=== PATIENT | female | born 1950 | race Caucasian/White ===

== ENCOUNTER → 2017-09-29 08:31 | Outpatient (CLI) | payer MEDICARE, SELFPAY ==
[2017-09-29 10:46] LABS: Anion Gap 6 (5-15); BUN 9 mg/dL (7-18); BUN/Creat Ratio 11.7 RATIO (10-20); Calcium,Total 8.8 mg/dL (8.5-10.1); Chloride 104 mmol/L (98-107); Creatinine, Serum 0.77 mg/dL (0.55-1.02); EST Glomerular Filtration Rate 80 mL/min (>60); Est Glom Filt Rate - Afr Amer 97 mL/min (>60); Glucose 123 mg/dL (74-106); Potassium 3.8 mmol/L (3.5-5.1); Sodium Level 136 mmol/L (136-145); Thyroid Stim Hormone (TSH) 0.87 uIU/mL (0.358-3.74)
== END ==
PROVIDERS: Family Provider Family Medicine; PCP Family Medicine; Visit Provider Family Medicine
DX: I10 Essential (primary) hypertension (principal); E03.9 Hypothyroidism, unspecified
CPT/HCPCS: 36415; 80048; 84443

== ENCOUNTER 2017-11-04 09:30 | Outpatient (RCR) | payer MEDICARE, SELFPAY ==
--- NOTE | 2017-10-26 11:05 | HP.PTEVAL_ITS ---
Patient's Visit Information RIOS GROVER is a 67 year old F referred to Physical Therapy by Ashley Samayoa MD with a diagnosis of LOW BACK PAIN. Date of Evaluation: 10/26/17 Physical Therapist: Luciana Goss - Visit Plan Frequency: 2-3x /Week Duration: 4-6 Weeks Plan: POSTURE CORRECTION/STRENGTHENING, INSTRUCTION IN APPROPRIATE BODY MECHANICS AND ACTIVITY MODIFICATIONS. DLS STARTING WITH A NEUTRAL SPINE PROGRESSING ROM TOLERATED. ALENA LE ROM, STRETCHING AND STRENGTHENING. HEP INSTRUCTION. - Subjective Subjective: Work/Leisure: RETIRED. Disability: NO. Present symptoms: LEFT LOW BACK, LEFT THIGH, LEFT LEG AND LEFT FOOT. LEFT TOES ARE NUMB. Present since: LAST TUESDAY. Pain Scale: WORST 8/10, LEAST 7/10. Currently: /10. Commenced as a result of: NO APPARENT REASON BUT ABOUT Oct SHE STARTED TO TRY TO INCREASE HER ACTIVITY BECAUSE TOLD HE IS BORDERLINE DIABETIC. SHE WAS JUST BASICALLY TRYING TO MOVE MORE. SHE ISN'T SURE IF SHE TRIED TO DO TOO MUCH TOO QUICK OR NOT. PATIENT ALSO REPORTS SHE WAS GOING UP THE STEPS TUESDAY AND HER 70 LB DOG JERKED HER TO THE RIGHT ON TUESDAY BUT SHE DIDN'T FALL. Symptoms at onset: MILD LOW BACK ACHE. Worse: SITTING, RISING FROM SITTING, WALKING, STANDING, AND TRYING TO SLEEP IS THE WORST. Better: NOTHING. Disturbed sleep : YES. Previous history: CHRONIC EPISODIC LBP SINCE THE DUE TO AN ACCIDENT INVOLVING 900 LBS OF BOXES HITTING HER BACK AT WORK. NO BACK SURGERY. WORK CONDITIONING AFTER THE ACCIDENT. CHIROPRACTOR A LONG TIME AGO. NO RECENT PT. RECEIVED A STEROID SHOT IN DR. SAMAYOA'S OFFICE LAST TUESDAY BUT PATIENT REPORTS IT DID NOT HELP. Coughing/sneezing/straining: POSITIVE. Difficulty initiating urinatin: NO. Accidents: NO OTHERS. Unexplained weight loss: NO. Imaging: NO RECENT IMAGING. PMH: THYROID DZ. SMOKER. Recent major surgery: REMOTE FEMALE SURGERIES. OTHER: DR. SAMAYOA PRESCRIBED 3 IBUPROFEN 3 TIMES A DAY. NO OTHER MEDS ORDERED. - Objective Sitting/Standing Posture: POOR. Lordosis: REDUCED. Lateral shift: YES - RIGHT. Relevant shift: YES. Active Correction of posture: BETTER. Other Observations: BARELY ABLE TO TRANSFER SIT TO STAND WITHOUT UE ASSIST. INDEP VERY ANTALGIC SLOW GAIT INTO PT WITH DECREASED ALENA STRIDE LENGTH, NO AD AND LIMPING ON THE LLE WITH A RIGHT SHIFT. Motor deficit: RIGHT LE: HIP 4-/5, KNEE EXT 5/5, KNEE FLEX 5/5, ANKLE 5/5, EHL 5/5. LLE: HIP 3/5, KNEE EXT 4/5, KNEE FLEX 4/5, ANKLE 4/5 EHL 4/5. Sensory deficit: DECREASED LIGHT TOUCH SENSATION OF LEFT LATERAL THIGH, LEG AND THE TOES ON LEFT COMPARED TO RIGHT. ROM deficit: ALENA L. Reflexes: ALENA LE'S 2/3. Dural Signs: POSITIVE LLE. Lumbar mvmt loss: flex - MOD. ext - FLORY. R SG - MOD. L SG - FLORY. Core strength: POOR. Palpation: TENDERNESS WITH LIGHT PALPATION OF THE ENTIRE LUMBAR SPINE, SACRAL AREA AND TO TAILBONE. OTHER: MUCH IMPROVED GAIT UPON DEPARTURE AFTER THER. ACTIVITIES. - Goals Goal 1:: DECREASE C/O LOW BACK AND LLE SX'S Goal Time Frame: 4-6 Weeks Goal 2:: IMPROVE SITTING, STANDING, WALKING, RISING FROM SITTING, PERSONAL CARE , SLEEP, SOCIAL LIFE, TRAVEL AND HOMEMAKING FUNCTION Goal Time Frame: 4-6 Weeks Goal 3:: INSTRUCT IN PROPHYLAXIS Goal Time Frame: 4-6 Weeks - Rehabilitation Potential Rehabilitation Potential: Fair - Anticipated Interventions Patient/Client Instruction: Educate patient on: Condition, Plan of Care, Risk Factors, Benefits of Fitness Program For the Purpose of:: To improve self management Therapeutic Exercise to Include: Strength training, Body mechanics, Postural training, Flexibilty training, Gait and locomotor training, Active ROM, Dynamic Lumbar Stabilization For the Purpose of:: To decrease pain, To improve muscle performance and motor function, To increase tolerance to activity/condition/position, To improve ability of physical actions for home/community/work/leisure, To improve gait and locomotor functions Thank you for the opportunity to evaluate your patient. For Medicare and Medicare HMO plans, please review the plan of care and approve it. It will need to be FAXED BACK to us at [phone] for Medicare purposes. Please let me know if there are questions or concerns regarding this plan of care. Physician Signature: Date:
--- NOTE | 2017-12-01 13:10 | HP.PTDCNRP_ITS ---
HP - Discharge Summary (1) - Patient Information RIOS GROVER was seen in my office for initial evaluation on 10/26/17. The following Plan of Care was established for this patient: Initial Frequency: 2-3x /Week Initial Duration: 4-6 Weeks - Anticipated Interventions Patient/Client Instruction: Educate patient on: Condition, Plan of Care, Risk Factors, Benefits of Fitness Program For the Purpose of:: To improve self management Therapeutic Exercise to Include: Strength training, Body mechanics, Postural training, Flexibilty training, Gait and locomotor training, Active ROM, Dynamic Lumbar Stabilization For the Purpose of:: To decrease pain, To improve muscle performance and motor function, To increase tolerance to activity/condition/position, To improve mariah lity of physical actions for home/community/work/leisure, To improve gait and locomotor functions This patient was last seen in our office 11/04/17. Pertinent comments regarding their Physical therapy will appear below: This patient has not returned to Physical Therapy and is appropriate to return to MD for further follow-up as needed. At this point I will be discontinuing this patient from physical therapy. I would be happy to see this patient again in the future if found appropriate by the physician. Thank you! Luciana Goss
== END 2017-11-04 19:00 | disposition home or self-care (01) ==
LOC: PT 09:30
PROVIDERS: Family Provider Family Medicine; PCP Family Medicine; Visit Provider Family Medicine
DX: M54.5 Low back pain (principal)
CPT/HCPCS: 97035; 97140; 97162; 97530

== ENCOUNTER → 2018-02-03 08:36 | Outpatient (CLI) | payer MEDICARE, SELFPAY ==
[2018-02-03 10:25] LABS: Glucose 99 mg/dL (74-106); Hemoglobin A1c 5.7 % (4.2-6.3)
--- OUTSIDE RECORDS SUMMARY | 2018-03-31 03:19 | XMS RPT_ITS ---
:1950 Author Organization [facility] Care Team Providers Name Role Phone Rob Rivas Attending Unavailable Rob Rivas Primary Care Unavailable Ashley Samayoa Attending Unavailable Ashley Samayoa Referring Unavailable Rob Rivas Primary Care Unavailable Rob Rivas Attending Unavailable Rob Rivas Primary Care Unavailable PROBLEMS PROBLEMS DATE TYPE CONDITION / CODE ATTENDING STATUS SOURCE 12/01/2017 Unknown M54.5 - Low back Ashley Samayoa Active [place] pain / M54.5(ICD-10) [facility] Repository 09/29/2017 Unknown I10 - Essential Rob Rivas Active [place] (primary) [facility] hypertension / Hospital I10(ICD-10) Repository 09/29/2017 Unknown 401.1 - Benign Rob Rivas Active [place] essential [facility] hypertension / Hospital 401.1(ICD-9) Repository 09/29/2017 Unknown E03.9 - RivasRob Active [place] Hypothyroidism, [facility] unspecified / Hospital E03.9(ICD-10) Repository 09/29/2017 Unknown 244.9 - Unspecified RivasRob Active [place] acquired [facility] hypothyroidism / Hospital 244.9(ICD-9) Repository PROCEDURES PROCEDURES No Procedure Records FoundRESULTS RESULTS GLUCOSE Collected: 02/03/2018 Status: F Source: [place] 8:39 AM PENDING SALE TO [facility] REPOSITORY Order Comment: Order Date: 10/10/17 Order Info: 2345-7 - GLU TYPE CODE TESTS RESULT OUT OF RANGE REFERENCE UNITS LAB L501.0100 74-106 mg/dL Normal GLU 99 Result Comment: Please note revised GLUCOSE reference range effective 2017. Performed By: #### L501.0100, L501.9985 #### [facility] [address] [place], [address] HEMOGLOBIN A1C Collected: 02/03/2018 Status: F Source: [place] 8:39 AM [facility] REPOSITORY Order Comment: Order Date: 10/10/17 Order Info: [id number] - A1C TYPE CODE TESTS RESULT OUT OF RANGE REFERENCE UNITS LAB L501.9985 4.2-6.3 % Normal HGB A1C 5.7 Performed By: #### L501.0100, L501.9985 #### [facility] [address] [place], [address] INITAL EVALUATION (1) Observed: 10/26/2017 Status: F Source: [place] - PT 2:15 PM [facility] REPOSITORY [facility] [address] [place] [address]. [address] [place], [place] [address] Fax REHABILITATION SERVICES INITIAL EVALUATION MR#: [id number] Acct: [id number] Name: RIOS GROVER Rep #: [id number] : 1950 67 From: Luciana Goss PT, Cert. MDT Referring Dr.: Ashley Samayoa MD Status: [facility] Insurance: [employer]ARE SELF PAY INSURANCE Patient's Visit Information RIOS GROVER is a 67 year old F referred to Physical Therapy by Ashley Samayoa MD with a diagnosis of LOW BACK PAIN. Date of Evaluation: 10/26/17 Physical Therapist: Luciana Goss - Visit Plan Frequency: 2-3x /Week Duration: 4-6 Weeks Plan: POSTURE CORRECTION/STRENGTHENING, INSTRUCTION IN APPROPRIATE BODY MECHANICS AND ACTIVITY MODIFICATIONS. DLS STARTING WITH A NEUTRAL SPINE PROGRESSING ROM TOLERATED. ALENA LE ROM, STRETCHING AND STRENGTHENING. HEP INSTRUCTION. - Subjective Subjective: Work/Leisure: RETIRED. Disability: NO. Present symptoms: LEFT LOW BACK, LEFT THIGH, LEFT LEG AND LEFT FOOT. LEFT TOES ARE NUMB. Present since: LAST TUESDAY. Pain Scale: WORST 8/10, LEAST 7/10. Currently: 8/10. Commenced as a result of: NO APPARENT REASON BUT ABOUT Oct SHE STARTED TO TRY TO INCREASE HER ACTIVITY BECAUSE TOLD HE IS BORDERLINE DIABETIC. SHE WAS JUST BASICALLY TRYING TO MOVE MORE. SHE ISN'T SURE IF SHE TRIED TO DO TOO MUCH TOO QUICK OR NOT. PATIENT ALSO REPORTS SHE WAS GOING UP THE STEPS TUESDAY AND HER 70 LB DOG JERKED HER TO THE RIGHT ON TUESDAY BUT SHE DIDN'T FALL. Symptoms at onset: MILD LOW BACK ACHE. Worse: SITTING, RISING FROM SITTING, WALKING, STANDING, AND TRYING TO SLEEP IS THE WORST. Better: NOTHING. Disturbed sleep: YES. Previous history: CHRONIC EPISODIC LBP SINCE THE DUE TO AN ACCIDENT INVOLVING 900 LBS OF BOXES HITTING HER BACK AT WORK. NO BACK SURGERY. WORK CONDITIONING AFTER THE ACCIDENT. CHIROPRACTOR A LONG TIME AGO. NO RECENT PT. RECEIVED A STEROID SHOT IN DR. SAMAYOA'S OFFICE LAST TUESDAY BUT PATIENT REPORTS IT DID NOT HELP. Coughing/sneezing/straining: POSITIVE. Difficulty initiating urinatin: NO. Accidents: NO OTHERS. Unexplained weight loss: NO. Imaging: NO RECENT IMAGING. PMH: THYROID DZ. SMOKER. Recent major surgery: REMOTE FEMALE SURGERIES. OTHER: DR. SAMAYOA PRESCRIBED 3 IBUPROFEN 3 TIMES A DAY. NO OTHER MEDS ORDERED. - Objective Sitting/Standing Posture: POOR. Lordosis: REDUCED. Lateral shift: YES - RIGHT. Relevant shift: YES. Active Correction of posture: BETTER. Other Observations: BARELY ABLE TO TRANSFER SIT TO STAND WITHOUT UE ASSIST. INDEP VERY ANTALGIC SLOW GAIT INTO PT WITH DECREASED ALENA STRIDE LENGTH, NO AD AND LIMPING ON THE LLE WITH A RIGHT SHIFT. Motor deficit: RIGHT LE: HIP 4-/5, KNEE EXT 5/5, KNEE FLEX 5/5, ANKLE 5/5, EHL 5/5. LLE: HIP 3/5, KNEE EXT 4/5, KNEE FLEX 4/5, ANKLE 4/5 EHL 4/5. Sensory deficit: DECREASED LIGHT TOUCH SENSATION OF LEFT LATERAL THIGH, LEG AND THE TOES ON LEFT COMPARED TO RIGHT. ROM deficit: ALENA L. Reflexes: ALENA LE'S 2/3. Dural Signs: POSITIVE LLE. Lumbar mvmt loss: flex - MOD. ext - FLORY. R SG - MOD. L SG - FLORY. Core strength: POOR. Palpation: TENDERNESS WITH LIGHT PALPATION OF THE ENTIRE LUMBAR SPINE, SACRAL AREA AND TO TAILBONE. OTHER: MUCH IMPROVED GAIT UPON DEPARTURE AFTER THER. ACTIVITIES. - Goals Goal 1:: DECREASE C/O LOW BACK AND LLE SX'S Goal Time Frame: 4-6 Weeks Goal 2:: IMPROVE SITTING, STANDING, WALKING, RISING FROM SITTING, PERSONAL CARE, SLEEP, SOCIAL LIFE, TRAVEL AND HOMEMAKING FUNCTION Goal Time Frame: 4-6 Weeks Goal 3:: INSTRUCT IN PROPHYLAXIS Goal Time Frame: 4-6 Weeks - Rehabilitation Potential Rehabilitation Potential: Fair - Anticipated Interventions Patient/Client Instruction: Educate patient on: Condition, Plan of Care, Risk Factors, Benefits of Fitness Program For the Purpose of:: To improve self management Therapeutic Exercise to Include: Strength training, Body mechanics, Postural training, Flexibilty training, Gait and locomotor training, Active ROM, Dynamic Lumbar Stabilization For the Purpose of:: To decrease pain, To improve muscle performance and motor function, To increase tolerance to activity/condition/position, To improve ability of physical actions for home/community/work/leisure, To improve gait and locomotor functions Thank you for the opportunity to evaluate your patient. For Medicare and Medicare HMO plans, please review the plan of care and approve it. It will need to be FAXED BACK to us at [phone] for Medicare purposes. Please let me know if there are questions or concerns regarding this plan of care. Physician Signature: Date: <Electronically signed by Luciana Goss PT, Cert. MDT> 10/26/17 1415 CC: Ashley Samayoa MD; Rob Rivas MD HOME Signed For Medicare only, by signing this I certify the plan of care. Physicians Signature Date BASIC METABOLIC Collected: 09/29/2017 Status: F Source: [place] PROFILE (BMP) 8:33 AM [facility] REPOSITORY Order Comment: Order Date: 04/12/17 Order Info: [id number] - BMP Order Info: 3016-3 - TSH TYPE CODE TESTS RESULT OUT OF RANGE REFERENCE UNITS LAB L501.0100 74-106 mg/dL High GLU 123 Result Comment: Fasting Glucose result from 100 to 125 mg/dL suggests IMPAIRED HOMEOSTASIS per A.D.A. criteria. Please note revised GLUCOSE reference range effective 2017. LAB L501.1000 7-18 mg/dL Normal BUN 9 LAB L501.1100 0.55-1.02 mg/dL Normal CREAT,SERUM 0.77 Result Comment: The validity of the calculated GFR AND GFRAA in patients over 70 years has not been determined. Clinical correlation is essential. LAB L501.1110 >60 mL/min Normal EST GFR 80 Result Comment: Non- GFR Calc LAB L501.1115 >60 mL/min Normal EST GFR - AA 97 Result Comment: GFR Calc LAB L501.1300 10-20 RATIO Normal BUN/CRE 11.7 LAB L501.2200 8.5-10.1 mg/dL CA Normal 8.8 LAB L501.5300 136-145 mmol/L NA Normal 136 LAB L501.5600 3.5-5.1 mmol/L K Normal 3.8 LAB L501.5900 98-107 mmol/L CL Normal 104 LAB L501.6100 21.0-32.0 mmol/L Normal CO2 26.0 LAB L501.6200 5-15 Normal GAP 6 Performed By: #### L500.2500, L501.9520 #### [facility] [address] [facility] [address]. [place], [place], [address] THYROID STIM HORMONE Collected: 09/29/2017 Status: F Source: [place] (TSH) 8:33 AM [facility] REPOSITORY Order Comment: Order Date: 04/12/17 Order Info: [id number] - BMP Order Info: 3016-3 - TSH TYPE CODE TESTS RESULT OUT OF RANGE REFERENCE UNITS LAB L501.9520 0.358-3.74 uIU/mL Normal TSH 0.87 Performed By: #### L500.2500, L501.9520 #### [facility] [address] [facility] [place], [address] ALLERGIES ALLERGIES No Allergies Records FoundENCOUNTERS ENCOUNTERS ADMIT/DISCHARGE ACCOUNT ADMITTING ENCOUNTER LOCATION SOURCE NUMBER CLASS 02/03/2018 [id number] Ambulatory [place] 0 [facility] ing:MFPLAB Repository 11/04/2017/ [id number] Ambulatory [place] 8 0 [facility] ing:PT Repository 09/29/2017 [id number] Ambulatory [place] 4 [facility] ing:MFPLAB Repository PAYERS PAYERS ENCOUNTER GUARANTOR PAYER SUBSCRIBER SOURCE 02/03/2018 RIOS David Primary RIOS Taylor [id number] [facility] [place] MEDICAREPolicy [id number] Number: Repository [address]Gyf: 330 [id number] [phone] (HP) Date:[id number] [place] [address] 730[address]EV: 02/03/2018 Secondary NOT GIVENUNK [place] Insurance:SELF PAY [facility] Number: Effective Repository Date:2018-02-03 11/04/2017 RIOS David Primary RIOS Taylor [id number] Insurance:[facility] FRANKAZOB: Community [place] MEDICAREPolicy [id number] Number: Repository [id number]: 330 [id number] [phone] (HP) Date:[id number] [address] [place] [address] 19591JN: 11/04/2017 Secondary NOT GIVENUNK [place] Insurance:SELF PAY [facility] Number: Effective Repository Date:2017-10-25 09/29/2017 RIOS David Primary RIOS Taylor [id number] Insurance[facility] CARE FRANK[place]OB: Community [place] MEDICAREPolicy [id number] Number: Repository [id number]: 330 [id number] [phone] (HP) Date:[id number] [place] [address] [id number]: 09/29/2017 Secondary NOT GIVENUNK [place] Insurance:SELF PAY [facility] Effective Repository Date:2017-09-29
== END ==
PROVIDERS: Family Provider Family Medicine; PCP Family Medicine; Visit Provider Family Medicine
DX: R73.03 Prediabetes (principal)
CPT/HCPCS: 36415; 82947; 83036

== ENCOUNTER → 2018-05-18 08:16 | Outpatient (CLI) | payer MEDICARE, SELFPAY ==
--- NOTE | 2018-05-18 08:19 | BI_ITS ---
MAMMOGRAPHY - BILATERAL SCREENING REASON FOR EXAM: Female, 68 years old. Routine annual screening examination. PERTINENT HISTORY: Aunts with breast cancer. TECHNIQUE: Digital bilateral breast pop (3D mammographic acquisition) in the CC and MLO projections. 2-D mediolateral oblique (MLO) and craniocaudad (CC) views of both breasts were obtained. CAD: Full Field Digital Mammography with Computer Added Detection was performed. COMPARISON: Comparison is made with prior study dated October 10, 2014 and December 29, 2011. FINDINGS: Breast Composition: There are scattered areas of fibroglandular density. There are no dominant masses or suspicious calcifications. No other significant abnormalities are identified. There has been no significant change since the prior study. BI/SCREENING MAMM (CAD), BILAT IMPRESSION: Stable bilateral screening mammogram. Yearly follow-up mammogram recommended. (A) ASSESSMENT CATEGORY: BIRADS Category 1: Negative. A letter regarding these results will be sent to the patient by the facility within 30 days. Approximately 10% of breast cancers are not detected by mammography. A normal mammogram should not delay biopsy of a clinically suspicious abnormality. [id number] Electronically Signed: Juan C Dubon, at 10:20 EDT , Service support ,
== END ==
PROVIDERS: Family Provider Family Medicine; PCP Family Medicine; Referring Provider Family Medicine; Visit Provider Family Medicine
DX: Z12.31 Encounter for screening mammogram for malignant neoplasm of breast (principal)
CPT/HCPCS: 77063; 77067

== ENCOUNTER → 2018-08-03 | Outpatient (CLI) | payer MEDICARE, SELFPAY ==
[2018-08-03 11:01] LABS: BUN 10 mg/dL (7-18); Creatinine, Serum 0.72 mg/dL (0.55-1.02); Glucose 104 mg/dL (74-106)
[2018-08-03 11:02] LABS: Anion Gap 7 (5-15); BUN/Creat Ratio 13.8 RATIO (10-20); Calcium,Total 8.9 mg/dL (8.5-10.1); Chloride 106 mmol/L (98-107); Cholesterol 179 mg/dL (200); EST Glomerular Filtration Rate 86 mL/min (>60); Est Glom Filt Rate - Afr Amer 104 mL/min (>60); High Density Lipoprotein 32 mg/dL; Potassium 4.3 mmol/L (3.5-5.1); Sodium Level 137 mmol/L (136-145); Thyroid Stim Hormone (TSH) 0.13 uIU/mL (0.358-3.74); Triglycerides 138 mg/dL; Very Low Density Lipoprotein 28 mg/dL (5-40)
[2018-08-03 12:03] LABS: Hemoglobin A1c 5.8 % (4.2-6.3)
== END | disposition home or self-care (01) ==
LOC: MFPLAB 08:42
PROVIDERS: Family Provider Family Medicine; PCP Family Medicine; Referring Provider Family Medicine; Visit Provider Family Medicine
DX: I10 Essential (primary) hypertension (principal); E03.9 Hypothyroidism, unspecified; R73.03 Prediabetes; E78.00 Pure hypercholesterolemia, unspecified
CPT/HCPCS: 36415; 80048; 80061; 83036; 84443

== ENCOUNTER → 2018-11-08 | Outpatient (CLI) | payer MEDICARE, SELFPAY ==
[2018-11-08 10:49] LABS: T4 Total, Thyroxin 13.7 ug/dL (4.8-13.9); Thyroid Stim Hormone (TSH) 0.06 uIU/mL (0.358-3.74)
== END | disposition home or self-care (01) ==
LOC: MFPLAB 09:08
PROVIDERS: Family Provider Family Medicine; PCP Family Medicine; Referring Provider Family Medicine; Visit Provider Family Medicine
DX: E03.9 Hypothyroidism, unspecified (principal)
CPT/HCPCS: 36415; 84436; 84443

== ENCOUNTER → 2018-11-21 | Outpatient (CLI) | payer MEDICARE, SELFPAY | END | disposition home or self-care (01) | LOC: LABSPEC 15:45 | PROVIDERS: Family Provider Family Medicine; PCP Family Medicine; Referring Provider Family Medicine; Visit Provider Family Medicine | DX: L02.411 Cutaneous abscess of right axilla (principal) | CPT/HCPCS: 87070; 87205 ==

== ENCOUNTER → 2018-12-13 | Outpatient (CLI) | payer MEDICARE, SELFPAY ==
[2018-12-13 08:23] LABS: Bacteria 0 SEEN /hpf (None Seen); White Blood Cells 0 SEEN /hpf (0-5)
[2018-12-13 10:12] LABS: Color, Urine Yellow (Yellow); Glucose, Dipstick Normal (Normal); Ketone-Dipstick Negative (Negative); Leukocyte Esterase-Dipstick Negative /ul (Negative); Nitrite-Dipstick Negative (Negative); Occult Blood-Urine 50 /ul (Negative); Protein-Dipstick Negative (Negative); Specific Gravity, Urine 1.025 (1.002-1.030); Urine Bilirubin Dipstick Negative (Negative); Urine Clarity Clear (Clear); Urine Urobilinogen Normal (Normal)
[2018-12-13 10:14] LABS: Absolute Neutrophil Count 5.1 X10^3/uL (2.0-7.7); Basophil# 0.07 X10^3/uL; Basophil% 0.9 % (0-1); Eosinophil# 0.19 X10^3/uL; Eosinophils% 2.4 % (0-5); Hematocrit 45.9 % (37-47); Hemoglobin 15.2 g/dL (12.0-15.0); Lymphocyte % 26.1 % (19-41); Mean Corp Hgb Conc 33.1 g/dL (32-36); Mean Corpuscular Hgb 30.2 pg (27.0-32.0); Mean Corpuscular Volume 91.1 fL (81-99); Mean Platelet Vol. 9.3 fl (6.2-12.0); Monocyte# 0.62 X10^3/uL; Monocyte% 7.7 % (0-10); NRBC Flagged by Analyzer 0 % (0-5); Neutrophil # 5.05 X10^3/uL (2.7-7.7); Neutrophil % 62.5 % (47-70); Platelet Count 306 K/mm3 (150-450); RBC Distribution Width CV 11.9 % (11.6-14.6); RBC Distribution Width SD 39.5 fl (35.1-43.9); Red Blood Count 5.04 M/mm3 (4.2-5.4); White Blood Count 8.1 K/mm3 (4.4-11.0)
[2018-12-13 10:25] LABS: Mucous, Urine 1+ /hpf (<or=2+); Red Blood Cells-Urine 0-5 SEEN /hpf (0-5); Squamous Epithelial Cells - UA 0-5 SEEN /hpf (5-10)
[2018-12-13 10:39] LABS: Hemoglobin A1c 5.4 % (4.2-6.3)
[2018-12-13 10:45] LABS: ALB/GLOB Ratio 0.7 RATIO (0.9-2.4); AST(SGOT) 32 U/L (15-37); Alanine Aminotransfer ALT/SGPT 37 U/L (13-56); Albumin, Serum 3.5 g/dL (3.2-5.0); Alkaline Phosphatase 95 U/L (45-117); Anion Gap 4 (5-15); BUN 9 mg/dL (7-18); BUN/Creat Ratio 10.6 RATIO (10-20); Calcium,Total 8.8 mg/dL (8.5-10.1); Chloride 106 mmol/L (98-107); Cholesterol 174 mg/dL (200); Creatinine, Serum 0.85 mg/dL (0.55-1.02); EST Glomerular Filtration Rate 71 mL/min (>60); Est Glom Filt Rate - Afr Amer 86 mL/min (>60); Globulin 5.3 g/dL (2.2-4.2); Glucose 109 mg/dL (74-106); High Density Lipoprotein 35 mg/dL; Protein, Total 8.8 g/dL (6.4-8.2); Sodium Level 137 mmol/L (136-145); Triglycerides 87 mg/dL; Very Low Density Lipoprotein 17 mg/dL (5-40)
== END | disposition home or self-care (01) ==
LOC: MFPLAB 08:20
PROVIDERS: Family Provider Family Medicine; PCP Family Medicine; Referring Provider Family Medicine; Visit Provider Family Medicine
DX: R73.02 Impaired glucose tolerance (oral) (principal); F17.200 Nicotine dependence, unspecified, uncomplicated; I65.29 Occlusion and stenosis of unspecified carotid artery
CPT/HCPCS: 36415; 80053; 80061; 81001; 83036; 85025

== ENCOUNTER → 2018-12-26 | Outpatient (CLI) | payer MEDICARE, SELFPAY ==
--- NOTE | 2018-12-26 12:08 | US_ITS ---
STUDY: THYROID ULTRASOUND REASON FOR EXAM: Female, 68 years old. Goiter. Right thyroidectomy. TECHNIQUE: Ultrasound evaluation of the thyroid was performed with real-time and static rendon-scale imaging. COMPARISON: Prior ultrasound of 06/24/2006 was not submitted for comparison. FINDINGS: RIGHT LOBE: Postsurgical absence. LEFT LOBE: The left lobe of the thyroid gland measures 9.9 x 4.5 x 5 cm. There is a heterogeneous echotexture. There are no demonstrated solid, cystic or complex lesions. ISTHMUS: The isthmus measures 8 mm. US/Thyroid IMPRESSION: 1. Postsurgical absence of the right thyroid lobe. 2. Prominent left thyroid lobe with mild heterogeneous echotexture but no suspicious solid or cystic nodules or mass. Electronically Signed: Patrick Negron MD at 11:47 EDT , Service support ,
--- NOTE | 2018-12-26 12:49 | CDU_ITS ---
Reason For Study: Carotid artery stenosis Rt. Velocities/BP Lt. Velocities/BP Prox CCA 76.1/10.2 cm/sec. Prox CCA 104.7/26.1 cm/sec. Mid CCA 80.2/13.9 cm/sec. Mid CCA 106.5/27.9 cm/sec. Dist CCA 71.6/15.1 cm/sec. Dist CCA 90/27.9 cm/sec. Prox ICA 106.5/18.8 cm/sec. Prox ICA 446/53.6 cm/sec. Mid ICA 97.4/20.6 cm/sec. Mid ICA 112.6/18.2 cm/sec. Dist ICA 102.8/20.6 cm/sec. Dist ICA 76.5/16.3 cm/sec. Rt. ICA/CCA = 1.4. Lt. ICA/CCA = 4.3. Prox ECA 176.9/11.1 cm/sec. Prox ECA 389.2/63 cm/sec. Rt. Vert. 86.4/17 cm/sec. Lt. Vert. 31.1/11.2 cm/sec. Right Extracranial There is homogeneous, smooth atherosclerotic plaque noted in the right common carotid artery. There is heterogeneous, irregular atherosclerotic plaque noted in the right internal carotid artery. There is intimal thickening but no significant atherosclerotic plaque noted in the right external carotid artery. Antegrade flow is noted in the right vertebral artery. Left Extracranial There is homogeneous, smooth atherosclerotic plaque noted in the left common carotid artery. There is heterogeneous, irregular atherosclerotic plaque noted in the left internal carotid artery. There is heterogeneous, irregular atherosclerotic plaque noted in the left external carotid artery. Abnormal waveform noted in the left vertebral artery. Procedure Carotid Duplex [id number]. Prelim to Izabela. Exam performed in department. 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 High speed jet noted. >50% stenosis left external carotid Patent, antegrade, <50% stenosis bilateral vertebrals Notable change on the left since 02/18/05 Ordering Physician: Rob Gurrola Referring Physician: Rob Gurrola Performed By: Suzette Perez RVT
--- NOTE | 2018-12-26 13:19 | ECHOCS_ITS ---
Reason For Study: Murmur Procedure This was a 2D Doppler, Color Flow transthoracic echocardiogram. The study was technically difficult. Contrast injection was performed. Exam performed in department. Left Ventricle Normal LV size. Left ventricular systolic function is normal. The estimated ejection fraction is 65 %. There is evidence of diastolic dysfunction. No regional wall motion abnormalities noted. Right Ventricle Normal RV size. Normal systolic function. Atria The left atrium is moderately enlarged. Normal right atrium. No doppler evidence for ASD. Mitral Valve There is mild mitral annular calcification. Normal mitral valve. Mild (1+) mitral valve insufficiency. Tricuspid Valve Normal tricuspid valve. Trivial tricuspid valve insufficiency. Right ventricular systolic pressure estimated to be 25 mmHg. Aortic Valve Trisinus/trileaflet aortic valve. Mild focal aortic valve calcification. Pulmonic Valve The pulmonic valve is not well visualized. Great Vessels The aortic root is not well visualized. Pericardium/Pleural No pericardial effusion. Medication 22 gauge I.V. with prn adaptor inserted into left arm. Diluted definity 3ml given slow IV push to enhance endocardial definition. MMode/2D Measurements & Calculations LVIDd: 5.0 cm IVSd: 1.0 cm LA dimension: 3.8 cm LVIDs: 2.7 cm LVPWd: 1.1 cm FS: 45.8 % LAV(MOD-bp): 79.8 ml LA A4 area: 23.8 cm2 RA A4 area: 14.1 cm2 LAV(MOD-bp) Indexed: 46.8 ml/m2 LAV(MOD-sp2): 77.2 ml LAV(MOD-sp4): 80.9 ml Time Measurements MV dec time: 0.23 sec Doppler Measurements & Calculations MV E max jairo: 90.1 cm/sec Lat Peak E' Jairo: 5.2 cm/sec Med Peak E' Jairo: 6.7 cm/sec MV A max jairo: 77.6 cm/sec E/E' lat: 17.2 E/E' med: 13.4 MV E/A: 1.2 MV V2 max: 105.9 cm/sec MV P1/2t max jairo: 106.9 cm/sec Ao V2 max: 157.3 cm/sec MV max P.5 mmHg MV P1/2t: 133.6 msec Ao max P.9 mmHg MV V2 mean: 52.8 cm/sec MV dec slope: 234.4 cm/sec2 MV mean P.4 mmHg MV V2 VTI: 43.1 cm MVA(P1/2t): 1.6 cm2 LV V1 max: 140.6 cm/sec PA V2 max: 95.3 cm/sec TR max jairo: 235.5 cm/sec LV V1 max P.9 mmHg TR max P.2 mmHg Interpretation Summary Left ventricular systolic function is normal. The estimated ejection fraction is 65 %. The left atrium is moderately enlarged. There is mild mitral annular calcification. Mild (1+) mitral valve insufficiency. Trivial tricuspid valve insufficiency. Mild focal aortic valve calcification. Right ventricular systolic pressure estimated to be 25 mmHg. There is evidence of diastolic dysfunction. Ordering Physician: Rob Gurrola Referring Physician: Rob Gurrola Performed By: Alex Escobar RCS
== END | disposition home or self-care (01) ==
LOC: US 12:06
PROVIDERS: Family Provider Family Medicine; PCP Family Medicine; Referring Provider Family Medicine; Visit Provider Family Medicine
DX: I65.23 Occlusion and stenosis of bilateral carotid arteries (principal); E04.9 Nontoxic goiter, unspecified; R01.1 Cardiac murmur, unspecified
CPT/HCPCS: 76536; 93306; 93880; Q9957; A4216; C8929

== ENCOUNTER → 2019-01-18 | Outpatient (CLI) | payer MEDICARE, SELFPAY ==
[2019-01-11 08:20] VITALS: BMI 28.3
--- NOTE | 2019-01-18 14:50 | CT_ITS ---
STUDY: CTA NECK WITH CONTRAST REASON FOR EXAM: Female, 68 years old. Carotid stenosis RADIATION DOSAGE (If Supplied By Facility): CTDIvol = ( 16.94 ) mGy, DLP = ( 573.76 ) mGycm TECHNIQUE: CT angiography with multi-detector data acquisition was performed from the aortic arch to the skull base following intravenous administration of IV Isovue 370 100. MIP images were reconstructed from the axial data set. Post-processing of the angiographic images was performed, with multiplanar reformation and 3D reconstruction. Individualized dose optimization techniques were used for this CT. COMPARISON: None. FINDINGS: AORTIC ARCH: Normal visualized aortic arch. Normal origins of the brachiocephalic, left common carotid, and left subclavian arteries. Aberrant retroesophageal right subclavian artery RIGHT CAROTID ARTERIES: Mild diffuse soft plaquing of the right common carotid artery (CCA). Mild soft and calcific plaquing of the right common carotid bulb. Mild soft and calcific plaquing of the origin of the right internal carotid (ICA) artery without a hemodynamically significant stenosis. Normal visualized cervical portion of the right internal carotid artery. Normal origin of the right external carotid artery (ECA). LEFT CAROTID ARTERIES: Mild diffuse soft plaquing of the left common carotid artery (CCA). Moderate soft and calcific plaquing of the left common carotid bulb. Moderate calcific plaquing of the origin of the left internal carotid (ICA) artery with greater than 70% stenosis.. There appears to be ulcerative plaque in the more distal left internal carotid as well as moderate calcific plaquing Normal origin of the left external carotid artery (ECA). VERTEBRAL ARTERIES: Normal bilateral vertebral arteries. Status post right thyroidectomy. Markedly enlarged retrosternal left thyroid goiter CT/CTA Neck W/WO Contrast IMPRESSION: Moderate to severe atherosclerotic disease more severe on the left with greater than 70% stenosis of the origin of the left internal carotid and possible ulcerative plaquing more distally. Catheter angiography would be helpful for further assessment and possible therapeutic purposes if indicated Electronically Signed: Gabriel Nuñez MD at 16:14 EST , Service support ,
== END | disposition home or self-care (01) ==
LOC: CT 14:46
PROVIDERS: Family Provider Family Medicine; PCP Family Medicine; Referring Provider Surgery; Visit Provider Surgery
DX: I65.23 Occlusion and stenosis of bilateral carotid arteries (principal)
CPT/HCPCS: 70498; Q9967

== ENCOUNTER 2019-01-31 05:23 | Inpatient (IN) | payer MEDICARE, SELFPAY ==
[2019-01-11 08:20] VITALS: BMI 28.3
--- NOTE | 2019-01-24 04:37 | HP_ITS ---
Intake Vital Signs 01/24/19 Body Mass Index (BMI) 28.3 Intake Visit Reasons: discuss CTA/ surgery Mechanical Car Checker Required: No Is patient in pain?: No Allergies fluoxetine [From Prozac] Allergy (Intermediate, Verified 01/24/19 15:55) Worsening depression sulfamethoxazole [From Septra] Allergy (Intermediate, Verified 01/24/19 15:55) Rash trimethoprim [From Septra] Allergy (Intermediate, Verified 01/24/19 15:55) Rash Medications aspirin 81 mg tablet,delayed release 81 mg PO DAILY 01/11/19 [History Confirmed 01/24/19] cinnamon bark-chromium picolinate 500 mg-100 mcg capsule 1 cap PO DAILY cap 01/11/19 [History Confirmed 01/24/19] levothyroxine 88 mcg capsule 88 mcg PO DAILY 01/11/19 [History Confirmed 01/24/19] rosuvastatin 10 mg tablet 10 mg PO DAILY 01/11/19 [History Confirmed 01/24/19] [facility] Medical History Carotid stenosis, left (Acute) Acid reflux (Acute) Anxiety (Acute) Carotid stenosis (Acute) Solis's disease (Acute) Surgical History History of appendectomy (Acute) History of section (Acute) History of hysterectomy (Acute) History of tonsillectomy (Acute) history right thyroid lobectomy (Acute) Family History Mother Hypertension Cancer brain tumor Father Cancer Brain tumor Social History (Updated 01/24/19 @ 16:37 by Dejuan Ritter MD) Smoking Status: Former smoker Tobacco: How many years used: 49 alcohol intake: never substance use type: does not use HPI HPI HPI: RIOS GROVER, is a 68 F who presents to the office today for HPI HPI Surgical H&P: Yes HPI: RIOS GROVER, is a 68 F who presents to the office today for surgical follow-up regarding her severe stenosis of her left extra cranial internal carotid. My previous notes are as follows with the addition of the CTA of the carotids: [facility] Imaging Services [address] [place] [address] CTA Neck W/WO Contrast MR#: [id number] Name: RIOS GROVER #:[id number] : 1950F 68 From: Gabriel Nuñez MD PCP:Rob Gurrola MD Status:REG CLI Study:CTA Neck W/WO Contrast Date of Exam:01/18/19 Exam#[id number] Ordering Dr: Dejuan Ritter MD STUDY: CTA NECK WITH CONTRAST REASON FOR EXAM: Female, 68 years old. Carotid stenosis RADIATION DOSAGE (If Supplied By Facility): CTDIvol = ( 16.94 ) mGy, DLP = ( 573.76 ) mGycm TECHNIQUE: CT angiography with multi-detector data acquisition was performed from the aortic arch to the skull base following intravenous administration of IV Isovue 370 100. MIP images were reconstructed from the axial data set. Post-processing of the angiographic images was performed, with multiplanar reformation and 3D reconstruction. Individualized dose optimization techniques were used for this CT. COMPARISON: None. FINDINGS: AORTIC ARCH: Normal visualized aortic arch. Normal origins of the brachiocephalic, left common carotid, and left subclavian arteries. Aberrant retroesophageal right subclavian artery RIGHT CAROTID ARTERIES: Mild diffuse soft plaquing of the right common carotid artery (CCA). Mild soft and calcific plaquing of the right common carotid bulb. Mild soft and calcific plaquing of the origin of the right internal carotid (ICA) artery without a hemodynamically significant stenosis. Normal visualized cervical portion of the right internal carotid artery. Normal origin of the right external carotid artery (ECA). LEFT CAROTID ARTERIES: Mild diffuse soft plaquing of the left common carotid artery (CCA). Moderate soft and calcific plaquing of the left common carotid bulb. Moderate calcific plaquing of the origin of the left internal carotid (ICA) artery with greater than 70% stenosis.. There appears to be ulcerative plaque in the more distal left internal carotid as well as moderate calcific plaquing Normal origin of the left external carotid artery (ECA). VERTEBRAL ARTERIES: Normal bilateral vertebral arteries. Status post right thyroidectomy. Markedly enlarged retrosternal left thyroid goiter CT/CTA Neck W/WO Contrast IMPRESSION: Moderate to severe atherosclerotic disease more severe on the left with greater than 70% stenosis of the origin of the left internal carotid and possible ulcerative plaquing more distally. Catheter angiography would be helpful for further assessment and possible therapeutic purposes if indicated Electronically Signed: Gabriel Nuñez MD at 16:14 EST , Service support , Intake Visit Reasons: Carotid Stenosis Carotid US 12/26 [facility] Mechanical Car Checker Required: No Is patient in pain?: No Allergies fluoxetine [From Prozac] Allergy (Intermediate, Verified 01/11/19 08:22) Worsening depression sulfamethoxazole [From Septra] Allergy (Intermediate, Verified 01/11/19 08:23) Rash trimethoprim [From Septra] Allergy (Intermediate, Verified 01/11/19 08:23) Rash Medications aspirin 81 mg tablet,delayed release 81 mg PO DAILY 01/11/19 [History Confirmed 01/11/19] cinnamon bark-chromium picolinate 500 mg-100 mcg capsule cap PO DAILY cap 01/11/19 [History] levothyroxine 88 mcg capsule 88 mcg PO DAILY 01/11/19 [History] rosuvastatin 10 mg tablet 10 mg PO DAILY 01/11/19 [History Confirmed 01/11/19] [facility] Medical History (Updated 01/11/19 @ 10:06 by Dejuan Ritter MD) Carotid stenosis, left (Acute) Acid reflux (Acute) Anxiety (Acute) Carotid stenosis (Acute) Solis's disease (Acute) Surgical History (Updated 01/11/19 @ 08:18 by Leticia Pedraza) History of appendectomy (Acute) History of section (Acute) History of hysterectomy (Acute) History of tonsillectomy (Acute) history right thyroid lobectomy (Acute) Family History (Updated 01/11/19 @ 08:18 by Leticia Pedraza) Mother Hypertension Cancer brain tumor Father Cancer Brain tumor Social History (Updated 01/11/19 @ 10:08 by Dejuan Ritter MD) Smoking Status: Current some day smoker Tobacco: How many years used: 49 alcohol intake: never substance use type: does not use HPI HPI HPI: RIOS GROVER, is a 68 F who presents to the office today for surgical consultation regarding asymptomatic severe extracranial left carotid occlusive disease. The patient was referred by her primary care vision Dr Rob Gurrola and a written copy of my surgical consult recommendations will be returned to him. The patient states that she is new to Dr. Rob Banks and upon evaluating her there was reference dating back to known carotid stenosis with according to the patient a previous carotid duplex exam in 2004. She denies CVA or myocardial infarction. However she has been a lifelong cigarette smoker. She continues to smoke cigarettes. She occasionally has some orthostatic dizziness. She denies TIA or stroke. On December 26, 2018 she had carotid duplex imaging obtained which did not demonstrate significant disease on the right but in the proximal left internal carotid she had a peak systolic velocity of 446 cm/s with an end-diastolic velocity of 53. There is also severe disease of the left proximal external carotid. She was felt to have greater than 70% stenosis of the left internal carotid and upon my review it is likely greater than 80% stenosis. She states that she was initiated on a statin medication as well as low-dose aspirin. She does recognize that it was strongly encouraged her of her to cease her tobacco use. She does not get routine exercise. She does not complain of calf cramping with walking but her walking is limited. She does get dyspneic on exertion. In addition to the carotid duplex she had an echocardiogram with an ejection fraction of 65%. 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 [facility] Cardiovascular Services [address] [place] [address] Carotid Duplex Ultrasound 12/26/18 1400 MR#: [id number] Name:RIOS GROVER #:[id number] : 1950 68From:Dejuan Ritter MD Attending Dr: Rob Gurrola, MDStatus: REG CLI Ordering Dr: Rob Gurrola MDDate: 12/26/18 Location:[facility]ex: Admitted: Reason For Study: Carotid artery stenosis Rt. Velocities/BP Lt. Velocities/BP Prox CCA 76.1/10.2 cm/sec. Prox CCA 104.7/26.1 cm/sec. Mid CCA 80.2/13.9 cm/sec. Mid CCA 106.5/27.9 cm/sec. Dist CCA 71.6/15.1 cm/sec. Dist CCA 90/27.9 cm/sec. Prox ICA 106.5/18.8 cm/sec. Prox ICA 446/53.6 cm/sec. Mid ICA 97.4/20.6 cm/sec. Mid ICA 112.6/18.2 cm/sec. Dist ICA 102.8/20.6 cm/sec. Dist ICA 76.5/16.3 cm/sec. Rt. ICA/CCA = 1.4. Lt. ICA/CCA = 4.3. Prox ECA 176.9/11.1 cm/sec. Prox ECA 389.2/63 cm/sec. Rt. Vert. 86.4/17 cm/sec. Lt. Vert. 31.1/11.2 cm/sec. Right Extracranial There is homogeneous, smooth atherosclerotic plaque noted in the right common carotid artery. There is heterogeneous, irregular atherosclerotic plaque noted in the right internal carotid artery. There is intimal thickening but no significant atherosclerotic plaque noted in the right external carotid artery. Antegrade flow is noted in the right vertebral artery. Left Extracranial There is homogeneous, smooth atherosclerotic plaque noted in the left common carotid artery. There is heterogeneous, irregular atherosclerotic plaque noted in the left internal carotid artery. There is heterogeneous, irregular atherosclerotic plaque noted in the left external carotid artery. Abnormal waveform noted in the left vertebral artery. Procedure Carotid Duplex 40620. Prelim to Izabela. Exam performed in department. 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 High speed jet noted. >50% stenosis left external carotid Patent, antegrade, <50% stenosis bilateral vertebrals Notable change on the left since 02/18/05 Ordering Physician: Rob Gurrola Referring Physician: Rob Gurrola Performed By: Suzette Perez RVT 12/26/181653 Date Dejuan Ritter MD CC: Rob Gurrola MD ~ Date Dictated:12/26/18 1400 Date Transcribed: 12/26/181653 Professor Of Sport Management: Signed [facility] Imaging Services [address] [place] [address] Thyroid MR#: [id number] Name: RIOS GROVER #:[id number] : 1950F 68 From: Patrick Negron MD PCP:Rob Gurrola MD Status:REG CLI Study:Thyroid Date of Exam:12/26/18 Exam#[id number] Ordering Dr: Rob Gurrola MD STUDY: THYROID ULTRASOUND REASON FOR EXAM: Female, 68 years old. Goiter. Right thyroidectomy. TECHNIQUE: Ultrasound evaluation of the thyroid was performed with real-time and static rendon-scale imaging. COMPARISON: Prior ultrasound of 06/24/2006 was not submitted for comparison. FINDINGS: RIGHT LOBE: Postsurgical absence. LEFT LOBE: The left lobe of the thyroid gland measures 9.9 x 4.5 x 5 cm. There is a heterogeneous echotexture. There are no demonstrated solid, cystic or complex lesions. ISTHMUS: The isthmus measures 8 mm. US/Thyroid IMPRESSION: 1. Postsurgical absence of the right thyroid lobe. 2. Prominent left thyroid lobe with mild heterogeneous echotexture but no suspicious solid or cystic nodules or mass. Electronically Signed: Patrick Negron MD at 11:47 EDT , Service support , CC: Rob Gurrola MD ~ Professor Of Sport Management: Signed [facility] Cardiovascular Services [address] [place] [address] Echo Complete W/ Contrast 12/26/18 1337 MR#: [id number] Name:RIOS GROVER #:[id number] : 1950 68From:Ryder Aguilera MD Attending Dr: TRAVIS Harpertatus: REG CLI Ordering Dr: Rob Gurrola MDDate: 12/26/18 Location:USSex: Admitted: Reason For Study: Murmur Procedure This was a 2D Doppler, Color Flow transthoracic echocardiogram. The study was technically difficult. Contrast injection was performed. Exam performed in department. Left Ventricle Normal LV size. Left ventricular systolic function is normal. The estimated ejection fraction is 65 %. There is evidence of diastolic dysfunction. No regional wall motion abnormalities noted. Right Ventricle Normal RV size. Normal systolic function. Atria The left atrium is moderately enlarged. Normal right atrium. No doppler evidence for ASD. Mitral Valve There is mild mitral annular calcification. Normal mitral valve. Mild (1+) mitral valve insufficiency. Tricuspid Valve Normal tricuspid valve. Trivial tricuspid valve insufficiency. Right ventricular systolic pressure estimated to be 25 mmHg. Aortic Valve Trisinus/trileaflet aortic valve. Mild focal aortic valve calcification. Pulmonic Valve The pulmonic valve is not well visualized. Great Vessels The aortic root is not well visualized. Pericardium/Pleural No pericardial effusion. Medication 22 gauge I.V. with prn adaptor inserted into left arm. Diluted definity 3ml given slow IV push to enhance endocardial definition. MMode/2D Measurements & Calculations LVIDd: 5.0 cm IVSd: 1.0 cm LA dimension: 3.8 cm LVIDs: 2.7 cm LVPWd: 1.1 cm FS: 45.8 % _ LAV(MOD-bp): 79.8 ml LA A4 area: 23.8 cm2 RA A4 area: 14.1 cm2 LAV(MOD-bp) Indexed: 46.8 ml/m2 LAV(MOD-sp2): 77.2 ml LAV(MOD-sp4): 80.9 ml Time Measurements MV dec time: 0.23 sec Doppler Measurements & Calculations MV E max jairo: 90.1 cm/sec Lat Peak E' Jairo: 5.2 cm/sec Med Peak E' Jairo: 6.7 cm/sec MV A max jairo: 77.6 cm/sec E/E' lat: 17.2 E/E' med: 13.4 MV E/A: 1.2 _ MV V2 max: 105.9 cm/sec MV P1/2t max jairo: 106.9 cm/sec Ao V2 max: 157.3 cm/sec MV max P.5 mmHg MV P1/2t: 133.6 msec Ao max P.9 mmHg MV V2 mean: 52.8 cm/sec MV dec slope: 234.4 cm/sec2 MV mean P.4 mmHg MV V2 VTI: 43.1 cm MVA(P1/2t): 1.6 cm2 _ LV V1 max: 140.6 cm/sec PA V2 max: 95.3 cm/sec TR max jairo: 235.5 cm/sec LV V1 max P.9 mmHg TR max P.2 mmHg Interpretation Summary Left ventricular systolic function is normal. The estimated ejection fraction is 65 %. The left atrium is moderately enlarged. There is mild mitral annular calcification. Mild (1+) mitral valve insufficiency. Trivial tricuspid valve insufficiency. Mild focal aortic valve calcification. Right ventricular systolic pressure estimated to be 25 mmHg. There is evidence of diastolic dysfunction. Ordering Physician: Rob Gurrola Referring Physician: Rob Gurrola Performed By: Alex Escobar RCS 12/26/181935 Date Ryder Aguilera MD CC: Rob Gurrola MD ~ Date Dictated:12/26/18 1337 Date Transcribed: 12/26/181935 Professor Of Sport Management: Signed HPI HPI HPI: RIOS GROVER, is a 68 F who presents to the office today for ROS General General: No weight change, appetite, fatigue, colon cancer, breast cancer or weakness HEENT HEENT: No difficulty swallowing, eye injury, eye surgery, swollen glands or hoarseness Endo Endocrine: Yes thyroid disease; no diabetes mellitus, thyroid cancer, Hair loss, heat intolerance or cold intolerance Skin Skin: No rash or changing moles Breast Breast: No left breast lump, right breast lump, nipple discharge, breast pain, abnormal mammogram, abnormal US or breast enlargement Musc Musculoskeletal: No back problems, arthritis, rheumatoid arthritis, gout or joint pain Cardio Cardiovascular: Yes murmur; no pacemaker, heart disease, atrial fibrillation, high blood pressure, heart attack, heart stent, palpitations, shortness of breat with exertion or chest pain Psych Psychiatric: Yes anxiety; no depression or hearing voices Resp Respiratory: Yes shortness of breath, No sleep apnea, No cough, No COPD, No asthma, No emphysema, No wheezing Gastro Gastrointestinal: No abdominal pain, No nausea or vomiting, No diarrhea, Yes constipation, No blood in stool, Yes acid reflux, No hemorrhoids, No ulcers, No gallbladder problem, No black,tarry stools Lester Hematologic: Yes blood thinners, No blood disorders, No bleeding, No anemia, No blood clots Neuro Neurologic: No system reviewed and no additional complaints, except as docu, No as per HPI, No abnormal walking, No abnormal hearing, No abnormal movements, No abnormal speech, No behavioral changes, No burning sensations, No confusion, No seizure-like activity, No unsteadiness, No dizziness, No localized weakness, No frequent falls, No headache(s), No lack of coordination, No loss of vision, No memory loss, No numbness, No other visual disturbances, No radiating pain, No restless legs, No sensory deficit, No fainting, No tingling, No tremor(s), No weakness, No other Exam Const General: cooperative, comfortable, no acute distress Nutritional Appearance: overweight Orientation: alert, awake, oriented x3 HENMT Head: normal to inspection Chest Breast Palpation: No nipple discharge Other: Increased anterior posterior diameter Resp Other: Slight scattered bibasilar rales Cardio Rate: regular rate Rhythm: regular rhythm Heart Sounds: murmur GI Palpation: soft, no hepatosplenomegaly Auscultation: normal bowel sounds Other: Not expansile or pulsatile, Skin General: no rashes or lesions noted Neuro Cognition: normal cognition Extrem General: no calf tenderness bilaterally Psych Affect: normal affect Assessment & Plan Problems 1. Carotid stenosis, left I65.22 Plan I have discussed with the patient recommendations for intervention regarding the left internal carotid and I have compared and contrasted surgical intervention in the form of left carotid endarterectomy with bovine patch angioplasty versus carotid artery stenting. Patient is very much aware that I do not perform stenting. She has had an opportunity to ask and have questions answered. I have vigorously encouraged the patient to cease her tobacco use immediately. I have encouraged the patient to take her statin medication and aspirin as has been prescribed. I would like to obtain a CTA of her carotids and have her return to the office. After discussion regarding treatment options I believe that the patient is at increased risk of stroke from nonoperative to operative management. She would like to proceed as noted. She is aware there is no guarantees of success and that there is no 0 risk pathway. I also discussed with her anticipated placement of an arterial line to help monitor her throughout her procedure. We will tentatively look for an operative date. She will return to my office for further discussions subsequent to the CTA. I very much appreciate the kind opportunity of assisting with her surgical care CC: Dr Rob Ritter M.D., F.A.C.S. Orders Orders: CTA Neck W/WO Contrast Today I65.23 Coding Level of Care Code 52687 Diagnoses Carotid stenosis, left I65.22 Assessment & Plan Problems 1. Carotid stenosis, left I65.22 Plan With family members present I again recommended the patient a left carotid endarterectomy with patch angioplasty and arterial line monitoring. In detail I have discussed technique, benefits, risks, alternatives. She has had an opportunity to ask and have questions answered. We will schedule and proceed at her discretion. She will continue to maximize her medical care to the greatest degree possible. My understanding is that she is making a concerted effort at stopping her cigarette smoking. I appreciate the opportunity of assisting with her surgical care Primary CARE: Dr Rob Ritter M.D., F.A.C.S. Coding Level of Care Code Off vis,est,level 3 Diagnoses Carotid stenosis, left I65.22 Time Spent (min) 30 01/24/19 0077 <Electronically signed by Dejuan tong MD> Date _ Dejuan Ritter MD I have re-examined the patient. There are no clinical changes since date of exam.
--- NOTE | 2019-01-24 04:37 | HP_ITS ---
Intake Vital Signs 01/24/19 Body Mass Index (BMI) 28.3 Intake Visit Reasons: discuss CTA/ surgery Sales Performance Analyst Required: No Is patient in pain?: No Allergies fluoxetine [From Prozac] Allergy (Intermediate, Verified 01/24/19 15:55) Worsening depression sulfamethoxazole [From Septra] Allergy (Intermediate, Verified 01/24/19 15:55) Rash trimethoprim [From Septra] Allergy (Intermediate, Verified 01/24/19 15:55) Rash Medications aspirin 81 mg tablet,delayed release 81 mg PO DAILY 01/11/19 [History Confirmed 01/24/19] cinnamon bark-chromium picolinate 500 mg-100 mcg capsule 1 cap PO DAILY cap 01/11/19 [History Confirmed 01/24/19] levothyroxine 88 mcg capsule 88 mcg PO DAILY 01/11/19 [History Confirmed 01/24/19] rosuvastatin 10 mg tablet 10 mg PO DAILY 01/11/19 [History Confirmed 01/24/19] [facility] Medical History Carotid stenosis, left (Acute) Acid reflux (Acute) Anxiety (Acute) Carotid stenosis (Acute) Soils's disease (Acute) Surgical History History of appendectomy (Acute) History of section (Acute) History of hysterectomy (Acute) History of tonsillectomy (Acute) history right thyroid lobectomy (Acute) Family History Mother Hypertension Cancer brain tumor Father Cancer Brain tumor Social History (Updated 01/24/19 @ 16:37 by Dejuan Ritter MD) Smoking Status: Former smoker Tobacco: How many years used: 49 alcohol intake: never substance use type: does not use HPI HPI HPI: RIOS GROVER, is a 68 F who presents to the office today for HPI HPI Surgical H&P: Yes HPI: RIOS GROVER, is a 68 F who presents to the office today for surgical follow-up regarding her severe stenosis of her left extra cranial internal carotid. My previous notes are as follows with the addition of the CTA of the carotids: [facility] Imaging Services [address] [place] [address] CTA Neck W/WO Contrast MR#: [id number] Name: RIOS GROVER #:[id number] : 1950F 68 From: Gabriel Nuñez MD PCP:Rob Gurrola MD Status:REG CLI Study:CTA Neck W/WO Contrast Date of Exam:01/18/19 Exam#[id number] Ordering Dr: Dejuan Ritter MD STUDY: CTA NECK WITH CONTRAST REASON FOR EXAM: Female, 68 years old. Carotid stenosis RADIATION DOSAGE (If Supplied By Facility): CTDIvol = ( 16.94 ) mGy, DLP = ( 573.76 ) mGycm TECHNIQUE: CT angiography with multi-detector data acquisition was performed from the aortic arch to the skull base following intravenous administration of IV Isovue 370 100. MIP images were reconstructed from the axial data set. Post-processing of the angiographic images was performed, with multiplanar reformation and 3D reconstruction. Individualized dose optimization techniques were used for this CT. COMPARISON: None. FINDINGS: AORTIC ARCH: Normal visualized aortic arch. Normal origins of the brachiocephalic, left common carotid, and left subclavian arteries. Aberrant retroesophageal right subclavian artery RIGHT CAROTID ARTERIES: Mild diffuse soft plaquing of the right common carotid artery (CCA). Mild soft and calcific plaquing of the right common carotid bulb. Mild soft and calcific plaquing of the origin of the right internal carotid (ICA) artery without a hemodynamically significant stenosis. Normal visualized cervical portion of the right internal carotid artery. Normal origin of the right external carotid artery (ECA). LEFT CAROTID ARTERIES: Mild diffuse soft plaquing of the left common carotid artery (CCA). Moderate soft and calcific plaquing of the left common carotid bulb. Moderate calcific plaquing of the origin of the left internal carotid (ICA) artery with greater than 70% stenosis.. There appears to be ulcerative plaque in the more distal left internal carotid as well as moderate calcific plaquing Normal origin of the left external carotid artery (ECA). VERTEBRAL ARTERIES: Normal bilateral vertebral arteries. Status post right thyroidectomy. Markedly enlarged retrosternal left thyroid goiter CT/CTA Neck W/WO Contrast IMPRESSION: Moderate to severe atherosclerotic disease more severe on the left with greater than 70% stenosis of the origin of the left internal carotid and possible ulcerative plaquing more distally. Catheter angiography would be helpful for further assessment and possible therapeutic purposes if indicated Electronically Signed: Gabriel Nuñez MD at 16:14 EST , Service support , Intake Visit Reasons: Carotid Stenosis Carotid US 12/26 [facility] Sales Performance Analyst Required: No Is patient in pain?: No Allergies fluoxetine [From Prozac] Allergy (Intermediate, Verified 01/11/19 08:22) Worsening depression sulfamethoxazole [From Septra] Allergy (Intermediate, Verified 01/11/19 08:23) Rash trimethoprim [From Septra] Allergy (Intermediate, Verified 01/11/19 08:23) Rash Medications aspirin 81 mg tablet,delayed release 81 mg PO DAILY 01/11/19 [History Confirmed 01/11/19] cinnamon bark-chromium picolinate 500 mg-100 mcg capsule cap PO DAILY cap 01/11/19 [History] levothyroxine 88 mcg capsule 88 mcg PO DAILY 01/11/19 [History] rosuvastatin 10 mg tablet 10 mg PO DAILY 01/11/19 [History Confirmed 01/11/19] [facility] Medical History (Updated 01/11/19 @ 10:06 by Dejuan Ritter MD) Carotid stenosis, left (Acute) Acid reflux (Acute) Anxiety (Acute) Carotid stenosis (Acute) Solis's disease (Acute) Surgical History (Updated 01/11/19 @ 08:18 by Leticia Pedraza) History of appendectomy (Acute) History of section (Acute) History of hysterectomy (Acute) History of tonsillectomy (Acute) history right thyroid lobectomy (Acute) Family History (Updated 01/11/19 @ 08:18 by Leticia Pedraza) Mother Hypertension Cancer brain tumor Father Cancer Brain tumor Social History (Updated 01/11/19 @ 10:08 by Dejuan Ritter MD) Smoking Status: Current some day smoker Tobacco: How many years used: 49 alcohol intake: never substance use type: does not use HPI HPI HPI: RIOS GROVER, is a 68 F who presents to the office today for surgical consultation regarding asymptomatic severe extracranial left carotid occlusive disease. The patient was referred by her primary care vision Dr Rob Gurrola and a written copy of my surgical consult recommendations will be returned to him. The patient states that she is new to Dr. Rob Banks and upon evaluating her there was reference dating back to known carotid stenosis with according to the patient a previous carotid duplex exam in 2004. She denies CVA or myocardial infarction. However she has been a lifelong cigarette smoker. She continues to smoke cigarettes. She occasionally has some orthostatic dizziness. She denies TIA or stroke. On December 26, 2018 she had carotid duplex imaging obtained which did not demonstrate significant disease on the right but in the proximal left internal carotid she had a peak systolic velocity of 446 cm/s with an end-diastolic velocity of 53. There is also severe disease of the left proximal external carotid. She was felt to have greater than 70% stenosis of the left internal carotid and upon my review it is likely greater than 80% stenosis. She states that she was initiated on a statin medication as well as low-dose aspirin. She does recognize that it was strongly encouraged her of her to cease her tobacco use. She does not get routine exercise. She does not complain of calf cramping with walking but her walking is limited. She does get dyspneic on exertion. In addition to the carotid duplex she had an echocardiogram with an ejection fraction of 65%. 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 [facility] Cardiovascular Services [address] [place] [address] Carotid Duplex Ultrasound 12/26/18 1400 MR#: [id number] Name:RIOS GROVER #:[id number] : 1950 68From:Dejuan Ritter MD Attending Dr: Rob Gurrola, MDStatus: REG CLI Ordering Dr: Rob Gurrola MDDate: 12/26/18 Location:[facility]: Admitted: Reason For Study: Carotid artery stenosis Rt. Velocities/BP Lt. Velocities/BP Prox CCA 76.1/10.2 cm/sec. Prox CCA 104.7/26.1 cm/sec. Mid CCA 80.2/13.9 cm/sec. Mid CCA 106.5/27.9 cm/sec. Dist CCA 71.6/15.1 cm/sec. Dist CCA 90/27.9 cm/sec. Prox ICA 106.5/18.8 cm/sec. Prox ICA 446/53.6 cm/sec. Mid ICA 97.4/20.6 cm/sec. Mid ICA 112.6/18.2 cm/sec. Dist ICA 102.8/20.6 cm/sec. Dist ICA 76.5/16.3 cm/sec. Rt. ICA/CCA = 1.4. Lt. ICA/CCA = 4.3. Prox ECA 176.9/11.1 cm/sec. Prox ECA 389.2/63 cm/sec. Rt. Vert. 86.4/17 cm/sec. Lt. Vert. 31.1/11.2 cm/sec. Right Extracranial There is homogeneous, smooth atherosclerotic plaque noted in the right common carotid artery. There is heterogeneous, irregular atherosclerotic plaque noted in the right internal carotid artery. There is intimal thickening but no significant atherosclerotic plaque noted in the right external carotid artery. Antegrade flow is noted in the right vertebral artery. Left Extracranial There is homogeneous, smooth atherosclerotic plaque noted in the left common carotid artery. There is heterogeneous, irregular atherosclerotic plaque noted in the left internal carotid artery. There is heterogeneous, irregular atherosclerotic plaque noted in the left external carotid artery. Abnormal waveform noted in the left vertebral artery. Procedure Carotid Duplex 20592. Prelim to Izabela. Exam performed in department. 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 High speed jet noted. >50% stenosis left external carotid Patent, antegrade, <50% stenosis bilateral vertebrals Notable change on the left since 02/18/05 Ordering Physician: Rob Gurrola Referring Physician: Rob Gurrola Performed By: Suzette Perez RVT 12/26/181653 Date Dejuan Ritter MD CC: Rob Gurrola MD ~ Date Dictated:12/26/18 1400 Date Transcribed: 12/26/181653 Profile Shaper Operator: Signed [facility] Imaging Services [address] [place] [address] Thyroid MR#: [id number] Name: RIOS GROVER #:[id number] : 1950F 68 From: Patrick Negron MD PCP:Rob Gurrola MD Status:REG CLI Study:Thyroid Date of Exam:12/26/18 Exam#[id number] Ordering Dr: Rob Gurrola MD STUDY: THYROID ULTRASOUND REASON FOR EXAM: Female, 68 years old. Goiter. Right thyroidectomy. TECHNIQUE: Ultrasound evaluation of the thyroid was performed with real-time and static rendon-scale imaging. COMPARISON: Prior ultrasound of 06/24/2006 was not submitted for comparison. FINDINGS: RIGHT LOBE: Postsurgical absence. LEFT LOBE: The left lobe of the thyroid gland measures 9.9 x 4.5 x 5 cm. There is a heterogeneous echotexture. There are no demonstrated solid, cystic or complex lesions. ISTHMUS: The isthmus measures 8 mm. US/Thyroid IMPRESSION: 1. Postsurgical absence of the right thyroid lobe. 2. Prominent left thyroid lobe with mild heterogeneous echotexture but no suspicious solid or cystic nodules or mass. Electronically Signed: Patrick Negron MD at 11:47 EDT , Service support , CC: Rob Gurrola MD ~ Profile Shaper Operator: Signed [facility] Cardiovascular Services [address] [place] [address] Echo Complete W/ Contrast 12/26/18 1337 MR#: [id number] Name:RIOS GROVER #:[id number] : 1950 68From:Ryder Aguilera MD Attending Dr: TRAVIS Harpertatus: REG CLI Ordering Dr: Rob Gurrola MDDate: 12/26/18 Location:[facility]: Admitted: Reason For Study: Murmur Procedure This was a 2D Doppler, Color Flow transthoracic echocardiogram. The study was technically difficult. Contrast injection was performed. Exam performed in department. Left Ventricle Normal LV size. Left ventricular systolic function is normal. The estimated ejection fraction is 65 %. There is evidence of diastolic dysfunction. No regional wall motion abnormalities noted. Right Ventricle Normal RV size. Normal systolic function. Atria The left atrium is moderately enlarged. Normal right atrium. No doppler evidence for ASD. Mitral Valve There is mild mitral annular calcification. Normal mitral valve. Mild (1+) mitral valve insufficiency. Tricuspid Valve Normal tricuspid valve. Trivial tricuspid valve insufficiency. Right ventricular systolic pressure estimated to be 25 mmHg. Aortic Valve Trisinus/trileaflet aortic valve. Mild focal aortic valve calcification. Pulmonic Valve The pulmonic valve is not well visualized. Great Vessels The aortic root is not well visualized. Pericardium/Pleural No pericardial effusion. Medication 22 gauge I.V. with prn adaptor inserted into left arm. Diluted definity 3ml given slow IV push to enhance endocardial definition. MMode/2D Measurements & Calculations LVIDd: 5.0 cm IVSd: 1.0 cm LA dimension: 3.8 cm LVIDs: 2.7 cm LVPWd: 1.1 cm FS: 45.8 % _ LAV(MOD-bp): 79.8 ml LA A4 area: 23.8 cm2 RA A4 area: 14.1 cm2 LAV(MOD-bp) Indexed: 46.8 ml/m2 LAV(MOD-sp2): 77.2 ml LAV(MOD-sp4): 80.9 ml Time Measurements MV dec time: 0.23 sec Doppler Measurements & Calculations MV E max jairo: 90.1 cm/sec Lat Peak E' Jairo: 5.2 cm/sec Med Peak E' Jairo: 6.7 cm/sec MV A max jairo: 77.6 cm/sec E/E' lat: 17.2 E/E' med: 13.4 MV E/A: 1.2 _ MV V2 max: 105.9 cm/sec MV P1/2t max jairo: 106.9 cm/sec Ao V2 max: 157.3 cm/sec MV max P.5 mmHg MV P1/2t: 133.6 msec Ao max P.9 mmHg MV V2 mean: 52.8 cm/sec MV dec slope: 234.4 cm/sec2 MV mean P.4 mmHg MV V2 VTI: 43.1 cm MVA(P1/2t): 1.6 cm2 _ LV V1 max: 140.6 cm/sec PA V2 max: 95.3 cm/sec TR max jairo: 235.5 cm/sec LV V1 max P.9 mmHg TR max P.2 mmHg Interpretation Summary Left ventricular systolic function is normal. The estimated ejection fraction is 65 %. The left atrium is moderately enlarged. There is mild mitral annular calcification. Mild (1+) mitral valve insufficiency. Trivial tricuspid valve insufficiency. Mild focal aortic valve calcification. Right ventricular systolic pressure estimated to be 25 mmHg. There is evidence of diastolic dysfunction. Ordering Physician: Rob Gurrola Referring Physician: Rob Gurrola Performed By: Alex Escobar RCS 12/26/181935 Date Ryder Aguilera MD CC: Rob Gurrola MD ~ Date Dictated:12/26/18 1337 Date Transcribed: 12/26/181935 Profile Shaper Operator: Signed HPI HPI HPI: RIOS GROVER, is a 68 F who presents to the office today for ROS General General: No weight change, appetite, fatigue, colon cancer, breast cancer or weakness HEENT HEENT: No difficulty swallowing, eye injury, eye surgery, swollen glands or hoarseness Endo Endocrine: Yes thyroid disease; no diabetes mellitus, thyroid cancer, Hair loss, heat intolerance or cold intolerance Skin Skin: No rash or changing moles Breast Breast: No left breast lump, right breast lump, nipple discharge, breast pain, abnormal mammogram, abnormal US or breast enlargement Musc Musculoskeletal: No back problems, arthritis, rheumatoid arthritis, gout or joint pain Cardio Cardiovascular: Yes murmur; no pacemaker, heart disease, atrial fibrillation, high blood pressure, heart attack, heart stent, palpitations, shortness of breat with exertion or chest pain Psych Psychiatric: Yes anxiety; no depression or hearing voices Resp Respiratory: Yes shortness of breath, No sleep apnea, No cough, No COPD, No asthma, No emphysema, No wheezing Gastro Gastrointestinal: No abdominal pain, No nausea or vomiting, No diarrhea, Yes constipation, No blood in stool, Yes acid reflux, No hemorrhoids, No ulcers, No gallbladder problem, No black,tarry stools Lester Hematologic: Yes blood thinners, No blood disorders, No bleeding, No anemia, No blood clots Neuro Neurologic: No system reviewed and no additional complaints, except as docu, No as per HPI, No abnormal walking, No abnormal hearing, No abnormal movements, No abnormal speech, No behavioral changes, No burning sensations, No confusion, No seizure-like activity, No unsteadiness, No dizziness, No localized weakness, No frequent falls, No headache(s), No lack of coordination, No loss of vision, No memory loss, No numbness, No other visual disturbances, No radiating pain, No restless legs, No sensory deficit, No fainting, No tingling, No tremor(s), No weakness, No other Exam Const General: cooperative, comfortable, no acute distress Nutritional Appearance: overweight Orientation: alert, awake, oriented x3 HENMT Head: normal to inspection Chest Breast Palpation: No nipple discharge Other: Increased anterior posterior diameter Resp Other: Slight scattered bibasilar rales Cardio Rate: regular rate Rhythm: regular rhythm Heart Sounds: murmur GI Palpation: soft, no hepatosplenomegaly Auscultation: normal bowel sounds Other: Not expansile or pulsatile, Skin General: no rashes or lesions noted Neuro Cognition: normal cognition Extrem General: no calf tenderness bilaterally Psych Affect: normal affect Assessment & Plan Problems 1. Carotid stenosis, left I65.22 Plan I have discussed with the patient recommendations for intervention regarding the left internal carotid and I have compared and contrasted surgical intervention in the form of left carotid endarterectomy with bovine patch angioplasty versus carotid artery stenting. Patient is very much aware that I do not perform stenting. She has had an opportunity to ask and have questions answered. I have vigorously encouraged the patient to cease her tobacco use immediately. I have encouraged the patient to take her statin medication and aspirin as has been prescribed. I would like to obtain a CTA of her carotids and have her return to the office. After discussion regarding treatment options I believe that the patient is at increased risk of stroke from nonoperative to operative management. She would like to proceed as noted. She is aware there is no guarantees of success and that there is no 0 risk pathway. I also discussed with her anticipated placement of an arterial line to help monitor her throughout her procedure. We will tentatively look for an operative date. She will return to my office for further discussions subsequent to the CTA. I very much appreciate the kind opportunity of assisting with her surgical care CC: Dr Rob Ritter M.D., F.A.C.S. Orders Orders: CTA Neck W/WO Contrast Today I65.23 Coding Level of Care Code 50445 Diagnoses Carotid stenosis, left I65.22 Assessment & Plan Problems 1. Carotid stenosis, left I65.22 Plan With family members present I again recommended the patient a left carotid endarterectomy with patch angioplasty and arterial line monitoring. In detail I have discussed technique, benefits, risks, alternatives. She has had an opportunity to ask and have questions answered. We will schedule and proceed at her discretion. She will continue to maximize her medical care to the greatest degree possible. My understanding is that she is making a concerted effort at stopping her cigarette smoking. I appreciate the opportunity of assisting with her surgical care Primary CARE: Dr Rob Ritter M.D., F.A.C.S. Coding Level of Care Code Off vis,est,level 3 Diagnoses Carotid stenosis, left I65.22 Time Spent (min) 30 01/24/19 9044 <Electronically signed by Djeuan tong MD> Date _ Dejuan Ritter MD
[2019-01-24 15:56] VITALS: BMI 28.3
--- NOTE | 2019-01-24 16:31 | EKG12_ITS ---
Test Reason : PREOP Blood Pressure : / mmHG Vent. Rate : 050 BPM Atrial Rate : 050 BPM P-R Int : 124 ms QRS Dur : 084 ms QT Int : 462 ms P-R-T Axes : 000 052 038 degrees QTc Int : 421 ms Sinus bradycardia Otherwise normal ECG Confirmed by CHARLIE ANGELA, BRADLY ([id number]), publication editor STEPAN GUDINO ([id number]) on 01/26/2019 12:34:14 PM Referred By: Dejuan Ritter Confirmed By:DEMOND GUERRA MD
[2019-01-24 16:57] LABS: Hematocrit 42.9 % (37-47); Hemoglobin 14.4 g/dL (12.0-15.0); Mean Corp Hgb Conc 33.6 g/dL (32-36); Mean Corpuscular Hgb 30.2 pg (27.0-32.0); Mean Corpuscular Volume 89.9 fL (81-99); Mean Platelet Vol. 9.3 fl (6.2-12.0); Platelet Count 277 K/mm3 (150-450); RBC Distribution Width SD 39.7 fl (35.1-43.9); Red Blood Count 4.77 M/mm3 (4.2-5.4); White Blood Count 9.4 K/mm3 (4.4-11.0)
[2019-01-24 17:32] LABS: Anion Gap 8 (5-15); BUN 12 mg/dL (7-18); BUN/Creat Ratio 15.9 RATIO (10-20); Calcium,Total 8.8 mg/dL (8.5-10.1); Chloride 105 mmol/L (98-107); Creatinine, Serum 0.75 mg/dL (0.55-1.02); EST Glomerular Filtration Rate 82 mL/min (>60); Est Glom Filt Rate - Afr Amer 99 mL/min (>60); Glucose 89 mg/dL (74-106); Potassium 3.9 mmol/L (3.5-5.1); Sodium Level 138 mmol/L (136-145); Thyroid Stim Hormone (TSH) 0.35 uIU/mL (0.358-3.74)
[2019-01-29 05:55] VITALS: BP 150/62; PULSE 64; RESP 16; TEMP 37; O2SAT 97; BMI 28.4
--- NOTE | 2019-01-29 06:28 | OP.PCM_ITS ---
Problem List (1) Carotid stenosis, left Status: Acute Report of Operation Date of Procedure: 01/29/19 Pre-Operative Diagnosis: Severe stenosis left extracranial internal carotid Post-Operative Diagnosis: Same Surgery/Procedure Performed:: Left radial arterial line placement Description of Surgical Findings:: At the bedside timeout informed consent was obtained. Marco test performed demo nstrating adequate ulnar flow on the left. The left wrist was gently extended prepped with Betadine. Under ultrasound guidance 1% lidocaine was instilled as a local anesthetic. 1 cc was used. A 20-gauge Arrow Angiocath was advanced under ultrasound guidance and advanced with Seldinger wire technique it was secured to skin with 3-0 silk OpSite dressing and Saroj wrap. She tolerated the procedure well without apparent complication. Waveform was good. She was subsequently taken to the operative room for definitive left carotid surgery. The patient was taken to the operating room. It was then recognized that the cerebral oximeter was not functioning correctly. This was the only unit currently available. After discussion with anesthesia it felt appropriate to cancel the procedure until functioning unit was available. Dejuan Ritter M.D., F.A.C.S. Type of Anesthesia:: Local Anesthesiologist: Kait Waters - Complications Procedure had to be canceled because of malfunctioning cerebral oximeter unit
--- NOTE | 2019-01-29 06:30 | PCM.DC.GS ---
Discharge Diet: Light diet - advance as tolerated - if you have questions about your diet instructions, please talk to you doctor. Discharge Activity: May Not Drive - for 1 week or while taking narcotic pain medicine. May shower in (days): 3 - You may shower on Tuesday Lifting Restrictions: 10 pounds Call your doctor if your incision/area has: Continuous Slow Oozing, Sudden Increased Bleeding, Increased Pain/ Swelling, Increased Redness, Foul Smelling Discharge Call your doctor if you observe: Fever of 101 or Higher Suture Line Care: Avoid Pulling/Pushing, Avoid Pinching/Bending Additional Dressing/Incision Instructions:: You may apply dry gauze dressing to the incision as needed to protect from clothing. You may remove the Steri-Strips after 1 week. Additional Instructions: Today's procedure was canceled because of lack of functioning cerebral oximeter unit. The patient will resume her preop instructions and we will attempt to reschedule her left carotid enterectomy when functioning equipment becomes available Dejuan Ritter M.D., F.A.C.S. Allergies/Adverse Reactions: Allergies fluoxetine [From Prozac] Allergy (Intermediate, Verified 01/29/19 05:47) Worsening depression Worsening depression sulfamethoxazole [From Septra] Allergy (Intermediate, Verified 01/29/19 05:47) Rash trimethoprim [From Septra] Allergy (Intermediate, Verified 01/29/19 05:47) Rash Medications to take at Discharge aspirin 81 mg tablet,delayed release 81 mg PO DAILY 01/11/19 cinnamon bark-chromium picolinate 500 mg-100 mcg capsule 1 cap PO DAILY cap 01/11/19 levothyroxine 88 mcg capsule 88 mcg PO DAILY 01/11/19 rosuvastatin 10 mg tablet 10 mg PO DAILY 01/11/19 Orders to be completed after discharge: 12 Lead EKG [[facility]S] Time Frame: 01/23/19, Facility: [facility], Location: Cardiovascular Services Basic Metabolic Profile (BMP) Time Frame: 01/23/19, Facility: [facility], Location: Laboratory CBC-Complete Blood Cnt No Diff Time Frame: 01/23/19, Facility: [facility], Location: Laboratory Thyroid Stim Hormone (TSH) Time Frame: 01/23/19, Facility: [facility], Location: Laboratory Primary Care Physician: Rob Gurrola MD [Primary Care Provider] - Test Results: Test results from this visit will be discussed in further detail at your follow-up appointment, if applicable. Please Follow Up With: Dejuan Ritter MD - [phone] When: Call to make an appointment to be seen in about 10 days.
[2019-01-29] MEDS: Lactated Ringers 1,000 ML 100 ML IV (06:41)
[2019-01-29] MEDS: Cefazolin 2 GM in 0.9% Normal Saline 100 ML IV (07:03)
[2019-01-31] VITALS (35 sets, daily range): BP systolic 101–215; BP diastolic 51–93; PULSE 55–87; RESP 16–18; TEMP 36.4–36.9; O2SAT 92–98; BMI 28.4; BMI 28.5
--- NOTE | 2019-01-31 | PLAQ_PTH ---
PATIENT: RIOS GROVER LOC: PCU U#:[id number] AGE/SX: 68/F ROOM: LHI943 RE01/31/[address]: Dr. Dejuan Ritter MD : 1950 BED: 1 DIS: 02/01/2019 SPEC #: [id number] RECD: 01/31/19 10:53 STATUS: CIELO REAngie #: [id number] OPAL: 01/31/19 00:[address]: Dejuan Ritter DEPT: SURGICAL PATHOLOGY RECD BY: Clau Hubbard ENTERED: 01/31/19 11:15 SP TYPE: PLAQUE OTHR DR: Dr. Rob Gurrola MD Tissues: PLAQUE Procedures: Decalcification bone/plaque Surgery Specimen Level III HEADER OPERATION: Left carotid endarterectomy with patch angioplasty PRE-OP DIAGNOSIS: Carotid stenosis left I65.22 TISSUE SUBMITTED: Left carotid artery plaque MICROSCOPIC DIAGNOSIS Left carotid artery plaque endarterectomy: Atherosclerotic tissue with focal calcifications (plaque). MARIYA:volodymyr 02/05/19 GROSS DESCRIPTION Received in fixative is one container labeled with the patient's name and designated left carotid artery plaque. The specimen consists of a previously opened Y-shaped piece of tubular tissue measuring 2.5 cm in length and 1 cm in diameter. The specimen focally cuts with gritty sensation. The entire specimen is submitted in one cassette after decalcification. / MARIYA:volodymyr 01/31/19 TC:5 CPT: 77260, 00226
--- NOTE | 2019-01-31 05:49 | HP.PCM_ITS ---
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 Is patient in pain?: No Allergies fluoxetine [From Prozac] Allergy (Intermediate, Verified 01/24/19 15:55) Worsening depression sulfamethoxazole [From Septra] Allergy (Intermediate, Verified 01/24/19 15:55) Rash trimethoprim [From Septra] Allergy (Intermediate, Verified 01/24/19 15:55) Rash Medications aspirin 81 mg tablet,delayed release 81 mg PO DAILY 01/11/19 [History Confirmed 01/24/19] cinnamon bark-chromium picolinate 500 mg-100 mcg capsule 1 cap PO DAILY cap 01/11/19 [History Confirmed 01/24/19] levothyroxine 88 mcg capsule 88 mcg PO DAILY 01/11/19 [History Confirmed 01/24/19] rosuvastatin 10 mg tablet 10 mg PO DAILY 01/11/19 [History Confirmed 01/24/19] [facility] Medical History Carotid stenosis, left (Acute) Acid reflux (Acute) Anxiety (Acute) Carotid stenosis (Acute) Solis's disease (Acute) Surgical History History of appendectomy (Acute) History of section (Acute) History of hysterectomy (Acute) History of tonsillectomy (Acute) history right thyroid lobectomy (Acute) Family History Mother Hypertension Cancer brain tumor Father Cancer Brain tumor Social History (Updated 01/24/19 @ 16:37 by Dejuan Ritter MD) Smoking Status: Former smoker Tobacco: How many years used: 49 alcohol intake: never substance use type: does not use HPI HPI HPI: RIOS GROVER, is a 68 F who presents to the office today for HPI HPI Surgical H&P: Yes HPI: RIOS GROVER, is a 68 F who presents to the office today for surgical follow-up regarding her severe stenosis of her left extra cranial internal carotid. My previous notes are as follows with the addition of the CTA of the carotids: [facility] Imaging Services [address] [place] [address] CTA Neck W/WO Contrast MR#: [id number] Name: RIOS GROVER #:[id number] : 1950F 68 From: Gabriel Nuñez MD PCP:Rob Gurrola MD Status:REG CLI Study:CTA Neck W/WO Contrast Date of Exam:01/18/19 Exam#[id number] Ordering Dr: Dejuan Ritter MD STUDY: CTA NECK WITH CONTRAST REASON FOR EXAM: Female, 68 years old. Carotid stenosis RADIATION DOSAGE (If Supplied By Facility): CTDIvol = ( 16.94 ) mGy, DLP = ( 573.76 ) mGycm TECHNIQUE: CT angiography with multi-detector data acquisition was performed from the aortic arch to the skull base following intravenous administration of IV Isovue 370 100. MIP images were reconstructed from the axial data set. Post-processing of the angiographic images was performed, with multiplanar reformation and 3D reconstruction. Individualized dose optimization techniques were used for this CT. COMPARISON: None. FINDINGS: AORTIC ARCH: Normal visualized aortic arch. Normal origins of the brachiocephalic, left common carotid, and left subclavian arteries. Aberrant retroesophageal right subclavian artery RIGHT CAROTID ARTERIES: Mild diffuse soft plaquing of the right common carotid artery (CCA). Mild soft and calcific plaquing of the right common carotid bulb. Mild soft and calcific plaquing of the origin of the right internal carotid (ICA) artery without a hemodynamically significant stenosis. Normal visualized cervical portion of the right internal carotid artery. Normal origin of the right external carotid artery (ECA). LEFT CAROTID ARTERIES: Mild diffuse soft plaquing of the left common carotid artery (CCA). Moderate soft and calcific plaquing of the left common carotid bulb. Moderate calcific plaquing of the origin of the left internal carotid (ICA) artery with greater than 70% stenosis.. There appears to be ulcerative plaque in the more distal left internal carotid as well as moderate calcific plaquing Normal origin of the left external carotid artery (ECA). VERTEBRAL ARTERIES: Normal bilateral vertebral arteries. Status post right thyroidectomy. Markedly enlarged retrosternal left thyroid goiter CT/CTA Neck W/WO Contrast IMPRESSION: Moderate to severe atherosclerotic disease more severe on the left with greater than 70% stenosis of the origin of the left internal carotid and possible ulcerative plaquing more distally. 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 Is patient in pain?: No Allergies fluoxetine [From Prozac] Allergy (Intermediate, Verified 01/11/19 08:22) Worsening depression sulfamethoxazole [From Septra] Allergy (Intermediate, Verified 01/11/19 08:23) Rash trimethoprim [From Septra] Allergy (Intermediate, Verified 01/11/19 08:23) Rash Medications aspirin 81 mg tablet,delayed release 81 mg PO DAILY 01/11/19 [History Confirmed 01/11/19] cinnamon bark-chromium picolinate 500 mg-100 mcg capsule cap PO DAILY cap 01/11/19 [History] levothyroxine 88 mcg capsule 88 mcg PO DAILY 01/11/19 [History] rosuvastatin 10 mg tablet 10 mg PO DAILY 01/11/19 [History Confirmed 01/11/19] [facility] Medical History (Updated 01/11/19 @ 10:06 by Dejuan Ritter MD) Carotid stenosis, left (Acute) Acid reflux (Acute) Anxiety (Acute) Carotid stenosis (Acute) Solis's disease (Acute) Surgical History (Updated 01/11/19 @ 08:18 by Leticia Pedraza) History of appendectomy (Acute) History of section (Acute) History of hysterectomy (Acute) History of tonsillectomy (Acute) history right thyroid lobectomy (Acute) Family History (Updated 01/11/19 @ 08:18 by Leticia Pedraza) Mother Hypertension Cancer brain tumor Father Cancer Brain tumor Social History (Updated 01/11/19 @ 10:08 by Dejuan Ritter MD) Smoking Status: Current some day smoker Tobacco: How many years used: 49 alcohol intake: never substance use type: does not use HPI HPI HPI: RIOS GROVER, is a 68 F who presents to the office today for surgical consultation regarding asymptomatic severe extracranial left carotid occlusive disease. The patient was referred by her primary care vision Dr Rob Gurrola and a written copy of my surgical consult recommendations will be returned to him. The patient states that she is new to Dr. Rob Banks and upon evaluating her there was reference dating back to known carotid stenosis with according to the patient a previous carotid duplex exam in 2004. She denies CVA or myocardial infarction. However she has been a lifelong cigarette smoker. She continues to smoke cigarettes. She occasionally has some orthostatic dizziness. She denies TIA or stroke. On December 26, 2018 she had carotid duplex imaging obtained which did not demonstrate significant disease on the right but in the proximal left internal carotid she had a peak systolic velocity of 446 cm/s with an end-diastolic velocity of 53. There is also severe disease of the left proximal external carotid. She was felt to have greater than 70% stenosis of the left internal carotid and upon my review it is likely greater than 80% stenosis. She states that she was initiated on a statin medication as well as low-dose aspirin. She does recognize that it was strongly encouraged her of her to cease her tobacco use. She does not get routine exercise. She does not complain of calf cramping with walking but her walking is limited. She does get dyspneic on exertion. In addition to the carotid duplex she had an echocardiogram with an ejection fraction of 65%. 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 [facility] [address] [place] [address] Carotid Duplex Ultrasound 12/26/18 1400 MR#: [id number] Name:RIOS GROVER #:[id number] : 1950 68From:Dejuan Ritter MD Attending Dr: Rob Gurrola, MDStatus: REG CLI Ordering Dr: Rob Gurrola MDDate: 12/26/18 Location:[facility]ex: Admitted: Reason For Study: Carotid artery stenosis Rt. Velocities/BP Lt. Velocities/BP Prox CCA 76.1/10.2 cm/sec. Prox CCA 104.7/26.1 cm/sec. Mid CCA 80.2/13.9 cm/sec. Mid CCA 106.5/27.9 cm/sec. Dist CCA 71.6/15.1 cm/sec. Dist CCA 90/27.9 cm/sec. Prox ICA 106.5/18.8 cm/sec. Prox ICA 446/53.6 cm/sec. Mid ICA 97.4/20.6 cm/sec. Mid ICA 112.6/18.2 cm/sec. Dist ICA 102.8/20.6 cm/sec. Dist ICA 76.5/16.3 cm/sec. Rt. ICA/CCA = 1.4. Lt. ICA/CCA = 4.3. Prox ECA 176.9/11.1 cm/sec. Prox ECA 389.2/63 cm/sec. Rt. Vert. 86.4/17 cm/sec. Lt. Vert. 31.1/11.2 cm/sec. Right Extracranial There is homogeneous, smooth atherosclerotic plaque noted in the right common carotid artery. There is heterogeneous, irregular atherosclerotic plaque noted in the right internal carotid artery. There is intimal thickening but no significant atherosclerotic plaque noted in the right external carotid artery. Antegrade flow is noted in the right vertebral artery. Left Extracranial There is homogeneous, smooth atherosclerotic plaque noted in the left common carotid artery. There is heterogeneous, irregular atherosclerotic plaque noted in the left internal carotid artery. There is heterogeneous, irregular atherosclerotic plaque noted in the left external carotid artery. Abnormal waveform noted in the left vertebral artery. Procedure Carotid Duplex 50529. Prelim to Izabela. Exam performed in department. 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 High speed jet noted. >50% stenosis left external carotid Patent, antegrade, <50% stenosis bilateral vertebrals Notable change on the left since 02/18/05 Ordering Physician: Rob Gurrola Referring Physician: Rob Gurrola Performed By: Suzette Perez Laurie 12/26/181653 Date Dejuan Ritter MD CC: Rob Gurrola MD ~ Date Dictated:12/26/18 1400 Date Transcribed: 12/26/181653 Clearance Rep: Signed [facility] Imaging Services [address] [place] [id number] Thyroid MR#: [id number] Name: RIOS GROVER [facility] #:[id number] : 1950F 68 From: Patrick Negron MD PCP:Rob Gurrola MD Status:REG CLI Study:Thyroid Date of Exam:12/26/18 Exam#[id number] Ordering Dr: Rob Gurrola MD STUDY: THYROID ULTRASOUND REASON FOR EXAM: Female, 68 years old. Goiter. Right thyroidectomy. TECHNIQUE: Ultrasound evaluation of the thyroid was performed with real-time and static rendon-scale imaging. COMPARISON: Prior ultrasound of 06/24/2006 was not submitted for comparison. FINDINGS: RIGHT LOBE: Postsurgical absence. LEFT LOBE: The left lobe of the thyroid gland measures 9.9 x 4.5 x 5 cm. There is a heterogeneous echotexture. There are no demonstrated solid, cystic or complex lesions. ISTHMUS: The isthmus measures 8 mm. US/Thyroid IMPRESSION: 1. Postsurgical absence of the right thyroid lobe. 2. Prominent left thyroid lobe with mild heterogeneous echotexture but no suspicious solid or cystic nodules or mass. Electronically Signed: Patrick Negron MD at 11:47 EDT , Service support , CC: Rob Gurrola MD ~ Clearance Rep: Signed [facility] [address] [place] [address] Echo Complete W/ Contrast 12/26/18 1337 MR#: [id number] Name:RIOS GROVER #:[id number] : 1950 68From:Ryder Aguilera MD Attending Dr: TRAVIS Harpertatus: REG CLI Ordering Dr: Rob Gurrola MDDate: 12/26/18 Location:[facility]ex: Admitted: Reason For Study: Murmur Procedure This was a 2D Doppler, Color Flow transthoracic echocardiogram. The study was technically difficult. Contrast injection was performed. Exam performed in department. Left Ventricle Normal LV size. Left ventricular systolic function is normal. The estimated ejection fraction is 65 %. There is evidence of diastolic dysfunction. No regional wall motion abnormalities noted. Right Ventricle Normal RV size. Normal systolic function. Atria The left atrium is moderately enlarged. Normal right atrium. No doppler evidence for ASD. Mitral Valve There is mild mitral annular calcification. Normal mitral valve. Mild (1+) mitral valve insufficiency. Tricuspid Valve Normal tricuspid valve. Trivial tricuspid valve insufficiency. Right ventricular systolic pressure estimated to be 25 mmHg. Aortic Valve Trisinus/trileaflet aortic valve. Mild focal aortic valve calcification. Pulmonic Valve The pulmonic valve is not well visualized. Great Vessels The aortic root is not well visualized. Pericardium/Pleural No pericardial effusion. Medication 22 gauge I.V. with prn adaptor inserted into left arm. Diluted definity 3ml given slow IV push to enhance endocardial definition. MMode/2D Measurements & Calculations LVIDd: 5.0 cm IVSd: 1.0 cm LA dim ension: 3.8 cm LVIDs: 2.7 cm LVPWd: 1.1 cm FS: 45.8 % LAV(MOD-bp): 79.8 ml LA A4 area: 23.8 cm2 RA A4 area: 14.1 cm2 LAV(MOD-bp) Indexed: 46.8 ml/m2 LAV(MOD-sp2): 77.2 ml LAV(MOD-sp4): 80.9 ml Time Measurements MV dec time: 0.23 sec Doppler Measurements & Calculations MV E max jairo: 90.1 cm/sec Lat Peak E' Jairo: 5.2 cm/sec Med Peak E' Jairo: 6.7 cm/sec MV A max jairo: 77.6 cm/sec E/E' lat: 17.2 E/E' med: 13.4 MV E/A: 1.2 _ MV V2 max: 105.9 cm/sec MV P1/2t max jairo: 106.9 cm/sec Ao V2 max: 157.3 cm/sec MV max P.5 mmHg MV P1/2t: 133.6 msec Ao max P.9 mmHg MV V2 mean: 52.8 cm/sec MV dec slope: 234.4 cm/sec2 MV mean P.4 mmHg MV V2 VTI: 43.1 cm MVA(P1/2t): 1.6 cm2 _ LV V1 max: 140.6 cm/sec PA V2 max: 95.3 cm/sec TR max jairo: 235.5 cm/sec LV V1 max P.9 mmHg TR max P.2 mmHg Interpretation Summary Left ventricular systolic function is normal. The estimated ejection fraction is 65 %. The left atrium is moderately enlarged. There is mild mitral annular calcification. Mild (1+) mitral valve insufficiency. Trivial tricuspid valve insufficiency. Mild focal aortic valve calcification. Right ventricular systolic pressure estimated to be 25 mmHg. There is evidence of diastolic dysfunction. Ordering Physician: Rob Gurrola Referring Physician: Rob Gurrola Performed By: Alex Escobar RCS 12/26/181935 Date Ryder Aguilera MD CC: Rob Gurrola MD ~ Date Dictated:12/26/18 133 Date Transcribed: 12/26/181935 Clearance Rep: Signed HPI HPI HPI: RIOS GROVER, is a 68 F who presents to the office today for ROS General General: No weight change, appetite, fatigue, colon cancer, breast cancer or weakness HEENT HEENT: No difficulty swallowing, eye injury, eye surgery, swollen glands or hoarseness Endo Endocrine: Yes thyroid disease; no diabetes mellitus, thyroid cancer, Hair loss, heat intolerance or cold intolerance Skin Skin: No rash or changing moles Breast Breast: No left breast lump, right breast lump, nipple discharge, breast pain, abnormal mammogram, abnormal US or breast enlargement Musc Musculoskeletal: No back problems, arthritis, rheumatoid arthritis, gout or joint pain Cardio Cardiovascular: Yes murmur; no pacemaker, heart disease, atrial fibrillation, high blood pressure, heart attack, heart stent, palpitations, shortness of breat with exertion or chest pain Psych Psychiatric: Yes anxiety; no depression or hearing voices Resp Respiratory: Yes shortness of breath, No sleep apnea, No cough, No COPD, No asthma, No emphysema, No wheezing Gastro Gastrointestinal: No abdominal pain, No nausea or vomiting, No diarrhea, Yes constipation, No blood in stool, Yes acid reflux, No hemorrhoids, No ulcers, No gallbladder problem, No black,tarry stools Lester Hematologic: Yes blood thinners, No blood disorders, No bleeding, No anemia, No blood clots Neuro Neurologic: No system reviewed and no additional complaints, except as docu, No as per HPI, No abnormal walking, No abnormal hearing, No abnormal movements, No abnormal speech, No behavioral changes, No burning sensations, No confusion, No seizure-like activity, No unsteadiness, No dizziness, No localized weakness, No frequent falls, No headache(s), No lack of coordination, No loss of vision, No memory loss, No numbness, No other visual disturbances, No radiating pain, No restless legs, No sensory deficit, No fainting, No tingling, No tremor(s), No weakness, No other Exam Const General: cooperative, comfortable, no acute distress Nutritional Appearance: overweight Orientation: alert, awake, oriented x3 HENMT Head: normal to inspection Chest Breast Palpation: No nipple discharge Other: Increased anterior posterior diameter Resp Other: Slight scattered bibasilar rales Cardio Rate: regular rate Rhythm: regular rhythm Heart Sounds: murmur GI Palpation: soft, no hepatosplenomegaly Auscultation: normal bowel sounds Other: Not expansile or pulsatile, Skin General: no rashes or lesions noted Neuro Cognition: normal cognition Extrem General: no calf tenderness bilaterally Psych Affect: normal affect Assessment & Plan Problems 1. Carotid stenosis, left I65.22 Plan I have discussed with the patient recommendations for intervention regarding the left internal carotid and I have compared and contrasted surgical intervention in the form of left carotid endarterectomy with bovine patch angioplasty versus carotid artery stenting. Patient is very much aware that I do not perform stenting. She has had an opportunity to ask and have questions answered. I have vigorously encouraged the patient to cease her tobacco use immediately. I have encouraged the patient to take her statin medication and aspirin as has been prescribed. I would like to obtain a CTA of her carotids and have her return to the office. After discussion regarding treatment options I believe that the patient is at increased risk of stroke from nonoperative to operative management. She would like to proceed as noted. She is aware there is no guarantees of success and that there is no 0 risk pathway. I also discussed with her anticipated placement of an arterial line to help monitor her throughout her procedure. We will tentatively look for an operative date. She will return to my office for further discussions subsequent to the CTA. I very much appreciate the kind opportunity of assisting with her surgical care CC: Dr Rob Ritter M.D., F.A.C.S. Orders Orders: CTA Neck W/WO Contrast Today I65.23 Coding Level of Care Code 63567 Diagnoses Carotid stenosis, left I65.22 Assessment & Plan Problems 1. Carotid stenosis, left I65.22 Plan With family members present I again recommended the patient a left carotid endarterectomy with patch angioplasty and arterial line monitoring. In detail I have discussed technique, benefits, risks, alternatives. She has had an opportunity to ask and have questions answered. We will schedule and proceed at her discretion. She will continue to maximize her medical care to the greatest degree possible. My understanding is that she is making a concerted effort at stopping her cigarette smoking. I appreciate the opportunity of assisting with her surgical care Primary CARE: Dr Rob Ritter M.D., F.A.C.S. Coding Level of Care Code Off vis,est,level 3 Diagnoses Carotid stenosis, left I65.22 Time Spent (min) 30 01/24/19 5486 <Electronically signed by Dejuan tong MD> Date _ Dejuan Ritter MD The patient presented to the hospital on January 29, 2019 for an anticipated left carotid endarterectomy. A left radial arterial line was placed at that time. She was taken back to the operating room. It then became apparent that the cerebral oximetry unit was malfunctioning. Despite attempts to remedy the immediate problem the unit could not be solved. Therefore her left carotid endarterectomy was canceled for that day. Her arterial line was removed and she was discharged back home without intervention being performed. She returns today with no change in physical status. The cerebral oximeter unit has been resolved. I anticipate proceeding with a left carotid endarterectomy with patch angioplasty. Dejuan Ritter M.D., F.A.C.S.
[2019-01-31] MEDS: Lactated Ringers 1,000 ML 100 ML IV ×4 (05:56→16:23)
--- NOTE | 2019-01-31 06:37 | OP.PCM_ITS ---
Problem List (1) Carotid stenosis, left Status: Acute Report of Operation Date of Procedure: 01/31/19 Pre-Operative Diagnosis: Severe stenosis of left extracranial internal carotid Post-Operative Diagnosis: Same Surgery/Procedure Performed:: Right radial arterial line placement. Left carotid endarterectomy with bovine patch angioplasty. Vascu-Guard 0.8 x 8 cm. Reference number [id number]. Lot number [id number]. PN number [id number]. Expiry date 07/11/2023 Description of Surgical Findings:: Timeout informed consent was obtained. 68-year-old female had Marco test performed right wrist. Adequate ulnar extended prepped with Betadine. Under ultrasound guidance 1% lidocaine was instilled as a local anesthetic. A total of 2 cc was used. 2 separate access things to the right radial arterial line followed by Seldinger wire technique and a 20-gauge Angiocath advancement was required to get a successful arterial line. OpSite dressing followed by Saroj wrap applied. The patient tolerated procedure well there are no apparent complications hand was viable at the completion of the good waveform was obtained. She was subsequently taken to the operating for definitive left carotid surgery. 68-year-old female was taken out from placement table underwent general endotracheal intubation anesthesia. Ancef 2 g were given intravenously. The left neck was sterilely prepped draped. An oblique incision was made along the anterior of the sternocleidomastoid sharp dissection carried down through the substance tissue hemostasis was obtained with a 3-0 Vicryl ligatures and hemoclips were indicated. Sharp dissected down upon the common carotid carotid bulb and careful dissection was used to dissect out the internal carotid. Dacron tape was placed around the internal carotid with a Edwin tourniquet. Vessel loop around the external carotid Griffin tie Dacron tape around the common carotid. The patient received 8000 units of heparin. After adequate CircAid time a Dill clamp was placed on the internal carotid peripheral vascular clamp on the common carotid and a peripheral vascular clamp on the external carotid. An 11 blade was used to make an arteriotomy which was stented with Griffin scissors. Attempt was made to insert a #10 USCI style shunt cephalad however there seemed to be resistance so absolutely no pressure was put on that it was removed cerebral oximetry remained stable so I elected to do it on shunted there appeared to be good retrograde flow from the internal carotid. The plaque was endarterectomized at the layer of the external elastic lamina. It was sharply transected proximally then carefully feathered at the internal carotid. Unfortunately was posterior plaque in the internal carotid that extended further of the vessel. I did an inversion enterectomy of the external carotid. Further debris was carefully removed with fine forceps. I carefully trimmed at the cephalad internal carotid plaque. I then placed a tacking suture of 7-0 Prolene. I used a Vascu-Guard bovine patch 0.8 x 8 cm shaped deformity the patch angioplasty with a running 6-0 Prolene. Prior to completion there appeared to be good retrograde flow it is of note that the Dill clamp that was utilized seem to put significant pressure on the vessel and the vessel remained deformed until I corrected that. These were vascular Dill clamps made by Carlita and were a new addition to her set. The vessel was irrigated. The patch angioplasty completed with a Prolene. Initial flow was instituted from the external carotid and common carotid and the internal carotid. Total clamp time was 39 minutes. Hemostasis was intact a single repair suture of 7-0 Prolene was placed. Patient received 20 mg of protamine as reversal. The platysmas approximate the running 3-0 Vicryl. Skin edges proximal running septic or 5-0 Vicryl. Tori-incisional areas anesthetized with 10 cc 0.5% Marcaine. Steri-Strips Telfa tape dressings applied. Sponge and instrument and needle counts reported the surgeon be correct. Blood loss 100 cc. She tolerated procedure well. Awake neurologically intact and was taken to the recovery area in satisfactory condit ion. Specimen plaque. Drains none. Blood loss 100 cc Dejuan Ritter M.D., F.A.C.S. Type of Anesthesia:: General, Local Anesthesiologist: Peng Bell
--- NOTE | 2019-01-31 06:39 | PCM.DC.GS ---
Discharge Diet: Light diet - advance as tolerated - if you have questions about your diet instructions, please talk to you doctor. Discharge Activity: May Not Drive - for 5-7 days or while taking narcotic pain medicine. May shower in (days): 3 - You may shower on Tuesday Lifting Restrictions: 10 pounds Call your doctor if your incision/area has: Continuous Slow Oozing, Sudden Increased Bleeding, Increased Pain/ Swelling, Increased Redness, Foul Smelling Discharge Call your doctor if you observe: Fever of 101 or Higher Suture Line Care: Avoid Pulling/Pushing, Avoid Pinching/Bending Additional Dressing/Incision Instructions:: You may apply dry gauze dressing is needed to protect your incision from clothing. Otherwise you may leave it open to air with Steri-Strips intact. You may remove the Steri-Strips in 1 week. Additional Instructions: Please contact Dr. Gurrola for followup re: blood pressure and start the hydrochlorthiazide one tablet daily Allergies/Adverse Reactions: Allergies fluoxetine [From Prozac] Allergy (Intermediate, Verified 01/31/19 05:45) Worsening depression Worsening depression sulfamethoxazole [From Septra] Allergy (Intermediate, Verified 01/31/19 05:45) Rash trimethoprim [From Septra] Allergy (Intermediate, Verified 01/31/19 05:45) Rash Medications to take at Discharge aspirin 81 mg tablet,delayed release 81 mg PO DAILY 01/11/19 cinnamon bark-chromium picolinate 500 mg-100 mcg capsule 1 cap PO DAILY cap 01/11/19 levothyroxine 88 mcg capsule 88 mcg PO DAILY 01/11/19 rosuvastatin 10 mg tablet 10 mg PO DAILY 01/11/19 Hydrocodone Bitart/Apap 5-325 [Mar Lin 5MG-325MG] 1 tab PO Q6H PRN PRN 2 Days #5 tab 01/31/19 Hydrochlorothiazide [Hctz] 25 mg PO DAILY #14 tab 02/01/19 The following prescriptions were given: Hydrochlorothiazide [Hctz] 25 mg PO DAILY #14 tab Transmission Status: P[facility] to [email or web address] Hydrocodone Bitart/Apap 5-325 [Mar Lin 5MG-325MG] 1 tab PO Q6H PRN PRN 2 Days #5 tab PRN Reason: Pain Transmission Status: Received by [facility] Orders to be completed after discharge: 12 Lead EKG [CVS] Time Frame: 01/23/19, Facility: [facility], Location: Cardiovascular Services Basic Metabolic Profile (BMP) Time Frame: 01/23/19, Facility: [facility], Location: Laboratory CBC-Complete Blood Cnt No Diff Time Frame: 01/23/19, Facility: [facility], Location: Laboratory Thyroid Stim Hormone (TSH) Time Frame: 01/23/19, Facility: [facility], Location: Laboratory Primary Care Physician: Rob Gurrola MD [Primary Care Provider] - Test Results: Test results from this visit will be discussed in further detail at your follow-up appointment, if applicable. Please Follow Up With: Dejuan Ritter MD - [phone] When: Call to make an appointment to be seen in about 10 days.
[2019-01-31 06:45] LABS: ACT Activated Clotting Time 92 sec (74-137)
[2019-01-31] MEDS: Cefazolin 2 GM in 0.9% Normal Saline 100 ML IV (07:02)
[2019-01-31] MEDS: Heparin Injection (Vial) 5,000 UNIT/ML VIAL 5000 UNIT (08:30)
[2019-01-31 08:36] LABS: ACT Activated Clotting Time 224 sec (74-137)
[2019-01-31] MEDS: Bupivacaine Mpf 0.5% 30 ML VIAL (09:00)
[2019-01-31] MEDS: Lactated Ringers 1,000 ML 30 ML IV (09:48)
[2019-01-31] MEDS: hydrALAZINE 20 MG/ML Vial 5 MG IV ×2 (11:24→18:30)
[2019-01-31] MEDS: Cefazolin 1 GM/50 ML BAG IV ×2 (16:45→21:21)
--- NOTE | 2019-01-31 17:29 | PCM.CAROT ---
General Carotid Note - Subjective Post-Op Day #: 0 - Objective Vital Signs Temp Pulse Resp BP Pulse Ox 97.6 F L 73 17 151/69 H 95 01/31/19 15:20 01/31/19 15:20 01/31/19 15:20 01/31/19 15:20 01/31/19 15:33 Laboratory Tests Past 24 Hrs 01/31/19 01/31/19 06:38 08:23 Activated Clotting Time 92 224 H Neck: Supple Neurological: Cranial nerves II-XII grossly intact - Neck supple, no complaints, continue observation. Hopeful home tomorrow
[2019-01-31] MEDS: Atorvastatin Calcium 20 MG Tablet PO (21:23)
[2019-01-31] MEDS: 0.9% Saline Lock 10 ML Syringe IV (21:24)
[2019-02-01] VITALS (7 sets, daily range): BP systolic 142–173; BP diastolic 60–81; PULSE 55–74; RESP 16–18; TEMP 36.4–36.9; O2SAT 94–95
[2019-02-01] MEDS: hydrALAZINE 20 MG/ML Vial 5 MG IV (03:49)
[2019-02-01] MEDS: 0.9% Saline Lock 10 ML Syringe IV (03:50)
[2019-02-01] MEDS: Levothyroxine 88 MCG Tablet PO (05:05)
--- NOTE | 2019-02-01 05:45 | PCM.CAROT ---
General Carotid Note - Subjective Post-Op Day #: 1 Subjective: Pt without complaint, feels well - Objective Vital Signs Temp Pulse Resp BP Pulse Ox 97.6 F L 74 18 142/60 H 95 02/01/19 04:20 02/01/19 04:20 02/01/19 04:20 02/01/19 04:20 02/01/19 04:20 Laboratory Tests Past 24 Hrs 01/31/19 01/31/19 06:38 08:23 Activated Clotting Time 92 224 H Neck: Supple, - - slightly swollen left neck, supple, NT, clean, dry Neurological: Cranial nerves II-XII grossly intact - Assessment/Plan Plan discharge on HCTZ with planned primary care f/u
[2019-02-01] MEDS: hydroCHLOROthiazide 25 MG Tablet PO (06:02)
[2019-02-01] MEDS: Aspirin E.C. 81 MG Tablet PO (08:05)
== END 2019-02-01 09:01 | disposition home or self-care (01) | DRG 39 ==
LOC: ACINP 05:23 → MS3 09:42 → PCU 13:46
PROVIDERS: Admitting Provider Surgery; Family Provider Family Medicine; PCP Family Medicine; Referring Provider Surgery; Visit Provider Surgery
PROC: 03HY32Z Insertion of Monitoring Device into Upper Artery, Percutaneous Approach (ICD-10-PCS; CPT 35301; principal; 2019-01-31 06:55)
DX: I65.22 Occlusion and stenosis of left carotid artery (principal); Z79.82 Long term (current) use of aspirin; Z79.899 Other long term (current) drug therapy; E06.3 Autoimmune thyroiditis; K21.9 Gastro-esophageal reflux disease without esophagitis; F17.210 Nicotine dependence, cigarettes, uncomplicated; E78.00 Pure hypercholesterolemia, unspecified
CPT/HCPCS: 36415; 80048; 84443; 85027; 85347; 88304; 88311; 93005; 99251; 99406; J7040; J7120; A4216; G0463; J2405

== ENCOUNTER → 2019-02-26 08:40 | Outpatient (CLI) | payer MEDICARE, SELFPAY ==
[2019-01-31 14:29] VITALS: BMI 28.4
--- NOTE | 2019-02-26 08:41 | CDU_ITS ---
Reason For Study: CAROTID STENOSIS Rt. Velocities/BP Lt. Velocities/BP Prox CCA 76/13 cm/sec. Prox CCA 93/34 cm/sec. Mid CCA 90/19 cm/sec. Mid CCA 93/34 cm/sec. Dist CCA 73/15 cm/sec. Dist CCA 93/25 cm/sec. Prox ICA 146/25 cm/sec. Prox ICA 94/32 cm/sec. Mid ICA 78/20 cm/sec. Mid ICA 146/35 cm/sec. Dist ICA 78/18 cm/sec. Dist ICA 92/27 cm/sec. Rt. ICA/CCA = 1.6. Lt. ICA/CCA = 1.6. Prox ECA 205/18 cm/sec. Prox ECA 531/205 cm/sec. Rt. Vert. 80/20 cm/sec. Lt. Vert. 18/9 cm/sec. Right Extracranial There is homogeneous, smooth atherosclerotic plaque noted in the right common carotid artery. There is heterogeneous, irregular atherosclerotic plaque noted in the right internal carotid artery. There is homogeneous, smooth atherosclerotic plaque noted in the right external carotid artery. Antegrade flow is noted in the right vertebral artery. There is heterogeneous, irregular atherosclerotic plaque noted in the left bulb. Left Extracranial There is homogeneous, smooth atherosclerotic plaque noted in the left common carotid artery. There is homogeneous, smooth atherosclerotic plaque noted in the left internal carotid artery. There is homogeneous, smooth atherosclerotic plaque noted in the left external carotid artery. Antegrade flow is noted in the left vertebral artery. Procedure Carotid Duplex [id number]. Exam performed in department. Interpretation Summary Irregular calcific plaque at the proximal right internal and external carotid arteries 50-69% stenosis right internal carotid >50% stenosis right external carotid Postoperative changes of the left carotid bulb and proximal internal carotid. No hemodynamically significant plaque within the left internal carotid. Mildly tortuous left internal carotid 50-69% stenosis left internal carotid >50% stenosis left external carotid Antegrade right vertebral and markedly diminished flow left vertebral. Significant improvement within the left internal carotid artery is noted from the previous examination of December 26, 2018 Ordering Physician: Dejuan Ritter Referring Physician: JESSICA RAMESH Performed By: Triny Arnold, MAVERICK, RVT
== END ==
PROVIDERS: Family Provider Family Medicine; PCP Family Medicine; Referring Provider Surgery; Visit Provider Surgery
DX: I65.23 Occlusion and stenosis of bilateral carotid arteries (principal)
CPT/HCPCS: 93880

== ENCOUNTER → 2019-03-19 08:27 | Outpatient (CLI) | payer MEDICARE, SELFPAY ==
[2019-01-31 14:29] VITALS: BMI 28.4
[2019-03-19 10:28] LABS: Absolute Lymphocyte Count 2.06 X10^3/uL (0.83-4.51); Basophil# 0.08 X10^3/uL; Basophil% 0.9 % (0-1); Eosinophil# 0.14 X10^3/uL; Eosinophils% 1.6 % (0-5); Hematocrit 44.2 % (37-47); Hemoglobin 14.4 g/dL (12.0-15.0); Lymphocyte # 2.06 X10^3/ul (4.0); Mean Corp Hgb Conc 32.6 g/dL (32-36); Mean Corpuscular Hgb 30.1 pg (27.0-32.0); Mean Corpuscular Volume 92.5 fL (81-99); Mean Platelet Vol. 9.4 fl (6.2-12.0); Monocyte# 0.61 X10^3/uL; Monocyte% 6.8 % (0-10); NRBC Flagged by Analyzer 0 % (0-5); Neutrophil # 6.01 X10^3/uL (2.7-7.7); Neutrophil % 67.3 % (47-70); Platelet Count 299 K/mm3 (150-450); RBC Distribution Width CV 11.9 % (11.6-14.6); RBC Distribution Width SD 40.5 fl (35.1-43.9); Red Blood Count 4.78 M/mm3 (4.2-5.4); White Blood Count 8.9 K/mm3 (4.4-11.0)
[2019-03-19 11:09] LABS: ALB/GLOB Ratio 0.7 RATIO (0.9-2.4); AST(SGOT) 15 U/L (15-37); Alanine Aminotransfer ALT/SGPT 18 U/L (13-56); Albumin, Serum 3.4 g/dL (3.2-5.0); Alkaline Phosphatase 102 U/L (45-117); Anion Gap 6 (5-15); BUN 12 mg/dL (7-18); BUN/Creat Ratio 16.7 RATIO (10-20); Calcium,Total 8.8 mg/dL (8.5-10.1); Chloride 105 mmol/L (98-107); Cholesterol 107 mg/dL (200); Creatinine, Serum 0.72 mg/dL (0.55-1.02); EST Glomerular Filtration Rate 86 mL/min (>60); Est Glom Filt Rate - Afr Amer 104 mL/min (>60); Globulin 5.1 g/dL (2.2-4.2); Glucose 105 mg/dL (74-106); High Density Lipoprotein 33 mg/dL; Potassium 3.9 mmol/L (3.5-5.1); Protein, Total 8.5 g/dL (6.4-8.2); Sodium Level 136 mmol/L (136-145); T4 Free Direct 1.43 ng/dL (0.76-1.46); Thyroid Stim Hormone (TSH) 0.23 uIU/mL (0.358-3.74); Triglycerides 103 mg/dL; Very Low Density Lipoprotein 21 mg/dL (5-40)
== END ==
PROVIDERS: Family Provider Family Medicine; PCP Family Medicine; Referring Provider Family Medicine; Visit Provider Family Medicine
DX: E03.9 Hypothyroidism, unspecified (principal); I65.29 Occlusion and stenosis of unspecified carotid artery; F17.200 Nicotine dependence, unspecified, uncomplicated
CPT/HCPCS: 36415; 80053; 80061; 84439; 84443; 85025

== ENCOUNTER → 2019-10-05 | Outpatient (CLI) | payer MEDICARE, SELFPAY ==
[2019-01-31 14:29] VITALS: BMI 28.4
== END | disposition home or self-care (01) ==
LOC: MFPLAB 10:55 → LABSPEC 10:56
PROVIDERS: PCP Family Medicine; Referring Provider Family Medicine; Visit Provider Family Medicine
DX: R30.0 Dysuria (principal)
CPT/HCPCS: 87086; 87088; 87186

== ENCOUNTER → 2019-10-16 07:40 | Outpatient (CLI) | payer MEDICARE, SELFPAY ==
[2019-01-31 14:29] VITALS: BMI 28.4
--- NOTE | 2019-10-16 07:51 | CT_ITS ---
STUDY: LOW DOSE CT LUNG CANCER SCREENING REASON FOR EXAM: Female, 69 years old. CURRENT SMOKER, 1 PPD X 50 YRS. RADIATION DOSAGE (If Supplied By Facility): CTDIvol = ( 3.02 ) mGy, DLP = ( 91.38 ) mGycm TECHNIQUE: No contrast was administered. Low dose technique was utilized (average mAS-38 and kVp 120). 1.25 mm axial source images with a slice interval of 1.25-mm were reconstructed in lung windows. 2.5 mm axial source images with a slice interval of 2.5-mm were reconstructed in lung windows. 5.0 mm axial source images with a slice interval of 5.0-mm were reconstructed in soft tissue windows. Nodule measured using lung windows on PACS and/or independent workstation with automated measurement of minimum and maximum diameter. Nodule measurement reported as average diameter rounded to the nearest whole number. Growth is defined as an increase ins size of greater than 1.5 mm. COMPARISON: None. NODULES: No suspicious nodules are seen. Emphysema: Emphysematous changes with scarring at the lung apices as well as interstitial scarring at the lung bases with areas of confluence suggestive of a pulmonary fibrosis. Aorta: Atherosclerotic calcific plaques at the level of the aortic arch. There is aberrant origin of the right subclavian artery. Coronary arteries: Coronary artery calcification. Heart: Unremarkable Pulmonary artery: Unremarkable Mediastinal nodes: Small benign-appearing mediastinal lymph nodes. Other chest and abdominal findings: Diffuse enlargement of the left lobe of the thyroid with extension into the substernal region with deviation of the trachea towards the right side of midline. Correlation with ultrasound of the thyroid is recommended for further evaluation. CT/Low Dose CT Lung Screening IMPRESSION: Lung-RADS category 2 - Continue annual screening with LDCT in 12 months. IMPORTANT NOTES FOR USE: ACR Lung-RADS Version 1.0 Assessment Categories Release Date: July 02, 2013 Category: Coded 0-4 bases on nodule(s) with highest degree of suspicion. Negative screen is defined as categories 1 and 2; a positive screen is defined as categories 3 and 4. Category 3 and 4A nodules that are unchanged on interval CT should be coded as category 2, and individuals returned to screening in 12 months. Category 4X: Category 3 or 4 nodules with additional imaging findings that increase the suspicion of lung cancer, such as spiculation, GGN that doubles in size in 1 year, enlarged lymph notes, etc. Category Modifiers: S (significant finding unrelated to lung cancer) and C (prior history of treated lung cancer) may be added to the 0-4 Lung-RADS Electronically Signed: Juan C Dubon, at 9:28 EDT , Service support ,
--- NOTE | 2019-10-16 08:21 | BD_ITS ---
STUDY: DUAL ENERGY X-RAY ABSORPTIOMETRY / DXA REASON FOR EXAM: Female, 69 years old. 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 COMPARISON: None. FINDINGS: Lumbar Spine (L1-L4): g/cm2 (0.928) / T-score (-2.3) / Z-score (-0.6) Findings are suggestive of osteopenia with a moderate fracture risk. Left Femur Total: g/cm2 (0.893) / T-score (-0.9) / Z-score (0.4) Left Femoral Neck: g/cm2 (0.803) / T-score (-1.7) / Z-score (-0.1) Right Femur Total: g/cm2 (0.892) / T-score (-0.9) / Z-score (0.4) Right Femoral Neck: g/cm2 (0.733) / T-score (-2.2) / Z-score (-0.6) BD/Dexa Bone Density Study IMPRESSION: The patient is considered osteopenic as outlined below according to World Paco Organization (WHO) criteria with a high fracture risk. Reference Information: The T-score is the number of standard deviations above or below the standard which is normal for young adults at their peak bone mineral density. The World Health Organization (WHO) interprets the T-scores as follows: Above -1 Normal bone density Between -1 and -2.5 Osteopenia Equal to / or below -2.5 Osteoporosis As a practical clinical guideline, osteopenia may be graded as follows: Mild -1 through -1.5 Moderate -1.6 through -2.0 Severe -2.1 through -2.4 The Z-score is the number of standard deviations above or below age-matched controls. A Z-score of less than -1.5 would be considered abnormal. References: 1. NIH Osteoporosis and Related Bone Diseases http://www.osteo.org 2. International Society for Clinical Densitometry http://www.iscd.org 3. National Osteoporosis Foundation http://www.nof.org Electronically Signed: Juan C Dubon, at 10:42 EDT , Service support ,
== END ==
PROVIDERS: PCP Family Medicine; Referring Provider Family Medicine; Visit Provider Family Medicine
DX: F17.210 Nicotine dependence, cigarettes, uncomplicated (principal); Z78.0 Asymptomatic menopausal state; Z12.2 Encounter for screening for malignant neoplasm of respiratory organs
CPT/HCPCS: 77080; G0297

== ENCOUNTER → 2019-12-28 | Outpatient (CLI) | payer MEDICARE, SELFPAY ==
[2019-01-31 14:29] VITALS: BMI 28.4
[2019-12-28 10:01] LABS: Absolute Lymphocyte Count 1.81 X10^3/uL (0.83-4.51); Absolute Neutrophil Count 6.2 X10^3/uL (2.0-7.7); Basophil# 0.07 X10^3/uL; Basophil% 0.8 % (0-1); Eosinophil# 0.19 X10^3/uL; Eosinophils% 2.1 % (0-5); Hematocrit 44.2 % (37-47); Hemoglobin 14.6 g/dL (12.0-15.0); Lymphocyte # 1.81 X10^3/ul (4.0); Lymphocyte % 20.5 % (19-41); Mean Corpuscular Hgb 30.2 pg (27.0-32.0); Mean Corpuscular Volume 91.3 fL (81-99); Mean Platelet Vol. 9.4 fl (6.2-12.0); Monocyte# 0.56 X10^3/uL; Monocyte% 6.3 % (0-10); NRBC Flagged by Analyzer 0 % (0-5); Neutrophil # 6.17 X10^3/uL (2.7-7.7); Neutrophil % 69.8 % (47-70); Platelet Count 317 K/mm3 (150-450); RBC Distribution Width CV 12.4 % (11.6-14.6); Red Blood Count 4.84 M/mm3 (4.2-5.4); White Blood Count 8.8 K/mm3 (4.4-11.0)
[2019-12-28 10:19] LABS: ALB/GLOB Ratio 0.7 RATIO (0.9-2.4); AST(SGOT) 20 U/L (15-37); Alanine Aminotransfer ALT/SGPT 19 U/L (13-56); Albumin, Serum 3.5 g/dL (3.2-5.0); Alkaline Phosphatase 81 U/L (45-117); Anion Gap 6 (5-15); BUN 12 mg/dL (7-18); BUN/Creat Ratio 14.5 RATIO (10-20); Calcium,Total 8.7 mg/dL (8.5-10.1); Chloride 108 mmol/L (98-107); Cholesterol 113 mg/dL (200); Creatinine, Serum 0.83 mg/dL (0.55-1.02); EST Glomerular Filtration Rate 73 mL/min (>60); Est Glom Filt Rate - Afr Amer 89 mL/min (>60); Globulin 5.1 g/dL (2.2-4.2); Glucose 118 mg/dL (74-106); High Density Lipoprotein 37 mg/dL; Potassium 3.8 mmol/L (3.5-5.1); Protein, Total 8.6 g/dL (6.4-8.2); Sodium Level 139 mmol/L (136-145); T4 Free Direct 1.11 ng/dL (0.76-1.46); Thyroid Stim Hormone (TSH) 0.58 uIU/mL (0.358-3.74); Triglycerides 107 mg/dL; Very Low Density Lipoprotein 21 mg/dL (5-40)
[2019-12-28 10:20] LABS: Hemoglobin A1c 5.7 % (3.8-5.6)
== END | disposition home or self-care (01) ==
LOC: MFPLAB 08:23
PROVIDERS: PCP Family Medicine; Referring Provider Family Medicine; Visit Provider Family Medicine
DX: E03.9 Hypothyroidism, unspecified (principal); R30.0 Dysuria; E78.00 Pure hypercholesterolemia, unspecified; F17.200 Nicotine dependence, unspecified, uncomplicated; R73.02 Impaired glucose tolerance (oral)
CPT/HCPCS: 36415; 80053; 80061; 83036; 84439; 84443; 85025; 87086; 87088; 87186

== ENCOUNTER → 2020-01-04 08:53 | Outpatient (CLI) | payer MEDICARE, SELFPAY ==
[2019-01-31 14:29] VITALS: BMI 28.4
[2020-01-04 10:42] LABS: Vitamin D,25 Hydroxy 26.9 ng/mL
[2020-01-07 16:08] LABS: PROEL- A/G Ratio 0.8 (0.7-1.7); PROEL- Albumin 3.6 g/dL (2.9-4.4); PROEL- Alpha-1 Globulin 0.2 g/dL (0.0-0.4); PROEL- Alpha-2 Globulin 0.9 g/dL (0.4-1.0); PROEL- Beta Globulin 1.1 g/dL (0.7-1.3); PROEL- Gamma Globulin 2.3 g/dL (0.4-1.8); PROEL- Globulin, Total 4.5 g/dL (2.2-3.9); PROEL- TOTAL PROTEIN 8.1 g/dL (6.0-8.5)
== END ==
PROVIDERS: PCP Family Medicine; Referring Provider Family Medicine; Visit Provider Family Medicine
DX: M85.80 Other specified disorders of bone density and structure, unspecified site (principal); E88.09 Other disorders of plasma-protein metabolism, not elsewhere classified
CPT/HCPCS: 36415; 82306; 84165

== ENCOUNTER → 2020-02-12 08:43 | Outpatient (CLI) | payer MEDICARE, SELFPAY ==
[2019-01-31 14:29] VITALS: BMI 28.4
--- NOTE | 2020-02-12 08:50 | CDU_ITS ---
Reason For Study: Carotid stenosis Rt. Velocities/BP Lt. Velocities/BP Prox CCA 78.6/10.8 cm/sec. Prox CCA 86.4/27.9 cm/sec. Mid CCA 82.6/10.8 cm/sec. Mid CCA 90/29.8 cm/sec. Dist CCA 79.9/16 cm/sec. Dist CCA 88.2/29.8 cm/sec. Prox ICA 145.8/16.3 cm/sec. Prox ICA 118.1/30.4 cm/sec. Mid ICA 112.6/22.6 cm/sec. Mid ICA 128.7/23.4 cm/sec. Dist ICA 90.7/16 cm/sec. Dist ICA 118.1/32.2 cm/sec. Rt. ICA/CCA = 1.8. Lt. ICA/CCA = 1.5. Prox ECA 226.1/18.9 cm/sec. Prox ECA 527.2/230.1 cm/sec. Rt. Vert. 80.2/17.6 cm/sec. Lt. Vert. 19.7/4.7 cm/sec. Right Extracranial There is homogeneous, smooth atherosclerotic plaque noted in the right common carotid artery. There is heterogeneous, irregular atherosclerotic plaque noted in the right internal carotid artery. There is heterogeneous, irregular atherosclerotic plaque noted in the right external carotid artery. Antegrade flow is noted in the right vertebral artery. Left Extracranial There is homogeneous, smooth atherosclerotic plaque noted in the left common carotid artery. There is homogeneous, smooth atherosclerotic plaque noted in the left internal carotid artery. There is heterogeneous, irregular atherosclerotic plaque noted in the left external carotid artery. Antegrade flow is noted in the left vertebral artery. Procedure Carotid Duplex [id number]. This is a Carotid Duplex examination using B-mode, color flow and specral Doppler. Exam performed in department. Interpretation Summary Irregular calcific plaque at the proximal right internal carotid artery with 50 to 69% stenosis. Greater than 50% stenosis right external carotid artery Post operative changes of the left carotid bulb and proximal internal carotid artery with no hemodynamically significant plaque and 50 to 69% stenosis based upon velocity analysis. Likely closer to the lower limits. Greater than 50% stenosis left external carotid Patent and antegrade vertebrals bilaterally although with diminished flow on the left Findings are similar to the previous examination of February 26, 2019 Ordering Physician: Dejuan Ritter Referring Physician: Rob Gurrola Performed By: Suzette Perez RVT
== END ==
PROVIDERS: PCP Family Medicine; Referring Provider Surgery; Visit Provider Surgery
DX: I65.22 Occlusion and stenosis of left carotid artery (principal)
CPT/HCPCS: 93880

== ENCOUNTER → 2020-06-30 08:22 | Outpatient (CLI) | payer MEDICARE, SELFPAY ==
[2020-06-30 08:26] LABS: White Blood Cells 0 SEEN /hpf (0-5)
[2020-06-30 09:54] LABS: Color, Urine Yellow (Yellow); Glucose, Dipstick Normal (Normal); Ketone-Dipstick Negative (Negative); Leukocyte Esterase-Dipstick Negative /ul (Negative); Nitrite-Dipstick Negative (Negative); Occult Blood-Urine 150 /ul (Negative); Protein-Dipstick Negative (Negative); Specific Gravity, Urine 1.015 (1.002-1.030); Urine Bilirubin Dipstick Negative (Negative); Urine Clarity Clear (Clear); Urine Urobilinogen Normal (Normal)
[2020-06-30 10:00] LABS: Absolute Lymphocyte Count 1.72 X10^3/uL (0.83-4.51); Absolute Neutrophil Count 4.4 X10^3/uL (2.0-7.7); Basophil# 0.09 X10^3/uL; Basophil% 1.3 % (0-1); Eosinophils% 2.9 % (0-5); Hematocrit 47.6 % (37-47); Hemoglobin 15.6 g/dL (12.0-15.0); Lymphocyte # 1.72 X10^3/ul (0.83-4.51); Lymphocyte % 24.9 % (19-41); Mean Corp Hgb Conc 32.8 g/dL (32-36); Mean Corpuscular Hgb 30.5 pg (27.0-32.0); Mean Platelet Vol. 9.7 fl (6.2-12.0); Monocyte# 0.54 X10^3/uL; Monocyte% 7.8 % (0-10); NRBC Flagged by Analyzer 0 % (0-5); Neutrophil # 4.35 X10^3/uL (2.7-7.7); Neutrophil % 62.8 % (47-70); Platelet Count 308 K/mm3 (150-450); RBC Distribution Width CV 12.1 % (11.6-14.6); Red Blood Count 5.12 M/mm3 (4.2-5.4); White Blood Count 6.9 K/mm3 (4.4-11.0)
[2020-06-30 10:00] LABS: Bacteria RARE /hpf (None Seen); Mucous, Urine RARE /hpf (<or=2+); Red Blood Cells-Urine 0-5 SEEN /hpf (0-5); Squamous Epithelial Cells - UA 0-5 SEEN /hpf (5-10)
[2020-06-30 10:24] LABS: Hemoglobin A1c 5.5 % (3.8-5.6)
[2020-06-30 10:30] LABS: ALB/GLOB Ratio 0.7 RATIO (0.9-2.4); AST(SGOT) 19 U/L (15-37); Alanine Aminotransfer ALT/SGPT 20 U/L (13-56); Albumin, Serum 3.8 g/dL (3.2-5.0); Alkaline Phosphatase 82 U/L (45-117); Anion Gap 5 (5-15); BUN 11 mg/dL (7-18); BUN/Creat Ratio 12.9 RATIO (10-20); Chloride 104 mmol/L (98-107); Cholesterol 102 mg/dL (200); Creatinine, Serum 0.86 mg/dL (0.55-1.02); EST Glomerular Filtration Rate 70 mL/min (>60); Est Glom Filt Rate - Afr Amer 85 mL/min (>60); Globulin 5.3 g/dL (2.2-4.2); Glucose 106 mg/dL (74-106); High Density Lipoprotein 35 mg/dL; Phosphorus 3.3 mg/dL (2.5-4.9); Potassium 4.1 mmol/L (3.5-5.1); Protein, Total 9.1 g/dL (6.4-8.2); Sodium Level 137 mmol/L (136-145); Thyroid Stim Hormone (TSH) 0.61 uIU/mL (0.358-3.74); Triglycerides 104 mg/dL; Very Low Density Lipoprotein 21 mg/dL (5-40)
[2020-07-07 16:08] LABS: PROEL- Albumin 4.4 g/dL (2.9-4.4); PROEL- Alpha-1 Globulin 0.4 g/dL (0.0-0.4); PROEL- Alpha-2 Globulin 1.1 g/dL (0.4-1.0); PROEL- Beta Globulin 1.3 g/dL (0.7-1.3); PROEL- Gamma Globulin 1.5 g/dL (0.4-1.8); PROEL- Globulin, Total 4.3 g/dL (2.2-3.9); PROEL- TOTAL PROTEIN 8.7 g/dL (6.0-8.5)
== END ==
PROVIDERS: PCP Family Medicine; Visit Provider Family Medicine
DX: E78.00 Pure hypercholesterolemia, unspecified (principal); M85.80 Other specified disorders of bone density and structure, unspecified site; E88.09 Other disorders of plasma-protein metabolism, not elsewhere classified; R73.02 Impaired glucose tolerance (oral); E03.9 Hypothyroidism, unspecified; F17.200 Nicotine dependence, unspecified, uncomplicated
CPT/HCPCS: 36415; 80053; 80061; 81001; 82306; 83036; 84100; 84165; 84439; 84443; 85025

== ENCOUNTER → 2020-10-29 | Outpatient (CLI) | payer MEDICARE, SELFPAY | END | disposition home or self-care (01) | LOC: MFPLAB 11:00 → LABSPEC 11:02 | PROVIDERS: PCP Family Medicine; Referring Provider Family Medicine; Visit Provider Family Medicine | DX: N39.0 Urinary tract infection, site not specified (principal) | CPT/HCPCS: 87077; 87086; 87088; 87186 ==

== ENCOUNTER → 2020-11-11 07:10 | Outpatient (CLI) | payer MEDICARE, SELFPAY ==
--- NOTE | 2020-11-11 07:14 | BI_ITS ---
MAMMOGRAPHY - BILATERAL SCREENING REASON FOR EXAM: Female, 70 years old. Routine annual screening examination. PERTINENT HISTORY: Aunts with breast cancer. TECHNIQUE: Digital bilateral breast momo (3D mammographic acquisition) in the CC and MLO projections. 2-D mediolateral oblique (MLO) and craniocaudad (CC) views of both breasts were obtained. CAD: Full Field Digital Mammography with Computer Added Detection was performed. COMPARISON: Comparison is made with prior study of 05/18/2018 and 10/10/2014. FINDINGS: Breast Composition: There are scattered areas of fibroglandular density. There are no dominant masses or suspicious calcifications. No other significant abnormalities are identified. There has been no significant change since the prior study. BI/SCRN MAMM (CAD)W/MOMO BILAT IMPRESSION: Stable bilateral screening mammogram. Yearly follow-up mammogram recommended. (A) ASSESSMENT CATEGORY: BIRADS Category 1: Negative. A letter regarding these results will be sent to the patient by the facility within 30 days. Approximately 10% of breast cancers are not detected by mammography. A normal mammogram should not delay biopsy of a clinically suspicious abnormality. [id number] Electronically Signed: Juan C Dubon MD at 8:14 EDT , Service support ,
--- NOTE | 2020-11-11 14:44 | CT_ITS ---
STUDY: LOW DOSE CT LUNG CANCER SCREENING REASON FOR EXAM: Female, 70 years old. HISTORY OF TOBACCO ABUSE. Patient smoked 1.5 packs per day for 50 years. RADIATION DOSAGE (If Supplied By Facility): CTDIvol = ( 2.39 ) mGy, DLP = ( 74.15 ) mGycm TECHNIQUE: No contrast was administered. Low dose technique was utilized (average mAS-38 and kVp 120). 1.25 mm axial source images with a slice interval of 1.25-mm were reconstructed in lung windows. 2.5 mm axial source images with a slice interval of 2.5-mm were reconstructed in lung windows. 5.0 mm axial source images with a slice interval of 5.0-mm were reconstructed in soft tissue windows. Nodule measured using lung windows on PACS and/or independent workstation with automated measurement of minimum and maximum diameter. Nodule measurement reported as average diameter rounded to the nearest whole number. Growth is defined as an increase ins size of greater than 1.5 mm. COMPARISON: Comparison is made with prior study 10/16/2019. Stable diffuse enlargement of the left lobe of thyroid with substernal extension. There is deviation of the trachea towards the right side of the midline. NODULES: No suspicious nodules are seen. Emphysema: Stable emphysematous changes more prominent in the lung apices with the scarring at the lung apices. Stable mild degree of increased interstitial markings at the lung bases suggestive of a interstitial fibrosis. Endobronchial lesion: None Aorta: Atherosclerotic plaque formation. Coronary arteries: Coronary artery calcification. Heart: Unremarkable. Pulmonary artery: Unremarkable. Mediastinal nodes: Stable small benign appearing mediastinal lymph nodes. Other chest and abdominal findings: CT/Low Dose CT Lung Screening IMPRESSION: Lung-RADS category 2 - Continue annual screening with LDCT in 12 months. IMPORTANT NOTES FOR USE: ACR Lung-RADS Version 1.1 Assessment Categories Release Date: 2018 Category: Coded 0-4 bases on nodule(s) with highest degree of suspicion. Negative screen is defined as categories 1 and 2; a positive screen is defined as categories 3 and 4. Category 3 and 4A nodules that are unchanged on interval CT should be coded as category 2, and individuals returned to screening in 12 months. Category 4X: Category 3 or 4 nodules with additional imaging findings that increase the suspicion of lung cancer, such as spiculation, GGN that doubles in size in 1 year, enlarged lymph notes, etc. Category Modifiers: S (significant finding unrelated to lung cancer) Electronically Signed: Juan C Dubon MD at 15:34 EDT , Service support ,
== END ==
PROVIDERS: PCP Family Medicine; Visit Provider Family Medicine
DX: Z87.891 Personal history of nicotine dependence (principal); Z12.31 Encounter for screening mammogram for malignant neoplasm of breast; Z12.2 Encounter for screening for malignant neoplasm of respiratory organs
CPT/HCPCS: 71271; 77063; 77067

== ENCOUNTER 2021-05-15 08:44 | Outpatient (CLI) | payer MEDICARE, SELFPAY ==
[2021-05-15 08:54] LABS: Mucous, Urine 0 SEEN /hpf (<or=2+)
[2021-05-15 10:15] LABS: Color, Urine Yellow (Yellow); Glucose, Dipstick Normal (Normal); Ketone-Dipstick Negative (Negative); Leukocyte Esterase-Dipstick Negative /ul (Negative); Nitrite-Dipstick Negative (Negative); Occult Blood-Urine 50 /ul (Negative); Protein-Dipstick 15 mg/dl (Negative); Urine Bilirubin Dipstick Negative (Negative); Urine Clarity Clear (Clear); Urine Urobilinogen Normal (Normal)
[2021-05-15 10:30] LABS: Bacteria RARE /hpf (None Seen); Red Blood Cells-Urine 0-5 SEEN /hpf (0-5); Squamous Epithelial Cells - UA 0-5 SEEN /hpf (5-10); White Blood Cells 0-5 SEEN /hpf (0-5)
[2021-05-15 10:35] LABS: Hemoglobin A1c 5.6 % (3.8-5.6)
[2021-05-15 10:40] LABS: ALB/GLOB Ratio 0.7 RATIO (0.9-2.4); AST(SGOT) 19 U/L (15-37); Alanine Aminotransfer ALT/SGPT 18 U/L (13-56); Albumin, Serum 3.5 g/dL (3.2-5.0); Alkaline Phosphatase 69 U/L (45-117); Anion Gap 3 (5-15); BUN 13 mg/dL (7-18); BUN/Creat Ratio 14.3 RATIO (10-20); Calcium,Total 9.1 mg/dL (8.5-10.1); Chloride 107 mmol/L (98-107); Cholesterol 109 mg/dL (200); Creatinine, Serum 0.91 mg/dL (0.55-1.02); EST Glomerular Filtration Rate 66 mL/min (>60); Est Glom Filt Rate - Afr Amer 79 mL/min (>60); Globulin 5.3 g/dL (2.2-4.2); Glucose 107 mg/dL (74-106); High Density Lipoprotein 34 mg/dL; Potassium 4.3 mmol/L (3.5-5.1); Protein, Total 8.8 g/dL (6.4-8.2); Sodium Level 136 mmol/L (136-145); T4 Free Direct 1.24 ng/dL (0.76-1.46); Thyroid Stim Hormone (TSH) 0.78 uIU/mL (0.358-3.74); Triglycerides 105 mg/dL; Very Low Density Lipoprotein 21 mg/dL (5-40)
== END 2021-05-15 23:59 | disposition home or self-care (01) ==
LOC: MFPLAB 08:45
PROVIDERS: PCP Family Medicine; Referring Provider Family Medicine; Visit Provider Family Medicine
DX: R73.02 Impaired glucose tolerance (oral) (principal); E78.00 Pure hypercholesterolemia, unspecified; E03.9 Hypothyroidism, unspecified; M85.80 Other specified disorders of bone density and structure, unspecified site
CPT/HCPCS: 36415; 80053; 80061; 81001; 82306; 83036; 84439; 84443

== ENCOUNTER → 2021-09-17 | Outpatient (CLI) | payer MEDICARE, SELFPAY ==
[2021-09-17 08:19] LABS: Bacteria 0 SEEN /hpf (None Seen); Mucous, Urine 0 SEEN /hpf (<or=2+); Red Blood Cells-Urine 0 SEEN /hpf (0-5); White Blood Cells 0 SEEN /hpf (0-5)
[2021-09-17 10:11] LABS: Absolute Lymphocyte Count 1.33 X10^3/uL (0.83-4.51); Basophil# 0.07 X10^3/uL; Eosinophils% 1.4 % (0-5); Hematocrit 42.6 % (37-47); Hemoglobin 14.3 g/dL (12.0-15.0); Lymphocyte # 1.33 X10^3/ul (0.83-4.51); Mean Corp Hgb Conc 33.6 g/dL (32-36); Mean Corpuscular Volume 92.2 fL (81-99); Mean Platelet Vol. 9.6 fl (6.2-12.0); Monocyte# 0.46 X10^3/uL; Monocyte% 6.6 % (0-10); NRBC Flagged by Analyzer 0 % (0-5); Neutrophil # 5.01 X10^3/uL (2.7-7.7); Neutrophil % 71.6 % (47-70); Platelet Count 305 K/mm3 (150-450); RBC Distribution Width CV 12.2 % (11.6-14.6); RBC Distribution Width SD 41.3 fl (35.1-43.9); Red Blood Count 4.62 M/mm3 (4.2-5.4)
[2021-09-17 10:16] LABS: Color, Urine Yellow (Yellow); Glucose, Dipstick Normal (Normal); Ketone-Dipstick Negative (Negative); Leukocyte Esterase-Dipstick Negative /ul (Negative); Nitrite-Dipstick Negative (Negative); Occult Blood-Urine 50 /ul (Negative); Protein-Dipstick Negative (Negative); Urine Bilirubin Dipstick Negative (Negative); Urine Clarity Clear (Clear); Urine Urobilinogen Normal (Normal)
[2021-09-17 10:26] LABS: Squamous Epithelial Cells - UA 0-5 SEEN /hpf (5-10)
[2021-09-17 10:39] LABS: Vitamin D,25 Hydroxy 39.2 ng/mL
[2021-09-17 10:41] LABS: Hemoglobin A1c 5.7 % (3.8-5.6)
[2021-09-17 10:49] LABS: ALB/GLOB Ratio 0.7 RATIO (0.9-2.4); AST(SGOT) 20 U/L (15-37); Alanine Aminotransfer ALT/SGPT 20 U/L (13-56); Albumin, Serum 3.6 g/dL (3.2-5.0); Alkaline Phosphatase 63 U/L (45-117); Anion Gap 5 (5-15); BUN 11 mg/dL (7-18); Calcium,Total 8.9 mg/dL (8.5-10.1); Chloride 107 mmol/L (98-107); Cholesterol 104 mg/dL (200); Creatinine, Serum 0.84 mg/dL (0.55-1.02); EST Glomerular Filtration Rate 71 mL/min (>60); Est Glom Filt Rate - Afr Amer 86 mL/min (>60); Glucose 113 mg/dL (74-106); High Density Lipoprotein 32 mg/dL; Protein, Total 8.6 g/dL (6.4-8.2); Sodium Level 138 mmol/L (136-145); T4 Free Direct 1.35 ng/dL (0.76-1.46); Triglycerides 114 mg/dL; Very Low Density Lipoprotein 23 mg/dL (5-40)
== END | disposition home or self-care (01) ==
LOC: MFPLAB 08:10
PROVIDERS: PCP Family Medicine; Referring Provider Family Medicine; Visit Provider Family Medicine
DX: E03.9 Hypothyroidism, unspecified (principal); F17.200 Nicotine dependence, unspecified, uncomplicated; E78.00 Pure hypercholesterolemia, unspecified; M85.80 Other specified disorders of bone density and structure, unspecified site; R73.02 Impaired glucose tolerance (oral)
CPT/HCPCS: 36415; 80053; 80061; 81001; 82306; 83036; 84439; 84443; 85025

== ENCOUNTER → 2021-10-20 | Outpatient (CLI) | payer MEDICARE, SELFPAY ==
--- NOTE | 2021-10-20 08:58 | BD_ITS ---
STUDY: DUAL ENERGY X-RAY ABSORPTIOMETRY / DXA REASON FOR EXAM: Female, 71 years old. [id number] TECHNIQUE: Bone Mineral Density (BMD) measurements of lumbar spine and bilateral hips were obtained. COMPARISON: 10/16/2019 FINDINGS: Lumbar Spine (L1-L4): g/cm2 (0.830) / T-score (-2.0) / Z-score (0.1) Findings are suggestive of osteopenia with a moderate fracture risk. Left Femur Total: g/cm2 (0.817) / T-score (-1.0) / Z-score (0.4) Left Femoral Neck: g/cm2 (0.651) / T-score (-1.8) / Z-score (0.0) Right Femur Total: g/cm2 (0.864) / T-score (-0.6) / Z-score (0.8) Right Femoral Neck: g/cm2 (0.636) / T-score (-1.9) / Z-score (-0.2) BD/Dexa Bone Density Study IMPRESSION: The patient is considered osteopenic as outlined below according to World Paco Organization (WHO) criteria with a moderate fracture risk. There has been no change of bone density since the previous examination. Reference Information: The T-score is the number of standard deviations above or below the standard which is normal for young adults at their peak bone mineral density. The World Health Organization (WHO) interprets the T-scores as follows: Above -1 Normal bone density Between -1 and -2.5 Osteopenia Equal to / or below -2.5 Osteoporosis As a practical clinical guideline, osteopenia may be graded as follows: Mild -1 through -1.5 Moderate -1.6 through -2.0 Severe -2.1 through -2.4 The Z-score is the number of standard deviations above or below age-matched controls. A Z-score of less than -1.5 would be considered abnormal. References: 1. NIH Osteoporosis and Related Bone Diseases www osteo.org 2. International Society for Clinical Densitometry www iscd.org 3. National Osteoporosis Foundation www nof.org Electronically Signed: Naresh Adkins MD at 13:07 EDT ,
== END | disposition home or self-care (01) ==
PROVIDERS: PCP Family Medicine; Referring Provider Family Medicine; Visit Provider Family Medicine
DX: M85.80 Other specified disorders of bone density and structure, unspecified site (principal); M81.0 Age-related osteoporosis without current pathological fracture
CPT/HCPCS: 77080

== ENCOUNTER → 2021-11-10 | Outpatient (CLI) | payer MEDICARE, SELFPAY ==
--- NOTE | 2021-11-10 09:44 | CDU_ITS ---
Reason For Study: carotid stenosis Rt. Velocities/BP Lt. Velocities/BP Prox CCA 89.0/13.4 cm/sec. Prox CCA 108.4/26.2 cm/sec. Mid CCA 90.3/13.4 cm/sec. Mid CCA 79.0/22.5 cm/sec. Dist CCA 83.8/13.4 cm/sec. Dist CCA 96.2/24.9 cm/sec. Prox ICA 158.8/18.9 cm/sec. Prox ICA 121.7/30.4 cm/sec. Mid ICA 164.0/18.9 cm/sec. Mid ICA 143.7/28.6 cm/sec. Dist ICA 99.2/20.6 cm/sec. Dist ICA 105.3/32.2 cm/sec. Rt. ICA/CCA = 1.8. Lt. ICA/CCA = 1.8. Prox ECA 236.5/16.3 cm/sec. Prox ECA 520.9/141.0 cm/sec. Rt. Vert. 75.4/11.5 cm/sec. Lt. Vert. 16.5/6.9 cm/sec. Right Extracranial There is heterogeneous, irregular atherosclerotic plaque noted in the right common carotid artery. There is heterogeneous, irregular atherosclerotic plaque noted in the right internal carotid artery. There is heterogeneous, irregular atherosclerotic plaque noted in the right external carotid artery. Antegrade flow is noted in the right vertebral artery. Left Extracranial There is homogeneous, smooth atherosclerotic plaque noted in the left common carotid artery. There is homogeneous, smooth atherosclerotic plaque noted in the left internal carotid artery. There is heterogeneous, irregular atherosclerotic plaque noted in the left external carotid artery. Antegrade flow is noted in the left vertebral artery. Procedure Carotid Duplex [id number]. This is a Carotid Duplex examination using B-mode, color flow and specral Doppler. The exam was diagnostic. Exam performed in department. VL/Carotid Duplex Ultrasound Interpretation Summary Irregular calcific plaque at the proximal right internal carotid artery with 50 to 69% stenosis. Greater than 50% stenosis right external carotid artery Minimal smooth plaque at the proximal left internal carotid artery with postope rative changes and 50 to 69% stenosis. Greater than 50% stenosis left external carotid artery Patent antegrade vertebral arteries bilaterally although with decreased velocit y in the left. These findings are unchanged from the previous examination of February 12, 2020 Ordering Physician: Rob Gurrola Performed By: Shamar Claix RVT
== END | disposition home or self-care (01) ==
LOC: CVS 09:42
PROVIDERS: PCP Family Medicine; Referring Provider Family Medicine; Visit Provider Family Medicine
DX: I65.23 Occlusion and stenosis of bilateral carotid arteries (principal)
CPT/HCPCS: 93880

== ENCOUNTER → 2022-01-04 | Outpatient (CLI) | payer MEDICARE, SELFPAY ==
--- NOTE | 2022-01-04 14:13 | CT_ITS ---
STUDY: LOW DOSE CT LUNG CANCER SCREENING REASON FOR EXAM: Female, 71 years old. 1 pack per day smoker x45 years RADIATION DOSAGE (If Supplied By Facility): CTDIvol = ( 1.59 ) mGy, DLP = ( 50.63 ) mGycm TECHNIQUE: No contrast was administered. Low dose technique was utilized (average mAS-38 and kVp 120). 1.25 mm axial source images with a slice interval of 1.25-mm were reconstructed in lung windows. 2.5 mm axial source images with a slice interval of 2.5-mm were reconstructed in lung windows. 5.0 mm axial source images with a slice interval of 5.0-mm were reconstructed in soft tissue windows. COMPARISON: 11/11/2020 FINDINGS: Lung windows show the lungs to be normally expanded. Chronic interstitial changes in both lung [place] with nonspecific pleural thickening and some fibrotic scarring in the lung bases. Nonspecific pleural thickening noted in both hemithoraces. There is no organized infiltrate, or suspicious noncalcified mass or nodule. Soft tissue windows show stable enlargement of the left lobe of the thyroid which deviates the trachea to the right. No suspicious adenopathy. There are calcified coronary vessels. No pleural or pericardial effusions. Degenerative bony changes. Limited cuts through the upper abdomen do not show a suspicious abnormality CT/Low Dose CT Lung Screening IMPRESSION: Lung-RADS category 2 - Continue annual screening with LDCT in 12 months. IMPORTANT NOTES FOR USE: ACR Lung-RADS Version 1.1 Assessment Categories Release Date: 2018 Category: Coded 0-4 bases on nodule(s) with highest degree of suspicion. Negative screen is defined as categories 1 and 2; a positive screen is defined as categories 3 and 4. Category 3 and 4A nodules that are unchanged on interval CT should be coded as category 2, and individuals returned to screening in 12 months. Category 4X: Category 3 or 4 nodules with additional imaging findings that increase the suspicion of lung cancer, such as spiculation, GGN that doubles in size in 1 year, enlarged lymph notes, etc. Category Modifiers: S (significant finding unrelated to lung cancer) Electronically Signed: Justin Layton MD at 9:07 EDT ,
== END | disposition home or self-care (01) ==
LOC: CT 14:13
PROVIDERS: PCP Family Medicine; Referring Provider Family Medicine; Visit Provider Family Medicine
DX: Z87.891 Personal history of nicotine dependence (principal)
CPT/HCPCS: 71271

== ENCOUNTER → 2022-01-26 | Outpatient (CLI) | payer MEDICARE, SELFPAY ==
--- NOTE | 2022-01-26 09:12 | BI_ITS ---
MAMMOGRAPHY - BILATERAL SCREENING REASON FOR EXAM: Female, 71 years old. Routine annual screening examination. PERTINENT HISTORY: Multiple aunts with breast cancer. Questionable history of breast cancer in mother. No reported personal history of breast cancer. TECHNIQUE: Digital bilateral breast momo (3D mammographic acquisition) in the CC and MLO projections. 2-D mediolateral oblique (MLO) and craniocaudad (CC) views of both breasts were obtained. CAD: Full Field Digital Mammography with Computer Added Detection was performed. COMPARISON: 11/11/2020, 05/18/2018. FINDINGS: Breast Composition: There are scattered areas of fibroglandular density. There are no dominant masses or suspicious calcifications. No other significant abnormalities are identified. There has been no significant change since the prior study. BI/SCRN MAMM (CAD)W/MOMO BILAT IMPRESSION: Stable bilateral screening mammogram. Yearly follow-up mammogram recommended. (A) ASSESSMENT CATEGORY: BIRADS Category 1: Negative. A letter regarding these results will be sent to the patient by the facility within 30 days. Approximately 10% of breast cancers are not detected by mammography. A normal mammogram should not delay biopsy of a clinically suspicious abnormality. Electronically Signed: Tobin Mccray, at 17:46 EST ,
== END | disposition home or self-care (01) ==
LOC: OPBI 09:11
PROVIDERS: PCP Family Medicine; Visit Provider Family Medicine
DX: Z12.31 Encounter for screening mammogram for malignant neoplasm of breast (principal); C80.0 Disseminated malignant neoplasm, unspecified
CPT/HCPCS: 77063; 77067

== ENCOUNTER → 2022-04-16 | Outpatient (CLI) | payer MEDICARE, SELFPAY ==
[2022-04-16 09:59] LABS: Absolute Lymphocyte Count 1.87 X10^3/uL (0.83-4.51); Absolute Neutrophil Count 8.5 X10^3/uL (2.0-7.7); Basophil# 0.04 X10^3/uL; Basophil% 0.4 % (0-1); Eosinophil# 0.16 X10^3/uL; Eosinophils% 1.4 % (0-5); Hematocrit 46.1 % (37-47); Hemoglobin 15.2 g/dL (12.0-15.0); Lymphocyte # 1.87 X10^3/ul (0.83-4.51); Lymphocyte % 16.7 % (19-41); Mean Corpuscular Hgb 30.6 pg (27.0-32.0); Mean Corpuscular Volume 92.9 fL (81-99); Mean Platelet Vol. 9.6 fl (6.2-12.0); Monocyte% 5.3 % (0-10); NRBC Flagged by Analyzer 0 % (0-5); Neutrophil # 8.52 X10^3/uL (2.7-7.7); Neutrophil % 75.8 % (47-70); Platelet Count 341 K/mm3 (150-450); RBC Distribution Width CV 12.2 % (11.6-14.6); RBC Distribution Width SD 41.5 fl (35.1-43.9); Red Blood Count 4.96 M/mm3 (4.2-5.4); White Blood Count 11.2 K/mm3 (4.4-11.0)
[2022-04-16 10:24] LABS: Hemoglobin A1c 5.7 % (3.8-5.6)
[2022-04-16 10:30] LABS: ALB/GLOB Ratio 0.7 RATIO (0.9-2.4); AST(SGOT) 12 U/L (15-37); Alanine Aminotransfer ALT/SGPT 16 U/L (13-56); Albumin, Serum 3.6 g/dL (3.2-5.0); Alkaline Phosphatase 68 U/L (45-117); Anion Gap 6 (5-15); BUN 16 mg/dL (7-18); Calcium,Total 9.2 mg/dL (8.5-10.1); Chloride 103 mmol/L (98-107); Cholesterol 108 mg/dL (200); Creatinine, Serum 0.84 mg/dL (0.55-1.02); EST Glomerular Filtration Rate 71 mL/min (>60); Est Glom Filt Rate - Afr Amer 86 mL/min (>60); Globulin 5.2 g/dL (2.2-4.2); Glucose 100 mg/dL (74-106); High Density Lipoprotein 39 mg/dL; Potassium 3.7 mmol/L (3.5-5.1); Protein, Total 8.8 g/dL (6.4-8.2); Sodium Level 137 mmol/L (136-145); T4 Free Direct 1.26 ng/dL (0.76-1.46); Thyroid Stim Hormone (TSH) 0.94 uIU/mL (0.358-3.74); Triglycerides 97 mg/dL; Very Low Density Lipoprotein 19 mg/dL (5-40)
[2022-04-16 10:43] LABS: Vitamin D,25 Hydroxy 34.4 ng/mL
[2022-04-22 15:08] LABS: PROEL- A/G Ratio 0.9 (0.7-1.7); PROEL- Albumin 3.9 g/dL (2.9-4.4); PROEL- Alpha-1 Globulin 0.2 g/dL (0.0-0.4); PROEL- Alpha-2 Globulin 0.8 g/dL (0.4-1.0); PROEL- Gamma Globulin 2.5 g/dL (0.4-1.8); PROEL- Globulin, Total 4.5 g/dL (2.2-3.9); PROEL- TOTAL PROTEIN 8.4 g/dL (6.0-8.5)
== END | disposition home or self-care (01) ==
LOC: MFPLAB 08:05
PROVIDERS: PCP Family Medicine; Referring Provider Family Medicine; Visit Provider Family Medicine
DX: E78.00 Pure hypercholesterolemia, unspecified (principal); E03.9 Hypothyroidism, unspecified; R73.02 Impaired glucose tolerance (oral); M85.80 Other specified disorders of bone density and structure, unspecified site
CPT/HCPCS: 36415; 80053; 80061; 82306; 83036; 84165; 84439; 84443; 85025

== ENCOUNTER → 2022-04-21 | Outpatient (CLI) | payer MEDICARE, SELFPAY ==
[2022-04-21 10:14] LABS: Red Blood Cells-Urine 0 SEEN /hpf (0-5)
[2022-04-21 13:05] LABS: Color, Urine Yellow (Yellow); Glucose, Dipstick 50 mg/dl (Normal); Ketone-Dipstick Negative (Negative); Leukocyte Esterase-Dipstick 25 /ul (Negative); Nitrite-Dipstick Negative (Negative); Occult Blood-Urine 50 /ul (Negative); Protein-Dipstick 15 mg/dl (Negative); Specific Gravity, Urine 1.025 (1.002-1.030); Urine Bilirubin Dipstick Negative (Negative); Urine Clarity Sl. Cloudy (Clear); Urine Urobilinogen Normal (Normal)
[2022-04-21 13:28] LABS: Bacteria RARE /hpf (None Seen); Mucous, Urine RARE /hpf (<or=2+); Squamous Epithelial Cells - UA 5-10 SEEN /hpf (5-10); White Blood Cells 0-5 SEEN /hpf (0-5)
== END | disposition home or self-care (01) ==
LOC: MFPLAB 10:02
PROVIDERS: PCP Family Medicine; Referring Provider Family Medicine; Visit Provider Family Medicine
DX: N39.0 Urinary tract infection, site not specified (principal)
CPT/HCPCS: 81001; 87086; 87088

== ENCOUNTER → 2022-08-13 | Outpatient (CLI) | payer MEDICARE, SELFPAY ==
[2022-08-13 08:14] LABS: White Blood Cells 0 SEEN /hpf (0-5)
[2022-08-13 11:20] LABS: Absolute Lymphocyte Count 1.55 X10^3/uL (0.83-4.51); Absolute Neutrophil Count 8.2 X10^3/uL (2.0-7.7); Basophil# 0.06 X10^3/uL; Basophil% 0.6 % (0-1); Eosinophil# 0.09 X10^3/uL; Eosinophils% 0.8 % (0-5); Hematocrit 43.4 % (37-47); Hemoglobin 14.1 g/dL (12.0-15.0); Lymphocyte # 1.55 X10^3/ul (0.83-4.51); Lymphocyte % 14.3 % (19-41); Mean Corp Hgb Conc 32.5 g/dL (32-36); Mean Corpuscular Hgb 30.5 pg (27.0-32.0); Mean Corpuscular Volume 93.7 fL (81-99); Mean Platelet Vol. 9.6 fl (6.2-12.0); Monocyte% 8.3 % (0-10); NRBC Flagged by Analyzer 0 % (0-5); Neutrophil # 8.18 X10^3/uL (2.7-7.7); Neutrophil % 75.7 % (47-70); Platelet Count 304 K/mm3 (150-450); RBC Distribution Width CV 12.2 % (11.6-14.6); RBC Distribution Width SD 42.1 fl (35.1-43.9); Red Blood Count 4.63 M/mm3 (4.2-5.4); White Blood Count 10.8 K/mm3 (4.4-11.0)
[2022-08-13 11:23] LABS: Color, Urine Yellow (Yellow); Glucose, Dipstick Normal (Normal); Ketone-Dipstick Negative (Negative); Leukocyte Esterase-Dipstick Negative /ul (Negative); Nitrite-Dipstick Negative (Negative); Occult Blood-Urine 150 /ul (Negative); Protein-Dipstick 30 mg/dl (Negative); Specific Gravity, Urine 1.025 (1.002-1.030); Urine Bilirubin Dipstick Negative (Negative); Urine Clarity Sl. Cloudy (Clear); Urine Urobilinogen Normal (Normal)
[2022-08-13 11:30] LABS: Bacteria 1+ /hpf (None Seen); Mucous, Urine 1+ /hpf (<or=2+); Red Blood Cells-Urine 10-25 SEEN /hpf (0-5); Squamous Epithelial Cells - UA 0-5 SEEN /hpf (5-10)
[2022-08-13 11:36] LABS: Vitamin D,25 Hydroxy 35.4 ng/mL
[2022-08-13 11:39] LABS: Hemoglobin A1c 5.6 % (3.8-5.6)
[2022-08-13 11:44] LABS: ALB/GLOB Ratio 0.6 RATIO (0.9-2.4); AST(SGOT) 16 U/L (15-37); Alanine Aminotransfer ALT/SGPT 16 U/L (13-56); Albumin, Serum 3.2 g/dL (3.2-5.0); Alkaline Phosphatase 67 U/L (45-117); Anion Gap 7 (5-15); BUN 11 mg/dL (7-18); BUN/Creat Ratio 13.4 RATIO (10-20); Calcium,Total 9.2 mg/dL (8.5-10.1); Chloride 105 mmol/L (98-107); Cholesterol 106 mg/dL (200); Creatinine, Serum 0.82 mg/dL (0.55-1.02); EST Glomerular Filtration Rate 73 mL/min (>60); Est Glom Filt Rate - Afr Amer 88 mL/min (>60); Globulin 5.8 g/dL (2.2-4.2); Glucose 114 mg/dL (74-106); High Density Lipoprotein 43 mg/dL; Sodium Level 135 mmol/L (136-145); T4 Free Direct 1.26 ng/dL (0.76-1.46); Thyroid Stim Hormone (TSH) 0.71 uIU/mL (0.358-3.74); Triglycerides 60 mg/dL; Very Low Density Lipoprotein 12 mg/dL (5-40)
== END | disposition home or self-care (01) ==
LOC: MFPLAB 08:01
PROVIDERS: PCP Family Medicine; Visit Provider Family Medicine
DX: E03.9 Hypothyroidism, unspecified (principal); N39.0 Urinary tract infection, site not specified; R73.02 Impaired glucose tolerance (oral); E78.00 Pure hypercholesterolemia, unspecified; M85.80 Other specified disorders of bone density and structure, unspecified site
CPT/HCPCS: 36415; 80053; 80061; 81001; 82306; 83036; 84439; 84443; 85025; 87086; 87088

== ENCOUNTER → 2022-08-18 | Outpatient (CLI) | payer MEDICARE, SELFPAY ==
--- NOTE | 2022-08-18 09:36 | CYSPIN_PTH ---
PATIENT: RIOS GROVER LOC: [facility] U#:[id number] AGE/SX: 72/F ROOM: RE08/18/[address]: Dr. Rob Gurrola MD : [id number] BED: DIS: 08/18/2022 SPEC #: [id number] RECD: 08/18/22 11:21 STATUS: CIELO DUARTE #: [id number] OPAL: 08/18/22 09:[address]: Rob Gurrola DEPT: CYTOLOGY RECD BY: Clau Hubbard Tissues: Urine Procedures: Pap Stain (control) Special Stain Group II Cytospin Fluid HEADER OPERATION: Not noted PRE-OP DIAGNOSIS: Hematuria TISSUE SUBMITTED: Urine for cytology DIAGNOSIS CYTOLOGY Urine for cytology (cytospin): Negative for high-grade urothelial carcinoma (NHGUC), Arely System Category II. Focal mild acute inflammation. See comment. MARIYA:volodymyr 08/18/2022 COMMENT A few organisms consistent with bacteria are also noted. Clinical correlation and appropriate follow up are necessary. The Arely System for urine cytology diagnostic categorization was used in the evaluation of this case. CYTOLOGY STUDY Slides are reviewed. CYTOLOGY GROSS Received is 50 ml of yellow hazy fluid labeled with the patient's name and and designated per the requisition as urine. Submitted for cytology preparation. / volodymyr 08/18/2022 TC:2 CPT: 24944
[2022-08-18 09:37] LABS: Cytology, Body Fluid / CSF SEE PATHOLOGY REPORT
[2022-08-18 11:10] LABS: Color, Urine Yellow (Yellow); Glucose, Dipstick Normal (Normal); Ketone-Dipstick Negative (Negative); Leukocyte Esterase-Dipstick Negative /ul (Negative); Nitrite-Dipstick Negative (Negative); Occult Blood-Urine 25 /ul (Negative); Protein-Dipstick Negative (Negative); Urine Bilirubin Dipstick Negative (Negative); Urine Clarity Clear (Clear); Urine Urobilinogen Normal (Normal)
== END | disposition home or self-care (01) ==
LOC: MTLAB 09:28
PROVIDERS: PCP Family Medicine; Referring Provider Family Medicine; Visit Provider Family Medicine
DX: R31.9 Hematuria, unspecified (principal)
CPT/HCPCS: 81002; 87086; 87088; 88108; 88313

== ENCOUNTER → 2023-01-06 | Outpatient (CLI) | payer MEDICARE, SELFPAY ==
[2023-01-06 08:06] LABS: Bacteria 0 SEEN /hpf (None Seen); Mucous, Urine 0 SEEN /hpf (<or=2+); Red Blood Cells-Urine 0 SEEN /hpf (0-5); Squamous Epithelial Cells - UA 0 SEEN /hpf (5-10); White Blood Cells 0 SEEN /hpf (0-5)
[2023-01-06 09:58] LABS: Absolute Lymphocyte Count 1.42 X10^3/uL (0.83-4.51); Absolute Neutrophil Count 5.2 X10^3/uL (2.0-7.7); Basophil# 0.09 X10^3/uL; Basophil% 1.2 % (0-1); Eosinophil# 0.12 X10^3/uL; Eosinophils% 1.6 % (0-5); Hematocrit 44.2 % (37-47); Hemoglobin 14.6 g/dL (12.0-15.0); Lymphocyte # 1.42 X10^3/ul (0.83-4.51); Lymphocyte % 19.5 % (19-41); Mean Corpuscular Hgb 30.3 pg (27.0-32.0); Mean Corpuscular Volume 91.7 fL (81-99); Mean Platelet Vol. 9.6 fl (6.2-12.0); Monocyte# 0.42 X10^3/uL; Monocyte% 5.8 % (0-10); NRBC Flagged by Analyzer 0 % (0-5); Neutrophil # 5.22 X10^3/uL (2.7-7.7); Neutrophil % 71.6 % (47-70); Platelet Count 321 K/mm3 (150-450); RBC Distribution Width CV 12.3 % (11.6-14.6); RBC Distribution Width SD 41.4 fl (35.1-43.9); Red Blood Count 4.82 M/mm3 (4.2-5.4); White Blood Count 7.3 K/mm3 (4.4-11.0)
[2023-01-06 10:00] LABS: Color, Urine Yellow (Yellow); Glucose, Dipstick Normal (Normal); Ketone-Dipstick 5 mg/dl (Negative); Leukocyte Esterase-Dipstick 25 /ul (Negative); Nitrite-Dipstick Negative (Negative); Occult Blood-Urine 50 /ul (Negative); Protein-Dipstick 30 mg/dl (Negative); Specific Gravity, Urine 1.025 (1.002-1.030); Urine Bilirubin Dipstick Negative (Negative); Urine Clarity Clear (Clear); Urine Urobilinogen Normal (Normal)
[2023-01-06 10:15] LABS: Vitamin D,25 Hydroxy 50.6 ng/mL
[2023-01-06 10:18] LABS: Hemoglobin A1c 5.6 % (3.8-5.6)
[2023-01-06 10:22] LABS: ALB/GLOB Ratio 0.7 RATIO (0.9-2.4); AST(SGOT) 18 U/L (15-37); Alanine Aminotransfer ALT/SGPT 22 U/L (13-56); Albumin, Serum 3.6 g/dL (3.2-5.0); Alkaline Phosphatase 67 U/L (45-117); Anion Gap 5 (5-15); BUN 12 mg/dL (7-18); BUN/Creat Ratio 13.6 RATIO (10-20); Chloride 107 mmol/L (98-107); Cholesterol 99 mg/dL (200); Creatinine, Serum 0.88 mg/dL (0.55-1.02); EST Glomerular Filtration Rate 67 mL/min (>60); Est Glom Filt Rate - Afr Amer 82 mL/min (>60); Globulin 5.2 g/dL (2.2-4.2); Glucose 117 mg/dL (74-106); High Density Lipoprotein 35 mg/dL; Potassium 3.8 mmol/L (3.5-5.1); Protein, Total 8.8 g/dL (6.4-8.2); Sodium Level 136 mmol/L (136-145); T4 Free Direct 1.26 ng/dL (0.76-1.46); Thyroid Stim Hormone (TSH) 1.82 uIU/mL (0.358-3.74); Triglycerides 94 mg/dL; Very Low Density Lipoprotein 19 mg/dL (5-40)
[2023-01-07 16:08] LABS: PROEL- A/G Ratio 0.9 (0.7-1.7); PROEL- Albumin 3.8 g/dL (2.9-4.4); PROEL- Alpha-1 Globulin 0.2 g/dL (0.0-0.4); PROEL- Alpha-2 Globulin 0.8 g/dL (0.4-1.0); PROEL- Gamma Globulin 2.4 g/dL (0.4-1.8); PROEL- Globulin, Total 4.4 g/dL (2.2-3.9); PROEL- TOTAL PROTEIN 8.2 g/dL (6.0-8.5); PROEL-M-Spike Not Observed g/dL (Not Observed)
== END | disposition home or self-care (01) ==
LOC: MFPLAB 08:04
PROVIDERS: PCP Family Medicine; Visit Provider Family Medicine
DX: E88.09 Other disorders of plasma-protein metabolism, not elsewhere classified (principal); E03.9 Hypothyroidism, unspecified; E78.00 Pure hypercholesterolemia, unspecified; M85.80 Other specified disorders of bone density and structure, unspecified site; R73.02 Impaired glucose tolerance (oral); F17.200 Nicotine dependence, unspecified, uncomplicated
CPT/HCPCS: 36415; 80053; 80061; 81001; 82306; 83036; 84165; 84439; 84443; 85025

== ENCOUNTER → 2023-01-31 | Outpatient (CLI) | payer MEDICARE, SELFPAY ==
--- NOTE | 2023-01-31 14:06 | CT_ITS ---
STUDY: LOW DOSE CT LUNG CANCER SCREENING REASON FOR EXAM: Female, 72 years old. Patient smoked 1 pack per day for 50 years. RADIATION DOSAGE (If Supplied By Facility): CTDIvol = ( 3.02 ) mGy, DLP = ( 99.68 ) mGycm TECHNIQUE: No contrast was administered. Low dose technique was utilized (average mAS-38 and kVp 120). 1.25 mm axial source images with a slice interval of 1.25-mm were reconstructed in lung windows. 2.5 mm axial source images with a slice interval of 2.5-mm were reconstructed in lung windows. 5.0 mm axial source images with a slice interval of 5.0-mm were reconstructed in soft tissue windows. COMPARISON: Comparison is made with prior study dated January 04, 2022. NODULES: No suspicious nodules are seen. Emphysema: Scarring at the lung apices. Stable chronic interstitial markings in both lungs more prominent in the lower lobes suggestive of scarring. There has been no change. Endobronchial lesion: None Aorta: Atherosclerotic plaque formation of the aortic arch and descending thoracic aorta. CORONARY ARTERIES: Coronary artery calcification is seen. Heart: Unremarkable Pulmonary artery: Unremarkable Mediastinal nodes: Small mediastinal lymph nodes. Other chest and abdominal findings: CT/Low Dose CT Lung Screening IMPRESSION: Lung-RADS category 2 - Continue annual screening with LDCT in 12 months. IMPORTANT NOTES FOR USE: ACR Lung-RADS Version 1.1 Assessment Categories Release Date: 2018 Category: Coded 0-4 bases on nodule(s) with highest degree of suspicion. Negative screen is defined as categories 1 and 2; a positive screen is defined as categories 3 and 4. Category 3 and 4A nodules that are unchanged on interval CT should be coded as category 2, and individuals returned to screening in 12 months. Category 4X: Category 3 or 4 nodules with additional imaging findings that increase the suspicion of lung cancer, such as spiculation, GGN that doubles in size in 1 year, enlarged lymph notes, etc. Category Modifiers: S (significant finding unrelated to lung cancer) Electronically Signed: Juan C Dubon MD at 9:21 EST ,
--- NOTE | 2023-01-31 14:19 | BI_ITS ---
MAMMOGRAPHY - BILATERAL SCREENING REASON FOR EXAM: Female, 72 years old. Routine annual screening examination. PERTINENT HISTORY: Mother with breast cancer. Aunts with breast cancer. TECHNIQUE: Digital bilateral breast momo (3D mammographic acquisition) in the CC and MLO projections. 2-D mediolateral oblique (MLO) and craniocaudad (CC) views of both breasts were obtained. CAD: Full Field Digital Mammography with Computer Added Detection was performed. COMPARISON: Comparison is made with prior study dated January 26, 2022 and November 11, 2020. FINDINGS: Breast Composition: There are scattered areas of fibroglandular density. There are no dominant masses or suspicious calcifications. No other significant abnormalities are identified. There has been no significant change since the prior study. BI/SCRN MAMM (CAD)W/MOMO BILAT IMPRESSION: Stable bilateral screening mammogram. Yearly follow-up mammogram recommended. (A) ASSESSMENT CATEGORY: BIRADS Category 1: Negative. A letter regarding these results will be sent to the patient by the facility within 30 days. Approximately 10% of breast cancers are not detected by mammography. A normal mammogram should not delay biopsy of a clinically suspicious abnormality. [id number] Electronically Signed: Juan C Dubon MD at 13:43 EST ,
== END | disposition home or self-care (01) ==
LOC: CT 14:04
PROVIDERS: PCP Family Medicine; Referring Provider Family Medicine; Visit Provider Family Medicine
DX: Z12.31 Encounter for screening mammogram for malignant neoplasm of breast (principal); Z80.3 Family history of malignant neoplasm of breast; F17.210 Nicotine dependence, cigarettes, uncomplicated
CPT/HCPCS: 71271; 77063; 77067

== ENCOUNTER → 2023-07-26 | Outpatient (CLI) | payer MEDICARE, SELFPAY ==
[2023-07-26 10:07] LABS: Absolute Lymphocyte Count 1.62 X10^3/uL (0.83-4.51); Absolute Neutrophil Count 5.6 X10^3/uL (2.0-7.7); Basophil% 1.2 % (0-1); Eosinophil# 0.11 X10^3/uL; Eosinophils% 1.4 % (0-5); Hematocrit 43.3 % (37-47); Hemoglobin 14.5 g/dL (12.0-15.0); Lymphocyte # 1.62 X10^3/ul (0.83-4.51); Lymphocyte % 20.1 % (19-41); Mean Corp Hgb Conc 33.5 g/dL (32-36); Mean Corpuscular Hgb 30.5 pg (27.0-32.0); Mean Corpuscular Volume 91.2 fL (81-99); Mean Platelet Vol. 9.6 fl (6.2-12.0); Monocyte# 0.58 X10^3/uL; Monocyte% 7.2 % (0-10); NRBC Flagged by Analyzer 0 % (0-5); Neutrophil % 69.7 % (47-70); Platelet Count 328 K/mm3 (150-450); RBC Distribution Width CV 11.9 % (11.6-14.6); Red Blood Count 4.75 M/mm3 (4.2-5.4)
[2023-07-26 10:45] LABS: Hemoglobin A1c 5.7 % (3.8-5.6)
[2023-07-26 10:56] LABS: ALB/GLOB Ratio 0.7 RATIO (0.9-2.4); AST(SGOT) 21 U/L (15-37); Alanine Aminotransfer ALT/SGPT 19 U/L (13-56); Albumin, Serum 3.5 g/dL (3.2-5.0); Alkaline Phosphatase 70 U/L (45-117); Anion Gap 10 (5-15); BUN 11 mg/dL (7-18); Calcium,Total 9.3 mg/dL (8.5-10.1); Chloride 105 mmol/L (98-107); Cholesterol 102 mg/dL (200); Creatinine, Serum 0.84 mg/dL (0.55-1.02); EST Glomerular Filtration Rate 71 mL/min (>60); Est Glom Filt Rate - Afr Amer 86 mL/min (>60); Globulin 5.3 g/dL (2.2-4.2); Glucose 122 mg/dL (74-106); High Density Lipoprotein 37 mg/dL; Potassium 3.8 mmol/L (3.5-5.1); Protein, Total 8.8 g/dL (6.4-8.2); Sodium Level 138 mmol/L (136-145); T4 Free Direct 1.33 ng/dL (0.76-1.46); Thyroid Stim Hormone (TSH) 0.71 uIU/mL (0.358-3.74); Triglycerides 83 mg/dL; Very Low Density Lipoprotein 17 mg/dL (5-40)
== END | disposition home or self-care (01) ==
LOC: MFPLAB 08:03
PROVIDERS: PCP Family Medicine; Visit Provider Family Medicine
DX: E78.00 Pure hypercholesterolemia, unspecified (principal); E03.9 Hypothyroidism, unspecified; R73.02 Impaired glucose tolerance (oral)
CPT/HCPCS: 36415; 80053; 80061; 83036; 84439; 84443; 85025

== ENCOUNTER → 2023-09-29 | Outpatient (CLI) | payer MEDICARE, SELFPAY ==
--- NOTE | 2023-09-29 09:26 | RAD_ITS ---
HISTORY: PAIN. TECHNIQUE: XR Hips Bilateral with Pelvis when performed; 2 Views. COMPARISON: None. FINDINGS: OSSEOUS STRUCTURES: No acute displaced fracture identified. Note that overlapping bowel shadows may obscure osseous detail. Degenerative sclerosis and osteophytes of the hips. JOINT SPACES: No dislocation. Mild joint space narrowing of the hips. RAD/Hips B/L min 2 views w/ Pelvis IMPRESSION: No acute displaced fracture or dislocation identified. Mild osteoarthritis of the hips. Electronically Signed: Brook Hairston MD at 8:24 EDT ,
== END | disposition home or self-care (01) ==
LOC: MTRAD 09:25
PROVIDERS: PCP Family Medicine; Referring Provider Family Medicine; Visit Provider Family Medicine
DX: M25.552 Pain in left hip (principal)
CPT/HCPCS: 73521

== ENCOUNTER 2023-10-24 10:00 | Outpatient (RCR) | payer MEDICARE, SELFPAY ==
--- NOTE | 2023-10-10 10:20 | HP.PTEVAL ---
Patient's Visit Information Visit Information Visit Information: RIOS GROVER is a 73 year old F referred to Physical Therapy by Dr. Ryder Rogers MD with a diagnosis of B hip OA. Date of Evaluation: 10/10/23 Physical Therapist: Oz Suarez, DPT, OCS, CSCS Visit Plan Frequency: Every Other Week Duration: 4-6 Weeks Plan: patient wants to keep to minimum due to cost. Will f/u in two weeks to teach strength of hip acore for HEP and d/c if tolerated or weekly as needed for -24 weeks. Subjective Subjective: L grpoin pain and posterior L hip for about 2 weeks and sometimes down lateral leg. X rays show OA of the hip L R groin hurts now and then. No different activities to make L hip hurt. Just started out of nowhere. Live in mobile home and was hard to walk to bathroom at first. Got pain pill and muscle relaxer whcih helped but not taking it any llonger. Was on feet alot at for veronapatrick brianne has made it a little worse sore saab but not alot worse. Overall 80% better. Wanted to take therapy option to see what she can do at home to help. Able to do Basic ADLs now with just slight L groin pain,. Not employed. Hobbies: none, watches tV and plays with cats No regular exercises, walks sometimes. Sleep is OK with hip but tries to stay off left side whcih can hurt. Pain L groin: Pain Intensity (Out of 10): 1 Pain Intensity Range: 0 and 9 Objective Objective: Walks with very short steps but I and comfortable today. Trasnfers are I chair and bed. Steps are reciprocal with one rail, some pain on L intermittently. LB AROM min limited without reprodcution of symptoms. - slump and SLR max tight HS at -35 90/90 test and quads with excessive pelvic movement at 90 degree prone knee bend. Hip ROM, L 90 flexion with pain and stiffness, 10 abduction pain, IR 2 degrees and painful, er 30 with some pain, 0 ext. R hip flexion 105, 45 er, 12 ir, 0 extension. + FADDIR, + ALETHEA on L strength hip abd and ext 3+ and flexion 4-.B knee and ankle AROM WFL and without pain, 4-/5 reflexes 2/3 patella and achilles Sensation LE WNL to gross light touch. Balance/Special Test Scores Functional Gait Assessment Score: 24 % Disability: 20.0000 Lower Extremity Functional Score: 42 Goals Goal 1:: Pt feel 95% better overall adn pain 1/10 and manageable in L groin. Goal Time Frame: 4-6 Weeks Goal 2:: I appropriate management of condition with ROM, stretch adn strength ex Goal Time Frame: 4-6 Weeks Rehabilitation Potential Physical Therapy Diagnosis: hip degeneration pain and loss ROM/.strength effecting function Rehabilitation Potential: Good Anticipated Interventions Patient/Client Instruction: Educate patient on: Condition and Plan of Care For the Purpose of:: To decrease pain, To increase ROM, To improve nutrient delivery to tissue and To improve muscle performance and motor function Therapeutic Exercise to Include: Strength training, Flexibilty training, Passive ROM and Active ROM For the Purpose of:: To decrease pain, To increase ROM, To improve nutrient delivery to tissue, To improve muscle performance and motor function and To increase tolerance to activity/condition/position Text: Thank you for the opportunity to evaluate your patient. For Medicare and Medicare HMO plans, please review the plan of care and approve it. It will need to be FAXED BACK to us at [phone] for Medicare purposes. For Medicare only, by signing this I certify the plan of care. Please let me know if there are questions or concerns regarding this plan of care. Physician Signature: Date:
--- NOTE | 2023-12-16 07:10 | HP.PT.NRP ---
Patient Information Patient Information: RIOS GROVER was seen in my office for initial evaluation on 10/10/23. The following Plan of Care was established for this patient: POC Established Initial Frequency: Every Other Week Initial Duration: 4-6 Weeks Anticipated Interventions Patient/Client Instruction: Educate patient on: Condition and Plan of Care For the Purpose of:: To decrease pain, To increase ROM, To improve nutrient delivery to tissue and To improve muscle performance and motor function Therapeutic Exercise to Include: Strength training, Flexibilty training, Passive ROM and Active ROM For the Purpose of:: To decrease pain, To increase ROM, To improve nutrient delivery to tissue, To improve muscle performance and motor function and To increase tolerance to activity/condition/position Last Seen Last Seen: This patient was last seen in our office 10/24/23. Pertinent comments regarding their Physical therapy will appear below: Pt seen two visits of POC and HEP given. She did not return for any further visits. At this point, it has been over a month and I will discontinue due to nonattendance. At this point I will be discontinuing this patient from physical therapy. I would be happy to see this patient again in the future if found appropriate by the physician. Thank you! Oz Suarez, DPT, OCS, CSCS Balance/Gait/Functional tests Balance/Special Test Scores Functional Gait Assessment Score: 24 % Disability: 20.0000 Lower Extremity Functional Score: 42
== END 2023-10-24 19:00 | disposition home or self-care (01) ==
LOC: PT 10:00
PROVIDERS: PCP Family Medicine; Referring Provider Family Medicine; Visit Provider Family Medicine
DX: M16.0 Bilateral primary osteoarthritis of hip (principal)
CPT/HCPCS: 97110; 97161

== ENCOUNTER → 2023-12-15 | Outpatient (CLI) | payer MEDICARE, SELFPAY ==
[2023-12-15 10:25] LABS: Absolute Lymphocyte Count 1.32 X10^3/uL (0.83-4.51); Absolute Neutrophil Count 6.5 X10^3/uL (2.0-7.7); Basophil# 0.07 X10^3/uL; Basophil% 0.8 % (0-1); Eosinophil# 0.09 X10^3/uL; Hematocrit 44.1 % (37-47); Hemoglobin 14.4 g/dL (12.0-15.0); Lymphocyte # 1.32 X10^3/ul (0.83-4.51); Lymphocyte % 15.3 % (19-41); Mean Corp Hgb Conc 32.7 g/dL (32-36); Mean Corpuscular Hgb 30.3 pg (27.0-32.0); Mean Corpuscular Volume 92.6 fL (81-99); Mean Platelet Vol. 9.3 fl (6.2-12.0); Monocyte# 0.61 X10^3/uL; Monocyte% 7.1 % (0-10); NRBC Flagged by Analyzer 0 % (0-5); Neutrophil # 6.53 X10^3/uL (2.7-7.7); Neutrophil % 75.5 % (47-70); Platelet Count 328 K/mm3 (150-450); RBC Distribution Width CV 12.3 % (11.6-14.6); RBC Distribution Width SD 42.3 fl (35.1-43.9); Red Blood Count 4.76 M/mm3 (4.2-5.4); White Blood Count 8.7 K/mm3 (4.4-11.0)
[2023-12-15 10:41] LABS: Vitamin D,25 Hydroxy 42.5 ng/mL
[2023-12-15 10:55] LABS: ALB/GLOB Ratio 0.7 RATIO (0.9-2.4); AST(SGOT) 20 U/L (15-37); Alanine Aminotransfer ALT/SGPT 18 U/L (13-56); Albumin, Serum 3.7 g/dL (3.2-5.0); Alkaline Phosphatase 71 U/L (45-117); Anion Gap 6 (5-15); BUN 9 mg/dL (7-18); BUN/Creat Ratio 10.1 RATIO (10-20); Calcium,Total 9.3 mg/dL (8.5-10.1); Chloride 106 mmol/L (98-107); Cholesterol 107 mg/dL (200); Creatinine, Serum 0.89 mg/dL (0.55-1.02); EST Glomerular Filtration Rate 66 mL/min (>60); Est Glom Filt Rate - Afr Amer 80 mL/min (>60); Globulin 5.2 g/dL (2.2-4.2); Glucose 121 mg/dL (74-106); High Density Lipoprotein 38 mg/dL; Potassium 4.3 mmol/L (3.5-5.1); Protein, Total 8.9 g/dL (6.4-8.2); Sodium Level 138 mmol/L (136-145); T4 Free Direct 1.16 ng/dL (0.76-1.46); Triglycerides 91 mg/dL; Very Low Density Lipoprotein 18 mg/dL (5-40)
[2023-12-15 12:16] LABS: Hemoglobin A1c 5.9 % (3.8-5.6)
[2023-12-19 15:07] LABS: PROEL- A/G Ratio 1.1 (0.7-1.7); PROEL- Albumin 3.5 g/dL (2.9-4.4); PROEL- Alpha-1 Globulin 0.3 g/dL (0.0-0.4); PROEL- Alpha-2 Globulin 0.9 g/dL (0.4-1.0); PROEL- Globulin, Total 3.2 g/dL (2.2-3.9); PROEL- TOTAL PROTEIN 6.7 g/dL (6.0-8.5); PROEL-M-Spike Not Observed g/dL (Not Observed)
== END | disposition home or self-care (01) ==
LOC: MFPLAB 08:37
PROVIDERS: PCP Family Medicine; Visit Provider Family Medicine
DX: E88.09 Other disorders of plasma-protein metabolism, not elsewhere classified (principal); E03.9 Hypothyroidism, unspecified; R73.02 Impaired glucose tolerance (oral); M85.80 Other specified disorders of bone density and structure, unspecified site
CPT/HCPCS: 36415; 80053; 80061; 82306; 83036; 84165; 84439; 84443; 85025

== ENCOUNTER → 2024-02-17 | Outpatient (CLI) | payer MEDICARE, SELFPAY ==
--- NOTE | 2024-02-17 14:48 | CT_ITS ---
STUDY: LOW DOSE CT LUNG CANCER SCREENING REASON FOR EXAM: Female, 73 years old. Current smoker. 40 year smoking history. Chronic cough. RADIATION DOSAGE (If Supplied By Facility): CTDIvol = ( 3.02 ) mGy, DLP = ( 105.33 ) mGycm TECHNIQUE: No contrast was administered. Low dose technique was utilized (average mAS-38 and kVp 120). 1.25 mm axial source images with a slice interval of 1.25-mm were reconstructed in lung windows. 2.5 mm axial source images with a slice interval of 2.5-mm were reconstructed in lung windows. 5.0 mm axial source images with a slice interval of 5.0-mm were reconstructed in soft tissue windows. COMPARISON: Comparison is made with prior study dated January 31, 2023. Stable diffuse enlargement of the thyroid worse in the left lobe of the thyroid with substernal extension. NODULES: No suspicious nodules are seen. Emphysema: Hyperinflation. Mild emphysematous changes. Stable increased markings in both lungs worse in the lower lobes. Stable scarring at the lung apices. Endobronchial lesion: None Aorta: Atherosclerotic plaque formation of the aortic arch. CORONARY ARTERIES: Coronary artery calcification is seen. Heart: Unremarkable Pulmonary artery: Unremarkable Mediastinal nodes: Small mediastinal lymph nodes. Other chest and abdominal findings: CT/Low Dose CT Lung Screening IMPRESSION: Lung-RADS category 2 - Continue annual screening with LDCT in 12 months. IMPORTANT NOTES FOR USE: ACR Lung-RADS Version 1.1 Assessment Categories Release Date: 2018 Category: Coded 0-4 bases on nodule(s) with highest degree of suspicion. Negative screen is defined as categories 1 and 2; a positive screen is defined as categories 3 and 4. Category 3 and 4A nodules that are unchanged on interval CT should be coded as category 2, and individuals returned to screening in 12 months. Category 4X: Category 3 or 4 nodules with additional imaging findings that increase the suspicion of lung cancer, such as spiculation, GGN that doubles in size in 1 year, enlarged lymph notes, etc. Category Modifiers: S (significant finding unrelated to lung cancer) Electronically Signed: Juan C Dubon MD at 9:49 EST ,
== END | disposition home or self-care (01) ==
LOC: CT 14:47
PROVIDERS: PCP Family Medicine; Referring Provider Nurse Practitioner Family; Visit Provider Nurse Practitioner Family
DX: Z12.2 Encounter for screening for malignant neoplasm of respiratory organs (principal); F17.210 Nicotine dependence, cigarettes, uncomplicated
CPT/HCPCS: 71271

== ENCOUNTER → 2024-04-03 | Outpatient (CLI) | payer MEDICARE, SELFPAY ==
--- NOTE | 2024-04-03 14:32 | BI_ITS ---
PROCEDURE: SCRN MAMM (CAD)W/MOMO BILAT REASON FOR EXAM: F, Age 73 y/o, mother with breast cancer. Aunts with breast cancer. TECHNIQUE: Bilateral screening digital breast tomosynthesis with 2D and 3D images. Computer aided detection. COMPARISON: Prior exam(s) dating back to January 31, 2023. FINDINGS: There are scattered areas of fibroglandular density. No suspicious masses, areas of developing architectural distortion, or suspicious calcifications. St able examination. BI/SCRN MAMM (CAD)W/MOMO BILAT IMPRESSION: BI-RADS 1: NEGATIVE. RECOMMEND ANNUAL MAMMOGRAPHIC SCREENING. There has been n o change. Follow-up code: Routine Follow-up The patient will be notified of the results by letter. Reading Location: [place] [address]
--- NOTE | 2024-04-03 14:47 | BD_ITS ---
PROCEDURE: DEXA BONE DENSITY STUDY REASON FOR EXAM: F, age 73 y/o . Postmenopausal.. TECHNIQUE: DEXA scan of the lumbar spine and both hips. COMPARISON: Comparison is made with prior study dated October 20, 2021. FINDINGS: Lumbar Spine (L1-L4): g/cm2 (0.859)/T-score (-1.7)/Z-score (0.5) findings are suggestive of osteopenia with a moderate fracture risk. Left Femur Total: g/cm2 (0.801)/T-score (-1.2)/Z-score (0.5) Left Femoral Neck: g/cm2 (0.648)/T-score (-1.8)/Z-score (0.1) Right Femur Total: g/cm2 (0.854)/T-score (-0.7)/Z-score (0.9) Right Femoral Neck: g/cm2 (0.668)/T-score (-1.6)/Z-score (0.3) The T-Scores on the most recent prior examination were: Lumbar Spine (L1-L4): There has been improvement of bone density since the previous examination. Left Femur Total: There has been a loss of 2%. Right Femur Total: There has been a loss of 1.2%. BD/Dexa Bone Density Study IMPRESSION: The patient is considered osteopenic as outlined below according to World Paco Organization (WHO) criteria with a moderate fracture risk. There has been worsening of bone density since the previous exa mination. Reading Location: [place] [address]
== END | disposition home or self-care (01) ==
LOC: OPBD 14:30
PROVIDERS: PCP Family Medicine; Referring Provider Nurse Practitioner Family; Visit Provider Nurse Practitioner Family
DX: Z12.31 Encounter for screening mammogram for malignant neoplasm of breast (principal); Z78.0 Asymptomatic menopausal state; Z13.820 Encounter for screening for osteoporosis
CPT/HCPCS: 77063; 77067; 77080

== ENCOUNTER → 2024-05-15 | Outpatient (CLI) | payer MEDICARE, SELFPAY ==
[2024-05-15 10:50] LABS: Absolute Lymphocyte Count 1.65 X10^3/uL (0.83-4.51); Absolute Neutrophil Count 6.7 X10^3/uL (2.0-7.7); Basophil# 0.09 X10^3/uL; Eosinophil# 0.12 X10^3/uL; Eosinophils% 1.3 % (0-5); Hematocrit 43.7 % (37-47); Hemoglobin 14.6 g/dL (12.0-15.0); Lymphocyte # 1.65 X10^3/ul (0.83-4.51); Lymphocyte % 18.2 % (19-41); Mean Corp Hgb Conc 33.4 g/dL (32-36); Mean Corpuscular Hgb 30.5 pg (27.0-32.0); Mean Corpuscular Volume 91.4 fL (81-99); Mean Platelet Vol. 9.4 fl (6.2-12.0); Monocyte# 0.54 X10^3/uL; Monocyte% 5.9 % (0-10); NRBC Flagged by Analyzer 0 % (0-5); Neutrophil # 6.65 X10^3/uL (2.7-7.7); Neutrophil % 73.2 % (47-70); Platelet Count 334 K/mm3 (150-450); RBC Distribution Width CV 12.1 % (11.6-14.6); RBC Distribution Width SD 40.4 fl (35.1-43.9); Red Blood Count 4.78 M/mm3 (4.2-5.4); White Blood Count 9.1 K/mm3 (4.4-11.0)
[2024-05-15 11:57] LABS: Hemoglobin A1c 6.1 % (<=5.6)
[2024-05-15 12:06] LABS: Cholesterol 108 mg/dL (<=200); High Density Lipoprotein 37 mg/dL; Low Density Lipoprotein Calc. 56 mg/dL; Triglycerides 77 mg/dL; Very Low Density Lipoprotein 15 mg/dL (5-40); Vitamin D,25 Hydroxy 31.1 ng/mL (30-100); cholesterol:hdl ratio screen 2.92
[2024-05-15 12:16] LABS: AST(SGOT) 25 U/L (<=31); Alanine Aminotransfer ALT/SGPT 14 U/L (<=34); Albumin, Serum 4.2 g/dL (3.4-4.8); Alkaline Phosphatase 70 U/L (35-104); Anion Gap 12 (5-15); BUN 12 mg/dL (4-19); BUN/Creat Ratio 14.7 RATIO (10-20); Calcium,Total 9.6 mg/dL (7.6-11.0); Carbon Dioxide 23.8 mmol/L (21.0-32.0); Chloride 101 mmol/L (98-108); EST Glomerular Filtration Rate 78 (>60); Globulin 4.3 g/dL (2.2-4.2); Glucose 116 mg/dL (70-99); Potassium 4.4 mmol/L (3.3-5.1); Protein, Total 8.5 g/dL (5.9-8.4); Sodium Level 137 mmol/L (133-145); Total Bilirubin 0.45 mg/dL (0.00-1.30)
== END | disposition home or self-care (01) ==
LOC: MFPLAB 08:04
PROVIDERS: PCP Family Medicine; Referring Provider Family Medicine; Visit Provider Family Medicine
DX: E78.00 Pure hypercholesterolemia, unspecified (principal); R73.02 Impaired glucose tolerance (oral); R73.03 Prediabetes; I10 Essential (primary) hypertension; M85.80 Other specified disorders of bone density and structure, unspecified site; E03.9 Hypothyroidism, unspecified
CPT/HCPCS: 36415; 80053; 80061; 82306; 83036; 84439; 84443; 85025

== ENCOUNTER → 2024-05-22 | Outpatient (CLI) | payer MEDICARE, SELFPAY ==
--- NOTE | 2024-05-22 10:23 | RAD_ITS ---
EXAM: XR Lumbosacral Spine, 4 or 5 Views CLINICAL INDICATION: LOW BACK PAIN TECHNIQUE: Frontal, lateral and bilateral oblique views of the lumbar spine. COMPARISON: No relevant prior studies available. FINDINGS: VERTEBRAE: Multilevel endplate degenerative changes and facet arthropathy of L1-2 as 1. No acute fracture. Normal alignment. SACRUM/COCCYX: See below. DISC SPACES: Moderate intervertebral disc disease of L5 S1. SOFT TISSUES: Unremarkable. VASCULATURE: Scattered calcified atherosclerotic disease of aorta. OTHER FINDINGS: No significant dynamic instability. RAD/L/S Spine w Bend Min 6 Vw IMPRESSION: Degenerative changes as above. Reading Location: [place]
== END | disposition home or self-care (01) ==
LOC: MTRAD 10:22
PROVIDERS: PCP Family Medicine; Referring Provider Family Medicine; Visit Provider Family Medicine
DX: M54.50 Low back pain, unspecified (principal)
CPT/HCPCS: 72114

== ENCOUNTER 2024-06-05 10:00 | Outpatient (RCR) | payer MEDICARE, SELFPAY ==
--- NOTE | 2024-05-29 11:14 | HP.PTEVAL_ITS ---
Patient's Visit Information Visit Information Visit Information: RIOS GROVER is a 74 year old F referred to Physical Therapy by Dr. Rob Gurrola MD with a diagnosis of . Date of Evaluation: 05/29/24 Physical Therapist: Trevon Monsivais PT, Cert MDT, OCS Visit Plan Frequency: 2x /Week Duration: 4 Weeks Plan: PT INTERVENTIONS DLS ,POSTURAL EX'S ,LE FLEXABILITY , WB ACTIVITIES ACTIVITY MODIFICATION AND MODALITIES Subjective Subjective: This 74 y/o female presents physical therapy with back pain osteoporosis. Patient has had lumbar pain to buttocks . Patient seen DR had bone density test The patient is considered osteopenic as outlined below according to World Paco Organization (WHO) criteria with a moderate fracture risk. There has been worsening of bone density since the previous examination.Patient also had x-rays showed Multilevel endplate degenerative changes and facet arthropathy of L1-2 as 1. Pain medication over counter. P atient taking calcium and D3. Aggravating factors bending , lifting , walking/standing. Alleviating factors sitting resting . Coughing/sneezing +. Bowel/bladder -. Denies paresthesia/tingling-. Patient condition affects and function. Patient goals to decrease pain and HEP. SOCIAL: VOCATION: retired Pain Bilateral Back: Pain Intensity (Out of 10): 6 Pain Intensity Range: 10 Objective Objective: POSTURE: mild forward posture GAIT: reciprocal pattern mild forward posture PALAPTION: unremarkable NEURO: denies paresthesia/tingling ,reflexes L3-4,L4-5,L5-S 1 1/3 LUMBAR ROM: flexion mod loss ,extension mod/severe loss ,side glides mod loss pain right FLEXABILITY: hamstrings min tight Special Tests L/S Slump test left side: Negative L/S Slump test right side: Negative L/S Left Straight Leg Raise: Negative L/S Right Straight Leg Raise: Negative Balance/Special Test Scores Oswestry Low Back Score: 23 Goals Goal 1:: Patient to be I with HEP for back Goal Time Frame: 4-6 Weeks Goal 2:: Patient to improve lumbar ROM for function of recovery for ADLS Goal Time Frame: 4-6 Weeks Goal 3:: Patient to improve back oswestry score by 5 points to improve QOL and function Goal Time Frame: 4-6 Weeks Goal 4:: Patient to demonstrate 50 % improvement with less pain to improve function Goal Time Frame: 4-6 Weeks Rehabilitation Potential Physical Therapy Diagnosis: This patient has lumbar pain with symptoms worse on right side with motion and positioning walking ,bending lifting along with osteoporosis thus patient will benefit from skilled PT Rehabilitation Potential: Good Anticipated Interventions Patient/Client Instruction: Educate patient on: Condition and Plan of Care For the Purpose of:: To decrease pain, To increase ROM, To improve muscle performance and motor function, To increase tolerance to activity/condition/position, To improve ability of physical actions for home/co mmunity/work/leisure, To improve health of tissue, To decrease soft tissue restriction, To increase flexibility/ROM and To improve tolerance to ADL's Therapeutic Exercise to Include: Strength training, Postural training, Flexibilty training and Dynamic Lumbar Stabilization For the Purpose of:: To decrease pain, To increase ROM, To improve muscle perf ormance and motor function, To improve ability to perform ADL's, To increase tolerance to activity/condition/position, To improve ability of physical actions for home/community/work/leisure, To improve health of tissue, To decrease soft tissue restriction and To increase flexibility/ROM TENS: Yes IF ES: Yes Cryotherapy (ice pack, ice massage): Yes Thermo therapy (hot pack): Yes Ultrasound (thermal/non thermal): Yes For the Purpose of:: To decrease pain, To increase ROM, To improve health of tissue and To decrease soft tissue restriction Text: Thank you for the opportunity to evaluate your patient. For Medicare and Medicare HMO plans, please review the plan of care and approve it. It will need to be FAXED BACK to us at [phone] for Medicare purposes. For Medicare only, by signing this I certify the plan of care. Please let me know if there are questions or concerns regarding this plan of care. Physician Signature: Date:__
--- NOTE | 2024-05-29 11:17 | HP.PTEVAL_ITS ---
Patient's Visit Information Visit Information Visit Information: RIOS GROVER is a 74 year old F referred to Physical Therapy by Dr. Rob Gurrola MD with a diagnosis of SPECIFIED DISORDER OF BONE DENSITY STRUCTURE. Date of Evaluation: 05/29/24 Physical Therapist: Trevon Monsivais, PT, Cert MDT, OCS Visit Plan Frequency: 2x /Week Duration: 4 Weeks Plan: PT INTERVENTIONS DLS ,POSTURAL EX'S ,LE FLEXABILITY , WB ACTIVITIES ACTIVITY MODIFICATION AND MODALITIES Subjective Subjective: This 74 y/o female presents physical therapy with back pain os teoporosis. Patient has had lumbar pain to buttocks . Patient seen DR janelle bone density test The patient is considered osteopenic as outlined below according to World Paco Organization (WHO) criteria with a moderate fracture risk. There has been worsening of bone density since the previous examination.Patient also had x-rays showed Multilevel endplate degenerative changes and facet arthropathy of L1-2 as 1. Pain medication over counter. Patient taking calcium and D3. Aggravating factors bending , lifting , walking/standing. Alleviating factors sitting resting . Coughing/sneezing +. Bowel/bladder -. Denies paresthesia/tingling-. Patient condition affects and function. Patient goals to decrease pain and HEP. SOCIAL: VOCATION: retired Pain Bilateral Back: Pain Intensity (Out of 10): 6 Pain Intensity Range: 10 Objective Objective: POSTURE: mild forward posture GAIT: reciprocal pattern mild forward posture PALAPTION: unremarkable NEURO: denies paresthesia/tingling ,reflexes L3-4,L4-5,L5-S 1 1/3 LUMBAR ROM: flexion mod loss ,extension mod/severe loss ,side glides mod loss pain right FLEXABILITY: hamstrings min tight Special Tests L/S Slump test left side: Negative L/S Slump test right side: Negative L/S Left Straight Leg Raise: Negative L/S Right Straight Leg Raise: Negative Balance/Special Test Scores Oswestry Low Back Score: 23 Goals Goal 1:: Patient to be I with HEP for back Goal Time Frame: 4-6 Weeks Goal 2:: Patient to improve lumbar ROM for function of recovery for ADLS Goal Time Frame: 4-6 Weeks Goal 3:: Patient to improve back oswestry score by 5 points to improve QOL and function Goal Time Frame: 4-6 Weeks Goal 4:: Patient to demonstrate 50 % improvement with less pain to improve function Goal Time Frame: 4-6 Weeks Rehabilitation Potential Physical Therapy Diagnosis: This patient has lumbar pain with symptoms worse on right side with motion and positioning walking ,bending lifting along with osteoporosis thus patient will benefit from skilled PT Rehabilitation Potential: Good Anticipated Interventions Patient/Client Instruction: Educate patient on: Condition and Plan of Care For the Purpose of:: To decrease pain, To increase ROM, To improve muscle performance and motor function, To increase tolerance to activity/condition/position, To improve ability of physical actions for home/community/work/leisure, To improve health of tissue, To decrease soft tissue restriction, To increase flexibility/ROM and To improve tolerance to ADL's Therapeutic Exercise to Include: Strength training, Postural training, Flexibilty training and Dynamic Lumbar Stabilization For the Purpose of:: To decrease pain, To increase ROM, To improve muscle performance and motor function, To improve ability to perform ADL's, To increase tolerance to activity/condition/position, To improve ability of physical actions for home/community/work/leisure, To improve health of tissue, To decrease soft tissue restriction and To increase flexibility/ROM TENS: Yes IF ES: Yes Cryotherapy (ice pack, ice massage): Yes Thermo therapy (hot pack): Yes Ultrasound (thermal/non thermal): Yes For the Purpose of:: To decrease pain, To increase ROM, To improve health of tissue and To decrease soft tissue restriction Text: Thank you for the opportunity to evaluate your patient. For Medicare and Medicare HMO plans, please review the plan of care and approve it. It will need to be FAXED BACK to us at [phone] for Medicare purposes. For Medicare only, by signing this I certify the plan of care. Please let me know if there are questions or concerns regarding this plan of care. Physician Signature: Date:
--- NOTE | 2024-07-11 10:04 | HP.PT.NRP ---
Patient Information Patient Information: RIOS GROVER was seen in my office for initial evaluation on 05/29/24. The following Plan of Care was established for this patient: POC Established Initial Frequency: 2x /Week Initial Duration: 4 Weeks Anticipated Interventions Patient/Client Instruction: Educate patient on: Condition and Plan of Care For the Purpose of:: To decrease pain, To increase ROM, To improve muscle performance and motor function, To increase tolerance to activity/condition/position, To improve ability of physical actions for home/community/work/leisure, To improve health of tissue, To decrease soft tissue restriction, To increase flexibility/ROM and To improve tolerance to ADL's Therapeutic Exercise to Include: Strength training, Postural training, Flexibilty training and Dynamic Lumbar Stabilization For the Purpose of:: To decrease pain, To increase ROM, To improve muscle performance and motor function, To improve ability to perform ADL's, To increase tolerance to activity/condition/position, To improve ability of physical actions for home/community/work/leisure, To improve health of tissue, To decrease soft tissue restriction and To increase flexibility/ROM TENS: Yes IF ES: Yes Cryotherapy (ice pack, ice massage): Yes Thermo therapy (hot pack): Yes Ultrasound (thermal/non thermal): Yes For the Purpose of:: To decrease pain, To increase ROM, To improve health of tissue and To decrease soft tissue restriction Last Seen Last Seen: This patient was last seen in our office . Pertinent comments regarding their Physical therapy will appear below: Patient seen for PT for bone density with HEP thus is d/c At this point I will be discontinuing this patient from physical therapy. I would be happy to see this patient again in the future if found appropriate by the physician. Thank you! Trevon Monsivais, PT, Cert MDT, OCS Balance/Gait/Functional tests Balance/Special Test Scores Oswestry Low Back Score: 23
== END 2024-06-05 19:00 | disposition home or self-care (01) ==
LOC: PT 10:00
PROVIDERS: PCP Family Medicine; Referring Provider Family Medicine; Visit Provider Family Medicine
DX: M85.80 Other specified disorders of bone density and structure, unspecified site (principal)
CPT/HCPCS: 97110; 97162

== ENCOUNTER → 2024-08-17 | Outpatient (CLI) | payer MEDICARE, SELFPAY ==
[2024-08-17 10:16] LABS: Color, Urine Yellow (Yellow); Glucose, Dipstick Normal (Normal); Ketone-Dipstick Negative (Negative); Leukocyte Esterase-Dipstick 25 /ul (Negative); Nitrite-Dipstick Negative (Negative); Occult Blood-Urine 50 /ul (Negative); Protein-Dipstick 15 mg/dl (Negative); Specific Gravity, Urine 1.015 (1.002-1.030); Urine Bilirubin Dipstick Negative (Negative); Urine Clarity Sl. Cloudy (Clear); Urine Urobilinogen Normal (Normal)
[2024-08-17 10:20] LABS: Absolute Lymphocyte Count 1.45 X10^3/uL (0.83-4.51); Absolute Neutrophil Count 5.2 X10^3/uL (2.0-7.7); Basophil# 0.09 X10^3/uL; Basophil% 1.2 % (0-1); Eosinophil# 0.17 X10^3/uL; Eosinophils% 2.3 % (0-5); Hematocrit 42.9 % (37-47); Hemoglobin 14.4 g/dL (12.0-15.0); Lymphocyte # 1.45 X10^3/ul (0.83-4.51); Lymphocyte % 19.2 % (19-41); Mean Corp Hgb Conc 33.6 g/dL (32-36); Mean Corpuscular Hgb 30.6 pg (27.0-32.0); Mean Corpuscular Volume 91.3 fL (81-99); Mean Platelet Vol. 9.6 fl (6.2-12.0); Monocyte# 0.62 X10^3/uL; Monocyte% 8.2 % (0-10); NRBC Flagged by Analyzer 0 % (0-5); Neutrophil # 5.18 X10^3/uL (2.7-7.7); Neutrophil % 68.6 % (47-70); Platelet Count 289 K/mm3 (150-450); RBC Distribution Width CV 12.3 % (11.6-14.6); RBC Distribution Width SD 40.6 fl (35.1-43.9); White Blood Count 7.6 K/mm3 (4.4-11.0)
[2024-08-17 10:36] LABS: White Blood Cells 10-25 SEEN /hpf (0-5)
[2024-08-17 10:37] LABS: Bacteria 1+ /hpf (None Seen); Mucous, Urine 1+ /hpf (<or=2+); Red Blood Cells-Urine 0-5 SEEN /hpf (0-5); Squamous Epithelial Cells - UA 0-5 SEEN /hpf (5-10)
[2024-08-17 13:10] LABS: Hemoglobin A1c 6.1 % (<=5.6)
[2024-08-17 14:32] LABS: Cholesterol 104 mg/dL (<=200); High Density Lipoprotein 33 mg/dL; Low Density Lipoprotein Calc. 55 mg/dL; Triglycerides 79 mg/dL; Very Low Density Lipoprotein 16 mg/dL (5-40); cholesterol:hdl ratio screen 3.15
[2024-08-17 14:45] LABS: AST(SGOT) 22 U/L (<=31); Alanine Aminotransfer ALT/SGPT 11 U/L (<=34); Alkaline Phosphatase 63 U/L (35-104); Anion Gap 11 (5-15); BUN 11 mg/dL (4-19); BUN/Creat Ratio 13.2 RATIO (10-20); Calcium,Total 8.9 mg/dL (7.6-11.0); Carbon Dioxide 21.5 mmol/L (21.0-32.0); Chloride 103 mmol/L (98-108); EST Glomerular Filtration Rate 78 (>60); Globulin 4.1 g/dL (2.2-4.2); Glucose 109 mg/dL (70-99); Potassium 4.1 mmol/L (3.3-5.1); Sodium Level 136 mmol/L (133-145); Total Bilirubin 0.63 mg/dL (0.00-1.30)
== END | disposition home or self-care (01) ==
LOC: MFPLAB 08:06
PROVIDERS: PCP Family Medicine; Referring Provider Family Medicine; Visit Provider Family Medicine
DX: I10 Essential (primary) hypertension (principal); E03.9 Hypothyroidism, unspecified; M85.80 Other specified disorders of bone density and structure, unspecified site; R73.02 Impaired glucose tolerance (oral)
CPT/HCPCS: 36415; 80053; 80061; 81001; 82306; 83036; 84439; 84443; 85025

== ENCOUNTER → 2024-08-21 | Outpatient (CLI) | payer MEDICARE, SELFPAY | END | disposition home or self-care (01) | LOC: MFPLAB 08:02 | PROVIDERS: PCP Family Medicine; Referring Provider Family Medicine; Visit Provider Family Medicine | DX: R82.81 Pyuria (principal) | CPT/HCPCS: 87086; 87088; 87186 ==

== ENCOUNTER → 2024-09-04 | Outpatient (CLI) | payer MEDICARE, SELFPAY ==
--- NOTE | 2024-09-04 09:48 | CDU_ITS ---
Reason For Study Reason For Study: Carotid stenosis Rt. Velocities/BP Lt. Velocities/BP Prox CCA 78.7/13.5 cm/sec. Prox CCA 97.1/23.4 cm/sec. Mid CCA 84.4/11.6 cm/sec. Mid CCA 97.1/30 cm/sec. Dist CCA 86.3/12.6 cm/sec. Dist CCA 109.7/26.2 cm/sec. Prox ICA 156.3/21.5 cm/sec. Prox ICA 91.9/15.2 cm/sec. Mid ICA 104.7/22.5 cm/sec. Mid ICA 108.3/18.8 cm/sec. Dist ICA 77.3/13.3 cm/sec. Dist ICA 90/18.8 cm/sec. Rt. ICA/CCA = 1.85. Lt. ICA/CCA = 1.12. Prox ECA 239.2/16.3 cm/sec. Prox ECA 634/170.6 cm/sec. Rt. Vert. 82.8/16.8 cm/sec. Lt. Vert. 59.7/9.1 cm/sec. Right Extracranial There is heterogeneous, irregular atherosclerotic plaque noted in the right common carotid artery. There is heterogeneous, irregular atherosclerotic plaque noted in the right internal carotid artery. There is heterogeneous, irregular atherosclerotic plaque noted in the right external carotid artery. Antegrade flow is noted in the right vertebral artery. Nonvascularized structure at area of swelling on neck just below ear that measures 1.89 x 1.53 cm. Left Extracranial There is heterogeneous, irregular atherosclerotic plaque noted in the left common carotid artery. There is homogeneous, smooth atherosclerotic plaque noted in the left internal carotid artery. There is heterogeneous, irregular atherosclerotic plaque noted in the left external carotid artery. Antegrade flow is noted in the left vertebral artery. Procedure Carotid Duplex 79533. This is a Carotid Duplex examination using B-mode, color flow and specral Doppler. Exam performed in department. VL/Carotid Duplex Ultrasound Interpretation Summary Moderate (50-69%) stenosis right extracranial internal carotid. Mild (<50%) stenosis left extracranial internal carotid. Patent and antegrade vertebrals bilaterally. Nonvascularized structure at area of swelling on neck just below ear that measu res 1.89 x 1.53 cm. Ordering Physician: Rob Gurrola Referring Physician: Rob Gurrola Performed By: Suzette Perez RVT
== END | disposition home or self-care (01) ==
LOC: CVS 09:47
PROVIDERS: PCP Family Medicine; Referring Provider Family Medicine; Visit Provider Family Medicine
DX: I65.22 Occlusion and stenosis of left carotid artery (principal)
CPT/HCPCS: 93880

== ENCOUNTER → 2024-09-28 | Outpatient (CLI) | payer MEDICARE, SELFPAY ==
--- NOTE | 2024-09-28 15:49 | CT_ITS ---
PROCEDURE: SOFT TISSUE NECK WITH CONTRAST 09/28/2024 REASON FOR EXAM: NECK MASS TECHNIQUE: SOFT TISSUE NECK WITH CONTRAST CONTRAST: Isovue 370 VOLUME: 75 mL One or more dose reduction techniques were used (e.g., Automated exposure control, adjustment of the mA and/or kV according to patient size, use of iterative reconstruction technique). 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 Enlargement of the left lobe of the thyroid gland deviating the trachea towards the right side and narrowing its transverse dimension at the cervicothoracic junction. Prior resection of the right lobe of the thyroid gland. No vocal fold asymmetry. Normal nasopharynx. Normal parotid glands on the left. 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 However, no adenopathy is seen. Normal submandibular glands. The left-sided thyroid enlargement extends superiorly to the level of the hyoid bone. Approximate AP dimension of the left thyroid is 6.7 cm AP x 4.9 cm transverse by 10.[address]/Soft Tissue Neck WITH Contrast IMPRESSION: 1. Right-sided parotid lesion. Recommend tissue correlation. Larger when comp ared to 01/18/2019. 2. Enlargement of the left lobe of the thyroid gland with measurements given ab ove and tracheal deviation to the right Reading [facility]
== END | disposition home or self-care (01) ==
LOC: CT 15:48
PROVIDERS: PCP Family Medicine; Referring Provider Family Medicine; Visit Provider Family Medicine
DX: R22.1 Localized swelling, mass and lump, neck (principal)
CPT/HCPCS: 70491; Q9967; A4216

== ENCOUNTER → 2024-10-04 | Outpatient (CLI) | payer MEDICARE, SELFPAY | END | disposition home or self-care (01) | PROVIDERS: PCP Family Medicine; Referring Provider Family Medicine; Visit Provider Family Medicine | DX: E01.0 Iodine-deficiency related diffuse (endemic) goiter (principal) | CPT/HCPCS: 76536 ==

== ENCOUNTER → 2024-12-04 | Outpatient (CLI) | payer MEDICARE, SELFPAY ==
--- NOTE | 2024-12-04 09:44 | RAD_ITS ---
PROCEDURE: WRIST MIN 3 VIEWS 12/04/2024 REASON FOR EXAM: LEFT WRIST PAIN, FALL TECHNIQUE: Procedure Code: RADWR Modality: DX Procedure: WRIST MIN 3 VIEWS Laterality: Left COMPARISON: None. RAD/Wrist min 3 Views IMPRESSION: [id number] degenerative changes are seen at the scaphoid trapezial trapez oidal joint. Mild degenerative changes noted at the 1st carpal-metacarpal joint. Minimal degenerative changes seen elsewhere. Satisfactory carpal alignment is seen throughout. No significant degree of ulnar variance is noted. No acute fracture or disloca tion is seen. If clinical concern persists, short-term follow-up imaging may be obtained to r ule out a currently occult fracture. Reading Location: [id number]
== END | disposition home or self-care (01) ==
LOC: MTRAD 09:44
PROVIDERS: PCP Family Medicine
DX: M25.532 Pain in left wrist (principal)
CPT/HCPCS: 73110

== ENCOUNTER → 2024-12-20 | Outpatient (CLI) | payer MEDICARE, SELFPAY ==
[2024-12-20 10:09] LABS: Hematocrit 43.5 % (37-47); Hemoglobin 14.6 g/dL (12.0-15.0); Immature Granulocytes Count 0.030 X10^3/uL (0.0-0.0); Mean Corp Hgb Conc 33.6 g/dL (32-36); Mean Corpuscular Volume 90.4 fL (81-99); Mean Platelet Vol. 9.7 fl (6.2-12.0); NRBC Flagged by Analyzer 0 % (0-5); Platelet Count 309 K/mm3 (150-450); RBC Distribution Width CV 12.4 % (11.6-14.6); RBC Distribution Width SD 41.1 fl (35.1-43.9); Red Blood Count 4.81 M/mm3 (4.2-5.4); White Blood Count 7.9 K/mm3 (4.4-11.0)
[2024-12-20 11:29] LABS: AST(SGOT) 21 U/L (<=31); Alanine Aminotransfer ALT/SGPT 12 U/L (<=34); Albumin, Serum 4.1 g/dL (3.4-4.8); Alkaline Phosphatase 68 U/L (35-104); Anion Gap 11 (5-15); BUN 12 mg/dL (4-19); BUN/Creat Ratio 17.4 RATIO (10-20); Calcium,Total 9.2 mg/dL (7.6-11.0); Carbon Dioxide 21.6 mmol/L (21.0-32.0); Chloride 104 mmol/L (98-108); Cholesterol 113 mg/dL (<=200); Globulin 4.2 g/dL (2.2-4.2); Glucose 116 mg/dL (70-99); Low Density Lipoprotein Calc. 58 mg/dL; Potassium 4.0 mmol/L (3.3-5.1); Triglycerides 79 mg/dL; Very Low Density Lipoprotein 16 mg/dL (5-40); cholesterol:hdl ratio screen 2.90
== END | disposition home or self-care (01) ==
LOC: MFPLAB 08:05
PROVIDERS: PCP Family Medicine; Visit Provider Family Medicine
DX: R73.02 Impaired glucose tolerance (oral) (principal); E78.00 Pure hypercholesterolemia, unspecified; E03.9 Hypothyroidism, unspecified
CPT/HCPCS: 36415; 80053; 80061; 83036; 84439; 84443; 85025

== ENCOUNTER → 2024-12-25 | Outpatient (CLI) | payer MEDICARE, SELFPAY ==
[2024-12-25 14:24] LABS: Vitamin D,25 Hydroxy 32.7 ng/mL (30-100)
== END | disposition home or self-care (01) ==
LOC: MFPLAB 09:40
PROVIDERS: PCP Family Medicine; Visit Provider Family Medicine
DX: M85.80 Other specified disorders of bone density and structure, unspecified site (principal)
CPT/HCPCS: 36415; 82306

== ENCOUNTER → 2025-01-23 | Outpatient (CLI) | payer MEDICARE, SELFPAY ==
[2025-01-23 11:56] LABS: PTHIN 3 pg/mL (11-61)
[2025-01-23 12:18] LABS: Albumin, Serum 3.9 g/dL (3.4-4.8); Calcium 10.0 mg/dL (7.6-11.0); Magnesium 2.0 mg/dL (1.5-2.2); Vitamin D,25 Hydroxy 28.1 ng/mL (30-100)
== END | disposition home or self-care (01) ==
LOC: LAB 10:23
PROVIDERS: PCP Family Medicine; Referring Provider Otolaryngology; Visit Provider Otolaryngology
DX: Z90.09 Acquired absence of other part of head and neck (principal)
CPT/HCPCS: 36415; 82040; 82306; 82310; 83735; 83970; 84100

== ENCOUNTER → 2025-01-29 | Outpatient (CLI) | payer MEDICARE, SELFPAY ==
--- OUTSIDE RECORDS SUMMARY | 2025-01-29 09:10 | XMS RPT_ITS | CCD ---
Author Organization [facility] Care Team Providers Care Television Writer Name Role Phone Dr. Jessica Ramesh Primary Care Provider Dr. Dejuan Ritter Attending Provider [phone] Jessica Ramesh Primary Care Provider [phone] Dr. Jessica Ramesh Referring Provider Dr. Dejuan Ritter Attending Provider CY ANGELA, DR MUNIZ [facility]ending [facility], JESSICA Primary Care Unavailable IZABELA ANGELA, JESSICA Primary Care Physician Dr. Jessica Ramesh MD Primary Care Provider Deangelo WEB DEVELOPMENT CONSULTANT-C, Joanne Attending Provider Deangelo WEB DEVELOPMENT CONSULTANT-C, Joanne Referring Provider Dr. Jessica Ramesh MD Attending Provider [phone] Dr. Jessica Ramesh MD Referring Provider [phone] Dr. Jessica Ramesh MD Primary Care Provider [phone] Deangelo WEB DEVELOPMENT CONSULTANT-C, Joanne Attending Provider Deangelo WEB DEVELOPMENT CONSULTANT-C, Joanne Referring Provider Dr. Jessica Ramesh MD Primary Care Provider Dr. Oz Lopez MD Attending Provider Dr. Jessica Ramesh MD Primary Care Provider [phone] Dr. Jessica Ramesh MD Attending Provider Dr. Jessica Ramesh MD Referring Provider Uche ANGELA, Dr. Morales Attending Provider IZABELA ANGELA, JESSICA Primary Care Unavailable JULIENNE ANGELA, DR CARO Attending Unav ailable Unavailable Primary Care Provider Unavailchristiano Ramesh MD, Dr. Jessica Carreno Primary Care Provider Izabela ANGELA, Dr. Jessica Carreno Attending Provider Izabela ANGELA, Dr. Jessica Carreno Referring Provider Uche ANGELA, Dr. Morales Attending Provider Jamie ANGELA, Yaya Unavailable Izabela ANGELA, Dr. Jessica Carreno Primary Care Physician Uche ANGELA, Dr. Morales Attending Physician Izabela ANGELA, Dr. Jessica Carreno Attending Physician Izabela ANGELA, Dr. Jessica Carreno Referring Provider John ANGELA, Dr. Clinton Attending Physician Catarino WEB DEVELOPMENT CONSULTANT-CEnmanuel Attending Physician Jeffreywarrensedil WEB DEVELOPMENT CONSULTANT-CEnmanuel Referring Provider Jessica Ramesh Referring Unavailable Jessica Ramesh Primary Care Unavailable Jessica Ramesh Attending Unavailable Jessica Ramesh Primary Care Unavailable Jessica Ramesh Referring Unavailable Jessica Ramesh Attending Unavailable Jessica Ramesh Attending Unavailable Jessica Ramesh Primary Care Unavailable Jessica Ramesh Referring Unavailable Jessica Ramesh Primary Care Unavailable Oz Lopez Attending Unavailable Jessica Ramesh Referring Unavailable SchJessica waite Attending Unavailable Jessica Ramesh Referring Unavailable SchJessica waite Primary Care Unavailable Jessica Ramesh Attending Unavailable Jessica Ramesh Referring Unavailable SchJessica waite Primary Care Unavailable Jessica Ramesh Attending Unavailable Jessica Ramesh Referring Unavailable SchJessica waite Primary Care Unavailable SchJessica waite Attending Unavailable Schravindra, Jessica Carreno Referring Unavailable SchJessica waite Primary Care Unavailable Deangelo WEB DEVELOPMENT CONSULTANT, Joanne Referring Unavailable Deangelo WEB DEVELOPMENT CONSULTANT, Joanne Attending Unavailable Schinner, Jessica E Primary Care Unavailable Deangelo WEB DEVELOPMENT CONSULTANT, Joanne Attending Unavailable Deangelo WEB DEVELOPMENT CONSULTANT, Joanne Referring Unavailable SchinJessica mendez E Primary Care Unavailable Schinandrea, Jessica E Primary Care Unavailable Schinandrea, Jessica E Attending Unavailable Schinner, Jessica E Primary Care Unavailable Schinner, Jessica E Attending Unavailable McMorrow WEB DEVELOPMENT CONSULTANT, Enmanuel Attending Unavailable McMorrow WEB DEVELOPMENT CONSULTANT, Enmanuel Referring Unavailable Schinner, Jessica E Primary Care Unavailable Schinner, Jessica E Referring Unavailable Schinner, Jessica E Primary Care Unavailable Schinandrea, Jessica E Attending Unavailable PROVIDER, PATHOLOGY Attending Unavailable PROVIDER, PATHOLOGY Admitting Unavailable JAMIE, YAYA Referring Unavailable PROVIDER, PATHOLOGY Attending Unavailable PROVIDER, PATHOLOGY Admitting Unavailable JAMIE, YAYA Referring Unavailable JAMIE, YAYA Admitting Unavailable JAMIE, YAYA Attending Unavailable PROVIDER, PATHOLOGY Admitting Unavailable PROVIDER, PATHOLOGY Attending Unavailable JAMIE, YAYA Referring Unavailable JAMIE, YAYA Attending Unavailable GORDO ROBINS Referring Unavailabl e PROVIDER, PATHOLOGY Admitting Unavailable PROVIDER, PATHOLOGY Attending Unavailable PROVIDER, PATHOLOGY Admitting Unavailable PROVIDER, PATHOLOGY Attending Unavailable PROVIDER, PATHOLOGY Admitting Unavailable JAMIE, YAYA Attending Unavailable PROVIDER, PATHOLOGY Admitting Unavailable Allergies Allergy Classification Reported Allergen(s) Allergy Type Date of Onset Reaction(s) Facility (20 sources) FLUoxetine; Translations: [fluoxetine] Drug Allergy 07-27-19 Worsening depression [facility] Comment on above: Worsening depression (19 sources) Sulfamethoxazole Drug Allergy 02-19-20 [facility] (19 sources) Trimethoprim Drug Allergy 02-19-20 [facility] (7 sources) Sulfamethoxazole / Trimethoprim; Translations: [sulfamethoxazole-t rimethoprim] Drug Allergy 07-27-19 [facility] (7 sources) buPROPion; Translations: [BUPROPION] Drug Allergy 11-10-19 [facility] (7 sources) hydroCHLOROthiazide ; Translations: [HYDROCHLOROTHIAZID E] Drug Allergy 11-10-19 [facility] (7 sources) Losartan; Translations: [LOSARTAN] Drug Allergy 11-10-19 [facility] (1 source) FLUoxetine Drug Allergy 02-19-20 [facility] (1 source) Sulfamethoxazole Drug Allergy 02-19-20 [facility] (1 source) Trimethoprim Drug Allergy 02-19-20 [facility] (1 source) SULFAMETHOXAZOLE W-TRIMETHOPRIM; Translations: [SULFAMETHOXAZOLE W-TRIMETHOPRIM] Propensity to adverse reactions to drug (disorder) 07-27-19 [facility] Medications Current Medications Medication Drug Class(es) Dates Sig (Normalized) Sig (Original) aspirin 81 mg oral tablet (20 sources) Platelet Aggregation Inhibitor, Nonsteroidal Anti-inflammatory Drug Start: 10-06-2020 take 1 dose by mouth once daily aspirin Dose : 81 mg =, Oral, qDay, 0 Refill(s) Start Date: 10/06/20 Status: Ordered Start: 01-11-2019 Calcium (1 source) Phosphate Binder, Calcium Calcium 200 MG TABS Take by mouth. Active calcium carbonate 1500 mg / cholecalciferol 500 unt oral capsule (19 sources) Vitamin D Start: 02-19-2020 Start: 02-19-2020 Calcium Carbon ate-Vitamin D3 (Calcium 600 With Vitamin D3) 600 mg(1,500mg) -500 unit capsule Active CAP PO February 19, 2020 12:00am Calcium/Magnesium/Vit D (1 source) Start: 10-06-2020 take 1 tablet by mouth once daily Calcium/Magnesium/Vit D 1 TAB, Oral, qDay, 0 Refill(s) Start Date: 10/06/20 Status: Ordered cholecalciferol 0.025 mg oral capsule (19 sources) Vitamin D Start: 02-19-2020 take 1 capsule by mouth once daily chromium picolinate 0.1 mg / cinnamon bark 500 mg oral capsule (19 sources) Start: 01-11-2019 take 1 capsule by mouth once daily Start: 01-11-2019 take 1 capsule by [facility] once daily cinnamon bark-chromium picolinate 500 mg-100 mcg capsule Active 1 CAP PO DAILY January 11, 2019 12:00am Cinnamon Preparation (1 source) Non-Standardized Food Allergenic Extract Start: 03-27-2018 Cinnamon 1000 mg capsule 0 Refill(s) Start Date: 03/27/18 Status: Ordered ciprofloxacin 500 mg oral tablet (6 sources) Quinolone Antimicrobial Start: 08-23-2024 take 1 tablet by mouth twice daily ciprofloxacin (CIPRO) 500 MG tablet Take 500 mg by mouth 2 times daily. 08/23/2024 Active hydroCHLOROthiazide 25 mg oral tablet (19 sources) Thiazide Diuretic Start: 02-01-2019 take 1 tablet by mouth once daily levothyroxine sodium 0.075 mg oral tablet (20 sources) l-Thyroxine Start: 09-14-2024 levothyroxine (SYNTHROID) 75 MCG tablet 09/14/2024 Active Start: 01-11-2019 take 1 capsule by mouth once d aily Start: 03-23-2018 take 1 dose intraven ously once daily levothyroxine Dose : 100 mcg =, IV Push (INT), qDay, 0 Refill(s) Start Date: 03/23/18 Status: Ordered rosuvastatin calcium 10 mg oral tablet (20 sources) HMG-CoA Reductase Inhibitor Start: 01-11-2019 rosuvastatin (CRESTO R) 10 MG tablet 09/02/2024 Active Completed/Discontinued Medications Medication Drug Class(es) Dates Sig (Normalized) Sig (Original) acetaminophen 325 mg / HYDROcodone bitartrate 5 mg oral tablet (19 sources) Opioid Agonist Start: 01-31-2019 End: 02-02-2019 Hydrocodone-Acetamino phen 1 TABLET tablet Discontinued 1 {tbl} PO EVERY 6 HOURS NEEDED as needed for Pain 5 2 0 January 31, 2019 February 01, 2019 1:00am February 02, 2019 1:09am Postoperative pain Other acute postprocedural pain Start: 01-31-2019 End: 02-02-2019 take 1 tablet by mouth every six hours as needed Hydrocodone-Acetaminophen Discontinued 1 TABLET PO EVERY 6 HOURS NEEDED 5 2 January 31, 2019 February 02, 2019 12:09am 1.7 ml EPINEPHrine 0.01 mg/ml / lidocaine hydrochloride 20 mg/ml cartridge (2 sources) Antiarrhythmic, alpha-Adrenergic Agonist, beta-Adrenergic Agonist, Catecholamine, Amide Local Anesthetic Start: 11-09-2024 End: 11-09-2024 lidocaine-EPINEPHrine (XYLOCAINE) 2 %-1:[id number] injection Start: 11-09-2024 End: 11-09-2024 3 mL, Intradermal, ONCE, 1 d ose, On Tue11/09/24 at 1730 Problems Active Problems Problem Classification Problem Date Documented Da te Episodic/Chronic Diabetes mellitus without complication (1 source) Impaired glucose tolerance (oral); Translations: [Impaired glucose tolerance (oral)] Onset: 12-28-2024 Episodic Diseases of mouth; excluding dental (19 sources) Mass of parotid gland; Translations: [Other diseases of salivary glands] Onset: 11-09-2024 11-10-2024 Episodic Disorders of lipid metabolism (1 source) Pure hypercholesterolemi a, unspecified; Translations: [Pure hypercholesterolemi a, unspecified] Onset: 05-25-2024 Chronic Essential hypertension (1 source) Essential (primary) hypertension; Translations: [Essential (primary) hypertension] Onset: 08-23-2024 Chronic Occlusion or stenosis of precerebral arteries (20 sources) Left carotid artery stenosis; Translations: [Occlusion and stenosis of left carotid artery] Onset: 09-06-2024 01-11-2019 Chronic Other and unspecified benign neoplasm (8 sources) Adenolymphoma; 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, unspecified] Onset: 11-21-2024 11-21-2024 Episodic Other and unspecified benign neoplasm (1 source) Benign neoplasm of major salivary gland, unspecified; 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, unspecified] Onset: 11-21-2024 Episodic Other bone disease and musculoskeletal deformities (1 source) Other specified disorders of bone density and structure, unspecified site; Translations: [Other specified disorders of bone density and structure, unspecified site] Onset: 12-31-2024 Episodic Other non-traumatic joint disorders (1 source) Pain in left wrist; Translations: [Pain in left wrist] Onset: 12-14-2024 Episodic Other skin disorders (4 sources) Mass of neck; Translations: [Localized swelling, mass and lump, neck] 10-18-2024 Episodic Other skin disorders (1 source) Lesion of skin of face; Translations: [Disorder of the skin and subcutaneous tissue, unspecified] 11-10-2024 Episodic Other skin disorders (2 sources) Localized swelling, mass and lump, neck; Translations: [Localized swelling, mass and lump, neck] Onset: 10-03-2024 Episodic Residual codes; unclassified (2 sources) Tobacco user 11-10-2024 Episodic Residual codes; unclassified (8 sources) History of thyroid lobectomy; Translations: [Acquired absence of other part of head and neck] Onset: 11-21-2024 11-09-2024 Episodic Residual codes; unclassified (1 source) Acquired absence of other part of head and neck; Translations: [Acquired absence of other part of head and neck] Onset: 11-09-2024 Episodic Substance-related disorders (1 source) Tobacco user; Translations: [Nicotine dependence, unspecified, uncomplicated] 11-10-2024 Chronic Thyroid disorders (20 sources) Hypothyroidism; Translations: [Substernal goiter] Onset: 10-20-2024 03-23-2018 Chronic Unclassified (10 sources) History of thyroid lobectomy 11-10-2024 Unclassified (1 source) Pyuria; Translations: [Pyuria] Onset: 08-27-2024 Unclassified (1 source) Low back pain, unspecified; Translations: [Low back pain, unspecified] Onset: 05-30-2024 Past or Other Problems Problem Classification Problem Date Documented Da te Episodic/Chronic Other screening for suspected conditions (not mental disorders or infectious disease) (2 sources) Encounter for screening mammogram for malignant neoplasm of breast; Translations: [Encounter for screening for malignant neoplasm of respiratory organs] Onset: 03-23-2024 Episodic Unclassified (19 sources) history right thyroid lobectomy 09-23-2021 Results Test Name Value Interpretation Reference Range Facility PAT Call Historyon [facility] Authentication Interface Message Text Telephone History Tanisha Hanson, [id number] 01/03/2025 74 year old 158 lbs 5' 3.5 Patient was identified by name and date of . CONSIDER EKG ON Dodson RN Date of Surgery: 01/16/2025 Surgeon: JAMIE Type of Surgery: THYROID LOBECTOMY HISTORY OF PRESENT ILLNESS: PAT Telephone History for scheduled surgery with DR. PADILLA [facility] Row Name 01/03/25 0948 History of sleep apnea? No Snoring No Tired/Fatigued No Observed Apnea No Pressure: Hypertension No BMI greater than 35 0 Age greater than 50 1 Neck circ greater than 40cm (15.75) Unable to Assess Gender male? 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 CBC (last 3 years, up to 8 values) No lab values to display. BMP (last 3 years, up to 8 values) No lab values to display. Basic Metabolic Panel No lab values to display. PT/PTT/INR (last 3 years, up to 8 values) No lab values to display. Arterial Blood Gases None No result for BNP LFT's (last 3 years, up to 8 values) No lab values to display. Urinalysis No lab values to display. Lab Results Component Value Date TSH 0.754 11/09/2024 No results found for: HBA1C TESTS REVIEWED: CXRay: Chest radiography date: Not Found EKG: Last ECG Date: Not Found ECHO: Echocardiogram date: Not Found No results found for this basename: LVEF Stress test date: Last Cardiac Stress Test: Not Found CURRENT MEDICATION LIST: Current Outpatient Medications Medication Sig Dispense Refill Calcium 200 MG TABS Take by mouth. ciprofloxacin (CIPRO) 500 MG tablet Take 500 mg by mouth 2 times daily. levothyroxine (SYNTHROID) 75 MCG tablet rosuvastatin (CRESTOR) 10 MG tablet No current facility-administered medications for this visit. CURRENT MEDICATIONS: Aspirin: Yes NSAIDS: Yes Other Antiplatelet Medication: No Anticoagulants: No Steroids: No SGLT-2/GLP-1: No PATIENT MEDICATION INSTRUCTIONS: On the morning of your surgery, please take only the following medications, with a small sip of water: levothyroxine (SYNTHROID) 75 MCG tablet May take over the counter Acetaminophen (Tylenol) as needed for pain. Do not take any herbal medications 7 days prior to surgery (Fish Oil, Ginseng, Ginko Biloba) DAY OF SURGERY NOTES: Pt can have WATER only ( no additives) up to 2 hours prior to arrival time The patient is to have nothing to eat or any other liquids at least 8 hours prior to surgery arrival time Need to have regional truck driver responsible adult with you on discharge SARTHAK, will bring their CPAP with them on the morning of surgery. Post-op Nausea and Vomiting: A risk of anesthesia is nausea and/or vomiting (PONV). Certain patients are at higher risk than others. Talk to your anesthesiologist about the plan to minimize this risk. In general, it is best to start with only ice chips or small sips of water, then progress to clear, non-alcoholic fluids. You do not have to eat if you do not feel like it; fluids are the most important in the first 24 hours after surgery. If you start to eat, try bananas, applesauce, plain toast, saltine crackers, or broth; avoid fried or fatty foods. Make sure to eat something about 15 minutes before taking any pain medications. Seek medical attention for any prolonged PONV and signs of dehydration. 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 Normal [facility] Patient Instructionson 01-03 [facility] Authentication Interface Message Text On the morning of your surgery, please take only the following medications, with a small sip of water:LEVOTHYROXINE May take over the counter Acetaminophen (Tylenol) as needed for pain. Do not take any herbal medications 7 days prior to surgery (Fish Oil, Ginseng, Ginko Biloba) Pt can have WATER only ( no additives) up to 2 hours prior to arrival time The patient is to have nothing to eat or any other liquids at least 8 hours prior to surgery arrival time Need to have regional truck driver responsible adult with you on discharge SARTHAK, will bring their CPAP with them on the morning of surgery. Post-op Nausea and Vomiting: A risk of anesthesia is nausea and/or vomiting (PONV). Certain patients are at higher risk than others. Talk to your anesthesiologist about the plan to minimize this risk. In general, it is best to start with only ice chips or small sips of water, then progress to clear, non-alcoholic fluids. You do not have to eat if you do not feel like it; fluids are the most important in the first 24 hours after surgery. If you start to eat, try bananas, applesauce, plain toast, saltine crackers, or broth; avoid fried or fatty foods. Make sure to eat something about 15 minutes before taking any pain medications. Seek medical attention for any prolonged PONV and signs of dehydration. Please use this CHECKLIST to prepare for your surgery/procedure: ? Assume that any lab or testing done during your Pre-admission testing appointment is within normal limits unless otherwise contacted. ? Expect a call from [facility] one business day prior to surgery for surgery arrival time and location. ? Please plan to restart your medications the day after surgery unless otherwise explicitly instructed. ? Please contact your surgeon's/proceduralist's office for any surgical or recovery types of questions. ? CANCELLING YOUR SURGERY/PROCEDURE: If you get a cold, are not feeling well, or become , please call your surgeon's office as soon as possible. ? Refer to your Preparing for Your Surgery/Procedure booklet or [email or web address] if you have questions. Contact the Pre-Admission Testing department at [phone] or your surgeon's office with any questions that are not answered. ? Eating and drinking before surgery: Adult Patients: No food or drink for 8 hours prior to surgery check in time. Plain water is allowed up to 2 hours prior to your surgery arrival time. A sip of water with approved morning medications is acceptable. Enhanced Recovery After Surgery (ERAS), bariatric, and endoscopy/colonoscopy patients should follow their surgeon's/proceduralist's instructions for clear fluids prior to surgery. Pediatric Patients (under the age of 1212 years old): Patients are not to have solid food for 8 hours prior to coming for surgery. Patients can have formula or non-human milk (skim, 2%, whole, nut-milks, soy, etc.) 6 hours prior to coming for surgery. Patients can have breast milk up to 4 hours prior to coming for surgery. Patients can have clear liquids (water, flavored moffett, Pedialyte) up to 2 hours prior to coming for surgery. Post-op Nausea and Vomiting: A risk of anesthesia is nausea and/or vomiting (PONV). Certain patients are at higher risk than others. Talk to your anesthesiologist about the plan to minimize this risk. In general, it is best to start with only ice chips or small sips of water, then progress to clear, non-alcoholic fluids. You do not have to eat if you do not feel like it; fluids are the most important in the first 24 hours after surgery. If you start to eat, try bananas, applesauce, plain toast, saltine crackers, or broth; avoid fried or fatty foods. Make sure to eat something about 15 minutes before taking any pain medications. Seek medical attention for any prolonged PONV and signs of dehydration. Patients whose assigned sex at was female, and are starting puberty or beyond, will be urine tested for per hospital policy. ON THE DAY OF SURGERY: ? DO bring your ID, insurance card, medication list, and a small amount of nagy for filling prescriptions and any medical co-pays. ? Do NOT wear any jewelry, (including rings, earrings, or mouth, tongue, or body piercings). Metal jewelry could cause constriction, amputation, or keith. Loose or bulky things in your mouth can be unsafe and result in breathing problems. ? DO bring glasses if you wear contacts and other assistance items such as oxygen, inhaler, cane, walker, etc. ? Do NOT bring valuables, credit cards, or large amounts of nagy. ? Do NOT wear lotion or strong-smelling fragrance (perfume, cologne, cream or lotion). ? ARRANGE FOR A RIDE: If you are scheduled to go home the same day of surgery, a responsible adult MUST drive or accompany you home in a car, cab, shared ride service, or Metro-van. You will not be allowed to drive yourself home or travel home dhaval (more content not included)... Normal [facility] Vitamin D,25 Hydroxyon 12-25 Vitamin D 25-OH 32.7 ng/mL Normal 30-100 [facility] Comment on above: Result Comment: Barbie min D Status Deficiency: <20 ng/mL (50nmol/L) Insufficiency: 20-30 ng/mL (50-75 nmol/L) Sufficiency: 30-100 ng/mL (75-250 nmol/L) Toxicity: >100 ng/mL (>250 nmol/L) Performed By: #### L 506.1001 ####[facility] [id number] [place], [address] Absolute lymphocyte countOrd ered By: Jessica Ramesh on 12-20-2024 Lymphocytes Auto (Unsp spec) [#/Vol] 1.60 10*3/uL 0.83-4.51 [facility] Absolute neutrophil countOrd ered By: Jessica Ramesh on 12-20-2024 Neutrophils (Bld) [#/Vol] 5.3 10*3/uL 2.0-7.7 [facility] Anion gap in Serum or Plasma Ordered By: Jessica Ramesh on 12-20-2024 Anion gap [Moles/Vol] 11 mmol/L 07-19 [facility] Automated lymphocyte count a s percentage of total leukocytesOrdered By: Jessica Ramesh on 12-20-2024 Lymphocytes/100 WBC Auto (Unsp spec) 20.4 % [facility] BUN/creatinine ratioOrdered By: Jessica Ramesh on 12-20-2024 Urea nitrogen/Creatinine [Mass ratio] 17.4 mg/mg 12-24 [facility] Basophil percentageOrdered B y: Jessica Ramesh on 12-20-2024 Basophils/100 WBC (Bld) 1.4 % High 0-1 [facility] Bilirubin, totalOrdered By: Jessica Ramesh on 12-20-2024 Bilirubin [Mass/Vol] 0.49 mg/dL 0.00-1.30 [facility] CBC W/Diff, Automatedon 12-05 Absolute Lymph 1.60 X10 3/uL Normal 0.83-4.51 [facility] Comment on above: Order Comment: Order Date: 08/23/24 Order Info: 0184-1 - CBCD Performed By: #### L 500.4050, L501.9520, L100.0100, L500.4100, L506.0400, L501.9985 #### [facility] [address] [place], [address] Absolute Neut 5.3 X10 3/uL Normal 2.0-7.7 [facility] Comment on above: Order Comment: Order Date: 08/23/24 Order Info: 0184-1 - CBCD Performed By: #### L 500.4050, L501.9520, L100.0100, L500.4100, L506.0400, L501.9985 #### [facility] [address] [place], [address] Basophils/100 WBC (Bld) 1.4 % High 0-1 [facility] Comment on above: Order Comment: Order Date: 08/23/24 Order Info: 0184-1 - CBCD Performed By: #### L 500.4050, L501.9520, L100.0100, L500.4100, L506.0400, L501.9985 #### [facility] [address] [place], [address] Eosinophils/100 WBC (Bld) 2.8 % Normal 0-5 [facility] Comment on above: Order Comment: Order Date: 08/23/24 Order Info: 0184- - CBCD Performed By: #### L 500.4050, L501.9520, L100.0100, L500.4100, L506.0400, L501.9985 #### [facility] [address] [place], [address] Erythrocyte distribution width (RBC) [Ratio] 12.4 % Normal 11.6-14.6 [facility] Comment on above: Order Comment: Order Date: 08/23/24 Order Info: 0184-1 - CBCD Performed By: #### L 500.4050, L501.9520, L100.0100, L500.4100, L506.0400, L501.9985 #### [facility] [address] [place], [address] Hematocrit (Bld) [Volume fraction] 43.5 % Normal 37-47 [facility] Comment on above: Order Comment: Order Date: 08/23/24 Order Info: 0184-1 - CBCD Performed By: #### L 500.4050, L501.9520, L100.0100, L500.4100, L506.0400, L501.9985 #### [facility] [address] [place], [address] Hemoglobin (Bld) [Mass/Vol] 14.6 g/dL Normal 12.0-15.0 [facility] Comment on above: Order Comment: Order Date: 08/23/24 Order Info: [id number] - CBCD Performed By: #### L 500.4050, L501.9520, L100.0100, L500.4100, L506.0400, L501.9985 #### [facility] [address] [place], [address] IG% 0.400 Normal 0.0-0.9 [facility] Comment on above: Order Comment: Order Date: 08/23/24 Order Info: 0184-1 - CBCD Result Comment: IG% - Immature Granulocytes (promyelocytes, myelocytes and metamyelocytes) > 1% indicates that a LEFT SHIFT is Present. Performed By: #### L 500.4050, L501.9520, L100.0100, L500.4100, L506.0400, L501.9985 #### [facility] [address] [place], [address] Lymphocytes/100 WBC (Bld) 20.4 % Normal 19-41 [facility] Comment on above: Order Comment: Order Date: 08/23/24 Order Info: 0184-1 - CBCD Performed By: #### L 500.4050, L501.9520, L100.0100, L500.4100, L506.0400, L501.9985 #### [facility] [address] [place], [address] MCH (RBC) [Entitic mass] 30.4 pg Normal 27.0-32.0 [facility] Comment on above: Order Comment: Order Date: 08/23/24 Order Info: 018- - CBCD Performed By: #### L 500.4050, L501.9520, L100.0100, L500.4100, L506.0400, L501.9985 #### [facility] [address] [place], [address] MCHC (RBC) [Mass/Vol] 33.6 g/dL Normal 32-36 [facility] Comment on above: Order Comment: Order Date: 08/23/24 Order Info: 018- - CBCD Performed By: #### L 500.4050, L501.9520, L100.0100, L500.4100, L506.0400, L501.9985 #### [facility] [address] [place], [address] MCV (RBC) [Entitic vol] 90.4 fL Normal 81-99 [facility] Comment on above: Order Comment: Order Date: 08/23/24 Order Info: 018- - CBCD Performed By: #### L 500.4050, L501.9520, L100.0100, L500.4100, L506.0400, L501.9985 #### [facility] [address] [place], [address] Monocytes/100 WBC (Bld) 7.5 % Normal 0-10 [facility] Comment on above: Order Comment: Order Date: 08/23/24 Order Info: 018- - CBCD Performed By: #### L 500.4050, L501.9520, L100.0100, L500.4100, L506.0400, L501.9985 #### [facility] [address] [place], [address] Neutrophils/100 WBC (Bld) 67.5 % Normal 47-70 [facility] Comment on above: Order Comment: Order Date: 08/23/24 Order Info: 018- - CBCD Performed By: #### L 500.4050, L501.9520, L100.0100, L500.4100, L506.0400, L501.9985 #### [facility] [address] [place], [address] Nucleated RBC (Bld) [#/Vol] 0 10*3/uL Normal 0-5 [facility] Comment on above: Order Comment: Order Date: 08/23/24 Order Info: 018- - CBCD Performed By: #### L 500.4050, L501.9520, L100.0100, L500.4100, L506.0400, L501.9985 #### [facility] [address] [place], [address] Platelet mean volume (Bld) [Entitic vol] 9.7 fL Normal 6.2-12.0 [facility] Comment on above: Order Comment: Order Date: 08/23/24 Order Info: 018- - CBCD Performed By: #### L 500.4050, L501.9520, L100.0100, L500.4100, L506.0400, L501.9985 #### [facility] [address] [place], [address] Platelets (Bld) [#/Vol] 309 10*3/uL Normal 150-450 [facility] Comment on above: Order Comment: Order Date: 08/23/24 Order Info: 018-1 - CBCD Performed By: #### L 500.4050, L501.9520, L100.0100, L500.4100, L506.0400, L501.9985 #### [facility] [address] [place], [address] RBC (Bld) [#/Vol] 4.81 10*6/uL Normal 4.2-5.4 [facility] Comment on above: Order Comment: Order Date: 08/23/24 Order Info: 0184-1 - CBCD Performed By: #### L 500.4050, L501.9520, L100.0100, L500.4100, L506.0400, L501.9985 #### [facility] [address] [place], [address] RDW SD 41.1 fl Normal 35.1-43.9 [facility] Comment on above: Order Comment: Order Date: 08/23/24 Order Info: 0184-1 - CBCD Performed By: #### L 500.4050, L501.9520, L100.0100, L500.4100, L506.0400, L501.9985 #### [facility] [address] [place], [address] WBC (Bld) [#/Vol] 7.9 10*3/uL Normal 4.4-11.0 [facility] Comment on above: Order Comment: Order Date: 08/23/24 Order Info: 0184-1 - CBCD Performed By: #### L 500.4050, L501.9520, L100.0100, L500.4100, L506.0400, L501.9985 #### [facility] [address] [place], [place], [address] Calculated very low density lipoprotein (VLDL) cholesterol measurementOrdered By: Jessica Ramesh on 12-20-2024 Calculated very low density lipoprotein (VLDL) cholesterol measurement 16 mg/dL 5-40 [facility] Carbon dioxide, total [Moles /volume] in Central venous bloodOrdered By: Jessica Ramesh on 12-20-2024 CO2 [Moles/Vol] 21.6 mmol/L 21.0-32.0 [facility] Chloride assayOrdered By: Steffi Ramesh on 12-20-2024 Chloride [Moles/Vol] 104 mmol/L 98-108 [facility] Comprehensive Metabolic Prof ilon 12-20-2024 Albumin [Mass/Vol] 4.1 g/dL Normal 3.4-4.8 [facility] Comment on above: Order Comment: Order Date: 08/23/24 Order Info: 86-1 - CMP Order Info: [id number] - LIPID Order Info: [id number] - TSH Order Info: 3024-7 - T4F Performed By: #### L 500.4050, L501.9520, L100.0100, L500.4100, L506.0400, L501.9985 #### [facility] [address] [place], [address] Albumin/Globulin [Mass ratio] 1.0 {ratio} Normal 0.9-2.4 [facility] Comment on above: Order Comment: Order Date: 08/23/24 Order Info: 785-1 - CMP Order Info: [id number] - LIPID Order Info: [id number] - TSH Order Info: 3024-7 - T4F Performed By: #### L 500.4050, L501.9520, L100.0100, L500.4100, L506.0400, L501.9985 #### [facility] [address] [place], [address] ALK PHOS 68 U/L Normal 35-104 [facility] Comment on above: Order Comment: Order Date: 08/23/24 Order Info: 86-1 - CMP Order Info: [id number] - LIPID Order Info: [id number] - TSH Order Info: 3024-7 - T4F Performed By: #### L 500.4050, L501.9520, L100.0100, L500.4100, L506.0400, L501.9985 #### [facility] [address] [place], [address] ALT [Catalytic activity/Vol] 12 U/L Normal <=34 [facility] Comment on above: Order Comment: Order Date: 08/23/24 Order Info: 86-1 - CMP Order Info: [id number] - LIPID Order Info: 3 - TSH Order Info: 3024-7 - T4F Performed By: #### L 500.4050, L501.9520, L100.0100, L500.4100, L506.0400, L501.9985 #### [facility] [address] [place], [address] AST [Catalytic activity/Vol] 21 U/L Normal <=31 [facility] Comment on above: Order Comment: Order Date: 08/23/24 Order Info: 86-1 - CMP Order Info: [id number] - LIPID Order Info: 3 - TSH Order Info: 3024-7 - T4F Performed By: #### L 500.4050, L501.9520, L100.0100, L500.4100, L506.0400, L501.9985 #### [facility] [address] [place], [address] Bilirubin [Mass/Vol] 0.49 mg/dL Normal 0.00-1.30 [facility] Comment on above: Order Comment: Order Date: 08/23/24 Order Info: 86-1 - CMP Order Info: [id number] - LIPID Order Info: 3 - TSH Order Info: 3024-7 - T4F Performed By: #### L 500.4050, L501.9520, L100.0100, L500.4100, L506.0400, L501.9985 #### [facility] [address] [place], [address] BUN/CRE 17.4 RATIO Normal 10-20 [facility] Comment on above: Order Comment: Order Date: 08/23/24 Order Info: 86-1 - CMP Order Info: [id number] - LIPID Order Info: 3 - TSH Order Info: 3024-7 - T4F Performed By: #### L 500.4050, L501.9520, L100.0100, L500.4100, L506.0400, L501.9985 #### [facility] [address] [place], [address] Calcium [Mass/Vol] 9.2 mg/dL Normal 7.6-11.0 [facility] Comment on above: Order Comment: Order Date: 08/23/24 Order Info: 86-1 - CMP Order Info: [id number] - LIPID Order Info: [id number] - TSH Order Info: 3024-7 - T4F Performed By: #### L 500.4050, L501.9520, L100.0100, L500.4100, L506.0400, L501.9985 #### [facility] [address] [place], [address] Chloride [Moles/Vol] 104 mmol/L Normal 98-108 [facility] Comment on above: Order Comment: Order Date: 08/23/24 Order Info: 785-1 - CMP Order Info: [id number] - LIPID Order Info: [id number] - TSH Order Info: 3024-7 - T4F Performed By: #### L 500.4050, L501.9520, L100.0100, L500.4100, L506.0400, L501.9985 #### [facility] [address] [place], [address] CO2 [Moles/Vol] 21.6 mmol/L Normal 21.0-32.0 [facility] Comment on above: Order Comment: Order Date: 08/23/24 Order Info: 0786-1 - CMP Order Info: [id number] - LIPID Order Info: [id number] - TSH Order Info: 3024-7 - T4F Performed By: #### L 500.4050, L501.9520, L100.0100, L500.4100, L506.0400, L501.9985 #### [facility] [address] [place], [address] Creatinine [Mass/Vol] 0.70 mg/dL Normal 0.70-1.20 [facility] Comment on above: Order Comment: Order Date: 08/23/24 Order Info: 0786-1 - CMP Order Info: [id number] - LIPID Order Info: [id number] - TSH Order Info: 7 - T4F Performed By: #### L 500.4050, L501.9520, L100.0100, L500.4100, L506.0400, L501.9985 #### [facility] [address] [place], [address] GAP 11 Normal 5-15 [facility] Comment on above: Order Comment: Order Date: 08/23/24 Order Info: 07 - CMP Order Info: [id number] - LIPID Order Info: 3 - TSH Order Info: 3023-09 - T4F Performed By: #### L 500.4050, L501.9520, L100.0100, L500.4100, L506.0400, L501.9985 #### [facility] [address] [place], [address] GFR/1.73 sq M.predicted among non-blacks MDRD (S/P/Bld) [Vol rate/Area] 92 mL/min/{1.73_m2} Normal >60 [facility] Comment on above: Order Comment: Order Date: 08/23/24 Order Info: 0786-1 - CMP Order Info: [id number] - LIPID Order Info: 6-3 - TSH Order Info: 3024-7 - T4F Result Comment: mL/m in/1.73m2 CKD-EPI Creatinine Equation (2020) Performed By: #### L 500.4050, L501.9520, L100.0100, L500.4100, L506.0400, L501.9985 #### [facility] [address] [place], [address] Globulin (S) [Mass/Vol] 4.2 g/dL Normal 2.2-4.2 [facility] Comment on above: Order Comment: Order Date: 08/23/24 Order Info: 86-1 - CMP Order Info: [id number] - LIPID Order Info: 3 - TSH Order Info: 302-7 - T4F Performed By: #### L 500.4050, L501.9520, L100.0100, L500.4100, L506.0400, L501.9985 #### [facility] [address] [place], [address] Glucose [Mass/Vol] 116 mg/dL High 70-99 [facility] Comment on above: Order Comment: Order Date: 08/23/24 Order Info: 785-1 - CMP Order Info: [id number] - LIPID Order Info: [id number] - TSH Order Info: [id number] - T4F Performed By: #### L 500.4050, L501.9520, L100.0100, L500.4100, L506.0400, L501.9985 #### [facility] [address] [place], [address] Potassium [Moles/Vol] 4.0 mmol/L Normal 3.3-5.1 [facility] Comment on above: Order Comment: Order Date: 08/23/24 Order Info: 785-1 - CMP Order Info: [id number] - LIPID Order Info: 3 - TSH Order Info: 3024-7 - T4F Performed By: #### L 500.4050, L501.9520, L100.0100, L500.4100, L506.0400, L501.9985 #### [facility] [address] [place], [address] Sodium [Moles/Vol] 136 mmol/L Normal 133-145 [facility] Comment on above: Order Comment: Order Date: 08/23/24 Order Info: 86-1 - CMP Order Info: [id number] - LIPID Order Info: 3 - TSH Order Info: 3024-7 - T4F Performed By: #### L 500.4050, L501.9520, L100.0100, L500.4100, L506.0400, L501.9985 #### [facility] [address] [place], [place], [address] T PROT 8.3 g/dL Normal 5.9-8.4 [facility] Comment on above: Order Comment: Order Date: 08/23/24 Order Info: 0786-1 - CMP Order Info: [id number] - LIPID Order Info: 3 - TSH Order Info: 7 - T4F Performed By: #### L 500.4050, L501.9520, L100.0100, L500.4100, L506.0400, L501.9985 #### [facility] [address] [place], [place], [id number] Urea nitrogen [Mass/Vol] 12 mg/dL Normal -19 [facility] Comment on above: Order Comment: Order Date: 08/23/24 Order Info: 0786- - CMP Order Info: [id number] - LIPID Order Info: [id number] - TSH Order Info: 7 - T4F Performed By: #### L 500.4050, L501.9520, L100.0100, L500.4100, L506.0400, L501.9985 #### [facility] [address] [place], [place], [address] Eosinophil percentageOrdered By: Jessica Ramesh on 12-20-2024 Eosinophils/100 WBC (Bld) 2.8 % 0-5 [facility] Erythrocyte distribution wid th ratioOrdered By: Jessica Ramesh on 12-20-2024 Erythrocyte distribution width (RBC) [Ratio] 12.4 % 11.6-14.6 [facility] Erythrocyte distribution wid th standard deviationOrdered By: Jessica Ramesh on 12-20-2024 Erythrocyte distribution width (RBC) [Ratio] 41.1 fl 35.1-43.9 [facility] Glomerular filtration rate ( GFR) estimation/1.73 sq m using serum, plasma, or whole bOrdered By: Jessica Ramesh on 12-20-2024 GFR/1.73 sq M.predicted among non-blacks MDRD (S/P/Bld) [Vol rate/Area] 92 mL/min/{1.73_m2} >60 [facility] Comment on above: mL/min/1.73m2 CKD-EP I Creatinine Equation (2020) Hematocrit Auto (Bld) [Volum e fraction]Ordered By: Jessica Ramesh on 12-20-2024 Hematocrit (Bld) [Volume fraction] 43.5 % 37-47 [facility] Hemoglobin A1con 12-20-2024 HbA1c (Bld) [Mass fraction] 6.1 % High <=5.6 [facility] Comment on above: Order Comment: Order Date: 08/23/24Order Info: [id number] - A1C Result Comment: Norm al < 5.7 % Prediabetic 5.7 - 6.4 % Diabetic >or= 6.5 % Please note range changes. Performed By: #### L 500.4050, L501.9520, L100.0100, L500.4100, L506.0400, L501.9985 ####[facility] [id number] [place], [address] Hemoglobin A1c percentageOrd ered By: Jessica Ramesh on 12-20-2024 HbA1c (Bld) [Mass fraction] 6.1 % High <5.7 [facility] Comment on above: Normal < 5.7 % Predi abetic 5.7 - 6.4 % Diabetic >or= 6.5 % Please note range changes. Hemoglobin measurementOrdere d By: Jessica Ramesh on 12-20-2024 Hemoglobin (Bld) [Mass/Vol] 14.6 g/dL 12.0-15.0 [facility] Immature granulocytes/100 WB C Auto (Bld)Ordered By: Jessica Ramesh on 12-20-2024 Immature granulocytes/100 WBC (Bld) 0.400 % 0.0-0.9 [facility] Comment on above: IG% - Immature Granu locytes (promyelocytes, myelocytes and metamyelocytes) > 1% indicates that a LEFT SHIFT is Present. LDL calc ser/plasOrdered By: Jessica Ramesh on 12-20-2024 Cholesterol in LDL [Mass/Vol] 58 mg/dL [facility] Comment on above: Ujypuzngvo=228-172 m g/dL & Higher Sywn=101 mg/dL or greaterFriedwald Equation for LDL-C Laboratory - Chemistry and C hemistry - challengeOrdered By: Jessica Ramesh on 12-20-2024 AST [Catalytic activity/Vol] 21 U/L <32 [facility] Lipid Profileon 12-20-2024 CHOL:HDL 2.90 Normal [facility] Comment on above: Order Comment: Order Date: 08/23/24 Order Info: 0786-1 - CMP Order Info: [id number] - LIPID Order Info: [id number] - TSH Order Info: 3024-7 - T4F Performed By: #### L 500.4050, L501.9520, L100.0100, L500.4100, L506.0400, L501.9985 #### [facility] [address] [place], [address] Cholesterol [Mass/Vol] 113 mg/dL Normal <=200 [facility] Comment on above: Order Comment: Order Date: 08/23/24 Order Info: 0786-1 - CMP Order Info: [id number] - LIPID Order Info: [id number] - TSH Order Info: 3027 - T4F Result Comment: Chol esterol level, Desirable <200 mg/dL Borderline high cholesterol 200-239 mg/dL High cholesterol >=240 mg/dL Recommendations of the NCEP Adult Treatment Panel for the following risk-cutoff thresholds for the [place] population. Performed By: #### L 500.4050, L501.9520, L100.0100, L500.4100, L506.0400, L501.9985 #### [facility] [address] [place], [address] Cholesterol in HDL [Mass/Vol] 39 mg/dL Low [facility] Comment on above: Order Comment: Order Date: 08/23/24 Order Info: 0786 - CMP Order Info: [id number] - LIPID Order Info: [id number] TSH Order Info: 3023-09 T4 Result Comment: Destiyn onal Cholesterol Education Program (NCEP) guidelines: <40 mg/dL: Low HDL-cholesterol (major risk factor for CHD) >= 60 mg/dL: High HDL-cholesterol (negative risk factor for CHD) HDL-cholesterol is affected by a number of factors, e.g. smoking, exercise, hormones, sex and age. Performed By: #### L 500.4050, L501.9520, L100.0100, L500.4100, L506.0400, L501.9985 #### [facility] [address] [place], [address] Cholesterol in LDL [Mass/Vol] 58 mg/dL Normal [facility] Comment on above: Order Comment: Order Date: 08/23/24 Order Info: 785-03 - CMP Order Info: - LIPID Order Info: [id number] TSH Order Info: 3023-09 Result Comment: Bord zlandc=141-104 mg/dL Higher Nhcf=999 mg/dL or greater Friedwald Equation for LDL-C Performed By: #### L 500.4050, L501.9520, L100.0100, L500.4100, L506.0400, L501.9985 #### [facility] [address] [place], [address] Cholesterol in VLDL [Mass/Vol] 16 mg/dL Normal 5-40 [facility] Comment on above: Order Comment: Order Date: 08/23/24 Order Info: 785-03 - CMP Order Info: - LIPID Order Info: [id number] TSH Order Info: 3023-09 T4 Performed By: #### L 500.4050, L501.9520, L100.0100, L500.4100, L506.0400, L501.9985 #### [facility] [address] [place], [address] Triglyceride [Mass/Vol] 79 mg/dL Normal [facility] Comment on above: Order Comment: Order Date: 08/23/24 Order Info: 0786-1 - CMP Order Info: [id number] - LIPID Order Info: [id number] - TSH Order Info: 3024-7 - T4F Result Comment: The drugs N-Acetylcysteine and Metamizole may falsely depress this assay. Normal range: <150 mg/dL Borderline High: 150-199 mg/dL High: 200-499 mg/dL Very High: >500 mg/dL Performed By: #### L 500.4050, L501.9520, L100.0100, L500.4100, L506.0400, L501.9985 #### [facility] [address] [place], [address] MCV (mean corpuscular volume ) determinationOrdered By: Jessica Ramesh on 12-20-2024 MCV (RBC) [Entitic vol] 90.4 fL 81-99 [facility] Mean corpuscular hemoglobin (MCH) determinationOrdered By: Jessica Ramesh on 12-20-2024 MCH (RBC) [Entitic mass] 30.4 pg 27.0-32.0 [facility] Mean corpuscular hemoglobin concentration (MCHC) determinationOrdered By: Jessica Ramesh on 12-20-2024 MCHC (RBC) [Mass/Vol] 33.6 g/dL 32-36 [facility] Mean platelet volume determi nationOrdered By: Jessica Ramesh on 12-20-2024 Platelet mean volume (Bld) [Entitic vol] 9.7 fL 6.2-12.0 [facility] Monocyte percentageOrdered B y: Jessica Ramesh on 12-20-2024 Monocytes/100 WBC (Bld) 7.5 % 0-10 [facility] Neutrophil percentageOrdered By: Jessica Ramesh on 12-20-2024 Neutrophils/100 WBC (Bld) 67.5 % 47-70 [facility] Nucleated red blood cell per centageOrdered By: Jessica Ramesh on 12-20-2024 Nucleated RBC/100 WBC (Bld) [Ratio] 0 % 0-5 [facility] Platelet countOrdered By: Steffi Ramesh on 12-20-2024 Platelets (Bld) [#/Vol] 309 10*3/uL 150-450 [facility] Potassium measurement (mass/ volume)Ordered By: Jessica Ramesh on 12-20-2024 Potassium (Unsp spec) [Mass/Vol] 4.0 mmol/L 3.3-5.1 [facility] RBC Auto (Bld) [#/Vol]Ordere d By: Jessica Ramesh on 12-20-2024 RBC (Bld) [#/Vol] 4.81 10*6/uL 4.2-5.4 [facility] Screening total cholesterol/ high density lipoprotein (HDL) cholesterol ratioOrdered By: Jessica Ramesh on 12-20-2024 Cholesterol.total/Maame sterol in HDL [Mass ratio] 2.90 {ratio} [facility] Serum creatinine measurement (mass/volume)Ordered By: Jessica Ramesh on 12-20-2024 Creatinine [Mass/Vol] 0.70 mg/dL 0.70-1.20 [facility] Serum globulin measurementOr dered By: Jessica Ramesh on 12-20-2024 Globulin (S) [Mass/Vol] 4.2 g/dL 2.2-4.2 [facility] Serum glucose measurement (m ass/volume)Ordered By: Jessica Ramesh on 12-20-2024 Glucose [Mass/Vol] 116 mg/dL High 70-99 [facility] Serum or plasma alanine gonzalez otransferase (ALT) measurementOrdered By: Jessica Ramesh on 12-20-2024 ALT [Catalytic activity/Vol] 12 U/L <35 [facility] Serum or plasma albumin sina urement (mass/volume)Ordered By: Jessica Ramesh on 12-20-2024 Albumin [Mass/Vol] 4.1 g/dL 3.4-4.8 [facility] Serum or plasma albumin/glob ulin mass ratioOrdered By: Jessica Ramesh on 12-20-2024 Albumin/Globulin [Mass ratio] 1.0 {ratio} 0.9-2.4 [facility] Serum or plasma alkaline nora sphatase measurementOrdered By: Jessica Ramesh on 12-20-2024 ALP [Catalytic activity/Vol] 68 U/L 35-104 [facility] [facility] Serum or plasma calcium sina urement (mass/volume)Ordered By: Jessica Ramesh on 12-20-2024 Calcium [Mass/Vol] 9.2 mg/dL 7.6-11.0 [facility] Serum or plasma cholesterol in HDL measurement (mass/volume)Ordered By: Jessica Ramesh on 12-20-2024 Cholesterol in HDL [Mass/Vol] 39 mg/dL Low >40 [facility] Comment on above: National Cholesterol Education Program (NCEP) guidelines:<40 mg/dL: Low HDL-cholesterol (major risk factor for CHD)>= 60 mg/dL: High HDL-cholesterol (negative risk factor for CHD)HDL-cholesterol is affected by a number of factors, e.g. smoking, exercise, hormones, sex and age. Serum or plasma cholesterol measurement (mass/volume)Ordered By: Jessica Ramesh on 12-20-2024 Cholesterol [Mass/Vol] 113 mg/dL <201 [facility] Comment on above: Cholesterol level, D esirable <200 mg/dLBorderline high cholesterol 200-239 mg/dLHigh cholesterol >=240 mg/dLRecommendations of the NCEP Adult Treatment Panel for the following risk-cutoff thresholds for the [place] population. Serum or plasma urea nitroge n measurement (mass/volume)Ordered By: Jessica Ramesh on 12-20-2024 Urea nitrogen [Mass/Vol] 12 mg/dL 4-19 [facility] Sodium levelOrdered By: Jessica Ramesh on 12-20-2024 Sodium [Moles/Vol] 136 mmol/L 133-145 [facility] T4 Free Directon 12-20-2024 T4 FREE DIRECT 1.30 ng/dL Normal 0.76-1.46 [facility] Comment on above: Order Comment: Order Date: 08/23/24Order Info: [id number] - CMPOrder Info: [id number] - LIPIDOrder Info: [id number] - TSHOrder Info: [id number] - T4F Performed By: #### L 500.4050, L501.9520, L100.0100, L500.4100, L506.0400, L501.9985 ####[facility] [id number] [place], [address] T4 freeOrdered By: Jessica bryant on 12-20-2024 Free T4 [Mass/Vol] 1.30 ng/dL 0.76-1.46 [facility] TSH DL <= 0.005 mIU/L QnOrde red By: Jessica Ramesh on 12-20-2024 TSH Qn 2.360 uIU/mL 0.300-4.20 0 [facility] Thyroid Stim Hormone (TSH)on 12-20-2024 TSH 2.360 uIU/mL Normal 0.300-4.20 0 [facility] Comment on above: Order Comment: Order Date: 08/23/24Order Info: [id number] - CMPOrder Info: [id number] - LIPIDOrder Info: [id number] - TSHOrder Info: [id number] - T4F Performed By: #### L 500.4050, L501.9520, L100.0100, L500.4100, L506.0400, L501.9985 ####[facility] [id number] [place], [place], [id number] Total proteinOrdered By: Bhaskar Ramesh on 12-20-2024 Protein [Mass/Vol] 8.3 g/dL 5.9-8.4 [facility] Triglycerides measurementOrd ered By: Jessica Ramesh on 12-20-2024 Triglyceride [Mass/Vol] 79 mg/dL <199 [facility] Comment on above: The drugs N-Acetylcy steine and Metamizole may falsely depress this assay. Normal range: <150 mg/dLBorderline High: 150-199 mg/dLHigh: 200-499 mg/dLVery High: >500 mg/dL White blood cell (WBC) count Ordered By: Jessica Ramesh on 12-20-2024 WBC (Bld) [#/Vol] 7.9 10*3/uL 4.4-11.0 [facility] Wrist min 3 Viewson 12-05-19 25 Wrist min 3 Views [facility] Imaging Services [address] [place] [address] Wrist min 3 Views MR#: [id number] Acct: [id number] Name: TANISHA HANSON Rep #: [id number] : 1950 F 74 From: Livan Bautista PCP: Dr. Jessica Ramesh MD Status: REG CLI Study: Wrist min 3 Views Date of Exam: 12/04/24 Exam# [id number] Ordering Dr: Enmanuel Toribio NP, NP PROCEDURE: WRIST MIN 3 VIEWS 12/04/2024 REASON FOR EXAM: LEFT WRIST PAIN, FALL TECHNIQUE: Procedure Code: RADWR Modality: DX Procedure: WRIST MIN 3 VIEWS Laterality: Left COMPARISON: None. RAD/Wrist min 3 Views IMPRESSION: Rcnm-tw-lfhnbcao degenerative changes are seen at the scaphoid trapezial trapezoidal joint. Mild degenerative changes noted at the 1st carpal-metacarpal joint. Minimal degenerative changes seen elsewhere. Satisfactory carpal alignment is seen throughout. No significant degree of ulnar variance is noted. No acute fracture or dislocation is seen. If clinical concern persists, short-term follow-up imaging may be obtained to rule out a currently occult fracture. Reading Location: [address] CC: Enmanuel Toribio; Dr. 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 Location of Patient: Home of patient Medical discussion: more than 10 minutes OTOLARYNGOLOGY - HEAD AND NECK SURGERY CLINIC NOTE CHIEF COMPLAINT: Follow up s/p FNA Subjective History of Present Illness Interval History (11/21/24) Overall doing well since the NOEMI. Tolerated procedure without significant issues. Initial HPI (11/09/24) Tanisha Hanson is a 74 year old female who presents with a left thyroid mass and right parotid mass. She is accompanied by her brother, Sohail. She was referred by Dr. Gordo Whitfield from [facility] for evaluation of a left thyroid mass and right parotid mass. She has a long standing history of a left thyroid mass with a retroesophageal component and significant tracheal deviation. A recent CT scan on September 29, 2024, showed significant enlargement of the left thyroid lobe measuring 6.7 x 4.9 x 10.1 cm, with tracheal deviation noted on imaging. No difficulty swallowing, changes in her voice, or breathing difficulties. 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 The recent CT scan showed a right-sided parotid lesion that is slightly larger compared to a previous scan from January 18, 2019. The mass is approximately 2.2 x 1.6 cm and well-circumscribed. No biopsy has been performed on this mass. 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 She has no known history of thyroid cancer. She recalls that the right thyroid was removed, but there was no mention of the left side being enlarged at that time. She is a smoker, currently smoking about ten cigarettes a day, having reduced from less than a pack a day. She has a history of left carotid artery surgery and undergoes regular scans every two years to monitor her carotid arteries. Her current medications include calcium and vitamin D3 supplements, as well as a statin for cholesterol management. She undergoes blood work every four months. She reports sinus issues but no other respiratory symptoms. All other systems are negative except for that listed in the HPI. Results RADIOLOGY CT neck with contrast: Right sided parotid lesion slightly larger compared to 01/18/2019. Significant enlargement of the left thyroid lobe with tracheal deviation, measuring 6.7 x 4.9 x 10.1 cm. Well-circumscribed 2.2 x 1.6 cm right tail carotid mass. (09/29/2024) Pathology (11/09/24) Final Diagnosis FNA Parotid Gland, Right tail of parotid mass: SPECIMEN ADEQUACY: Satisfactory for evaluation. GENERAL CATEGORIZATION: Benign neoplasm. INTERPRETATION: Findings consistent with Warthin tumor. Note: Specimen contains groups of bland oncocytic cells and a mixed population of lymphocytes in a background of cyst contents and debris. Primary screener: ABDOUL Ladd(ASCP) . Final Diagnosis FNA Thyroid Nodule, Left lobe: SPECIMEN ADEQUACY: Satisfactory for evaluation GENERAL CATEGORIZATION: Benign INTERPRETATION: Low cellularity specimen consisting of groups of Hurthle (oncocytic) cells, few clusters of lymphocytes, some colloid and blood elements. 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 Primary screener: ABDOUL Ladd(ASCP) . 11/09/24 TSH - 0.754 T4 - 1.00 Assessment AND Plan History of right thyroidectomy in 2003 at outside hospital for benign Solis's thyroiditis. No history of thyroid cancer Enlarged left thyroid mass with retroesophageal extension and tracheal deviation The left thyroid mass is significantly enlarged, measuring 6.7 x 4.9 x 10.1 cm, with retroesophageal extension and tracheal deviation. It is likely benign given the chronic nature. Currently asymptomatic However, due to its size and location, there is a risk of future complications, including potential airway obstruction and dysphagia. Now s/p FNA benign nodule -we reviewed the pathology in detail I reviewed that in most cases this is likely a benign process, however the possibility of malignancy would be difficult to rule out definitively short of surgical measures. I reviewed options at this point, which could involve either surgery, which in my opinion would involve complete left thyroidectomy versus an observational approach with medical management. The latter option would involve further evaluation and serial follow-up. Surgery, I think, is certainly a reasonable option, both from a diagnostic as well as potentially therapeutic perspective given the ex (more content not included)... Normal [facility] - Chemistry and C hemistry - challengeon 11-09-2024 Free T4 [Mass/Vol] 1 ng/dL 0.61 - 1.12 ng/dL [facility] TSH Qn 0.754 m[IU]/L [facility] Comment on above: Referance range for women as applicable: First Trimester: 0. 050 to 3.700 uIU/mL Second Trimester: 0. 310 to 4.350 uIU/mL Third Trimester: 0. 410 to 5.180 uIU/mL No Panel Informationon 11-09 Interpretation and review of laboratory results Normal [facility] Reference range for woman as applicable: First Trimester: 0.52 - 1.10 ng/dL Second Trimester: 0.45 - 0.99 ng/dL Third Trimester: 0.48 - 0.95 ng/dL [facility] Interpretation and review of laboratory results [facility] 11-09-2024 Cross Roller Authentication Interface Message Text OTOLARYNGOLOGY - HEAD AND NECK SURGERY CLINIC NOTE CHIEF COMPLAINT: Chief Complaint Patient presents with New patient, to establish relationship Lump on right side of neck Subjective The patient verbally consented to recording. Ambient listening technology generated portions of this note. History of Present Illness Tanisha Hanson is a 74 year old female who presents with a left thyroid mass and right parotid mass. She is accompanied by her brother, Sohail. She was referred by Dr. Gordo Whitfield from [facility] for evaluation of a left thyroid mass and right parotid mass. She has a long standing history of a left thyroid mass with a retroesophageal component and significant tracheal deviation. A recent CT scan on September 29, 2024, showed significant enlargement of the left thyroid lobe measuring 6.7 x 4.9 x 10.1 cm, with tracheal deviation noted on imaging. No difficulty swallowing, changes in her voice, or breathing difficulties. 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 The recent CT scan showed a right-sided parotid lesion that is slightly larger compared to a previous scan from January 18, 2019. The mass is approximately 2.2 x 1.6 cm and well-circumscribed. No biopsy has been performed on this mass. 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 She has no known history of thyroid cancer. She recalls that the right thyroid was removed, but there was no mention of the left side being enlarged at that time. She is a smoker, currently smoking about ten cigarettes a day, having reduced from less than a pack a day. She has a history of left carotid artery surgery and undergoes regular scans every two years to monitor her carotid arteries. Her current medications include calcium and vitamin D3 supplements, as well as a statin for cholesterol management. She undergoes blood work every four months. She reports sinus issues but no other respiratory symptoms. All other systems are negative except for that listed in the HPI. PHYSICAL EXAM: Vital Signs: BP 175/60 (BP Location: left arm, BP position: sitting, Cuff Size: adult) Pulse 62 Temp 98.1 ???F (36.7 ???C) (Temporal) Wt 157 lb 9.6 oz (71.5 kg) SpO2 97% General: Well-developed, well-nourished. In no acute distress. Communication and Voice: Clear pitch and clarity Respiratory Respiratory effort: Equal inspiration and expiration without stridor Neuro: Appropriate mood and affect; Cranial nerves II-XII are intact Physical Exam HEENT: Oral cavity clear, no lesions or masses. Oropharynx unremarkable NECK: Large, firm, mobile thyroid mass overlying trachea, extending into left neck and superiorly towards submandibular gland. Skin is mobile, no overlying changes, non-tender. No palpable cervical lymphadenopathy. Prior left sided carotid endarterectomy scar, well healed on left neck. Prior anterior midline neck scar from right sided thyroidectomy, well healed. Firm, mobile lesion in right tail, approximately 2 by 2 cm, no overlying skin changes, non-tender palpation. SKIN: Small lesion on midline forehead, raised papule with ulceration. Procedure: Procedure: Flexible fiberoptic nasopharyngolaryngoscopy Indications: Need for detailed exam, hyperactive gag reflex, inadequate mirror visualization Surgeon: Yaya Padilla MD was present for the entirety of the procedure Procedure: After informed discussion of the risks, benefits, and alternatives, fiberoptic nasopharyngolaryngsocopy was recommended for the above indications, and the patient consented without further questions. Next, a flexible scope was easily advanced into the naris. Nasal cavities were unremarkable. Nasopharynx including Eustachian tubes AND fossae of Rosenmuller was unremarkable. Oropharynx including base of tongue AND vallecula was unremarkable. Hypopharynx AND endolarynx including epiglottis AND glottis were unremarkable. Airway was patent AND vocal folds were mobile bilaterally with left vocal cord with subtle hypomobility with adduction and abduction. No lesions or masses appreciated. The scope was withdrawn atraumatically. The patient tolerated the procedure well without complications. Results RADIOLOGY CT neck with contrast: Right sided parotid lesion slightly larger compared to 01/18/2019. Significant enlargement of the left thyroid lobe with tracheal deviation, measuring 6.7 x 4.9 x 10.1 cm. Well-circumscribed 2.2 x 1.6 cm right tail carotid mass. (09/29/2024) Procedure Note: Procedural Note:: Fine Needle Aspiration with ultrasound Pre-procedure Dx: Right parotid mass Post-procedure Dx: Right parotid mass Informed consent obtained. Surgeon: Yaya Padilla MD Anesthesia: 1%Lidocaine with 1:100,000 epinephrine local injection 1 cc Indications: To obtain tissue sample for pathologic analysis of a suspicious mass. Procedure in Detail: Pat (more content not included)... Normal [facility] THYROXINE (T4), FREEon 11-09 T4 F 1.00 ng/dL Normal 0.61-1.12 [facility] Comment on above: Order Comment: Refer ence range for woman as applicable: First Trimester: 0.52 - 1.10 ng/dL Second Trimester: 0.45 - 0.99 ng/dL Third Trimester: 0.48 - 0.95 ng/dL Performed By: #### T 4 F #### [facility] [address], [place], TSHon 11-09-2024 TSH 0.754 uIU/mL Normal 0.450-5.33 0 [facility] Comment on above: Result Comment: Refe matthew range for women as applicable: First Trimester: 0. 050 to 3.700 uIU/mL Second Trimester: 0. 310 to 4.350 uIU/mL Third Trimester: 0. 410 to 5.180 uIU/mL Performed By: #### T SH HS #### [facility] [address], [place], Addendum Noteon 10-18-2024 Cross Roller Authentication Interface Message Text Addended by: PIERO PRUITT on: 10/18/2024 03:40 PM Modules accepted: Orders Normal [facility] Thyroidon 10-04-2024 Thyroid [facility] Imaging Services [address] [place] [address] Thyroid MR#: [id number] Acct: [id number] Name: TANISHA HANSON Rep #: [id number] : 1950 F 74 From: Juan C bobo MD PCP: Dr. Jessica Ramesh MD Status: [facility] CLI Study: Thyroid Date of Exam: 10/04/24 Exam# [id number] Ordering Dr: Jessica Ramesh MD PROCEDURE: THYROID 10/04/2024 REASON FOR EXAM: IRON DEFICIENCY GOITER Palpable goiter. TECHNIQUE: THYROID COMPARISON: CT scan dated September 28, 2024. FINDINGS: Right thyroid: Resected. Left thyroid lobe size: 10 cm x 3.7 cm x 4.5 cm. Heterogeneous echotexture. Isthmus: 0.4 cm Background parenchymal echotexture is heterogeneous No nodule is seen. Incidental note is made of a 2.1 cm 2.6 cm 1.7 cm heterogeneous enlargement of the right submandibular gland with increased vascularity. US/Thyroid IMPRESSION: Status post resection of the right lobe of the thyroid. Marked heterogeneous enlargement of the left lobe of the thyroid. Increased vascularity. There is a 2.1 cm 2.6 cm x 1.7 cm heterogeneous enlargement of the right submandibular gland and increased vascularity. RECOMMENDATION: Based on most suspicious nodule. Nodule size = largest diameter Only evaluate nodule if =>5 mm. Growth > 20% in 2 dimensions = worsening. Follow up to 4 nodules. Recommend biopsy for no more than 2 nodules. Reading Location: [id number] CC: Dr. 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 Normal [facility] Soft Tissue Neck WITH Contra ston 09-28-2024 Soft Tissue Neck WITH Contrast [facility] Imaging Services [address] [place] [id number] Soft Tissue Neck WITH Contrast MR#: [id number] Acct: [id number] Name: TANISHA HANSON Rep #: [id number] : 1950 F 74 From: Davon Boyd MD PCP: Dr. Jessica Ramesh MD Status: REG CLI Study: Soft Tissue Neck WITH Contrast Date of Exam: 0 09/28/24 Exam# [id number] Ordering Dr: Jessica Ramesh MD PROCEDURE: SOFT TISSUE NECK WITH CONTRAST 09/28/2024 REASON FOR EXAM: NECK MASS TECHNIQUE: SOFT TISSUE NECK WITH CONTRAST CONTRAST: Isovue 370 VOLUME: 75 mL One or more dose reduction techniques were used (e.g., Automated exposure control, adjustment of the mA and/or kV according to patient size, use of iterative reconstruction technique). 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 Enlargement of the left lobe of the thyroid gland deviating the trachea towards the right side and narrowing its transverse dimension at the cervicothoracic junction. Prior resection of the right lobe of the thyroid gland. No vocal fold asymmetry. Normal nasopharynx. Normal parotid glands on the left. 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 However, no adenopathy is seen. Normal submandibular glands. The left-sided thyroid enlargement extends superiorly to the level of the hyoid bone. Approximate AP dimension of the left thyroid is 6.7 cm AP x 4.9 cm transverse by 10.[address]/Soft Tissue Neck WITH Contrast IMPRESSION: 1. Right-sided parotid lesion. Recommend tissue correlation. Larger when compared to 01/18/2019. 2. Enlargement of the left lobe of the thyroid gland with measurements given above and tracheal deviation to the right Reading [facility] CC: Dr. 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 Normal [facility] Carotid Duplex Ultrasoundon 09-04-2024 Carotid Duplex Ultrasound [facility] Cardiovascular Services [address] [place] [address]. [place] [address] Carotid Duplex Ultrasound 09/04/24 0954 MR#: [id number] Acct: [id number] Name: TANISHA HANSON Rep #: [id number] : 1950 74 From: Oz Lopez MD Attending Dr: Dr. Jessica Ramesh MD [facility]: Jessica Ramesh MD Date: 09/04/24 Location: [facility] Sex: F C Admitted: Reason For Study Reason For Study: Carotid stenosis Rt. Velocities/BP Lt. Velocities/BP Prox CCA 78.7/13.5 cm/sec. Prox CCA 97.1/23.4 cm/sec. Mid CCA 84.4/11.6 cm/sec. Mid CCA 97.1/30 cm/sec. Dist CCA 86.3/12.6 cm/sec. Dist CCA 109.7/26.2 cm/sec. Prox ICA 156.3/21.5 cm/sec. Prox ICA 91.9/15.2 cm/sec. Mid ICA 104.7/22.5 cm/sec. Mid ICA 108.3/18.8 cm/sec. Dist ICA 77.3/13.3 cm/sec. Dist ICA 90/18.8 cm/sec. Rt. ICA/CCA = 1.85. Lt. ICA/CCA = 1.12. Prox ECA 239.2/16.3 cm/sec. Prox ECA 634/170.6 cm/sec. Rt. Vert. 82.8/16.8 cm/sec. Lt. Vert. 59.7/9.1 cm/sec. Right Extracranial There is heterogeneous, irregular atherosclerotic plaque noted in the right common carotid artery. There is heterogeneous, irregular atherosclerotic plaque noted in the right internal carotid artery. There is heterogeneous, irregular atherosclerotic plaque noted in the right external carotid artery. Antegrade flow is noted in the right vertebral artery. Nonvascularized structure at area of swelling on neck just below ear that measures 1.89 x 1.53 cm. Left Extracranial There is heterogeneous, irregular atherosclerotic plaque noted in the left common carotid artery. There is homogeneous, smooth atherosclerotic plaque noted in the left internal carotid artery. There is heterogeneous, irregular atherosclerotic plaque noted in the left external carotid artery. Antegrade flow is noted in the left vertebral artery. Procedure Carotid Duplex 40523. This is a Carotid Duplex examination using B-mode, color flow and specral Doppler. Exam performed in department. VL/Carotid Duplex Ultrasound Interpretation Summary Moderate (50-69%) stenosis right extracranial internal carotid. Mild (<50%) stenosis left extracranial internal carotid. Patent and antegrade vertebrals bilaterally. Nonvascularized structure at area of swelling on neck just below ear that measures 1.89 x 1.53 cm. ___ Ordering Physician: Jessica Ramesh Referring Physician: Jessica Ramesh Performed By: Suzette Perez Laurie 09/04/24 1034 Date Oz Lopez MD CC: Dr. Jessica Ramesh MD Date Dictated: 09/04/24 0954 Date Transcribed: 09/04/24 103 Corrugated Box Machine Operator: Signed Normal [facility] Duplex ultrasound of carotid artery reportOrdered By: Oz Lopez on 09-04-2024 Study report [facility] Cardiovascular Services [address] [place] [address] Carotid Duplex Ultrasound 09/04/24953 MR#: [id number] Acct: [id number] Name: TANISHA HANSON Rep #:[id number] : 1950 74 From: Oz Bautista Attending Dr: Dr. Jessica Ramesh MD Status: REG CLI Ordering Dr: Jessica Ramesh MD Date: 09/04/24 Location: [facility] Sex: F C Admitted: Reason For Study Reason For Study: Carotid stenosis Rt. Velocities/BP Lt. Velocities/BP Prox CCA 78.7/13.5 cm/sec. Prox CCA 97.1/23.4 cm/sec. Mid CCA 84.4/11.6 cm/sec. Mid CCA 97.1/30 cm/sec. Dist CCA 86.3/12.6 cm/sec. Dist CCA 109.7/26.2 cm/sec. Prox ICA 156.3/21.5 cm/sec. Prox ICA 91.9/15.2 cm/sec. Mid ICA 104.7/22.5 cm/sec. Mid ICA 108.3/18.8 cm/sec. Dist ICA 77.3/13.3 cm/sec. Dist ICA 90/18.8 cm/sec. Rt. ICA/CCA = 1.85. Lt. ICA/CCA = 1.12. Prox ECA 239.2/16.3 cm/sec. Prox ECA 634/170.6 cm/sec. Rt. Vert. 82.8/16.8 cm/sec. Lt. Vert. 59.7/9.1 cm/sec. Right Extracranial There is heterogeneous, irregular atherosclerotic plaque noted in the right common carotid artery. There is heterogeneous, irregular atherosclerotic plaque noted in the right internal carotid artery. There is heterogeneous, irregular atherosclerotic plaque noted in the right external carotid artery. Antegrade flow is noted in the right vertebral artery. Nonvascularized structure at area of swelling on neck just below ear that measures 1.89 x 1.53 cm. Left Extracranial There is heterogeneous, irregular atherosclerotic plaque noted in the left common carotid artery. There is homogeneous, smooth atherosclerotic plaque noted in the left internal carotid artery. There is heterogeneous, irregular atherosclerotic plaque noted in the left external carotid artery. Antegrade flowis noted in the left vertebral artery. Procedure Carotid Duplex 34239. This is a Carotid Duplex examination using B-mode, color flow and specral Doppler. Exam performed in department. VL/Carotid Duplex Ultrasound Interpretation Summary Moderate (50-69%) stenosis right extracranial internal carotid. Mild (<50%) stenosis left extracranial internal carotid. Patent and antegrade vertebrals bilaterally. Nonvascularized structure at area of swelling on neck just below ear that measures 1.89 x 1.53 cm. ___ Ordering Physician: Jessica Ramesh Referring Physician: Jessica Ramesh Performed By: Suzette Perez RVT 09/04/24 1034 Date _ Oz Lopez MD CC: Dr. Jessica Ramesh MD ~ Date Dictated: 09/04/24 0954 Date Transcribed: 09/04/24 1034 Corrugated Box Machine Operator: Signed [facility] Work Phone: Urine Cultureon 08-23-2024 [facility] Presumptive E. coli [place] Count >100,000 Presumptive E. coli: REACTION Ampicillin Islt THOMAS 8 Ampicillin+Sulbac Islt THOMAS 4 S Cefepime Islt THOMAS <=0.12 S cefTRIAXone Islt THOMAS <=0.25 S Ciprofloxacin Islt THOMAS <=0.06 S B-Lactamase Extended Susc Islt NEG Gentamicin Islt THOMAS <=1 S levoFLOXacin Islt THOMAS <=0.12 S Meropenem Islt THOMAS <=0.25 S Nitrofurantoin Islt THOMAS <=16 S Pip+Tazo Islt THOMAS <=4 S TMP SMX Islt THOMAS <=20 S Normal [facility] Comment on above: Performed By: #### M 100.2200 ####[facility] [address] [place], [address] Urine cultureOrdered By: Bhaskar Ramesh on 08-21-2024 Bacteria identified Cx Nom (U) Presumptive E. coli Abnormal [facility] Absolute lymphocyte countOrd ered By: Jessica Ramesh on 08-17-2024 Lymphocytes Auto (Unsp spec) [#/Vol] 1.45 10*3/uL 0.83-4.51 [facility] Absolute neutrophil countOrd ered By: Jessica Ramesh on 08-17-2024 Neutrophils (Bld) [#/Vol] 5.2 10*3/uL 2.0-7.7 [facility] Anion gap in Serum or Plasma Ordered By: Jessica Ramesh on 08-17-2024 Anion gap [Moles/Vol] 11 mmol/L 5-15 [facility] Automated lymphocyte count a s percentage of total leukocytesOrdered By: Jessica Ramesh on 08-17-2024 Lymphocytes/100 WBC Auto (Unsp spec) 19.2 % 19-41 [facility] BUN/creatinine ratioOrdered By: Jessica Raemsh on 08-17-2024 Urea nitrogen/Creatinine [Mass ratio] 13.2 mg/mg 10-20 [facility] Basophil percentageOrdered B y: Jessica Ramesh on 08-17-2024 Basophils/100 WBC (Bld) 1.2 % High 0-1 [facility] Bilirubin Test strip Ql (U)O rdered By: Jessica Ramesh on 08-17-2024 Bilirubin Ql (U) Negative Negative [facility] Bilirubin, totalOrdered By: Jessica Clementeravindra on 08-17-2024 Bilirubin [Mass/Vol] 0.63 mg/dL 0.00-1.30 [facility] CBC W/Diff, Automatedon 08-05 Absolute Lymph 1.45 X10 3/uL Normal 0.83-4.51 [facility] Comment on above: Order Comment: Order Date: 05/22/24Order Info: [id number] - CBCD Performed By: #### L 500.4100, L501.9985, L501.9520, L500.4050, L100.0100, L506.0400 ####[facility] [address] [place], [address] Absolute Neut 5.2 X10 3/uL Normal 2.0-7.7 [facility] Comment on above: Order Comment: Order Date: 05/22/24Order Info: [id number] - CBCD Performed By: #### L 500.4100, L501.9985, L501.9520, L500.4050, L100.0100, L506.0400 ####[facility] [address] [place], [address] Basophils/100 WBC (Bld) 1.2 % High 0-1 [facility] Comment on above: Order Comment: Order Date: 05/22/24Order Info: [id number] - CBCD Performed By: #### L 500.4100, L501.9985, L501.9520, L500.4050, L100.0100, L506.0400 ####[facility] [address] [place], [address] Eosinophils/100 WBC (Bld) 2.3 % Normal 0-5 [facility] Comment on above: Order Comment: Order Date: 05/22/24Order Info: [id number] - CBCD Performed By: #### L 500.4100, L501.9985, L501.9520, L500.4050, L100.0100, L506.0400 ####[facility] [address] [place], [place], [phone] Erythrocyte distribution width (RBC) [Ratio] 12.3 % Normal 11.6-14.6 [facility] Comment on above: Order Comment: Order Date: 05/22/24Order Info: [id number] - CBCD Performed By: #### L 500.4100, L501.9985, L501.9520, L500.4050, L100.0100, L506.0400 ####[facility] [address] [place], [place], [phone] Hematocrit (Bld) [Volume fraction] 42.9 % Normal 37-47 [facility] Comment on above: Order Comment: Order Date: 05/22/24Order Info: [id number] - CBCD Performed By: #### L 500.4100, L501.9985, L501.9520, L500.4050, L100.0100, L506.0400 ####[facility] [address] [place], [place], [phone]) Hemoglobin (Bld) [Mass/Vol] 14.4 g/dL Normal 12.0-15.0 [facility] Comment on above: Order Comment: Order Date: 05/22/24Order Info: [id number] - CBCD Performed By: #### L 500.4100, L501.9985, L501.9520, L500.4050, L100.0100, L506.0400 ####[facility] [address] [place], [address] IG% 0.500 Normal 0.0-0.9 [facility] Comment on above: Order Comment: Order Date: 05/22/24Order Info: [id number] - CBCD Result Comment: IG% - Immature Granulocytes (promyelocytes, myelocytes and metamyelocytes) > 1% indicates that a LEFT SHIFT is Present. Performed By: #### L 500.4100, L501.9985, L501.9520, L500.4050, L100.0100, L506.0400 ####[facility] [address] [place], [address] Lymphocytes/100 WBC (Bld) 19.2 % Normal 19-41 [facility] Comment on above: Order Comment: Order Date: 05/22/24Order Info: [id number] - CBCD Performed By: #### L 500.4100, L501.9985, L501.9520, L500.4050, L100.0100, L506.0400 ####[facility] [address] [place], [address] MCH (RBC) [Entitic mass] 30.6 pg Normal 27.0-32.0 [facility] Comment on above: Order Comment: Order Date: 05/22/24Order Info: [id number] - CBCD Performed By: #### L 500.4100, L501.9985, L501.9520, L500.4050, L100.0100, L506.0400 ####[facility] [address] [place], [address] MCHC (RBC) [Mass/Vol] 33.6 g/dL Normal 32-36 [facility] Comment on above: Order Comment: Order Date: 05/22/24Order Info: [id number] - CBCD Performed By: #### L 500.4100, L501.9985, L501.9520, L500.4050, L100.0100, L506.0400 ####[facility] [address] [place], [address] MCV (RBC) [Entitic vol] 91.3 fL Normal 81-99 [facility] Comment on above: Order Comment: Order Date: 05/22/24Order Info: [id number] - CBCD Performed By: #### L 500.4100, L501.9985, L501.9520, L500.4050, L100.0100, L506.0400 ####[facility] [address] [place], [address] Monocytes/100 WBC (Bld) 8.2 % Normal 0-10 [facility] Comment on above: Order Comment: Order Date: 05/22/24Order Info: [id number] - CBCD Performed By: #### L 500.4100, L501.9985, L501.9520, L500.4050, L100.0100, L506.0400 ####[facility] [address] [place], [address] Neutrophils/100 WBC (Bld) 68.6 % Normal 47-70 [facility] Comment on above: Order Comment: Order Date: 05/22/24Order Info: [id number] - CBCD Performed By: #### L 500.4100, L501.9985, L501.9520, L500.4050, L100.0100, L506.0400 ####[facility] [address] [place], [address] Nucleated RBC (Bld) [#/Vol] 0 10*3/uL Normal 0-5 [facility] Comment on above: Order Comment: Order Date: 05/22/24Order Info: [id number] - CBCD Performed By: #### L 500.4100, L501.9985, L501.9520, L500.4050, L100.0100, L506.0400 ####[facility] [address] [place], [address] Platelet mean volume (Bld) [Entitic vol] 9.6 fL Normal 6.2-12.0 [facility] Comment on above: Order Comment: Order Date: 05/22/24Order Info: [id number] - CBCD Performed By: #### L 500.4100, L501.9985, L501.9520, L500.4050, L100.0100, L506.0400 ####[facility] [address] [place], [address] Platelets (Bld) [#/Vol] 289 10*3/uL Normal 150-450 [facility] Comment on above: Order Comment: Order Date: 05/22/24Order Info: [id number] - CBCD Performed By: #### L 500.4100, L501.9985, L501.9520, L500.4050, L100.0100, L506.0400 ####[facility] [address] [place], [address] RBC (Bld) [#/Vol] 4.70 10*6/uL Normal 4.2-5.4 [facility] Comment on above: Order Comment: Order Date: 05/22/24Order Info: [id number] - CBCD Performed By: #### L 500.4100, L501.9985, L501.9520, L500.4050, L100.0100, L506.0400 ####[facility] [address] [place], [address] RDW SD 40.6 fl Normal 35.1-43.9 [facility] Comment on above: Order Comment: Order Date: 05/22/24Order Info: [id number] - CBCD Performed By: #### L 500.4100, L501.9985, L501.9520, L500.4050, L100.0100, L506.0400 ####[facility] [address] [place], [address] WBC (Bld) [#/Vol] 7.6 10*3/uL Normal 4.4-11.0 [facility] Comment on above: Order Comment: Order Date: 05/22/24Order Info: [id number] - CBCD Performed By: #### L 500.4100, L501.9985, L501.9520, L500.4050, L100.0100, L506.0400 ####[facility] [address] [place], [place], [address] Calculated very low density lipoprotein (VLDL) cholesterol measurementOrdered By: Jessica Ramesh on 08-17-2024 Calculated very low density lipoprotein (VLDL) cholesterol measurement 16 mg/dL 5-40 [facility] Carbon dioxide, total [Moles /volume] in Central venous bloodOrdered By: Jessica Ramesh on 08-17-2024 CO2 [Moles/Vol] 21.5 mmol/L 21.0-32.0 [facility] Chloride assayOrdered By: Steffi Ramesh on 08-17-2024 Chloride [Moles/Vol] 103 mmol/L 98-108 [facility] Comprehensive Metabolic Prof ilon 08-17-2024 Albumin [Mass/Vol] 4.0 g/dL Normal 3.4-4.8 [facility] Comment on above: Order Comment: Order Date: 05/22/24Order Info: [id number] - CMPOrder Info: [id number] - LIPIDOrder Info: [id number] - TSHOrder Info: [id number] - T4F Performed By: #### L 500.4100, L501.9985, L501.9520, L500.4050, L100.0100, L506.0400 ####[facility] [address] [place], [place], [address] Albumin/Globulin [Mass ratio] 1.0 {ratio} Normal 0.9-2.4 [facility] Comment on above: Order Comment: Order Date: 05/22/24Order Info: [id number] - CMPOrder Info: [id number] - LIPIDOrder Info: [id number] - TSHOrder Info: [id number] - T4F Performed By: #### L 500.4100, L501.9985, L501.9520, L500.4050, L100.0100, L506.0400 ####[facility] [address] [place], [address] ALK PHOS 63 U/L Normal 35-104 [facility] Comment on above: Order Comment: Order Date: 05/22/24Order Info: [id number] - CMPOrder Info: [id number] - LIPIDOrder Info: [id number] - TSHOrder Info: [id number] - T4F Performed By: #### L 500.4100, L501.9985, L501.9520, L500.4050, L100.0100, L506.0400 ####[facility] [address] [place], [address] ALT [Catalytic activity/Vol] 11 U/L Normal <=34 [facility] Comment on above: Order Comment: Order Date: 05/22/24Order Info: [id number] - CMPOrder Info: [id number] - LIPIDOrder Info: 3 - TSHOrder Info: [id number] - T4F Performed By: #### L 500.4100, L501.9985, L501.9520, L500.4050, L100.0100, L506.0400 ####[facility] [address] [place], [address] AST [Catalytic activity/Vol] 22 U/L Normal <=31 [facility] Comment on above: Order Comment: Order Date: 05/22/24Order Info: [id number] - CMPOrder Info: [id number] - LIPIDOrder Info: [id number] - TSHOrder Info: [id number] - T4F Performed By: #### L 500.4100, L501.9985, L501.9520, L500.4050, L100.0100, L506.0400 ####[facility] [address] [place], [address] Bilirubin [Mass/Vol] 0.63 mg/dL Normal 0.00-1.30 [facility] Comment on above: Order Comment: Order Date: 05/22/24Order Info: [id number] - CMPOrder Info: [id number] - LIPIDOrder Info: [id number] - TSHOrder Info: [id number] - T4F Performed By: #### L 500.4100, L501.9985, L501.9520, L500.4050, L100.0100, L506.0400 ####[facility] [address] [place], [address] BUN/CRE 13.2 RATIO Normal 10-20 [facility] Comment on above: Order Comment: Order Date: 05/22/24Order Info: [id number] - CMPOrder Info: [id number] - LIPIDOrder Info: 3 - TSHOrder Info: [id number] - T4F Performed By: #### L 500.4100, L501.9985, L501.9520, L500.4050, L100.0100, L506.0400 ####[facility] [address] [place], [address] Calcium [Mass/Vol] 8.9 mg/dL Normal 7.6-11.0 [facility] Comment on above: Order Comment: Order Date: 05/22/24Order Info: [id number] - CMPOrder Info: [id number] - LIPIDOrder Info: [id number] - TSHOrder Info: [id number] - T4F Performed By: #### L 500.4100, L501.9985, L501.9520, L500.4050, L100.0100, L506.0400 ####[facility] [address] [place], [address] Chloride [Moles/Vol] 103 mmol/L Normal 98-108 [facility] Comment on above: Order Comment: Order Date: 05/22/24Order Info: [id number] - CMPOrder Info: [id number] - LIPIDOrder Info: [id number] - TSHOrder Info: [id number] - T4F Performed By: #### L 500.4100, L501.9985, L501.9520, L500.4050, L100.0100, L506.0400 ####[facility] [address] [place], [address] CO2 [Moles/Vol] 21.5 mmol/L Normal 21.0-32.0 [facility] Comment on above: Order Comment: Order Date: 05/22/24Order Info: [id number] - CMPOrder Info: [id number] - LIPIDOrder Info: [id number] - TSHOrder Info: [id number] - T4F Performed By: #### L 500.4100, L501.9985, L501.9520, L500.4050, L100.0100, L506.0400 ####[facility] [address] [place], [address] Creatinine [Mass/Vol] 0.80 mg/dL Normal 0.70-1.20 [facility] Comment on above: Order Comment: Order Date: 05/22/24Order Info: [id number] - CMPOrder Info: [id number] - LIPIDOrder Info: [id number] - TSHOrder Info: [id number] - T4F Performed By: #### L 500.4100, L501.9985, L501.9520, L500.4050, L100.0100, L506.0400 ####[facility] [address] [place], [address] GAP 11 Normal 5-15 [facility] Comment on above: Order Comment: Order Date: 05/22/24Order Info: [id number] - CMPOrder Info: [id number] - LIPIDOrder Info: [id number] - TSHOrder Info: [id number] - T4F Performed By: #### L 500.4100, L501.9985, L501.9520, L500.4050, L100.0100, L506.0400 ####[facility] [address] [place], [address] GFR/1.73 sq M.predicted among non-blacks MDRD (S/P/Bld) [Vol rate/Area] 78 mL/min/{1.73_m2} Normal >60 [facility] Comment on above: Order Comment: Order Date: 05/22/24Order Info: [id number]- - CMPOrder Info: [id number] - LIPIDOrder Info: 3 - TSHOrder Info: 7 - T4F Result Comment: mL/m in/1.73m2 CKD-EPI Creatinine Equation (2020) Performed By: #### L 500.4100, L501.9985, L501.9520, L500.4050, L100.0100, L506.0400 ####[facility] [address] [place], [address] Globulin (S) [Mass/Vol] 4.1 g/dL Normal 2.2-4.2 [facility] Comment on above: Order Comment: Order Date: 05/22/24Order Info: [id number] - CMPOrder Info: - LIPIDOrder Info: [id number] - TSHOrder Info: 7 - T4F Performed By: #### L 500.4100, L501.9985, L501.9520, L500.4050, L100.0100, L506.0400 ####[facility] [address] [place], [address] Glucose [Mass/Vol] 109 mg/dL High 70-99 [facility] Comment on above: Order Comment: Order Date: 05/22/24Order Info: 07- - CMPOrder Info: [id number] - LIPIDOrder Info: 3 - TSHOrder Info: [id number] - T4F Performed By: #### L 500.4100, L501.9985, L501.9520, L500.4050, L100.0100, L506.0400 ####[facility] [address] [place], [address] Potassium [Moles/Vol] 4.1 mmol/L Normal 3.3-5.1 [facility] Comment on above: Order Comment: Order Date: 05/22/24Order Info: [id number] - CMPOrder Info: [id number] - LIPIDOrder Info: [id number] - TSHOrder Info: [id number] - T4F Performed By: #### L 500.4100, L501.9985, L501.9520, L500.4050, L100.0100, L506.0400 ####[facility] [address] [place], [address] Sodium [Moles/Vol] 136 mmol/L Normal 133-145 [facility] Comment on above: Order Comment: Order Date: 05/22/24Order Info: [id number] - CMPOrder Info: [id number] - LIPIDOrder Info: [id number] - TSHOrder Info: [id number] - T4F Performed By: #### L 500.4100, L501.9985, L501.9520, L500.4050, L100.0100, L506.0400 ####[facility] [address] [place], [address] T PROT 8.0 g/dL Normal 5.9-8.4 [facility] Comment on above: Order Comment: Order Date: 05/22/24Order Info: [id number] - CMPOrder Info: [id number] - LIPIDOrder Info: [id number] - TSHOrder Info: [id number] - T4F Performed By: #### L 500.4100, L501.9985, L501.9520, L500.4050, L100.0100, L506.0400 ####[facility] [address] [place], [address] Urea nitrogen [Mass/Vol] 11 mg/dL Normal 4-19 [facility] Comment on above: Order Comment: Order Date: 05/22/24Order Info: [id number] - CMPOrder Info: [id number] - LIPIDOrder Info: [id number] - TSHOrder Info: [id number] - T4F Performed By: #### L 500.4100, L501.9985, L501.9520, L500.4050, L100.0100, L506.0400 ####[facility] [address] [place], [address] Eosinophil percentageOrdered By: Jessica Ramehs on 08-17-2024 Eosinophils/100 WBC (Bld) 2.3 % 0-5 [facility] Erythrocyte distribution wid th ratioOrdered By: Jessica Ramesh on 08-17-2024 Erythrocyte distribution width (RBC) [Ratio] 12.3 % 11.6-14.6 [facility] Erythrocyte distribution wid th standard deviationOrdered By: Jessica Izabela on 08-17-2024 Erythrocyte distribution width (RBC) [Ratio] 40.6 fl 35.1-43.9 [facility] Glomerular filtration rate ( GFR) estimation/1.73 sq m using serum, plasma, or whole bOrdered By: Jessica Ramesh on 08-17-2024 GFR/1.73 sq M.predicted among non-blacks MDRD (S/P/Bld) [Vol rate/Area] 78 mL/min/{1.73_m2} >60 [facility] Comment on above: mL/min/1.73m2 CKD-EP I Creatinine Equation (2020) Hematocrit Auto (Bld) [Volum e fraction]Ordered By: Jessica Ramesh on 08-17-2024 Hematocrit (Bld) [Volume fraction] 42.9 % 37-47 [facility] Hemoglobin A1con 08-17-2024 HbA1c (Bld) [Mass fraction] 6.1 % High <=5.6 [facility] Comment on above: Order Comment: Order Date: 05/22/24Order Info: [id number] - A1C Result Comment: Norm al < 5.7 % Prediabetic 5.7 - 6.4 % Diabetic >or= 6.5 % Please note range changes. Performed By: #### L 500.4100, L501.9985, L501.9520, L500.4050, L100.0100, L506.0400 ####[facility] [address] [place], [place], [address] Hemoglobin A1c percentageOrd ered By: Jessica Ramesh on 08-17-2024 HbA1c (Bld) [Mass fraction] 6.1 % High <5.7 [facility] Comment on above: Normal < 5.7 % Predi abetic 5.7 - 6.4 % Diabetic >or= 6.5 % Please note range changes. Hemoglobin measurementOrdere d By: Jessica Ramesh on 08-17-2024 Hemoglobin (Bld) [Mass/Vol] 14.4 g/dL 12.0-15.0 [facility] Immature granulocytes/100 WB C Auto (Bld)Ordered By: Jessica Ramesh on 08-17-2024 Immature granulocytes/100 WBC (Bld) 0.500 % 0.0-0.9 [facility] Comment on above: IG% - Immature Granu locytes (promyelocytes, myelocytes and metamyelocytes) > 1% indicates that a LEFT SHIFT is Present. Ketones Test strip Ql (U)Ord ered By: Jessica Ramesh on 08-17-2024 Ketones Ql (U) Negative Negative [facility] LDL calc ser/plasOrdered By: Jessica Ramesh on 08-17-2024 Cholesterol in LDL [Mass/Vol] 55 mg/dL [facility] Comment on above: Cnnuetceww=528-128 m g/dL & Higher Vdbw=626 mg/dL or greater Laboratory - Chemistry and C hemistry - challengeOrdered By: Jessica Ramesh on 08-17-2024 AST [Catalytic activity/Vol] 22 U/L <32 [facility] Lipid Profileon 08-17-2024 CHOL:HDL 3.15 Normal [facility] Comment on above: Order Comment: Order Date: 05/22/24Order Info: [id number] - CMPOrder Info: [id number] - LIPIDOrder Info: [id number] - TSHOrder Info: [id number] - T4F Performed By: #### L 500.4100, L501.9985, L501.9520, L500.4050, L100.0100, L506.0400 ####[facility] [address] [place], [address] Cholesterol [Mass/Vol] 104 mg/dL Normal <=200 [facility] Comment on above: Order Comment: Order Date: 05/22/24Order Info: [id number] - CMPOrder Info: [id number] - LIPIDOrder Info: 3 - TSHOrder Info: [id number] T4F Result Comment: Chol esterol level, Desirable <200 mg/dL Borderline high cholesterol 200-239 mg/dL High cholesterol >=240 mg/dL Recommendations of the NCEP Adult Treatment Panel for the following risk-cutoff thresholds for the [place] population. Performed By: #### L 500.4100, L501.9985, L501.9520, L500.4050, L100.0100, L506.0400 ####[facility] [address] [place], [address] Cholesterol in HDL [Mass/Vol] 33 mg/dL Low [facility] Comment on above: Order Comment: Order Date: 05/22/24Order Info: 07 - CMPOrder Info: [id number] - LIPIDOrder Info: [id number] - TSHOrder Info: [id number] T4F Result Comment: [place] onal Cholesterol Education Program (NCEP) guidelines: <40 mg/dL: Low HDL-cholesterol (major risk factor for CHD) >= 60 mg/dL: High HDL-cholesterol (negative risk factor for CHD) HDL-cholesterol is affected by a number of factors, e.g. smoking, exercise, hormones, sex and age. Performed By: #### L 500.4100, L501.9985, L501.9520, L500.4050, L100.0100, L506.0400 ####[facility] [address] [place], [address] Cholesterol in LDL [Mass/Vol] 55 mg/dL Normal [facility] Comment on above: Order Comment: Order Date: 05/22/24Order Info: [id number] - CMPOrder Info: [id number] - LIPIDOrder Info: 3 - TSHOrder Info: [id number] - T4F Result Comment: Bord mokrwi=082-048 mg/dL Higher Evxb=630 mg/dL or greater Performed By: #### L 500.4100, L501.9985, L501.9520, L500.4050, L100.0100, L506.0400 ####[facility] [address] [place], [address] Cholesterol in VLDL [Mass/Vol] 16 mg/dL Normal 5-40 [facility] Comment on above: Order Comment: Order Date: 05/22/24Order Info: [id number] - CMPOrder Info: [id number] - LIPIDOrder Info: [id number] - TSHOrder Info: [id number] - T4F Performed By: #### L 500.4100, L501.9985, L501.9520, L500.4050, L100.0100, L506.0400 ####[facility] [id number] [place], [address] Triglyceride [Mass/Vol] 79 mg/dL Normal [facility] Comment on above: Order Comment: Order Date: 05/22/24Order Info: [id number] - CMPOrder Info: [id number] - LIPIDOrder Info: [id number] - TSHOrder Info: [id number] - T4F Result Comment: The drugs N-Acetylcysteine and Metamizole may falsely depress this assay. Normal range: <150 mg/dL Borderline High: 150-199 mg/dL High: 200-499 mg/dL Very High: >500 mg/dL Performed By: #### L 500.4100, L501.9985, L501.9520, L500.4050, L100.0100, L506.0400 ####[facility] [id number] [place], [address] MCV (mean corpuscular volume ) determinationOrdered By: Jessica Ramesh on 08-17-2024 MCV (RBC) [Entitic vol] 91.3 fL 81-99 [facility] Mean corpuscular hemoglobin (MCH) determinationOrdered By: Jessica Ramesh on 08-17-2024 MCH (RBC) [Entitic mass] 30.6 pg 27.0-32.0 [facility] Mean corpuscular hemoglobin concentration (MCHC) determinationOrdered By: Jesisca Ramesh on 08-17-2024 MCHC (RBC) [Mass/Vol] 33.6 g/dL 32-36 [facility] Mean platelet volume determi nationOrdered By: Jessica Ramesh on 08-17-2024 Platelet mean volume (Bld) [Entitic vol] 9.6 fL 6.2-12.0 [facility] Microscopic analysis of urin e for red blood cells (RBC)Ordered By: Jessica Ramesh on 08-17-2024 Microscopic analysis of urine for red blood cells (RBC) 0-5 SEEN /hpf 0-5 [facility] Monocyte percentageOrdered B y: Jessica Ramesh on 08-17-2024 Monocytes/100 WBC (Bld) 8.2 % 0-10 [facility] Mucus LM Ql (Urine sed)Order ed By: Jesisca Ramesh on 08-17-2024 Mucus Ql (Urine sed) 1+ /hpf [facility] Neutrophil percentageOrdered By: Jessica Ramesh on 08-17-2024 Neutrophils/100 WBC (Bld) 68.6 % 47-70 [facility] Nitrite Test strip Ql (U)Ord ered By: Jessica Ramesh on 08-17-2024 Nitrite Ql (U) Negative Negative [facility] Nucleated red blood cell per centageOrdered By: Jessica Ramesh on 08-17-2024 Nucleated RBC/100 WBC (Bld) [Ratio] 0 % 0-5 [facility] Platelet countOrdered By: Steffi Ramesh on 08-17-2024 Platelets (Bld) [#/Vol] 289 10*3/uL 150-450 [facility] Potassium measurement (mass/ volume)Ordered By: Jessica Ramesh on 08-17-2024 Potassium (Unsp spec) [Mass/Vol] 4.1 mmol/L 3.3-5.1 [facility] Protein Test strip Ql (U)Ord ered By: Jessica Ramesh on 08-17-2024 Protein Ql (U) 15 mg/dl High Negative [facility] RBC Auto (Bld) [#/Vol]Ordere d By: eJssica Ramesh on 08-17-2024 RBC (Bld) [#/Vol] 4.70 10*6/uL 4.2-5.4 [facility] Screening total cholesterol/ high density lipoprotein (HDL) cholesterol ratioOrdered By: Jessica Ramesh on 08-17-2024 Cholesterol.total/Maame sterol in HDL [Mass ratio] 3.15 {ratio} [facility] Serum creatinine measurement (mass/volume)Ordered By: Jessica Ramesh on 08-17-2024 Creatinine [Mass/Vol] 0.80 mg/dL 0.70-1.20 [facility] Serum globulin measurementOr dered By: Jessica Ramesh on 08-17-2024 Globulin (S) [Mass/Vol] 4.1 g/dL 2.2-4.2 [facility] Serum glucose measurement (m ass/volume)Ordered By: Jessica Ramesh on 08-17-2024 Glucose [Mass/Vol] 109 mg/dL High 70-99 [facility] Serum or plasma alanine gonzalez otransferase (ALT) measurementOrdered By: Jessica Ramesh on 08-17-2024 ALT [Catalytic activity/Vol] 11 U/L <35 [facility] Serum or plasma albumin sina urement (mass/volume)Ordered By: Jessica Ramesh on 08-17-2024 Albumin [Mass/Vol] 4.0 g/dL 3.4-4.8 [facility] Serum or plasma albumin/glob ulin mass ratioOrdered By: Jessica Ramesh on 08-17-2024 Albumin/Globulin [Mass ratio] 1.0 {ratio} 0.9-2.4 [facility] Serum or plasma alkaline nora sphatase measurementOrdered By: Jessica Ramesh on 08-17-2024 ALP [Catalytic activity/Vol] 63 U/L 35-104 [facility] Serum or plasma calcium sina urement (mass/volume)Ordered By: Jessica Ramesh on 08-17-2024 Calcium [Mass/Vol] 8.9 mg/dL 7.6-11.0 [facility] Serum or plasma cholesterol in HDL measurement (mass/volume)Ordered By: Jessica Ramesh on 08-17-2024 Cholesterol in HDL [Mass/Vol] 33 mg/dL Low >40 [facility] Comment on above: National Cholesterol Education Program (NCEP) guidelines:<40 mg/dL: Low HDL-cholesterol (major risk factor for CHD)>= 60 mg/dL: High HDL-cholesterol (negative risk factor for CHD)HDL-cholesterol is affected by a number of factors, e.g. smoking, exercise, hormones, sex and age. Serum or plasma cholesterol measurement (mass/volume)Ordered By: Jessica Ramesh on 08-17-2024 Cholesterol [Mass/Vol] 104 mg/dL <201 [facility] Comment on above: Cholesterol level, D esirable <200 mg/dLBorderline high cholesterol 200-239 mg/dLHigh cholesterol >=240 mg/dLRecommendations of the NCEP Adult Treatment Panel for the following risk-cutoff thresholds for the [place] population. Serum or plasma urea nitroge n measurement (mass/volume)Ordered By: Jessica Ramesh on 08-17-2024 Urea nitrogen [Mass/Vol] 11 mg/dL 4-19 [facility] Sodium levelOrdered By: Jessica Ramesh on 08-17-2024 Sodium [Moles/Vol] 136 mmol/L 133-145 [facility] Squamous epithelial cells de tection in urine sediment by light microscopyOrdered By: Jessica Ramesh on 08-17-2024 Epithelial cells.squamous LM Ql (Urine sed) 0-5 SEEN /hpf 5-10 [facility] T4 Free Directon 08-17-2024 T4 FREE DIRECT 1.30 ng/dL Normal 0.76-1.46 [facility] Comment on above: Order Comment: Order Date: 05/22/24Order Info: [id number] - CMPOrder Info: [id number] - LIPIDOrder Info: [id number] - TSHOrder Info: [id number] - T4F Performed By: #### L 500.4100, L501.9945, L501.9520, L500.4050, L100.0100, L506.0400 ####[facility] [address] [place], [address] T4 freeOrdered By: Jessica bryant on 08-17-2024 Free T4 [Mass/Vol] 1.30 ng/dL 0.76-1.46 [facility] TSH DL <= 0.005 mIU/L QnOrde red By: Jessica Ramesh on 08-17-2024 TSH Qn 1.170 uIU/mL 0.300-4.20 0 [facility] Thyroid Stim Hormone (TSH)on 08-17-2024 TSH 1.170 uIU/mL Normal 0.300-4.20 0 [facility] Comment on above: Order Comment: Order Date: 05/22/24Order Info: [id number] - CMPOrder Info: [id number] - LIPIDOrder Info: [id number] - TSHOrder Info: [id number] - T4F Performed By: #### L 500.4100, L501.9985, L501.9520, L500.4050, L100.0100, L506.0400 ####[facility] [address] [place], [address] Total proteinOrdered By: Bhaskar Ramesh on 08-17-2024 Protein [Mass/Vol] 8.0 g/dL 5.9-8.4 [facility] Triglycerides measurementOrd ered By: Jessica Ramesh on 08-17-2024 Triglyceride [Mass/Vol] 79 mg/dL <199 [facility] Comment on above: The drugs N-Acetylcy steine and Metamizole may falsely depress this assay. Normal range: <150 mg/dLBorderline High: 150-199 mg/dLHigh: 200-499 mg/dLVery High: >500 mg/dL Urinalysis, Completeon 08-17 BACTERIA 1+ /hpf Normal None Seen [facility] Comment on above: Order Comment: CLEAN CATCH Performed By: #### L 506.1001, L400.0001 ####[facility] [address] [place], [address] EPI,SQUAMOUS 0-5 SEEN Normal 5-10 [facility] Comment on above: Order Comment: CLEAN CATCH Performed By: #### L 506.1001, L400.0001 ####[facility] [address] [place], [address] Mucus Ql (Urine sed) 1+ /hpf Normal [facility] Comment on above: Order Comment: CLEAN CATCH Performed By: #### L 506.1001, L400.0001 ####[facility] [address] [place], [address] RBC 0-5 SEEN Normal 0-5 [facility] Comment on above: Order Comment: CLEAN CATCH Performed By: #### L 506.1001, L400.0001 ####[facility] [address] [place], [address] WBC 10-25 SEEN Normal 0-5 [facility] Comment on above: Order Comment: CLEAN CATCH Performed By: #### L 506.1001, L400.0001 ####[facility] [address] [place], [address] Urine clarityOrdered By: Bhaskar Ramesh on 08-17-2024 Clarity (U) Sl. Cloudy Clear [facility] Urine color determinationOrd ered By: Jessica Ramesh on 08-17-2024 Color (U) Yellow Yellow [facility] Urine glucose detectionOrder ed By: Jessica Ramesh on 08-17-2024 Glucose Ql (U) Normal mg/dl Normal [facility] Urine leukocyte esterase det ection by dipstickOrdered By: Jessica Ramesh on 08-17-2024 Leukocyte esterase Test strip Ql (U) 25 /ul High Negative [facility] Urine pHOrdered By: Jessica waite on 08-17-2024 pH (U) 5.0 [pH] 5.0 - 8.0 [facility] Urine sediment bacteria coun t by microscopy (number/high power field)Ordered By: Jessica Ramesh on 08-17-2024 Bacteria LM.HPF (Urine sed) [#/Area] 1 /[HPF] None Seen [facility] Urine specific gravity measu rementOrdered By: Jessica Ramesh on 08-17-2024 Specific gravity (U) [Rel density] 1.015 1.002-1.03 0 [facility] Urine urobilinogen measureme ntOrdered By: Jessica Ramesh on 08-17-2024 Urobilinogen Ql (U) Normal mg/dl Normal [facility] Vitamin D,25 Hydroxyon 08-17 Vitamin D 25-OH 29.0 ng/mL Low 30-100 [facility] Comment on above: Order Comment: Order Date: 05/22/24Order Info: [id number] - CMPOrder Info: [id number] - LIPIDOrder Info: [id number] - TSHOrder Info: [id number] - T4F Result Comment: Barbie min D Status Deficiency: <20 ng/mL (50nmol/L) Insufficiency: 20-30 ng/mL (50-75 nmol/L) Sufficiency: 30-100 ng/mL (75-250 nmol/L) Toxicity: >100 ng/mL (>250 nmol/L) Performed By: #### L 506.1001, L400.0001 ####[facility] [address] [place], [place], [id number] White blood cell (WBC) count Ordered By: Jessica Ramesh on 08-17-2024 WBC (Bld) [#/Vol] 7.6 10*3/uL 4.4-11.0 [facility] White blood cell countOrdere d By: Jessica Ramesh on 08-17-2024 White blood cell count 10-25 SEEN /hpf 0-5 [facility] Inital Evaluation (1) - PTon 05-29-2024 Inital Evaluation (1) - PT [facility] Physical Therapy [facility] [address] [place] [address] [address] [place] [address] / REHABILITATION SERVICES INITIAL EVALUATION MR#: [id number] Acct: [id number] Name: TANISHA HANSON Rep #: [id number] : 1950 74 From: Trevon Monsivais PT, Cert. T, OCS Referring Dr.: Dr. Jessica Ramesh MD Status: REG RCR Insurance: [employer] SELF PAY INSURANCE Patient's Visit Information Visit Information Visit Information: TANISHA HANSON is a 74 year old F referred to Physical Therapy by Dr. Jessica Ramesh MD with a diagnosis of SPECIFIED DISORDER OF BONE DENSITY STRUCTURE. Date of Evaluation: 05/29/24 Physical Therapist: Trevon Monsivais, PT, Cert MDT, OCS Visit Plan Frequency: 2x /Week Duration: 4 Weeks Plan: PT INTERVENTIONS DLS ,POSTURAL EX'S ,LE FLEXABILITY , WB ACTIVITIES ACTIVITY MODIFICATION AND MODALITIES Subjective Subjective: This 74 y/o female presents physical therapy with back pain osteoporosis. Patient has had lumbar pain to buttocks . Patient seen DR had bone density test The patient is considered osteopenic as outlined below according to World Paco Organization (WHO) criteria with a moderate fracture risk. There has been worsening of bone density since the previous examination.Patient also had x-rays showed Multilevel endplate degenerative changes and facet arthropathy of L1-2 as 1. Pain medication over counter. Patient taking calcium and D3. Aggravating factors bending , lifting , walking/standing. Alleviating factors sitting resting . Coughing/sneezing +. Bowel/bladder -. Denies paresthesia/tingling-. Patient condition affects and function. Patient goals to decrease pain and HEP. SOCIAL: VOCATION: retired Pain Bilateral Back: Pain Intensity (Out of 10): 6 Pain Intensity Range: 10 Objective Objective: POSTURE: mild forward posture GAIT: reciprocal pattern mild forward posture PALAPTION: unremarkable NEURO: denies paresthesia/tingling ,reflexes L3-4,L4-5,L5-S 1 1/3 LUMBAR ROM: flexion mod loss ,extension mod/severe loss ,side glides mod loss pain right FLEXABILITY: hamstrings min tight Special Tests L/S Slump test left side: Negative L/S Slump test right side: Negative L/S Left Straight Leg Raise: Negative L/S Right Straight Leg Raise: Negative Balance/Special Test Scores Oswestry Low Back Score: 23 Goals Goal 1:: Patient to be I with HEP for back Goal Time Frame: 4-6 Weeks Goal 2:: Patient to improve lumbar ROM for function of recovery for ADLS Goal Time Frame: 4-6 Weeks Goal 3:: Patient to improve back oswestry score by 5 points to improve QOL and function Goal Time Frame: 4-6 Weeks Goal 4:: Patient to demonstrate 50 % improvement with less pain to improve function Goal Time Frame: 4-6 Weeks Rehabilitation Potential Physical Therapy Diagnosis: This patient has lumbar pain with symptoms worse on right side with motion and positioning walking ,bending lifting along with osteoporosis thus patient will benefit from skilled PT Rehabilitation Potential: Good Anticipated Interventions Patient/Client Instruction: Educate patient on: Condition and Plan of Care For the Purpose of:: To decrease pain, To increase ROM, To improve muscle performance and motor function, To increase tolerance to activity/condition/positi on, To improve ability of physical actions for home/community/work/leisu re, To improve health of tissue, To decrease soft tissue restriction, To increase flexibility/ROM and To improve tolerance to ADL's Therapeutic Exercise to Include: Strength training, Postural training, Flexibilty training and Dynamic Lumbar Stabilization For the Purpose of:: To decrease pain, To increase ROM, To improve muscle performance and motor function, To improve ability to perform ADL's, To increase tolerance to activity/condition/positi on, To improve ability of physical actions for home/community/work/leisu re, To improve health of tissue, To decrease soft tissue restriction and To increase flexibility/ROM TENS: Yes IF ES: Yes Cryotherapy (ice pack, ice massage): Yes Thermo therapy (hot pack): Yes Ultrasound (thermal/non thermal): Yes For the Purpose of:: To decrease pain, To increase ROM, To improve health of tissue and To decrease soft tissue restriction Text: Thank you for the opportunity to evaluate your patient. For Medicare and Medicare HMO plans, please review the plan of care and approve it. It will need to be FAXED BACK to us at [phone] for Medicare purposes. For Medicare only, by signing this I certify the plan of care. Please let me know if there are questions or concerns regarding this plan of care. Physician Signature: Date: _ 05/29/24 1117 CC: Dr. Jessica Ramesh MD BILL Signed Normal [facility] L/S Spine w Bend Min 6 [place]won 05-22-2024 L/S Spine w Bend Min 6 [facility] [address] [place], [place] [address] L/S Spine w Bend Min 6 Vw MR#: [id number] Acct: [id number] Name: TANISHA HANSON Rep #: [id number] : 1950 F 74 From: Rony Galindo MD PCP: Dr. Jessica Ramesh MD Status: REG CLI Study: L/S Spine w Bend Min 6 Vw Date of Exam: Exam# [id number] Ordering Dr: Jessica Ramesh MD EXAM: XR Lumbosacral Spine, 4 or 5 Views CLINICAL INDICATION: LOW BACK PAIN TECHNIQUE: Frontal, lateral and bilateral oblique views of the lumbar spine. COMPARISON: No relevant prior studies available. FINDINGS: VERTEBRAE: Multilevel endplate degenerative changes and facet arthropathy of L1-2 as 1. No acute fracture. Normal alignment. SACRUM/COCCYX: See below. DISC SPACES: Moderate intervertebral disc disease of L5 S1. SOFT TISSUES: Unremarkable. VASCULATURE: Scattered calcified atherosclerotic disease of aorta. OTHER FINDINGS: No significant dynamic instability. RAD/L/S Spine w Bend Min 6 Vw IMPRESSION: Degenerative changes as above. Reading [facility] CC: Dr. 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 Normal [facility] Absolute lymphocyte countOrd ered By: Jessica Ramesh on 05-15-2024 Lymphocytes Auto (Unsp spec) [#/Vol] 1.65 10*3/uL 0.83-4.51 [facility] Absolute neutrophil countOrd ered By: Jessica Ramesh on 05-15-2024 Neutrophils (Bld) [#/Vol] 6.7 10*3/uL 2.0-7.7 [facility] Anion gap in Serum or Plasma Ordered By: Jessica Ramesh on 05-15-2024 Anion gap [Moles/Vol] 12 mmol/L 5-15 [facility] Automated lymphocyte count a s percentage of total leukocytesOrdered By: Jessica Ramesh on 05-15-2024 Lymphocytes/100 WBC Auto (Unsp spec) 18.2 % Low 19-41 [facility] BUN/creatinine ratioOrdered By: Jessica Ramesh on 05-15-2024 Urea nitrogen/Creatinine [Mass ratio] 14.7 mg/mg 10-20 [facility] Basophil percentageOrdered B y: Jessica Ramesh on 05-15-2024 Basophils/100 WBC (Bld) 1.0 % 0-1 [facility] Bilirubin, totalOrdered By: Jessica Ramesh on 05-15-2024 Bilirubin [Mass/Vol] 0.45 mg/dL 0.00-1.30 [facility] CBC W/Diff, Automatedon 05-05 Absolute Lymph 1.65 X10 3/uL Normal 0.83-4.51 [facility] Comment on above: Order Comment: Order Date: 01/30/24Order Info: [id number]- - CBCD Performed By: #### L 500.4050, L506.0400, L100.0100, L501.9520, L500.4100, L501.9985 ####[facility] [address] [place], [address] Absolute Neut 6.7 X10 3/uL Normal 2.0-7.7 [facility] Comment on above: Order Comment: Order Date: 01/30/24Order Info: 018- - CBCD Performed By: #### L 500.4050, L506.0400, L100.0100, L501.9520, L500.4100, L501.9985 ####[facility] [address] [place], [address] Basophils/100 WBC (Bld) 1.0 % Normal 0-1 [facility] Comment on above: Order Comment: Order Date: 01/30/24Order Info: [id number] - CBCD Performed By: #### L 500.4050, L506.0400, L100.0100, L501.9520, L500.4100, L501.9985 ####[facility] [address] [place], [address] Eosinophils/100 WBC (Bld) 1.3 % Normal 0-5 [facility] Comment on above: Order Comment: Order Date: 01/30/24Order Info: [id number] - CBCD Performed By: #### L 500.4050, L506.0400, L100.0100, L501.9520, L500.4100, L501.9985 ####[facility] [address] [place], [address] Erythrocyte distribution width (RBC) [Ratio] 12.1 % Normal 11.6-14.6 [facility] Comment on above: Order Comment: Order Date: 01/30/24Order Info: [id number] - CBCD Performed By: #### L 500.4050, L506.0400, L100.0100, L501.9520, L500.4100, L501.9985 ####[facility] [address] [place], [address] Hematocrit (Bld) [Volume fraction] 43.7 % Normal 37-47 [facility] Comment on above: Order Comment: Order Date: 01/30/24Order Info: [id number] - CBCD Performed By: #### L 500.4050, L506.0400, L100.0100, L501.9520, L500.4100, L501.9985 ####[facility] [address] [place], [address] Hemoglobin (Bld) [Mass/Vol] 14.6 g/dL Normal 12.0-15.0 [facility] Comment on above: Order Comment: Order Date: 01/30/24Order Info: [id number] - CBCD Performed By: #### L 500.4050, L506.0400, L100.0100, L501.9520, L500.4100, L501.9985 ####[facility] [address] [place], [address] IG% 0.400 Normal 0.0-0.9 [facility] Comment on above: Order Comment: Order Date: 01/30/24Order Info: [id number] - CBCD Result Comment: IG% - Immature Granulocytes (promyelocytes, myelocytes and metamyelocytes) > 1% indicates that a LEFT SHIFT is Present. Performed By: #### L 500.4050, L506.0400, L100.0100, L501.9520, L500.4100, L501.9985 ####[facility] [address] [place], [address] Lymphocytes/100 WBC (Bld) 18.2 % Low 19-41 [facility] Comment on above: Order Comment: Order Date: 01/30/24Order Info: 018- - CBCD Performed By: #### L 500.4050, L506.0400, L100.0100, L501.9520, L500.4100, L501.9985 ####[facility] [address] [place], [address] MCH (RBC) [Entitic mass] 30.5 pg Normal 27.0-32.0 [facility] Comment on above: Order Comment: Order Date: 01/30/24Order Info: 018- - CBCD Performed By: #### L 500.4050, L506.0400, L100.0100, L501.9520, L500.4100, L501.9985 ####[facility] [address] [place], [address] MCHC (RBC) [Mass/Vol] 33.4 g/dL Normal 32-36 [facility] Comment on above: Order Comment: Order Date: 01/30/24Order Info: 018- - CBCD Performed By: #### L 500.4050, L506.0400, L100.0100, L501.9520, L500.4100, L501.9985 ####[facility] [address] [place], [address] MCV (RBC) [Entitic vol] 91.4 fL Normal 81-99 [facility] Comment on above: Order Comment: Order Date: 01/30/24Order Info: [id number] - CBCD Performed By: #### L 500.4050, L506.0400, L100.0100, L501.9520, L500.4100, L501.9985 ####[facility] [address] [place], [address] Monocytes/100 WBC (Bld) 5.9 % Normal 0-10 [facility] Comment on above: Order Comment: Order Date: 01/30/24Order Info: 018- - CBCD Performed By: #### L 500.4050, L506.0400, L100.0100, L501.9520, L500.4100, L501.9985 ####[facility] [address] [place], [address] Neutrophils/100 WBC (Bld) 73.2 % High 47-70 [facility] Comment on above: Order Comment: Order Date: 01/30/24Order Info: 0184- - CBCD Performed By: #### L 500.4050, L506.0400, L100.0100, L501.9520, L500.4100, L501.9985 ####[facility] [address] [place], [address] Nucleated RBC (Bld) [#/Vol] 0 10*3/uL Normal 0-5 [facility] Comment on above: Order Comment: Order Date: 01/30/24Order Info: [id number]- - CBCD Performed By: #### L 500.4050, L506.0400, L100.0100, L501.9520, L500.4100, L501.9985 ####[facility] [address] [place], [address] Platelet mean volume (Bld) [Entitic vol] 9.4 fL Normal 6.2-12.0 [facility] Comment on above: Order Comment: Order Date: 01/30/24Order Info: 018-1 - CBCD Performed By: #### L 500.4050, L506.0400, L100.0100, L501.9520, L500.4100, L501.9985 ####[facility] [address] [place], [address] Platelets (Bld) [#/Vol] 334 10*3/uL Normal 150-450 [facility] Comment on above: Order Comment: Order Date: 01/30/24Order Info: 018- - CBCD Performed By: #### L 500.4050, L506.0400, L100.0100, L501.9520, L500.4100, L501.9985 ####[facility] [address] [place], [address] RBC (Bld) [#/Vol] 4.78 10*6/uL Normal 4.2-5.4 [facility] Comment on above: Order Comment: Order Date: 01/30/24Order Info: 018- - CBCD Performed By: #### L 500.4050, L506.0400, L100.0100, L501.9520, L500.4100, L501.9985 ####[facility] [address] [place], [address] RDW SD 40.4 fl Normal 35.1-43.9 [facility] Comment on above: Order Comment: Order Date: 01/30/24Order Info: 018- - CBCD Performed By: #### L 500.4050, L506.0400, L100.0100, L501.9520, L500.4100, L501.9985 ####[facility] [address] [place], [address] WBC (Bld) [#/Vol] 9.1 10*3/uL Normal 4.4-11.0 [facility] Comment on above: Order Comment: Order Date: 01/30/24Order Info: [id number]- - CBCD Performed By: #### L 500.4050, L506.0400, L100.0100, L501.9520, L500.4100, L501.9985 ####[facility] [address] [place], [place], [id number] Calculated very low density lipoprotein (VLDL) cholesterol measurementOrdered By: Jessica Ramesh on 05-15-2024 Calculated very low density lipoprotein (VLDL) cholesterol measurement 15 mg/dL - [facility] VLDL Cholesterol 15 mg/dL - [facility] Carbon dioxide, total [Moles /volume] in Central venous bloodOrdered By: Jessica Ramesh on 05-15-2024 CO2 [Moles/Vol] 23.8 mmol/L 21.0-32.0 [facility] Chloride assayOrdered By: Steffi Ramesh on 05-15-2024 Chloride [Moles/Vol] 101 mmol/L 98-108 [facility] Comprehensive Metabolic Prof ilon 05-15-2024 Albumin [Mass/Vol] 4.2 g/dL Normal 3.4-4.8 [facility] Comment on above: Order Comment: Order Date: 01/30/24Order Info: [id number] - CMPOrder Info: [id number] - LIPIDOrder Info: [id number] - TSHOrder Info: [id number] - T4F Performed By: #### L 500.4050, L506.0400, L100.0100, L501.9520, L500.4100, L501.9985 ####[facility] [address] [facility]. [place], [place], [id number] Albumin/Globulin [Mass ratio] 1.0 {ratio} Normal 0.9-2.4 [facility] Comment on above: Order Comment: Order Date: 01/30/24Order Info: [id number] - CMPOrder Info: [id number] - LIPIDOrder Info: 3 - TSHOrder Info: [id number] - T4F Performed By: #### L 500.4050, L506.0400, L100.0100, L501.9520, L500.4100, L501.9985 ####[facility] [address] [place], [address] ALK PHOS 70 U/L Normal 35-104 [facility] Comment on above: Order Comment: Order Date: 01/30/24Order Info: [id number] - CMPOrder Info: [id number] - LIPIDOrder Info: [id number] - TSHOrder Info: [id number] - T4F Performed By: #### L 500.4050, L506.0400, L100.0100, L501.9520, L500.4100, L501.9985 ####[facility] [address] [place], [address] ALT [Catalytic activity/Vol] 14 U/L Normal <=34 [facility] Comment on above: Order Comment: Order Date: 01/30/24Order Info: 07- - CMPOrder Info: [id number] - LIPIDOrder Info: 6-3 - TSHOrder Info: [id number] - T4F Performed By: #### L 500.4050, L506.0400, L100.0100, L501.9520, L500.4100, L501.9985 ####[facility] [address] [place], [address] AST [Catalytic activity/Vol] 25 U/L Normal <=31 [facility] Comment on above: Order Comment: Order Date: 01/30/24Order Info: [id number] - CMPOrder Info: [id number] - LIPIDOrder Info: [id number] - TSHOrder Info: [id number] - T4F Performed By: #### L 500.4050, L506.0400, L100.0100, L501.9520, L500.4100, L501.9985 ####[facility] [address] [place], [address] Bilirubin [Mass/Vol] 0.45 mg/dL Normal 0.00-1.30 [facility] Comment on above: Order Comment: Order Date: 01/30/24Order Info: [id number] - CMPOrder Info: [id number] - LIPIDOrder Info: [id number] - TSHOrder Info: [id number] - T4F Performed By: #### L 500.4050, L506.0400, L100.0100, L501.9520, L500.4100, L501.9985 ####[facility] [address] [place], [address] BUN/CRE 14.7 RATIO Normal 10-20 [facility] Comment on above: Order Comment: Order Date: 01/30/24Order Info: [id number] - CMPOrder Info: [id number] - LIPIDOrder Info: 3 - TSHOrder Info: [id number] - T4F Performed By: #### L 500.4050, L506.0400, L100.0100, L501.9520, L500.4100, L501.9985 ####[facility] [address] [place], [address] Calcium [Mass/Vol] 9.6 mg/dL Normal 7.6-11.0 [facility] Comment on above: Order Comment: Order Date: 01/30/24Order Info: 785- - CMPOrder Info: [id number] - LIPIDOrder Info: 6-3 - TSHOrder Info: [id number] - T4F Performed By: #### L 500.4050, L506.0400, L100.0100, L501.9520, L500.4100, L501.9985 ####[facility] [address] [place], [address] Chloride [Moles/Vol] 101 mmol/L Normal 98-108 [facility] Comment on above: Order Comment: Order Date: 01/30/24Order Info: [id number] - CMPOrder Info: [id number] - LIPIDOrder Info: [id number] - TSHOrder Info: [id number] - T4F Performed By: #### L 500.4050, L506.0400, L100.0100, L501.9520, L500.4100, L501.9985 ####[facility] [address] [place], [address] CO2 [Moles/Vol] 23.8 mmol/L Normal 21.0-32.0 [facility] Comment on above: Order Comment: Order Date: 01/30/24Order Info: [id number] - CMPOrder Info: [id number] - LIPIDOrder Info: [id number] - TSHOrder Info: [id number] - T4F Performed By: #### L 500.4050, L506.0400, L100.0100, L501.9520, L500.4100, L501.9985 ####[facility] [address] [place], [address] Creatinine [Mass/Vol] 0.80 mg/dL Normal 0.70-1.20 [facility] Comment on above: Order Comment: Order Date: 01/30/24Order Info: 785- - CMPOrder Info: [id number] - LIPIDOrder Info: 6-3 - TSHOrder Info: [id number] - T4F Performed By: #### L 500.4050, L506.0400, L100.0100, L501.9520, L500.4100, L501.9985 ####[facility] [address] [place], [address] GAP 12 Normal 5-15 [facility] Comment on above: Order Comment: Order Date: 01/30/24Order Info: 07-1 - CMPOrder Info: [id number] - LIPIDOrder Info: [id number] - TSHOrder Info: [id number] - T4F Performed By: #### L 500.4050, L506.0400, L100.0100, L501.9520, L500.4100, L501.9985 ####[facility] [address] [place], [place], [id number] GFR/1.73 sq M.predicted among non-blacks MDRD (S/P/Bld) [Vol rate/Area] 78 mL/min/{1.73_m2} Normal >60 [facility] Comment on above: Order Comment: Order Date: 01/30/24Order Info: [id number] - CMPOrder Info: [id number] - LIPIDOrder Info: 3 - TSHOrder Info: [id number] - T4F Result Comment: mL/m in/1.73m2 CKD-EPI Creatinine Equation (2020) Performed By: #### L 500.4050, L506.0400, L100.0100, L501.9520, L500.4100, L501.9985 ####[facility] [address] [place], [address] Globulin (S) [Mass/Vol] 4.3 g/dL High 2.2-4.2 [facility] Comment on above: Order Comment: Order Date: 01/30/24Order Info: 07- - CMPOrder Info: - LIPIDOrder Info: 3 - TSHOrder Info: 7 - T4F Performed By: #### L 500.4050, L506.0400, L100.0100, L501.9520, L500.4100, L501.9985 ####[facility] [address] [place], [address] Glucose [Mass/Vol] 116 mg/dL High 70-99 [facility] Comment on above: Order Comment: Order Date: 01/30/24Order Info: [id number] - CMPOrder Info: [id number] - LIPIDOrder Info: 63 - TSHOrder Info: [id number] - T4F Performed By: #### L 500.4050, L506.0400, L100.0100, L501.9520, L500.4100, L501.9985 ####[facility] [address] [place], [address] Potassium [Moles/Vol] 4.4 mmol/L Normal 3.3-5.1 [facility] Comment on above: Order Comment: Order Date: 01/30/24Order Info: [id number] - CMPOrder Info: [id number] - LIPIDOrder Info: [id number] - TSHOrder Info: [id number] - T4F Performed By: #### L 500.4050, L506.0400, L100.0100, L501.9520, L500.4100, L501.9985 ####[facility] [address] [place], [address] Sodium [Moles/Vol] 137 mmol/L Normal 133-145 [facility] Comment on above: Order Comment: Order Date: 01/30/24Order Info: 86-1 - CMPOrder Info: [id number] - LIPIDOrder Info: 3 - TSHOrder Info: [id number] - T4F Performed By: #### L 500.4050, L506.0400, L100.0100, L501.9520, L500.4100, L501.9985 ####[facility] [address] [place], [address] T PROT 8.5 g/dL High 5.9-8.4 [facility] Comment on above: Order Comment: Order Date: 01/30/24Order Info: [id number] - CMPOrder Info: [id number] - LIPIDOrder Info: 6-3 - TSHOrder Info: [id number] - T4F Performed By: #### L 500.4050, L506.0400, L100.0100, L501.9520, L500.4100, L501.9985 ####[facility] [address] [place], [address] Urea nitrogen [Mass/Vol] 12 mg/dL Normal 4-19 [facility] Comment on above: Order Comment: Order Date: 01/30/24Order Info: [id number] - CMPOrder Info: [id number] - LIPIDOrder Info: 6-3 - TSHOrder Info: [id number] - T4F Performed By: #### L 500.4050, L506.0400, L100.0100, L501.9520, L500.4100, L501.9989 ####[facility] [address] [place], [address] Eosinophil percentageOrdered By: Jessica Ramesh on 05-15-2024 Eosinophils/100 WBC (Bld) 1.3 % 0-5 [facility] Erythrocyte distribution wid th ratioOrdered By: Jessica Ramesh on 05-15-2024 Erythrocyte distribution width (RBC) [Ratio] 12.1 % 11.6-14.6 [facility] Erythrocyte distribution wid th standard deviationOrdered By: Jessica Ramesh on 05-15-2024 Erythrocyte distribution width (RBC) [Entitic vol] 40.4 fL 35.1-43.9 [facility] Erythrocyte distribution width (RBC) [Ratio] 40.4 fl 35.1-43.9 [facility] GFR/1.73 sq M.predicted gisella g non-blacks MDRD (S/P/Bld) [Vol rate/Area]Ordered By: Jessica Ramesh on 05-15-2024 Estimated GFR (MDRD) Non-Af Amer 78 >60 [facility] Comment on above: mL/min/1.73m2 CKD-EP I Creatinine Equation (2020) Glomerular filtration rate ( GFR) estimation/1.73 sq m using serum, plasma, or whole bOrdered By: Jessica Ramesh on 05-15-2024 GFR/1.73 sq M.predicted among non-blacks MDRD (S/P/Bld) [Vol rate/Area] 78 mL/min/{1.73_m2} >60 [facility] Comment on above: mL/min/1.73m2 CKD-EP I Creatinine Equation (2020) Hematocrit Auto (Bld) [Volum e fraction]Ordered By: Jessica Ramesh on 05-15-2024 Hematocrit (Bld) [Volume fraction] 43.7 % 37-47 [facility] Hemoglobin A1con 05-15-2024 HbA1c (Bld) [Mass fraction] 6.1 % Normal <=5.6 [facility] Comment on above: Order Comment: Order Date: 01/30/24Order Info: [id number] - A1C Performed By: #### L 500.4050, L506.0400, L100.0100, L501.9520, L500.4100, L501.9985 ####[facility] [address] [place], [place], [address] Hemoglobin A1c percentageOrd ered By: Jessica Ramesh on 05-15-2024 HbA1c (Bld) [Mass fraction] 6.1 % >5.7 [facility] Hemoglobin measurementOrdere d By: Jessica Ramesh on 05-15-2024 Hemoglobin (Bld) [Mass/Vol] 14.6 g/dL 12.0-15.0 [facility] Immature granulocytes/100 WB C Auto (Bld)Ordered By: Jessica Ramesh on 05-15-2024 Immature granulocytes/100 WBC (Bld) 0.400 % 0.0-0.9 [facility] Comment on above: IG% - Immature Granu locytes (promyelocytes, myelocytes and metamyelocytes) > 1% indicates that a LEFT SHIFT is Present. L506.1001on 05-15-2024 Vitamin D 25-OH 31.1 ng/mL Normal 30-100 [facility] Comment on above: Order Comment: Order Date: 01/30/24 Order Info: [id number] - CMP Order Info: [id number] - LIPID Order Info: [id number] - TSH Order Info: [id number] - T4F Result Comment: Barbie min D Status Deficiency: <20 ng/mL (50nmol/L) Insufficiency: 20-30 ng/mL (50-75 nmol/L) Sufficiency: 30-100 ng/mL (75-250 nmol/L) Toxicity: >100 ng/mL (>250 nmol/L) Performed By: #### L 506.1001 #### [facility] [address] [place], [address] LDL calc ser/plasOrdered By: Jessica Ramesh on 05-15-2024 Cholesterol in LDL [Mass/Vol] 56 mg/dL [facility] Comment on above: Zmyjqrvijj=199-224 m g/dL & Higher Mrqt=136 mg/dL or greater LDL Cholesterol, Calculated 56 mg/dL [facility] Comment on above: Oajmvzrkpm=682-950 m g/dL & Higher Vzrx=366 mg/dL or greater Laboratory - Chemistry and C hemistry - challengeOrdered By: Jessica Ramesh on 05-15-2024 AST [Catalytic activity/Vol] 25 U/L <32 [facility] Lipid Profileon 05-15-2024 CHOL:HDL 2.92 Normal [facility] Comment on above: Order Comment: Order Date: 01/30/24Order Info: [id number] - CMPOrder Info: [id number] - LIPIDOrder Info: [id number] - TSHOrder Info: 7 - T4F Performed By: #### L 500.4050, L506.0400, L100.0100, L501.9520, L500.4100, L501.9985 ####[facility] [address] [place], [address] Cholesterol [Mass/Vol] 108 mg/dL Normal <=200 [facility] Comment on above: Order Comment: Order Date: 01/30/24Order Info: [id number] - CMPOrder Info: [id number] - LIPIDOrder Info: [id number] - TSHOrder Info: 7 - T4F Result Comment: Chol esterol level, Desirable <200 mg/dL Borderline high cholesterol 200-239 mg/dL High cholesterol >=240 mg/dL Recommendations of the NCEP Adult Treatment Panel for the following risk-cutoff thresholds for the [place] population. Performed By: #### L 500.4050, L506.0400, L100.0100, L501.9520, L500.4100, L501.9985 ####[facility] [address] [place], [address] Cholesterol in HDL [Mass/Vol] 37 mg/dL Low [facility] Comment on above: Order Comment: Order Date: 01/30/24Order Info: [id number] - CMPOrder Info: [id number] - LIPIDOrder Info: [id number] - TSHOrder Info: [id number] - T4F Result Comment: [place] on[employer] Cholesterol Education Program (NCEP) guidelines: <40 mg/dL: Low HDL-cholesterol (major risk factor for CHD) >= 60 mg/dL: High HDL-cholesterol (negative risk factor for CHD) HDL-cholesterol is affected by a number of factors, e.g. smoking, exercise, hormones, sex and age. Performed By: #### L 500.4050, L506.0400, L100.0100, L501.9520, L500.4100, L501.9985 ####[facility] [address] [place], [address] Cholesterol in LDL [Mass/Vol] 56 mg/dL Normal [facility] Comment on above: Order Comment: Order Date: 01/30/24Order Info: 785- - CMPOrder Info: - LIPIDOrder Info: [id number] - TSHOrder Info: [id number] - T4F Result Comment: Bord itveax=165-076 mg/dL Higher Ghrz=619 mg/dL or greater Performed By: #### L 500.4050, L506.0400, L100.0100, L501.9520, L500.4100, L501.9985 ####[facility] [address] [place], [address] Cholesterol in VLDL [Mass/Vol] 15 mg/dL Normal 5-40 [facility] Comment on above: Order Comment: Order Date: 01/30/24Order Info: 785- - CMPOrder Info: - LIPIDOrder Info: [id number] - TSHOrder Info: 7 - T4F Performed By: #### L 500.4050, L506.0400, L100.0100, L501.9520, L500.4100, L501.9985 ####[facility] [address] [place], [address] Triglyceride [Mass/Vol] 77 mg/dL Normal [facility] Comment on above: Order Comment: Order Date: 01/30/24Order Info: 785- - CMPOrder Info: [id number] - LIPIDOrder Info: [id number] - TSHOrder Info: 4-7 - T4F Result Comment: The drugs N-Acetylcysteine and Metamizole may falsely depress this assay. Normal range: <150 mg/dL Borderline High: 150-199 mg/dL High: 200-499 mg/dL Very High: >500 mg/dL Performed By: #### L 500.4050, L506.0400, L100.0100, L501.9520, L500.4100, L501.9985 ####[facility] [address] [place], [address] Lymphocytes Auto (Unsp spec) [#/Vol]Ordered By: Jessica Ramesh on 05-15-2024 Lymphocytes (Bld) [#/Vol] 1.65 10*3/uL 0.83-4.51 [facility] Lymphocytes/100 WBC Auto (Un sp spec)Ordered By: Jessica Ramesh on 05-15-2024 Lymphocytes/100 WBC (Bld) 18.2 % Low 19-41 [facility] MCV (mean corpuscular volume ) determinationOrdered By: Jessica Ramesh on 05-15-2024 MCV (RBC) [Entitic vol] 91.4 fL 81-99 [facility] Mean corpuscular hemoglobin (MCH) determinationOrdered By: Jessica Ramesh on 05-15-2024 MCH (RBC) [Entitic mass] 30.5 pg 27.0-32.0 [facility] Mean corpuscular hemoglobin concentration (MCHC) determinationOrdered By: Jessica Ramesh on 05-15-2024 MCHC (RBC) [Mass/Vol] 33.4 g/dL 32-36 [facility] Mean platelet volume determi nationOrdered By: Jessica Ramesh on 05-15-2024 Platelet mean volume (Bld) [Entitic vol] 9.4 fL 6.2-12.0 [facility] Monocyte percentageOrdered B y: Jessica Ramesh on 05-15-2024 Monocytes/100 WBC (Bld) 5.9 % 0-10 [facility] Neutrophil percentageOrdered By: Jessica Ramesh on 05-15-2024 Neutrophils/100 WBC (Bld) 73.2 % High 47-70 [facility] Nucleated red blood cell per centageOrdered By: Jessica Ramesh on 05-15-2024 Nucleated RBC/100 WBC (Bld) [Ratio] 0 % 0-5 [facility] Platelet countOrdered By: Steffi Ramesh on 05-15-2024 Platelets (Bld) [#/Vol] 334 10*3/uL 150-450 [facility] Potassium (Unsp spec) [Mass/ Vol]Ordered By: Jessica Ramesh on 05-15-2024 Potassium [Moles/Vol] 4.4 mmol/L 3.3-5.1 [facility] Potassium measurement (mass/ volume)Ordered By: Jessica Ramesh on 05-15-2024 Potassium (Unsp spec) [Mass/Vol] 4.4 mmol/L 3.3-5.1 [facility] RBC Auto (Bld) [#/Vol]Ordere d By: Jessica Ramesh on 05-15-2024 RBC (Bld) [#/Vol] 4.78 10*6/uL 4.2-5.4 [facility] Screening total cholesterol/ high density lipoprotein (HDL) cholesterol ratioOrdered By: Jessica Ramesh on 05-15-2024 Cholesterol.total/Maame sterol in HDL [Mass ratio] 2.92 {ratio} [facility] Serum creatinine measurement (mass/volume)Ordered By: Jessica Ramesh on 05-15-2024 Creatinine [Mass/Vol] 0.80 mg/dL 0.70-1.20 [facility] Serum globulin measurementOr dered By: Jessica Ramesh on 05-15-2024 Globulin (S) [Mass/Vol] 4.3 g/dL High 2.2-4.2 [facility] Serum glucose measurement (m ass/volume)Ordered By: Jessica Ramesh on 05-15-2024 Glucose [Mass/Vol] 116 mg/dL High 70-99 [facility] Serum or plasma alanine gonzalez otransferase (ALT) measurementOrdered By: Jessica Ramesh on 05-15-2024 ALT [Catalytic activity/Vol] 14 U/L <35 [facility] Serum or plasma albumin sina urement (mass/volume)Ordered By: Jessica Ramesh on 05-15-2024 Albumin [Mass/Vol] 4.2 g/dL 3.4-4.8 [facility] Serum or plasma albumin/glob ulin mass ratioOrdered By: Jessica Ramesh on 05-15-2024 Albumin/Globulin [Mass ratio] 1.0 {ratio} 0.9-2.4 [facility] Serum or plasma alkaline nora sphatase measurementOrdered By: Jessica Ramesh on 05-15-2024 ALP [Catalytic activity/Vol] 70 U/L 35-104 [facility] Serum or plasma calcium sina urement (mass/volume)Ordered By: Jessica Ramesh on 05-15-2024 Calcium [Mass/Vol] 9.6 mg/dL 7.6-11.0 [facility] Serum or plasma cholesterol in HDL measurement (mass/volume)Ordered By: Jessica Ramesh on 05-15-2024 Cholesterol in HDL [Mass/Vol] 37 mg/dL Low >40 [facility] Comment on above: National Cholesterol Education Program (NCEP) guidelines:<40 mg/dL: Low HDL-cholesterol (major risk factor for CHD)>= 60 mg/dL: High HDL-cholesterol (negative risk factor for CHD)HDL-cholesterol is affected by a number of factors, e.g. smoking, exercise, hormones, sex and age. Serum or plasma cholesterol measurement (mass/volume)Ordered By: Jessica Ramesh on 05-15-2024 Cholesterol [Mass/Vol] 108 mg/dL <201 [facility] Comment on above: Cholesterol level, D esirable <200 mg/dLBorderline high cholesterol 200-239 mg/dLHigh cholesterol >=240 mg/dLRecommendations of the NCEP Adult Treatment Panel for the following risk-cutoff thresholds for the [place] population. Serum or plasma urea nitroge n measurement (mass/volume)Ordered By: Jessica Ramesh on 05-15-2024 Urea nitrogen [Mass/Vol] 12 mg/dL 4-19 [facility] Sodium levelOrdered By: Jessica Ramesh on 05-15-2024 Sodium [Moles/Vol] 137 mmol/L 133-145 [facility] T4 Free Directon 05-15-2024 T4 FREE DIRECT 1.70 ng/dL High 0.76-1.46 [facility] Comment on above: Order Comment: Order Date: 01/30/24Order Info: [id number] - CMPOrder Info: [id number] - LIPIDOrder Info: [id number] - TSHOrder Info: [id number] - T4F Performed By: #### L 500.4050, L506.0400, L100.0100, L501.9520, L500.4100, L501.9985 ####[facility] [address] [place], [place], [address] T4 freeOrdered By: Jessica bryant on 05-15-2024 Free T4 [Mass/Vol] 1.70 ng/dL High 0.76-1.46 [facility] TSH DL <= 0.005 mIU/L QnOrde red By: Jessica Ramesh on 05-15-2024 Thyroid Stimulating Hormone (TSH) 0.390 uIU/mL 0.300-4.20 0 [facility] TSH Qn 0.390 uIU/mL 0.300-4.20 0 [facility] Thyroid Stim Hormone (TSH)on 05-15-2024 TSH 0.390 uIU/mL Normal 0.300-4.20 0 [facility] Comment on above: Order Comment: Order Date: 01/30/24Order Info: [id number] - CMPOrder Info: [id number] - LIPIDOrder Info: 6-3 - TSHOrder Info: [id number] - T4F Performed By: #### L 500.4050, L506.0400, L100.0100, L501.9520, L500.4100, L501.9985 ####[facility] [address] [place], [address] Total proteinOrdered By: Bhaskar Ramesh on 05-15-2024 Protein [Mass/Vol] 8.5 g/dL High 5.9-8.4 [facility] Triglycerides measurementOrd ered By: Jessica Ramesh on 05-15-2024 Triglyceride [Mass/Vol] 77 mg/dL <199 [facility] Comment on above: The drugs N-Acetylcy steine and Metamizole may falsely depress this assay. Normal range: <150 mg/dLBorderline High: 150-199 mg/dLHigh: 200-499 mg/dLVery High: >500 mg/dL Vitamin D, 25-hydroxyOrdered By: Jessica Ramesh on 05-15-2024 Vitamin D 25-Hydroxy 31.1 ng/mL 30-100 [facility] Comment on above: Vitamin D StatusDefi ciency: <20 ng/mL (50nmol/L)Insufficiency: 20-30 ng/mL (50-75 nmol/L)Sufficiency: 30-100 ng/mL (75-250 nmol/L)Toxicity: >100 ng/mL (>250 nmol/L) White blood cell (WBC) count Ordered By: Jessica Ramesh on 05-15-2024 WBC (Bld) [#/Vol] 9.1 10*3/uL 4.4-11.0 [facility] Dexa Bone Density Studyon Dexa Bone Density Study [facility] Imaging Services [address] [place] [address] [id number] Dexa Bone Density Study MR#: [id number] Acct: [id number] Name: TANISHA HANSON Rep #: [id number] : 1950 F 73 From: Juan C bobo MD PCP: Dr. Jessica Ramesh MD Status: [facility] Study: Dexa Bone Density Study Date of Exam: 04/03/24 Exam# [id number] Ordering Dr: Joanne Bright [employer] DEVELOPMENT CONSULTANT [employer] DEVELOPMENT CONSULTANT-C PROCEDURE: DEXA BONE DENSITY STUDY REASON FOR EXAM: F, age 73 y/o . Postmenopausal.. TECHNIQUE: DEXA scan of the lumbar spine and both hips. COMPARISON: Comparison is made with prior study dated October 20, 2021. FINDINGS: Lumbar Spine (L1-L4): g/cm2 (0.859)/T-score (-1.7)/Z-score (0.5) findings are suggestive of osteopenia with a moderate fracture risk. Left Femur Total: g/cm2 (0.801)/T-score (-1.2)/Z-score (0.5) Left Femoral Neck: g/cm2 (0.648)/T-score (-1.8)/Z-score (0.1) Right Femur Total: g/cm2 (0.854)/T-score (-0.7)/Z-score (0.9) Right Femoral Neck: g/cm2 (0.668)/T-score (-1.6)/Z-score (0.3) The T-Scores on the most recent prior examination were: Lumbar Spine (L1-L4): There has been improvement of bone density since the previous examination. Left Femur Total: There has been a loss of 2%. Right Femur Total: There has been a loss of 1.2%. BD/Dexa Bone Density Study IMPRESSION: The patient is considered osteopenic as outlined below according to World Paco Organization (WHO) criteria with a moderate fracture risk. There has been worsening of bone density since the previous examination. Reading Location: [place] [address] CC: ANGEL Bright; Dr. 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 Normal [facility] SCRN MAMM (CAD)W/MOMO BILATo n 04-03-2024 SCRN MAMM (CAD)W/MOMO BILAT [facility] Imaging Services [address] [place] [address] SCRN MAMM (CAD)W/MOMO BILAT MR#: [id number] Acct: [id number] Name: TANISHA HANSON Rep #: [id number] : 1950 F 73 From: Juan C bobo MD PCP: Dr. Jessica Ramesh MD Status: [facility] Study: SCRN MAMM (CAD)W/MOMO BILAT Date of Exam: 03/08 10/29 Exam# [id number] Ordering Dr: Joanne Bright NPC PROCEDURE: SCRN MAMM (CAD)W/MOMO BILAT REASON FOR EXAM: F, Age 73 y/o, mother with breast cancer. Aunts with breast cancer. TECHNIQUE: Bilateral screening digital breast tomosynthesis with 2D and 3D images. Computer aided detection. COMPARISON: Prior exam(s) dating back to January 31, 2023. FINDINGS: There are scattered areas of fibroglandular density. No suspicious masses, areas of developing architectural distortion, or suspicious calcifications. Stable examination. BI/SCRN MAMM (CAD)W/MOMO BILAT IMPRESSION: BI-RADS 1: NEGATIVE. RECOMMEND ANNUAL MAMMOGRAPHIC SCREENING. There has been no change. Follow-up code: Routine Follow-up The patient will be notified of the results by letter. [facility] CC: ANGEL Bright; Dr. 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 Normal [facility] Low D[facility] Lung Screeningon 02-17-[address] [facility] Screening [facility] Services [address] [place] [phone] Lung Screening MR#: [id number] Acct: [id number] Name: TANISHA HANSON Rep #: [id number] : 1950 F 73 From: Juan C bobo MD PCP: Dr. Jessica Ramesh MD Status: REG CL Study: Low Dose CT Lung Screening Date of Exam: 02/16 Exam# [id number] Ordering Dr: Joanne Bright NP, NP-Smiley [id number] STUDY: LOW DOSE CT LUNG CANCER SCREENING REASON FOR EXAM: Female, 73 years old. Current smoker. 40 year smoking history. Chronic cough. RADIATION DOSAGE (If Supplied By Facility): CTDIvol = ( 3.02 ) mGy, DLP = ( 105.33 ) mGycm TECHNIQUE: No contrast was administered. Low dose technique was utilized (average mAS-38 and kVp 120). 1.25 mm axial source images with a slice interval of 1.25-mm were reconstructed in lung windows. 2.5 mm axial source images with a slice interval of 2.5-mm were reconstructed in lung windows. 5.0 mm axial source images with a slice interval of 5.0-mm were reconstructed in soft tissue windows. COMPARISON: Comparison is made with prior study dated January 31, 2023. Stable diffuse enlargement of the thyroid worse in the left lobe of the thyroid with substernal extension. NODULES: No suspicious nodules are seen. Emphysema: Hyperinflation. Mild emphysematous changes. Stable increased markings in both lungs worse in the lower lobes. Stable scarring at the lung apices. Endobronchial lesion: None Aorta: Atherosclerotic plaque formation of the aortic arch. CORONARY ARTERIES: Coronary artery calcification is seen. Heart: Unremarkable Pulmonary artery: Unremarkable Mediastinal nodes: Small mediastinal lymph nodes. Other chest and abdominal findings: CT/Low Dose CT Lung Screening IMPRESSION: Lung-RADS category 2 - Continue annual screening with LDCT in 12 months. IMPORTANT NOTES FOR USE: ACR Lung-RADS Version 1.1 Assessment Categories Release Date: 2018 Category: Coded 0-4 bases on nodule(s) with highest degree of suspicion. Negative screen is defined as categories 1 and 2; a positive screen is defined as categories 3 and 4. Category 3 and 4A nodules that are unchanged on interval CT should be coded as category 2, and individuals returned to screening in 12 months. Category 4X: Category 3 or 4 nodules with additional imaging findings that increase the suspicion of lung cancer, such as spiculation, GGN that doubles in size in 1 year, enlarged lymph notes, etc. Category Modifiers: S (significant finding unrelated to lung cancer) Electronically Signed: Juan C Dubon MD at 9:49 EST , CC: ANGEL Bright; Dr. 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 Normal [facility] Absolute lymphocyte countOrd ered By: Jessica Ramesh on 01-06-2023 Lymphocytes Auto (Unsp spec) [#/Vol] 1.42 10*3/uL 0.83-4.51 [facility] Basophil percentageOrdered B y: Jessica Ramesh on 01-06-2023 Basophil percentage 0 SEEN /hpf 0-5 [facility] Basophils/100 WBC (Bld) 1.2 % 0-1 [facility] Bilirubin [Mass/Vol] 0.50 mg/dL 0.20-1.00 [facility] Comment on above: For patients on eltr ombopag therapy, use of Dimension Mason TBIL is not recommended. Chloride [Moles/Vol] 107 mmol/L 98-107 [facility] Cholesterol [Mass/Vol] 99 mg/dL <200 [facility] Comment on above: <200 mg/dL Desirable 200-240 mg/dL Borderline >240 mg/dL High Risk Eosinophils/100 WBC (Bld) 1.6 % 0-5 [facility] Glucose [Mass/Vol] 117 mg/dL 74-106 [facility] Comment on above: Fasting Glucose resu lt from 100 to 125 mg/dL suggests IMPAIRED HOMEOSTASIS per A.D.A. criteria. Neutrophils (Bld) [#/Vol] 5.2 10*3/uL 2.0-7.7 [facility] Neutrophils/100 WBC (Bld) 71.6 % 47-70 [facility] Potassium [Moles/Vol] 3.8 mmol/L 3.5-5.1 [facility] Protein [Mass/Vol] 8.8 g/dL 6.4-8.2 [facility] Sodium [Moles/Vol] 136 mmol/L 136-145 [facility] Triglyceride [Mass/Vol] 94 mg/dL <199 [facility] Comment on above: The drugs N-Acetylcy steine and Metamizole may falsely depress this assay.Serum Triglycerides Reference Interval Normal <150 mg/dL Borderline high 150 - 199 mg/dL High 200 - 499 mg/dL Very High > or = 500 mg/dL WBC (Bld) [#/Vol] 7.3 10*3/uL 4.4-11.0 [facility] Bilirubin Test strip Ql (U)O rdered By: Jessica Ramesh on 01-06-2023 Bilirubin Ql (U) Negative Negative [facility] Blood erythrocytes count (nu mber/volume)Ordered By: Jessica Ramesh on 01-06-2023 RBC (Bld) [#/Vol] 4.82 10*6/uL 4.2-5.4 [facility] Blood hemoglobin measurement (mass/volume)Ordered By: Jessica Ramesh on 01-06-2023 Hemoglobin (Bld) [Mass/Vol] 14.6 g/dL 12.0-15.0 [facility] Blood lymphocytes/100 leukoc ytesOrdered By: Jessica Ramesh on 01-06-2023 Lymphocytes/100 WBC (Bld) 19.5 % 19-41 [facility] Blood monocytes/100 leukocyt esOrdered By: Jessica Ramesh on 01-06-2023 Monocytes/100 WBC (Bld) 5.8 % 0-10 [facility] Blood platelet mean volumeOr dered By: Jessica Ramesh on 01-06-2023 Platelet mean volume (Bld) [Entitic vol] 9.6 fL 6.2-12.0 [facility] Determination of erythrocyte mean corpuscular volume (MCV)Ordered By: Jessica Ramesh on 01-06-2023 MCV (RBC) [Entitic vol] 91.7 fL 81-99 [facility] Hematocrit Auto (Bld) [Volum e fraction]Ordered By: Jessica Ramesh on 01-06-2023 Hematocrit (Bld) [Volume fraction] 44.2 % 37-47 [facility] Ketones Test strip Ql (U)Ord ered By: Jessica Ramesh on 01-06-2023 Ketones Ql (U) 5 mg/dl Negative [facility] Laboratory - Chemistry and C hemistry - challengeOrdered By: Jessica Ramesh on 01-06-2023 Albumin [Mass/Vol] 3.8 g/dL 2.9-4.4 [facility] ALP [Catalytic activity/Vol] 67 U/L 45-117 [facility] ALT [Catalytic activity/Vol] 22 U/L 13-56 [facility] CO2 [Moles/Vol] 24.0 mmol/L 21.0-32.0 [facility] Free T4 [Mass/Vol] 1.26 ng/dL 0.76-1.46 [facility] Globulin (S) [Mass/Vol] 5.2 g/dL 2.2-4.2 [facility] Urea nitrogen/Creatinine [Mass ratio] 13.6 mg/mg 10-20 [facility] Laboratory - Hematology and Cell countsOrdered By: Jessica Ramesh on 01-06-2023 Erythrocyte distribution width (RBC) [Entitic vol] 41.4 fL 35.1-43.9 [facility] Erythrocyte distribution width (RBC) [Ratio] 12.3 % 11.6-14.6 [facility] Immature granulocytes/100 WBC (Bld) 0.300 % 0.0-0.9 [facility] Comment on above: IG% - Immature Granu locytes (promyelocytes, myelocytes and metamyelocytes) > 1% indicates that a LEFT SHIFT is Present. MCH (RBC) [Entitic mass] 30.3 pg 27.0-32.0 [facility] Nucleated RBC/100 WBC (Bld) [Ratio] 0 % 0-5 [facility] MCHC Auto (RBC) [Mass/Vol]Or dered By: Jessica Ramesh on 01-06-2023 MCHC (RBC) [Mass/Vol] 33.0 g/dL 32-36 [facility] Mucus LM Ql (Urine sed)Order ed By: Jessica Ramesh on 01-06-2023 Mucus Ql (Urine sed) 0 SEEN /hpf [facility] Nitrite Test strip Ql (U)Ord ered By: Jessica Ramesh on 01-06-2023 Nitrite Ql (U) Negative Negative [facility] No Panel InformationOrdered By: Jessica Ramesh on 01-06-2023 Addendum Document Comment . [facility] Comment on above: The SPE pattern refl ects a polyclonal increase in gammaglobulin. Hypergammaglobulinemia is found in a wide varietyof infectious, non-infectious, and autoimmune diseasestates. Evidence of monoclonal protein is not apparent.Performed at: [facility] [id number] Director: Michael Clement PhD, Phone: [phone] Ctbhg-9-Ltkabhcka 0.2 g/dL 0.0-0.4 [facility] Vrlvk-6-Puzqbkgwy 0.8 g/dL 0.4-1.0 [facility] Estimated GFR (MDRD) Amer 82 mL/min >60 [facility] Comment on above: GFR Calc Estimated GFR (MDRD) Non-Af Amer 67 mL/min >60 [facility] Comment on above: Non- GFR Calc Gamma Globulins 2.4 g/dL 0.4-1.8 [facility] Thyroid Stimulating Hormone (TSH) 1.82 uIU/mL 0.358-3.74 [facility] Vitamin D 25-Hydroxy 50.6 ng/mL [facility] Comment on above: Vitamin D 25(OH) Sta tus Range Deficiency <20 ng/mL (50nmol/L) Insufficiency 20 - 30 ng/mL (50 - 75 nmol/L) Sufficiency 30 - 100 ng/mL (75 - 250 nmol/L) Toxicity >100 ng/mL (>250 nmol/L) Platelets bldOrdered By: Bhaskar Ramesh on 01-06-2023 Platelets (Bld) [#/Vol] 321 10*3/uL 150-450 [facility] Protein Fractions Elph [Inte rp]Ordered By: Jessica Ramesh on 01-06-2023 Protein Fractions [Interp] Comment . [facility] Comment on above: Protein electrophore sis scan will follow via computer,mail, or [employer] delivery. Protein Test strip Ql (U)Ord ered By: Jessica Ramesh on 01-06-2023 Protein Ql (U) 30 mg/dl Negative [facility] Serum albumin to globulin ra jaswinder by protein electrophoresisOrdered By: Jessica Ramesh on 01-06-2023 Albumin/Globulin Elph [Mass ratio] 0.9 0.7-1.7 [facility] Serum globulin measurement ( mass/volume)Ordered By: Jessica Ramesh on 01-06-2023 Globulin (S) [Mass/Vol] 4.4 g/dL 2.2-3.9 [facility] Serum or plasma albumin sina urement (mass/volume)Ordered By: Jessica Ramesh on 01-06-2023 Albumin [Mass/Vol] 3.6 g/dL 3.2-5.0 [facility] Serum or plasma albumin/glob ulin mass ratioOrdered By: Jessica Ramesh on 01-06-2023 Albumin/Globulin [Mass ratio] 0.7 {ratio} 0.9-2.4 [facility] Serum or plasma beta globuli n measurement by electrophoresis (mass/volume)Ordered By: Jessica Ramesh on 01-06-2023 Beta globulin Elph [Mass/Vol] 1.0 g/dL 0.7-1.3 [facility] Serum or plasma calcium sina urement (mass/volume)Ordered By: Jessica Ramesh on 01-06-2023 Calcium [Mass/Vol] 9.0 mg/dL 8.5-10.1 [facility] Serum or plasma cholesterol in HDL measurement (mass/volume)Ordered By: Jessica Ramesh on 01-06-2023 Cholesterol in HDL [Mass/Vol] 35 mg/dL >40 [facility] Comment on above: The drugs N-Acetylcy steine and Metamizole may falsely depress this assay. Reference Range HDL <40 mg/dL Low HDL Cholesterol HDL >or= 60 mg/dL High HDL Cholesterol Serum or plasma cholesterol in VLDL measurement (mass/volume)Ordered By: Jessica Ramesh on 01-06-2023 Cholesterol in VLDL [Mass/Vol] 19 mg/dL 5-40 [facility] Serum or plasma creatinine m easurement (mass/volume)Ordered By: Jessica Ramesh on 01-06-2023 Creatinine [Mass/Vol] 0.88 mg/dL 0.55-1.02 [facility] Comment on above: The validity of the calculated GFR & GFRAA in patients over 70 years has not been determined. Clinical correlation is essential. Serum or plasma low density lipoprotein (LDL) cholesterol measurement (mass/volume)Ordered By: Jessica Ramesh on 01-06-2023 Cholesterol in LDL [Mass/Vol] 45 mg/dL 0-130 [facility] Serum or plasma protein mono clonal measurement by electrophoresis (mass/volume)Ordered By: Jessica Ramesh on 01-06-2023 Protein.monoclonal Elph [Mass/Vol] Not Observed g/dL Not Observed [facility] Serum or plasma urea nitroge n measurement (mass/volume)Ordered By: Jessica Ramesh on 01-06-2023 Urea nitrogen [Mass/Vol] 12 mg/dL 7-18 [facility] Squamous epithelial cells de tection in urine sediment by light microscopyOrdered By: Jessica Ramesh on 01-06-2023 Epithelial cells.squamous LM Ql (Urine sed) 0 SEEN /hpf 5-10 [facility] Thin prep Papanicolaou smear with manual screeningOrdered By: Jessica Ramesh on 01-06-2023 Thin prep Papanicolaou smear with manual screening 18 U/L 15-37 [facility] Thin prep Papanicolaou smear with manual screening 5 5-15 [facility] Total protein bloodOrdered B y: Jessica Ramesh on 01-06-2023 Protein [Mass/Vol] 8.2 g/dL 6.0-8.5 [facility] Urine blood detectionOrdered By: Jessica Ramesh on 01-06-2023 RBC Ql (U) 50 /ul Negative [facility] RBC Ql (U) 0 SEEN /hpf 0-5 [facility] Urine clarityOrdered By: Bhaskar Ramesh on 01-06-2023 Clarity (U) Clear Clear [facility] Urine color determinationOrd ered By: Jessica Ramesh on 01-06-2023 Color (U) Yellow Yellow [facility] Urine glucose detectionOrder ed By: Jessica Ramesh on 01-06-2023 Glucose Ql (U) Normal mg/dl Normal [facility] Urine leukocyte esterase det ection by dipstickOrdered By: Jessica Ramesh on 01-06-2023 Leukocyte esterase Test strip Ql (U) 25 /ul Negative [facility] Urine pHOrdered By: Jessica waite on 01-06-2023 pH (U) 5.0 [pH] 5.0 - 8.0 [facility] Urine sediment bacteria coun t by microscopy (number/high power field)Ordered By: Jessica Ramesh on 01-06-2023 Bacteria LM.HPF (Urine sed) [#/Area] 0 /[HPF] None Seen [facility] Urine specific gravity measu rementOrdered By: Jessica Ramesh on 01-06-2023 Specific gravity (U) [Rel density] 1.025 1.002-1.03 0 [facility] Urobilinogen Auto test strip Ql (U)Ordered By: Jessica Ramesh on 01-06-2023 Urobilinogen Ql (U) Normal mg/dl Normal [facility] Whole blood hemoglobin A1c/t otal hemoglobin ratio (mass fraction)Ordered By: Jessica Ramesh on 01-06-2023 HbA1c (Bld) [Mass fraction] 5.6 % 3.8-5.6 [facility] Comment on above: Normal < 5.7 % Predi abetic 5.7 - 6.4 % Diabetic >or= 6.5 % Please note range changes. Culture, urineOrdered By: Dr Dillan Ramesh on 08-19-2022 Bacteria identified Cx Nom (U) Positive [facility] Bilirubin Test strip Ql (U)O rdered By: Dr. Ramesh on 08-18-2022 Bilirubin Ql (U) Negative Negative [facility] Cytology report of Body flui d Cyto stainOrdered By: Dr. Ramesh on 08-18-2022 Cytology report Cyto stain Doc (Body fld) SEE PATHOLOGY REPORT [facility] Comment on above: Specimen submitted t o Anatomical Pathology Department for testing. Ketones Test strip Ql (U)Ord ered By: Dr. Ramesh on 08-18-2022 Ketones Ql (U) Negative Negative [facility] Nitrite Test strip Ql (U)Ord ered By: Dr. Ramesh on 08-18-2022 Nitrite Ql (U) Negative Negative [facility] Protein Test strip Ql (U)Ord ered By: Dr. Ramesh on 08-18-2022 Protein Ql (U) Negative Negative [facility] Urine blood detectionOrdered By: Dr. Ramesh on 08-18-2022 RBC Ql (U) 25 /ul Negative [facility] Urine clarityOrdered By: Dr. Ramesh on 08-18-2022 Clarity (U) Clear Clear [facility] Urine color determinationOrd ered By: Dr. Ramesh on 08-18-2022 Color (U) Yellow Yellow [facility] Urine glucose detectionOrder ed By: Dr. Ramesh on 08-18-2022 Glucose Ql (U) Normal mg/dl Normal [facility] Urine leukocyte esterase det ection by dipstickOrdered By: Dr. Ramesh on 08-18-2022 Leukocyte esterase Test strip Ql (U) Negative Negative [facility] Urine pHOrdered By: Dr. Karen bryant on 08-18-2022 pH (U) 7.0 [pH] 5.0 - 8.0 [facility] Urine specific gravity measu rementOrdered By: Dr. Ramesh on 08-18-2022 Specific gravity (U) [Rel density] 1.010 1.002-1.03 0 [facility] Urobilinogen Auto test strip Ql (U)Ordered By: Dr. Ramesh on 08-18-2022 Urobilinogen Ql (U) Normal mg/dl Normal [facility] Culture, urineOrdered By: Dr Dillan Ramesh on 08-14-2022 Bacteria identified Cx Nom (U) Positive [facility] Absolute lymphocyte countOrd ered By: Dr. Ramesh on 08-13-2022 Lymphocytes Auto (Unsp spec) [#/Vol] 1.55 10*3/uL 0.83-4.51 [facility] Basophil percentageOrdered B y: Dr. Ramesh on 08-13-2022 Basophil percentage 0 SEEN /hpf 0-5 [facility] Basophils/100 WBC (Bld) 0.6 % 0-1 [facility] Bilirubin [Mass/Vol] 0.70 mg/dL 0.20-1.00 [facility] Comment on above: For patients on eltr ombopag therapy, use of Dimension Mason TBIL is not recommended. Chloride [Moles/Vol] 105 mmol/L 98-107 [facility] Cholesterol [Mass/Vol] 106 mg/dL <200 [facility] Comment on above: <200 mg/dL Desirable 200-240 mg/dL Borderline >240 mg/dL High Risk Eosinophils/100 WBC (Bld) 0.8 % 0-5 [facility] Glucose [Mass/Vol] 114 mg/dL 74-106 [facility] Comment on above: Fasting Glucose resu lt from 100 to 125 mg/dL suggests IMPAIRED HOMEOSTASIS per A.D.A. criteria. Neutrophils (Bld) [#/Vol] 8.2 10*3/uL 2.0-7.7 [facility] Neutrophils/100 WBC (Bld) 75.7 % 47-70 [facility] Potassium [Moles/Vol] 4.0 mmol/L 3.5-5.1 [facility] Protein [Mass/Vol] 9.0 g/dL 6.4-8.2 [facility] Sodium [Moles/Vol] 135 mmol/L 136-145 [facility] Triglyceride [Mass/Vol] 60 mg/dL <199 [facility] Comment on above: The drugs N-Acetylcy steine and Metamizole may falsely depress this assay.Serum Triglycerides Reference Interval Normal <150 mg/dL Borderline high 150 - 199 mg/dL High 200 - 499 mg/dL Very High > or = 500 mg/dL WBC (Bld) [#/Vol] 10.8 10*3/uL 4.4-11.0 [facility] Bilirubin Test strip Ql (U)O rdered By: Dr. Ramesh on 08-13-2022 Bilirubin Ql (U) Negative Negative [facility] Blood erythrocytes count (nu mber/volume)Ordered By: Dr. Ramesh on 08-13-2022 RBC (Bld) [#/Vol] 4.63 10*6/uL 4.2-5.4 [facility] Blood hemoglobin measurement (mass/volume)Ordered By: Dr. Ramesh on 08-13-2022 Hemoglobin (Bld) [Mass/Vol] 14.1 g/dL 12.0-15.0 [facility] Blood lymphocytes/100 leukoc ytesOrdered By: Dr. Ramesh on 08-13-2022 Lymphocytes/100 WBC (Bld) 14.3 % 19-41 [facility] Blood monocytes/100 leukocyt esOrdered By: Dr. Ramesh on 08-13-2022 Monocytes/100 WBC (Bld) 8.3 % 0-10 [facility] Blood platelet mean volumeOr dered By: Dr. Ramesh on 08-13-2022 Platelet mean volume (Bld) [Entitic vol] 9.6 fL 6.2-12.0 [facility] Determination of erythrocyte mean corpuscular volume (MCV)Ordered By: Dr. Ramesh on 08-13-2022 MCV (RBC) [Entitic vol] 93.7 fL 81-99 [facility] Hematocrit Auto (Bld) [Volum e fraction]Ordered By: Dr. Ramesh on 08-13-2022 Hematocrit (Bld) [Volume fraction] 43.4 % 37-47 [facility] Ketones Test strip Ql (U)Ord ered By: Dr. Ramesh on 08-13-2022 Ketones Ql (U) Negative Negative [facility] Laboratory - Chemistry and C hemistry - challengeOrdered By: Dr. Ramesh on 08-13-2022 ALP [Catalytic activity/Vol] 67 U/L 45-117 [facility] ALT [Catalytic activity/Vol] 16 U/L 13-56 [facility] CO2 [Moles/Vol] 23.0 mmol/L 21.0-32.0 [facility] Free T4 [Mass/Vol] 1.26 ng/dL 0.76-1.46 [facility] Globulin (S) [Mass/Vol] 5.8 g/dL 2.2-4.2 [facility] Urea nitrogen/Creatinine [Mass ratio] 13.4 mg/mg 10-20 [facility] Laboratory - Hematology and Cell countsOrdered By: Dr. Ramesh on 08-13-2022 Erythrocyte distribution width (RBC) [Entitic vol] 42.1 fL 35.1-43.9 [facility] Erythrocyte distribution width (RBC) [Ratio] 12.2 % 11.6-14.6 [facility] Immature granulocytes/100 WBC (Bld) 0.300 % 0.0-0.9 [facility] Comment on above: IG% - Immature Granu locytes (promyelocytes, myelocytes and metamyelocytes) > 1% indicates that a LEFT SHIFT is Present. MCH (RBC) [Entitic mass] 30.5 pg 27.0-32.0 [facility] Nucleated RBC/100 WBC (Bld) [Ratio] 0 % 0-5 [facility] MCHC Auto (RBC) [Mass/Vol]Or dered By: Dr. Ramesh on 08-13-2022 MCHC (RBC) [Mass/Vol] 32.5 g/dL 32-36 [facility] Mucus LM Ql (Urine sed)Order ed By: Dr. Ramesh on 08-13-2022 Mucus Ql (Urine sed) 1+ /hpf [facility] Nitrite Test strip Ql (U)Ord ered By: Dr. Ramesh on 08-13-2022 Nitrite Ql (U) Negative Negative [facility] No Panel InformationOrdered By: Dr. Ramesh on 08-13-2022 Estimated GFR (MDRD) Amer 88 mL/min >60 [facility] Comment on above: GFR Calc Estimated GFR (MDRD) Non-Af Amer 73 mL/min >60 [facility] Comment on above: Non- GFR Calc Thyroid Stimulating Hormone (TSH) 0.71 uIU/mL 0.358-3.74 [facility] Vitamin D 25-Hydroxy 35.4 ng/mL [facility] Comment on above: Vitamin D 25(OH) Sta tus Range Deficiency <20 ng/mL (50nmol/L) Insufficiency 20 - 30 ng/mL (50 - 75 nmol/L) Sufficiency 30 - 100 ng/mL (75 - 250 nmol/L) Toxicity >100 ng/mL (>250 nmol/L) Platelets bldOrdered By: Dr. Ramesh on 08-13-2022 Platelets (Bld) [#/Vol] 304 10*3/uL 150-450 [facility] Protein Test strip Ql (U)Ord ered By: Dr. Ramesh on 08-13-2022 Protein Ql (U) 30 mg/dl Negative [facility] Serum or plasma albumin sina urement (mass/volume)Ordered By: Dr. Ramesh on 08-13-2022 Albumin [Mass/Vol] 3.2 g/dL 3.2-5.0 [facility] Serum or plasma albumin/glob ulin mass ratioOrdered By: Dr. Ramesh on 08-13-2022 Albumin/Globulin [Mass ratio] 0.6 {ratio} 0.9-2.4 [facility] Serum or plasma calcium sina urement (mass/volume)Ordered By: Dr. Ramesh on 08-13-2022 Calcium [Mass/Vol] 9.2 mg/dL 8.5-10.1 [facility] Serum or plasma cholesterol in HDL measurement (mass/volume)Ordered By: Dr. Ramesh on 08-13-2022 Cholesterol in HDL [Mass/Vol] 43 mg/dL >40 [facility] Comment on above: The drugs N-Acetylcy steine and Metamizole may falsely depress this assay. Reference Range HDL <40 mg/dL Low HDL Cholesterol HDL >or= 60 mg/dL High HDL Cholesterol Serum or plasma cholesterol in VLDL measurement (mass/volume)Ordered By: Dr. Ramesh on 08-13-2022 Cholesterol in VLDL [Mass/Vol] 12 mg/dL 5-40 [facility] Serum or plasma creatinine m easurement (mass/volume)Ordered By: Dr. Ramesh on 08-13-2022 Creatinine [Mass/Vol] 0.82 mg/dL 0.55-1.02 [facility] Comment on above: The validity of the calculated GFR & GFRAA in patients over 70 years has not been determined. Clinical correlation is essential. Serum or plasma low density lipoprotein (LDL) cholesterol measurement (mass/volume)Ordered By: Dr. Ramesh on 08-13-2022 Cholesterol in LDL [Mass/Vol] 51 mg/dL 0-130 [facility] Serum or plasma urea nitroge n measurement (mass/volume)Ordered By: Dr. Ramesh on 08-13-2022 Urea nitrogen [Mass/Vol] 11 mg/dL 7-18 [facility] Squamous epithelial cells de tection in urine sediment by light microscopyOrdered By: Dr. Ramesh on 08-13-2022 Epithelial cells.squamous LM Ql (Urine sed) 0-5 SEEN /hpf 5-10 [facility] Thin prep Papanicolaou smear with manual screeningOrdered By: Dr. Ramesh on 08-13-2022 Thin prep Papanicolaou smear with manual screening 16 U/L 15-37 [facility] Thin prep Papanicolaou smear with manual screening 7 5-15 [facility] Urine blood detectionOrdered By: Dr. Ramesh on 08-13-2022 RBC Ql (U) 150 /ul Negative [facility] RBC Ql (U) 10-25 SEEN /hpf 0-5 [facility] Urine clarityOrdered By: Dr. Ramesh on 08-13-2022 Clarity (U) Sl. Cloudy Clear [facility] Urine color determinationOrd ered By: Dr. Ramesh on 08-13-2022 Color (U) Yellow Yellow [facility] [facility] Urine glucose detectionOrder ed By: Dr. Ramesh on 08-13-2022 Glucose Ql (U) Normal mg/dl Normal [facility] Urine leukocyte esterase det ection by dipstickOrdered By: Dr. Ramesh on 08-13-2022 Leukocyte esterase Test strip Ql (U) Negative Negative [facility] Urine pHOrdered By: Dr. Karen bryant on 08-13-2022 pH (U) 5.0 [pH] 5.0 - 8.0 [facility] Urine sediment bacteria coun t by microscopy (number/high power field)Ordered By: Dr. Ramesh on 08-13-2022 Bacteria LM.HPF (Urine sed) [#/Area] 1 /[HPF] None Seen [facility] Urine specific gravity measu rementOrdered By: Dr. Ramesh on 08-13-2022 Specific gravity (U) [Rel density] 1.025 1.002-1.03 0 [facility] Urobilinogen Auto test strip Ql (U)Ordered By: Dr. Ramesh on 08-13-2022 Urobilinogen Ql (U) Normal mg/dl Normal [facility] Whole blood hemoglobin A1c/t otal hemoglobin ratio (mass fraction)Ordered By: Dr. Ramesh on 08-13-2022 HbA1c (Bld) [Mass fraction] 5.6 % 3.8-5.6 [facility] Comment on above: Normal < 5.7 % Predi abetic 5.7 - 6.4 % Diabetic >or= 6.5 % Please note range changes. Culture, urineOrdered By: Dr Dillan Ramesh on 04-22-2022 Bacteria identified Cx Nom (U) Positive [facility] Basophil percentageOrdered B y: Dr. Ramesh on 04-21-2022 Basophil percentage 0-5 SEEN /hpf 0-5 [facility] Bilirubin Test strip Ql (U)O rdered By: Dr. Ramesh on 04-21-2022 Bilirubin Ql (U) Negative Negative [facility] Ketones Test strip Ql (U)Ord ered By: Dr. Ramesh on 04-21-2022 Ketones Ql (U) Negative Negative [facility] Mucus LM Ql (Urine sed)Order ed By: Dr. Ramesh on 04-21-2022 Mucus Ql (Urine sed) RARE /hpf [facility] Nitrite Test strip Ql (U)Ord ered By: Dr. Ramesh on 04-21-2022 Nitrite Ql (U) Negative Negative [facility] Protein Test strip Ql (U)Ord ered By: Dr. Ramesh on 04-21-2022 Protein Ql (U) 15 mg/dl Negative [facility] Squamous epithelial cells de tection in urine sediment by light microscopyOrdered By: Dr. Ramesh on 04-21-2022 Epithelial cells.squamous LM Ql (Urine sed) 5-10 SEEN /hpf 5-10 [facility] Urine blood detectionOrdered By: Dr. Ramesh on 04-21-2022 RBC Ql (U) 50 /ul Negative [facility] RBC Ql (U) 0 SEEN /hpf 0-5 [facility] Urine clarityOrdered By: Dr. Ramesh on 04-21-2022 Clarity (U) Sl. Cloudy Clear [facility] Urine color determinationOrd ered By: Dr. Ramesh on 04-21-2022 Color (U) Yellow Yellow [facility] Urine glucose detectionOrder ed By: Dr. Ramesh on 04-21-2022 Glucose Ql (U) 50 mg/dl Normal [facility] Urine leukocyte esterase det ection by dipstickOrdered By: Dr. Ramesh on 04-21-2022 Leukocyte esterase Test strip Ql (U) 25 /ul Negative [facility] Urine pHOrdered By: Dr. Karen bryant on 04-21-2022 pH (U) 5.0 [pH] 5.0 - 8.0 [facility] Urine sediment bacteria coun t by microscopy (number/high power field)Ordered By: Dr. Ramesh on 04-21-2022 Bacteria LM.HPF (Urine sed) [#/Area] RARE /hpf None Seen [facility] Urine specific gravity measu rementOrdered By: Dr. Ramesh on 04-21-2022 Specific gravity (U) [Rel density] 1.025 1.002-1.03 0 [facility] Urobilinogen Auto test strip Ql (U)Ordered By: Dr. Ramesh on 04-21-2022 Urobilinogen Ql (U) Normal mg/dl Normal [facility] Absolute lymphocyte countOrd ered By: Dr. Ramesh on 04-16-2022 Lymphocytes Auto (Unsp spec) [#/Vol] 1.87 10*3/uL 0.83-4.51 [facility] Basophil percentageOrdered B y: Dr. Ramesh on 04-16-2022 Basophils/100 WBC (Bld) 0.4 % 0-1 [facility] Bilirubin [Mass/Vol] 0.50 mg/dL 0.20-1.00 [facility] Comment on above: For patients on eltr ombopag therapy, use of Dimension Mason TBIL is not recommended. Chloride [Moles/Vol] 103 mmol/L 98-107 [facility] Cholesterol [Mass/Vol] 108 mg/dL <200 [facility] Comment on above: <200 mg/dL Desirable 200-240 mg/dL Borderline >240 mg/dL High Risk Eosinophils/100 WBC (Bld) 1.4 % 0-5 [facility] Glucose [Mass/Vol] 100 mg/dL 74-106 [facility] Comment on above: Fasting Glucose resu lt from 100 to 125 mg/dL suggests IMPAIRED HOMEOSTASIS per A.D.A. criteria. Neutrophils (Bld) [#/Vol] 8.5 10*3/uL 2.0-7.7 [facility] Neutrophils/100 WBC (Bld) 75.8 % 47-70 [facility] Potassium [Moles/Vol] 3.7 mmol/L 3.5-5.1 [facility] Protein [Mass/Vol] 8.8 g/dL 6.4-8.2 [facility] Sodium [Moles/Vol] 137 mmol/L 136-145 [facility] Triglyceride [Mass/Vol] 97 mg/dL <199 [facility] Comment on above: The drugs N-Acetylcy steine and Metamizole may falsely depress this assay.Serum Triglycerides Reference Interval Normal <150 mg/dL Borderline high 150 - 199 mg/dL High 200 - 499 mg/dL Very High > or = 500 mg/dL WBC (Bld) [#/Vol] 11.2 10*3/uL 4.4-11.0 [facility] Blood erythrocytes count (nu mber/volume)Ordered By: Dr. Ramesh on 04-16-2022 RBC (Bld) [#/Vol] 4.96 10*6/uL 4.2-5.4 [facility] Blood hemoglobin measurement (mass/volume)Ordered By: Dr. Ramesh on 04-16-2022 Hemoglobin (Bld) [Mass/Vol] 15.2 g/dL 12.0-15.0 [facility] Blood lymphocytes/100 leukoc ytesOrdered By: Dr. Ramesh on 04-16-2022 Lymphocytes/100 WBC (Bld) 16.7 % 19-41 [facility] Blood monocytes/100 leukocyt esOrdered By: Dr. Ramesh on 04-16-2022 Monocytes/100 WBC (Bld) 5.3 % 0-10 [facility] Blood platelet mean volumeOr dered By: Dr. Ramesh on 04-16-2022 Platelet mean volume (Bld) [Entitic vol] 9.6 fL 6.2-12.0 [facility] Determination of erythrocyte mean corpuscular volume (MCV)Ordered By: Dr. Ramesh on 04-16-2022 MCV (RBC) [Entitic vol] 92.9 fL 81-99 [facility] Hematocrit Auto (Bld) [Volum e fraction]Ordered By: Dr. Ramesh on 04-16-2022 Hematocrit (Bld) [Volume fraction] 46.1 % 37-47 [facility] Laboratory - Chemistry and C hemistry - challengeOrdered By: Dr. Ramesh on 04-16-2022 Albumin [Mass/Vol] 3.9 g/dL 2.9-4.4 [facility] ALP [Catalytic activity/Vol] 68 U/L 45-117 [facility] ALT [Catalytic activity/Vol] 16 U/L 13-56 [facility] CO2 [Moles/Vol] 28.0 mmol/L 21.0-32.0 [facility] Free T4 [Mass/Vol] 1.26 ng/dL 0.76-1.46 [facility] Globulin (S) [Mass/Vol] 5.2 g/dL 2.2-4.2 [facility] Urea nitrogen/Creatinine [Mass ratio] 19.0 mg/mg 10-20 [facility] Laboratory - Hematology and Cell countsOrdered By: Dr. Ramesh on 04-16-2022 Erythrocyte distribution width (RBC) [Entitic vol] 41.5 fL 35.1-43.9 [facility] Erythrocyte distribution width (RBC) [Ratio] 12.2 % 11.6-14.6 [facility] Immature granulocytes/100 WBC (Bld) 0.400 % 0.0-0.9 [facility] Comment on above: IG% - Immature Granu locytes (promyelocytes, myelocytes and metamyelocytes) > 1% indicates that a LEFT SHIFT is Present. MCH (RBC) [Entitic mass] 30.6 pg 27.0-32.0 [facility] Nucleated RBC/100 WBC (Bld) [Ratio] 0 % 0-5 [facility] MCHC Auto (RBC) [Mass/Vol]Or dered By: Dr. Ramesh on 04-16-2022 MCHC (RBC) [Mass/Vol] 33.0 g/dL 32-36 [facility] No Panel InformationOrdered By: Dr. Ramesh on 04-16-2022 Addendum Document Comment . [facility] Comment on above: The SPE pattern refl ects a polyclonal increase in gammaglobulin. Hypergammaglobulinemia is found in a wide varietyof infectious, non-infectious, and autoimmune diseasestates. Evidence of monoclonal protein is not apparent.Performed at: [facility] [address] [id number] Director: Michael Clement PhD, Phone: [phone] [id number] 0.2 g/dL 0.0-0.4 [facility] [id number] 0.8 g/dL 0.4-1.0 [facility] Estimated GFR (MDRD) Amer 86 mL/min >60 [facility] Comment on above: GFR Calc Estimated GFR (MDRD) Non-Af Amer 71 mL/min >60 [facility] Comment on above: Non- GFR Calc Gamma Globulins 2.5 g/dL 0.4-1.8 [facility] Thyroid Stimulating Hormone (TSH) 0.94 uIU/mL 0.358-3.74 [facility] Vitamin D 25-Hydroxy 34.4 ng/mL [facility] Comment on above: Vitamin D 25(OH) Sta tus Range Deficiency <20 ng/mL (50nmol/L) Insufficiency 20 - 30 ng/mL (50 - 75 nmol/L) Sufficiency 30 - 100 ng/mL (75 - 250 nmol/L) Toxicity >100 ng/mL (>250 nmol/L) Platelets bldOrdered By: Dr. Ramesh on 04-16-2022 Platelets (Bld) [#/Vol] 341 10*3/uL 150-450 [facility] Protein Fractions Elph [Inte rp]Ordered By: Dr. Ramesh on 04-16-2022 Protein Fractions [Interp] Comment . [facility] Comment on above: Protein electrophore sis scan will follow via computer,mail, or [employer] delivery. Serum albumin to globulin ra jaswinder by protein electrophoresisOrdered By: Dr. Ramesh on 04-16-2022 Albumin/Globulin Elph [Mass ratio] 0.9 0.7-1.7 [facility] Serum globulin measurement ( mass/volume)Ordered By: Dr. Ramesh on 04-16-2022 Globulin (S) [Mass/Vol] 4.5 g/dL 2.2-3.9 [facility] Serum or plasma albumin sina urement (mass/volume)Ordered By: Dr. Ramesh on 04-16-2022 Albumin [Mass/Vol] 3.6 g/dL 3.2-5.0 [facility] Serum or plasma albumin/glob ulin mass ratioOrdered By: Dr. Ramesh on 04-16-2022 Albumin/Globulin [Mass ratio] 0.7 {ratio} 0.9-2.4 [facility] Serum or plasma beta globuli n measurement by electrophoresis (mass/volume)Ordered By: Dr. Ramesh on 04-16-2022 Beta globulin Elph [Mass/Vol] 1.0 g/dL 0.7-1.3 [facility] Serum or plasma calcium sina urement (mass/volume)Ordered By: Dr. Ramesh on 04-16-2022 Calcium [Mass/Vol] 9.2 mg/dL 8.5-10.1 [facility] Serum or plasma cholesterol in HDL measurement (mass/volume)Ordered By: Dr. Ramesh on 04-16-2022 Cholesterol in HDL [Mass/Vol] 39 mg/dL >40 [facility] Comment on above: The drugs N-Acetylcy steine and Metamizole may falsely depress this assay. Reference Range HDL <40 mg/dL Low HDL Cholesterol HDL >or= 60 mg/dL High HDL Cholesterol Serum or plasma cholesterol in VLDL measurement (mass/volume)Ordered By: Dr. Ramesh on 04-16-2022 Cholesterol in VLDL [Mass/Vol] 19 mg/dL 5-40 [facility] Serum or plasma creatinine m easurement (mass/volume)Ordered By: Dr. Ramesh on 04-16-2022 Creatinine [Mass/Vol] 0.84 mg/dL 0.55-1.02 [facility] Comment on above: The validity of the calculated GFR & GFRAA in patients over 70 years has not been determined. Clinical correlation is essential. Serum or plasma low density lipoprotein (LDL) cholesterol measurement (mass/volume)Ordered By: Dr. Ramesh on 04-16-2022 Cholesterol in LDL [Mass/Vol] 50 mg/dL 0-130 [facility] Serum or plasma urea nitroge n measurement (mass/volume)Ordered By: Dr. Ramesh on 04-16-2022 Urea nitrogen [Mass/Vol] 16 mg/dL 7-18 [facility] Thin prep Papanicolaou smear with manual screeningOrdered By: Dr. Ramesh on 04-16-2022 Thin prep Papanicolaou smear with manual screening 12 U/L 15-37 [facility] Thin prep Papanicolaou smear with manual screening 6 5-15 [facility] Thin prep Papanicolaou smear with manual screening See comment [facility] Comment on above: NOT OBSERVED Total protein bloodOrdered B y: Dr. Ramesh on 04-16-2022 Protein [Mass/Vol] 8.4 g/dL 6.0-8.5 [facility] Whole blood hemoglobin A1c/t otal hemoglobin ratio (mass fraction)Ordered By: Dr. Ramesh on 04-16-2022 HbA1c (Bld) [Mass fraction] 5.7 % 3.8-5.6 [facility] Comment on above: Normal < 5.7 % Predi abetic 5.7 - 6.4 % Diabetic >or= 6.5 % Please note range changes. Absolute lymphocyte counton 09-17-2021 Lymphocytes Auto (Unsp spec) [#/Vol] 1.33 10*3/uL 0.83-4.51 [facility] Work Phone: Basophil percentageon 2021 Basophil percentage 0 SEEN /hpf 0-5 [facility] Work Phone: Basophils/100 WBC (Bld) 1.0 % 0-1 [facility] Work Phone: Bilirubin [Mass/Vol] 0.40 mg/dL 0.20-1.00 [facility] Work Phone: Comment on above: For patients on eltr ombopag therapy, use of Dimension Mason TBIL is not recommended. Chloride [Moles/Vol] 107 mmol/L 98-107 [facility] Work Phone: Cholesterol [Mass/Vol] 104 mg/dL <200 [facility] Work Phone: Comment on above: <200 mg/dL Desirable 200-240 mg/dL Borderline >240 mg/dL High Risk Eosinophils/100 WBC (Bld) 1.4 % 0-5 [facility] Work Phone: Glucose [Mass/Vol] 113 mg/dL 74-106 [facility] Work Phone: Comment on above: Fasting Glucose resu lt from 100 to 125 mg/dL suggests IMPAIRED HOMEOSTASIS per A.D.A. criteria. Neutrophils (Bld) [#/Vol] 5.0 10*3/uL 2.0-7.7 [facility] Work Phone: Neutrophils/100 WBC (Bld) 71.6 % 47-70 [facility] Work Phone: Potassium [Moles/Vol] 4.0 mmol/L 3.5-5.1 [facility] Work Phone: Protein [Mass/Vol] 8.6 g/dL 6.4-8.2 [facility] Work Phone: Sodium [Moles/Vol] 138 mmol/L 136-145 [facility] Work Phone: Triglyceride [Mass/Vol] 114 mg/dL <199 [facility] Work Phone: Comment on above: The drugs N-Acetylcy steine and Metamizole may falsely depress this assay.Serum Triglycerides Reference Interval Normal <150 mg/dL Borderline high 150 - 199 mg/dL High 200 - 499 mg/dL Very High > or = 500 mg/dL WBC (Bld) [#/Vol] 7.0 10*3/uL 4.4-11.0 [facility] Work Phone: Bilirubin Test strip Ql (U)o n 09-17-2021 Bilirubin Ql (U) Negative Negative [facility] Work Phone: Blood erythrocytes count (nu mber/volume)on 09-17-2021 RBC (Bld) [#/Vol] 4.62 10*6/uL 4.2-5.4 [facility] Work Phone: Blood hemoglobin measurement (mass/volume)on 09-17-2021 Hemoglobin (Bld) [Mass/Vol] 14.3 g/dL 12.0-15.0 [facility] Work Phone: Blood lymphocytes/100 leukoc yteson 09-17-2021 Lymphocytes/100 WBC (Bld) 19.0 % 19-41 [facility] Work Phone: [phone] Blood monocytes/100 leukocyt eson 09-17-2021 Monocytes/100 WBC (Bld) 6.6 % 0-10 [facility] Work Phone: Blood platelet mean volumeon 09-17-2021 Platelet mean volume (Bld) [Entitic vol] 9.6 fL 6.2-12.0 [facility] Work Phone: Determination of erythrocyte mean corpuscular volume (MCV)on 09-17-2021 MCV (RBC) [Entitic vol] 92.2 fL 81-99 [facility] Work Phone: Hematocrit Auto (Bld) [Volum e fraction]on 09-17-2021 Hematocrit (Bld) [Volume fraction] 42.6 % 37-47 [facility] Work Phone: Ketones Test strip Ql (U)on 09-17-2021 Ketones Ql (U) Negative Negative [facility] Work Phone: Laboratory - Chemistry and C hemistry - challengeon 09-17-2021 ALP [Catalytic activity/Vol] 63 U/L 45-117 [facility] Work Phone: [phone] ALT [Catalytic activity/Vol] 20 U/L 13-56 [facility] Work Phone: [phone] CO2 [Moles/Vol] 26.0 mmol/L 21.0-32.0 [facility] Work Phone: [phone] Free T4 [Mass/Vol] 1.35 ng/dL 0.76-1.46 [facility] Work Phone: [phone] Globulin (S) [Mass/Vol] 5.0 g/dL 2.2-4.2 [facility] Work Phone: [phone] Urea nitrogen/Creatinine [Mass ratio] 13.0 mg/mg 10-20 [facility] Work Phone: [phone] Laboratory - Hematology and Cell countson 09-17-2021 Erythrocyte distribution width (RBC) [Entitic vol] 41.3 fL 35.1-43.9 [facility] Work Phone: [phone] Erythrocyte distribution width (RBC) [Ratio] 12.2 % 11.6-14.6 [facility] Work Phone: [phone] Immature granulocytes/100 WBC (Bld) 0.400 % 0.0-0.9 [facility] Work Phone: [phone] Comment on above: IG% - Immature Granu locytes (promyelocytes, myelocytes and metamyelocytes) > 1% indicates that a LEFT SHIFT is Present. MCH (RBC) [Entitic mass] 31.0 pg 27.0-32.0 [facility] Work Phone: [phone] Nucleated RBC/100 WBC (Bld) [Ratio] 0 % 0-5 [facility] Work Phone: [phone] MCHC Auto (RBC) [Mass/Vol]on 09-17-2021 MCHC (RBC) [Mass/Vol] 33.6 g/dL 32-36 [facility] Work Phone: [phone] Mucus LM Ql (Urine sed)on Mucus Ql (Urine sed) 0 SEEN /hpf [facility] Work Phone: Nitrite Test strip Ql (U)on 09-17-2021 Nitrite Ql (U) Negative Negative [facility] Work Phone: No Panel Informationon 09-17 Estimated GFR (MDRD) Amer 86 mL/min >60 [facility] Work Phone: Comment on above: GFR Calc Estimated GFR (MDRD) Non-Af Amer 71 mL/min >60 [facility] Work Phone: Comment on above: Non- GFR Calc Thyroid Stimulating Hormone (TSH) 0.60 uIU/mL 0.358-3.74 [facility] Work Phone: Vitamin D 25-Hydroxy 39.2 ng/mL [facility] Work Phone: Comment on above: Vitamin D 25(OH) Sta tus Range Deficiency <20 ng/mL (50nmol/L) Insufficiency 20 - 30 ng/mL (50 - 75 nmol/L) Sufficiency 30 - 100 ng/mL (75 - 250 nmol/L) Toxicity >100 ng/mL (>250 nmol/L) Platelets bldon 09-17-2021 Platelets (Bld) [#/Vol] 305 10*3/uL 150-450 [facility] Work Phone: Protein Test strip Ql (U)on 09-17-2021 Protein Ql (U) Negative Negative [facility] Work Phone: [phone] Serum or plasma albumin sina urement (mass/volume)on 09-17-2021 Albumin [Mass/Vol] 3.6 g/dL 3.2-5.0 [facility] Work Phone: [phone] Serum or plasma albumin/glob ulin mass ratioon 09-17-2021 Albumin/Globulin [Mass ratio] 0.7 {ratio} 0.9-2.4 [facility] Work Phone: [phone] Serum or plasma calcium sina urement (mass/volume)on 09-17-2021 Calcium [Mass/Vol] 8.9 mg/dL 8.5-10.1 [facility] Work Phone: [phone] Serum or plasma cholesterol in HDL measurement (mass/volume)on 09-17-2021 Cholesterol in HDL [Mass/Vol] 32 mg/dL >40 [facility] Work Phone: [phone] Comment on above: The drugs N-Acetylcy steine and Metamizole may falsely depress this assay. Reference Range HDL <40 mg/dL Low HDL Cholesterol HDL >or= 60 mg/dL High HDL Cholesterol Serum or plasma cholesterol in VLDL measurement (mass/volume)on 09-17-2021 Cholesterol in VLDL [Mass/Vol] 23 mg/dL 5-40 [facility] Work Phone: [phone] Serum or plasma creatinine m easurement (mass/volume)on 09-17-2021 Creatinine [Mass/Vol] 0.84 mg/dL 0.55-1.02 [facility] Work Phone: Comment on above: The validity of the calculated GFR & GFRAA in patients over 70 years has not been determined. Clinical correlation is essential. Serum or plasma low density lipoprotein (LDL) cholesterol measurement (mass/volume)on 09-17-2021 Cholesterol in LDL [Mass/Vol] 49 mg/dL 0-130 [facility] Work Phone: [phone] Serum or plasma urea nitroge n measurement (mass/volume)on 09-17-2021 Urea nitrogen [Mass/Vol] 11 mg/dL 7-18 [facility] Work Phone: [phone] Squamous epithelial cells de tection in urine sediment by light microscopyon 09-17-2021 Epithelial cells.squamous LM Ql (Urine sed) 0-5 SEEN /hpf 5-10 [facility] Work Phone: [phone] Thin prep Papanicolaou smear with manual screeningon 09-17-2021 Thin prep Papanicolaou smear with manual screening 20 U/L 15-37 [facility] Work Phone: [phone] Thin prep Papanicolaou smear with manual screening 5 5-15 [facility] Work Phone: [phone] Urine blood detectionon 09-04 RBC Ql (U) 50 /ul Negative [facility] Work Phone: RBC Ql (U) 0 SEEN /hpf 0-5 [facility] Work Phone: Urine clarityon 09-17-2021 Clarity (U) Clear Clear [facility] Work Phone: Urine color determinationon 09-17-2021 Color (U) Yellow Yellow [facility] Work Phone: Urine glucose detectionon Glucose Ql (U) Normal mg/dl Normal [facility] Work Phone: Urine leukocyte esterase det ection by dipstickon 09-17-2021 Leukocyte esterase Test strip Ql (U) Negative Negative [facility] Work Phone: Urine pHon 09-17-2021 pH (U) 6.0 [pH] 5.0 - 8.0 [facility] Work Phone: Urine sediment bacteria coun t by microscopy (number/high power field)on 09-17-2021 Bacteria LM.HPF (Urine sed) [#/Area] 0 /[HPF] None Seen [facility] Work Phone: Urine specific gravity measu rementon 09-17-2021 Specific gravity (U) [Rel density] 1.020 1.002-1.03 0 [facility] Work Phone: Urobilinogen Auto test strip Ql (U)on 09-17-2021 Urobilinogen Ql (U) Normal mg/dl Normal [facility] Work Phone: Whole blood hemoglobin A1c/t otal hemoglobin ratio (mass fraction)on 09-17-2021 HbA1c (Bld) [Mass fraction] 5.7 % 3.8-5.6 [facility] Work Phone: Comment on above: Normal < 5.7 % Predi abetic 5.7 - 6.4 % Diabetic >or= 6.5 % Please note range changes. Vital Signs Date Time Vital Sign Value Performing Clinician Facility 01-03-2025 09:47-0400 Body height 161.3 cm Rosalie Kingston RN [facility] 01-03-2025 09:47-0400 Body mass index (BMI) [Ratio] 27.55 kg/m2 [facility] 01-03-2025 09:47-0400 Body weight 71.67 kg Rosalie Kingston RN [facility] 11-09-2024 13:09-0400 Body temperature 98.1 [degF] Yaya Padilla MD Work Phone: [facility] 11-09-2024 13:09-0400 Body weight 71.49 kg [facility] Padilla [facility] 11-09-2024 13:09-0400 Diastolic blood pressure 60 mm[Hg] Yaya Padilla MD Work Phone: [facility] 11-09-2024 13:09-0400 Heart rate 62 /min Yaya Padilla MD Work Phone: [facility] 11-09-2024 13:09-0400 SaO2% (BldA) [Mass fraction] 97 % Yaya Padilla MD Work Phone: [facility] 11-09-2024 13:09-0400 Systolic blood pressure 175 mm[Hg] Yaya Padilla MD Work Phone: [facility] 10-25-2022 09:47-0400 Diastolic Blood Pressure Non-Invasive [address] MICHAEL BENOIT MD [facility] 10-25-2022 09:47-0400 Heart rate 55 /min DR MICHAEL BENOIT MD [facility] 10-25-2022 09:47-0400 Respiratory rate 19 /min DR MICHAEL BENOIT MD [facility] 10-25-2022 09:47-0400 Systolic Blood Pressure Non-Invasive [address] MICHAEL BENOIT MD [facility] 10-25-2022 09:42-0400 Diastolic Blood Pressure Non-Invasive [address] MICHAEL BENOIT MD [facility] 10-25-2022 09:42-0400 Heart rate 55 /min DR MICHAEL BENOIT MD [facility] 10-25-2022 09:42-0400 Respiratory rate 23 /min DR MICHAEL BENOIT MD [facility] 10-25-2022 09:42-0400 Systolic Blood Pressure Non-Invasive [address] MICHAEL BENOIT MD [facility] 10-25-2022 09:37-0400 Diastolic Blood Pressure Non-Invasive [address] [facility] [facility]25[facility]22 09:37-0400 Heart rate 62 /min DR MICHAEL BENOIT MD [facility] 10-25-2022 09:37-0400 Respiratory rate 22 /min DR MICHAEL BENOIT MD [facility] 10-25-2022 09:37-0400 Systolic Blood Pressure Non-Invasive [address] MICHAEL BENOIT MD [facility] 10-25-2022 09:32-0400 Body temperature 97.7 [degF] DR MICHAEL BENOIT MD [facility] 10-25-2022 09:30-0400 Respiratory Rate - Anes 29 br/min DR MICHAEL BENOIT MD [facility] 10-25-2022 09:25-0400 Respiratory Rate - Anes 2 br/min DR MICHAEL BENOIT MD [facility] 10-25-2022 09:20-0400 Respiratory Rate - Anes 23 br/min DR MICHAEL BENOIT MD [facility] 10-25-2022 07:52-0400 Body height [address] MICHAEL BENOIT MD [facility] 10-25-2022 07:52-0400 Body weight [address] MICHAEL BENOIT MD [facility] 10-25-2022 07:52-0400 Body weight 26.67 kg/m2 DR MICHAEL BENOIT MD [facility] 10-25-2022 07:52-0400 Heart rate 74 /min DR MICHAEL BENOIT MD [facility] 10-20-2021 08:55-0400 Body height 160.02 cm [facility] Work Phone: Encounters Encounter Date Encounter Type Care Provider Facility Start: 01-03-2025 End: 01-03-2025 Nursing evaluation of patient and report [facility]al[facility] Comment on above: Preop testing (Prima ry Dx) Start: 01-03-2025 End: 01-03-2025 Patient encounter status Rosalie Kingston RN [facility] Start: 01-03-2025 ambulatory PATHOLOGY PROVIDER Faci lity:[facility] Start: 01-03-2025 Encounter for other preprocedural examination PATHOLOGY PROVIDER [facility] Start: 12-25-2024 End: 12-25-2024 ambulatory Jessica Ramesh Facility:[facility] Start: 12-20-2024 End: 12-20-2024 [facility] Start: 12-04-2024 End: 12-04-[address] Jessica Ramesh MD Work Phone: -Radiology [place] Start: 12-04-2024 End: 12-04-2024 Patient encounter procedure Enmanuel McMorrow WEB DEVELOPMENT CONSULTANT-C -Radiology [place] Work Phone: Start: 12-04-2024 End: 12-04-2024 ambulatory [facility] Facility:[facility] Start: 11-21-2024 End: 11-21-2024 Letter encounter Yaya Padilla MD Work Phone: [facility] Otolaryngology (ENT) Start: 11-21-2024 End: 11-21-2024 Telemedicine consultation with patient Yaya Padilla MD Work Phone: [facility] Otolaryngology (ENT) Comment on above: Substernal thyroid g oiter (Primary Dx); History of lobectomy of thyroid; Parotid mass; Warthin's tumor Start: 11-21-2024 End: 11-21-2024 ambulatory [facility] Facility:[facility] Start: 11-21-2024 Evaluation and management of inpatient YAYA PADILLA Facility:[facility] Start: 11-09-2024 End: 11-09-2024 Clinical Support [facility] Comment on above: Arrived Start: 11-09-2024 End: 11-10-2024 Office consultation new/estab patient 80 min Yaya Padilla MD Work Phone: [facility] Otolaryngology (ENT) Comment on above: Substernal thyroid g oiter (Primary Dx); History of lobectomy of thyroid; Parotid mass; Tobacco use disorder; Lesion of skin of face Start: 11-09-2024 End: 11-10-2024 ambulatory [facility] Start: 10-19-2024 End: 10-19-2024 ambulatory PATHOLOGY PROVIDER Facility:[facility] Start: 10-19-2024 End: 10-19-2024 Subsequent hospital visit by physician Maverick [facility] Radiology Comment on above: Neck mass Start: 10-19-2024 ambulatory PATHOLOGY PROVIDER Faci lity:[facility] Start: 10-18-2024 End: 10-18-2024 Telephone encounter Yaya Padilla MD Work Phone: [facility] Otolaryngology (ENT) Comment on above: [place] Referral Start: 10-15-2024 ambulatory JESSICA RAMESH MD Facili ty:A Start: 10-04-2024 End: 10-04-[address] Jessica Ramesh MD Work Phone: -Ultrasound [facility] Start: 10-04-2024 End: 10-04-[address] Jessica Ramesh MD -Ultrasound [facility] Work Phone: Start: 10-04-2024 End: 10-04-2024 ambulatory Jessica Ramesh Facility:[facility] Start: 09-28-2024 End: 09-28-[address] Jessica Ramesh MD Work Phone: -Cat Scan [facility] Start: 09-28-2024 End: 09-28-[address] Jessica Ramesh MD -Cat Scan [facility] Work Phone: Start: 09-28-2024 End: 09-28-2024 ambulatory Jessica Ramesh Facility:[facility] Start: 09-04-2024 Non-patient / Non-visit Dr. Oz hensley MD -[facility] Start: 09-04-2024 End: 09-04-[address] Jessica Ramesh MD Work Phone: -Cardiovascular Services Start: 09-04-2024 End: 09-04-[address] Jessica Ramesh MD -Cardiovascular Services Work Phone: Start: 09-04-2024 Non-patient / Non-visit Dr. Geo Ivey MD -[facility] Work Phone: Start: 09-04-2024 End: 09-04-2024 ambulatory Jessica Ramesh Facility:[facility] Start: 08-21-2024 End: 08-21-[address] Jessica Ramesh MD Work Phone: [facility] Work Phone: Start: 08-21-2024 End: 08-21-[address] Jessica Ramesh MD -Laboratory [facility] Start: 08-21-2024 End: 08-21-2024 ambulatory Jessica Ramesh Facility:[facility] Start: 08-17-2024 End: 08-17-[address] Jessica Ramesh MD Work Phone: [facility] Work Phone: Start: 08-17-2024 End: 08-17-[address] Jessica Ramesh MD -Laboratory [facility] Start: 08-17-2024 End: 08-17-2024 ambulatory Jessica Ramesh Facility:[facility] Start: 06-05-2024 End: 06-05-[address] Jessica Ramesh MD Work Phone: [facility] Work Phone: Start: 06-05-2024 End: 06-05-[address] Jessica Ramesh MD -Physical Therapy Work Phone: Start: 05-29-[address] Jessica Ramesh MD -Physical Therapy Work Phone: Start: 05-22-2024 End: 05-22-[address] Jessica Ramesh MD Work Phone: [facility] Work Phone: Start: 05-22-2024 End: 05-22-[address] Jessica Ramesh MD -Radiology, [place] Work Phone: Start: 05-22-2024 End: 05-22-2024 ambulatory Jessica Ramesh Facility:[facility] Start: 05-15-2024 End: 05-15-[address] Jessica Ramesh MD Work Phone: [facility] Work Phone: Start: 05-15-2024 End: 05-15-[address] [facility] Start: 05-15-2024 End: 05-15-2024 ambulatory Jessica Ramesh Facility:[facility] Start: 04-03-2024 End: 04-03-2024 Patient encounter procedure Joanne Deangelo WEB DEVELOPMENT CONSULTANT-C -Outpatient Bone Densitometry Work Phone: Start: 04-03-2024 End: 04-03-2024 ambulatory Joanne Bright WEB DEVELOPMENT CONSULTANT Facility:[facility] Start: 02-17-2024 End: 02-17-2024 Patient encounter procedure Joanne Bright WEB DEVELOPMENT CONSULTANT-C -Cat Scan, [facility] Work Phone: Start: 02-17-2024 End: 02-17-2024 ambulatory Joanne Bright WEB DEVELOPMENT CONSULTANT Facility:[facility] Start: 01-31-2023 End: 01-31-2023 ambulatory [facility] Work Phone: Start: 01-31-2023 End: 01-31-2023 Patient encounter procedure [facility]-Cat Scan, [facility] Work Phone: Start: 01-06-2023 End: 01-06-2023 ambulatory [facility] Work Phone: Start: 01-06-2023 End: 01-06-2023 Patient encounter procedure [facility] Start: 10-25-2022 End: 10-25-[address] MICHAEL BENOIT MD [facility] Start: 10-06-[address] MICHAEL SRIVASTAVA MD Facility: Start: 08-18-2022 End: 08-18-2022 ambulatory [facility] Work Phone: Start: 08-18-2022 End: 08-18-2022 Patient encounter procedure [facility] Start: 08-13-2022 End: 08-13-2022 ambulatory [facility] Work Phone: Start: 08-13-2022 End: 08-13-2022 Patient encounter procedure [facility] Start: 04-21-2022 End: 04-21-2022 ambulatory [facility] Work Phone: Start: 04-21-2022 End: 04-21-2022 Patient encounter procedure [facility] Start: 04-16-2022 End: 04-16-2022 ambulatory [facility] Work Phone: Start: 04-16-2022 End: 04-16-2022 Patient encounter procedure [facility] Start: 01-26-2022 End: 01-26-[address] Jessica Ramesh Work Phone: [facility] Work Phone: Start: 01-26-2022 End: 01-26-[address] Jessica Ramesh Work Phone: [facility]-Outpatient Breast Imaging Start: 01-04-2022 End: 01-04-[address] Jessica Ramesh Work Phone: [facility] Work Phone: Start: 01-04-2022 End: 01-04-[address] Jessica Ramesh Work Phone: [facility] Start: 11-10-2021 Non-patient / Non-visit Dr. Steffi Ramesh Work Phone: [facility] Start: 11-10-2021 End: 11-10-[address] Jessica Ramesh Work Phone: [facility] Work Phone: Start: 11-10-2021 End: 11-10-[address] Jessica Ramesh Work Phone: [facility]-Cardiovascular Services Start: 10-20-2021 End: 10-20-2021 Patient encounter procedure [facility]-Outpatient Bone Densitometry Start: 09-17-2021 End: 09-17-2021 Patient encounter [facility] Procedures Date Procedure Procedure Detail Performing Clinician Start: 12-25-2024 Vitamin D, 25-hydrox y measurement Dr. Jessica Ramesh MD Work Phone: Comment on above: Vitamin D StatusDefi ciency: <20 ng/mL (50nmol/L)Insufficiency: 20-30 ng/mL (50-75 nmol/L)Sufficiency: 30-100 ng/mL (75-250 nmol/L)Toxicity: >100 ng/mL (>250 nmol/L) Start: 12-04-2024 Plain x-ray of wrist Dr Dillan Ramesh MD Work Phone: Start: 11-10-2024 Fine needle aspirati on bx w/us gdn ea addl Yaya Padilla MD Work Phone: Start: 11-10-2024 Laryngoscopy flexibl e diagnostic Yaya Padilla MD Work Phone: Start: 11-09-2024 Assay of free thyroxine Yaya Padilla MD Work Phone: Start: 11-09-2024 Fine needle aspirati on bx w/us gdn 1st lesion Yaya Padilla MD Work Phone: Start: 10-19-2024 End: 10-19-2024 Radiology Comparison study - date and time Yaya Padilla MD Work Phone: Start: 10-04-2024 US scan of thyroid Dr. Jessica Ramesh MD Work Phone: Start: 09-28-2024 CT of soft tissues o f neck with contrast Dr. Jessica Ramesh MD Work Phone: Start: 08-21-[address] Jessica Ramesh MD Work Phone: Start: 08-17-2024 Urnls dip stick/tabl et reagent auto microscopy Dr. Jessica Ramesh MD Work Phone: Start: 08-17-2024 Vitamin D, 25-hydrox y measurement Dr. Jessica Ramesh MD Work Phone: Comment on above: Vitamin D StatusDefi ciency: <20 ng/mL (50nmol/L)Insufficiency: 20-30 ng/mL (50-75 nmol/L)Sufficiency: 30-100 ng/mL (75-250 nmol/L)Toxicity: >100 ng/mL (>250 nmol/L) Start: 05-22-2024 Complete x-ray serie s of lumbar spine with bending views Dr. Jessica Ramesh MD Work Phone: Start: 05-15-2024 Vitamin D, 25-hydrox y measurement Dr. Jessica Ramesh MD Work Phone: Comment on above: Vitamin D StatusDefi ciency: <20 ng/mL (50nmol/L)Insufficiency: 20-30 ng/mL (50-75 nmol/L)Sufficiency: 30-100 ng/mL (75-250 nmol/L)Toxicity: >100 ng/mL (>250 nmol/L) Start: 04-03-2024 Dual energy X-ray absorptiometry Dr. Jessica Ramesh MD Work Phone: Start: 04-03-2024 Screening mammography Lily Ramesh MD Work Phone: Start: 02-17-[address] Jessica leon MD Work Phone: Start: 01-31-2023 Screening mammography Start: 01-31-2023 CT of chest Start: 01-26-2022 Screening mammography Lily Ramesh Work Phone: Start: 01-04-[address] Jessica leon Work Phone: Start: 10-20-2021 Dual energy X-ray absorptiometry Start: 03-27-2018 Diagnostic endoscopi c examination on colon DR MICHAEL BENOIT MD Comment on above: multiple polypectomy Start: 03-07-2018 Carotid artery struc ture (body structure) DR MICHAEL BENOIT MD Start: 03-07-2003 History of subtotal thyroidectomy DR MICHAEL BENOIT MD Bacteria identified in Urine by Culture section DR MICHAEL BENOIT MD H/O: hysterectomy DR MICHAEL BENOIT MD History of appendectomy DR Willow BENOIT MD History of tonsillectomy DR MICHAEL BENOIT MD Urine culture Urine culture Urine culture Plan of Treatment Date Care Activity Detail Author Start: 12-20-2029 Lipid panel Cholesterol [facility] Start: 10-04-2029 Tetanus vaccination Tetanus (Td or Tdap) Booster [facility] Start: 08-17-2029 Lipid panel Cholesterol [facility] Start: 2027 RSV vaccine (adult) (1 - 1-dose 75+ series) RSV vaccine (adult) (1 - 1-dose 75+ series) [facility] Start: 04-03-2025 Screening for malignant neoplasm of breast [facility] Start: 01-30-2025 End: 01-30-2025 Patient encounter procedure 01/30/2025 12:00 PM EST Office Visit [facility] Otolaryngology (ENT) [address] [place] [id number] Yaya Padilla MD [address] [place] [id number] [facility] Otolaryngology (ENT) Start: 01-23-2025 End: 01-23-2025 Patient encounter procedure 01/23/2025 11:30 AM EST Office Visit [facility] Otolaryngology (ENT) [address] [place] [id number] Yaya Padilla MD [address] [place] [id number] [facility] Otolaryngology (ENT) Start: 01-17-2025 End: 01-17-2025 Admission to same day surgery center [facility] Main [place] Comment on above: LOBECTOMY, THYROID for substernal and re troesophageal multinodular goiter Start: 01-17-2025 End: 01-17-2025 LOBECTOMY, THYROID [facility] Start: 01-17-2025 Subsequent hospital visit by physician [facility] Main [place] Start: 01-03-2025 End: 01-03-2025 Nursing evaluation of patient and report 01/03/2025 9:30 AM EDT Nurse Visit [facility] Pre-Admission Testing [address] [place], [place] [phone] Kellie Hercules, RN [address] [place], [place] [phone] [facility] Pre-Admission Testing Start: 12-25-2024 End: 12-25-2024 Patient encounter procedure Departed Clinical -Laboratory [facility] Start: 12-20-2024 End: 12-20-2024 Patient encounter procedure Departed Clinical -Laboratory [facility] Start: 12-05-2024 Influenza vaccination Influenza Vaccine (#1) [facility] Start: 11-21-2024 End: 11-21-2024 Telemedicine consultation with patient 11/21/2024 9:30 AM EDT Telemedicine [facility] Otolaryngology (ENT) [address] [place], [place] [phone] Yaya Padilla MD [address] [place], [place] [phone] [facility] Otolaryngology (ENT) Start: 11-09-2024 End: 11-09-2024 Patient encounter procedure 11/09/2024 1:00 PM EDT Office Visit [facility] Otolaryngology (ENT) [address] [place], [place] [phone] Yaya Padilla MD [address] [place], [place] [phone] [facility] Otolaryngology (ENT) Start: 11-05-2024 COVID-19 Vaccine ( season) COVID-19 Vaccine ( season) [facility] Start: 11-05-2024 Influenza vaccination Influenza Vaccine (#1) [facility] Start: 10-18-2024 End: 10-18-2025 DOWNLOAD POWERSHARE IMAGES TO NEXAGE DOWNLOAD POWERSHARE IMAGES TO [facility] Imaging Routine Neck mass Expected: 10/18/2024, Expires: 10/18/2025 [facility] Work Phone: Comment on above: Expected: 10/18/2024, Expires: Start: 10-05-2024 Welcome to Medicare Visit (G0402) Welcome to Medicare Visit (G0402) [facility] Start: 03-07-2024 Welcome to Medicare Visit (G0402) Welcome to Medicare Visit (G0402) [facility] Start: 11-06-2023 COVID-19 Vaccine ( season) COVID-19 Vaccine ( season) [facility] Start: 11-06-2023 COVID-19 Vaccine ( season) COVID-19 Vaccine ( season) [facility] Start: 2017 Screening for osteoporosis Bone Densitometry [facility] Start: 2012 Hepatitis B (HBV) Vaccine (optional start 60+ years) Hepatitis B (HBV) Vaccine (optional start 60+ years) [facility] Start: 2002 Pneumococcal vaccination Pneumococcal Vaccine(s) (50+ yrs) (1 of 1 - PCV) [facility] Start: 2002 Shingles (RZV) Vaccine (1 of 2) Shingles (RZV) Vaccine (1 of 2) [facility] Start: 1997 Lipid panel Cholesterol [facility] Start: 1997 Screening for malignant neoplasm of colon [facility] Start: 1992 Screening for malignant neoplasm of breast [facility] Start: 1971 Hepatitis A (HAV) Vaccine (optional start 19+ years) Hepatitis A (HAV) Vaccine (optional start 19+ years) [facility] Start: 1970 Hepatitis C screening Hepatitis C Antibody [facility] Start: 1970 Tdap Booster [facility] Start: 1952 Screening for malignant neoplasm of colon Colonoscopy [facility] Cytology examination - general CYTOLOGY,FINE NEEDLE ASPIRATIONS Anatomic Pathology Routine Parotid mass Substernal thyroid goiter History of lobectomy of thyroid Ordered: 11/09/2024 [facility] Work Phone: Comment on above: Ordered: 11/09/2024 LOBECTOMY, THYROID LOBECTOMY, TH YROID Routine scheduled Substernal thyroid goiter History of lobectomy of thyroid Parotid mass Warthin's tumor [facility] Immunizations Immunization Date Immunization Notes Care Provider Roopa betancourt 03-31-2024 zoster vaccine recombinant [facility] 12-22-2023 zoster vaccine recombinant [facility] 01-11-2023 Pneumococcal conjuga te 20 valent (PCV20), polysaccharide [id number] conjugate, adjuvant, PF (VLT=527) [facility] 10-05-2019 pneumococcal polysac charide vaccine, 23 valent [facility] 10-05-2019 tetanus toxoid, redu arlene diphtheria toxoid, and acellular pertussis vaccine, adsorbed [facility] 02-09-2018 pneumococcal conjuga te vaccine, 13 valent [facility] 10-16-2016 zoster vaccine, live Yaya toledo MD Work Phone: [facility] Payers Date Payer Category Payer Medicare [id number] 2024 Self-pay [id number] 2020 Medicare [id number] 1950 Unknown [id number] 2.16.8 [id number] 1952 Unknown [id number] 2.. [id number] 1952 Unknown [id number] 2.. [id number] 1952 Unknown [id number] 2.. 840.1.371948.3.579.2.732 1952 Unknown [id number] 2.16. 840.1.467158.3.579.2.732 1952 Unknown [id number] 2.16. 840.1.096124.3.579.2.732 1952 Unknown [id number] 2.16. 840.1.456949.3.579.2.732 1952 Unknown [id number] 2.16. 840.1.127155.3.579.2.732 1952 Unknown [id number] 2.16. 840.1.097250.3.579.2.732 1952 Unknown [id number] 2.16. 840.1.075588.3.579.2.732 Unknown [id number] Unknown [id number] 2.16.8 40.1.744230.3.579.2.462 Unknown [id number] 2.16.8 40.1.540255.3.579.2.462 Unknown [id number] 2.16.8 40.1.324705.3.579.2.462 Unknown [id number] 2.16.8 40.1.343935.3.579.2.462 Unknown [id number] 2.16.8 40.1.034071.3.579.2.462 Unknown [id number] 2.16.8 40.1.296231.3.579.2.462 Unknown [id number] 2.16.8 40.1.372441.3.579.2.462 Unknown [id number] 2.16.8 40.1.518519.3.579.2.462 Unknown [id number] 2.16.8 40.1.172601.3.579.2.462 Unknown [id number] 2.16.8 40.1.714977.3.579.2.462 Unknown [id number] 2.16.8 40.1.334862.3.579.2.462 Unknown [id number] 2.16.8 40.1.985462.3.579.2.462 Unknown [id number] 2.16.8 40.1.456704.3.579.2.462 Unknown [id number] 2.16.8 40.1.206409.3.579.2.462 Social History Date Type Detail Facility Start: 02-12-2019 End: 02-19-2020 Tobacco smoking status NHIS Unknown if ever smoked [facility] Start: 02-01-2019 Non-smoker [facility] Start: 1950 Sex Assigned At Female [facility] Start: 03-27-2018 Tobacco smoking status Heavy t obacco smoker (finding) [facility] Start: 02-19-2020 Tobacco smoking stat us NHIS Ex-smoker (finding) [facility] Start: 05-25-2024 End: 10-18-2024 Sex Female (finding) [facility] Start: 1950 Sex assigned at [facility] Start: 11-09-2024 Gender identity Not on file [facility] Start: 11-09-2024 End: 01-03-2025 Tobacco smoking status NHIS Smokes tobacco daily [facility] History of tobacco use [facility]igarette Smoker [facility] Start: 11-09-2024 End: 01-03-2025 Tobacco use and exposure Smokeless tobacco non-user [facility] Start: 11-09-2024 History of Social function [facility] Start: 01-03-2025 Alcoholic beverage intake Ex-drinker (finding) [facility] Start: 01-03-2025 Details of drug misu se behavior Has never misused drugs (situation) [facility] Start: 01-03-2025 Tobacco Comment 9-12 cig per day [facility] Start: 01-03-2025 History of sexual behavior Sexually active [facility] Medical Equipment Procedure Code Equipment Code Equipment Origin al Text Equipment Identifier Dates Endarterectomy, carotid PATCH,VASC .8CM X 8CM FDA Start: 01-31-2019 Endarterectomy, carotid SUTURE,LIGA CLIP MED [id number] FDA Start: 01-31-2019 Endarterectomy, carotid SUTURE,LIGA CLIP MED [id number] FDA Start: 01-31-2019 Endarterectomy, carotid SUTURE,LIGA CLIP SM LT-100 FDA Start: 01-31-2019 Endarterectomy, carotid SUTURE,LIGA CLIP SM LT-100 FDA Start: 01-31-2019 Endarterectomy, carotid SUTURE,LIGA CLIP SM LT-100 FDA Start: 01-31-2019 Endarterectomy, carotid PATCH,VASC .8CM X 8CM FDA Start: 01-31-2019 Endarterectomy, carotid SUTURE,LIGA CLIP MED [id number] FDA Start: 01-31-2019 Endarterectomy, carotid SUTURE,LIGA CLIP MED [id number] FDA Start: 01-31-2019 Endarterectomy, carotid SUTURE,LIGA CLIP SM LT-100 FDA Start: 01-31-2019 Endarterectomy, carotid SUTURE,LIGA CLIP SM LT-100 FDA Start: 01-31-2019 Endarterectomy, carotid SUTURE,LIGA CLIP SM LT-100 FDA Start: 01-31-2019 Endarterectomy, carotid PATCH,VASC .8CM X 8CM FDA Start: 01-31-2019 Endarterectomy, carotid SUTURE,LIGA CLIP MED [id number] FDA Start: 01-31-2019 Endarterectomy, carotid SUTURE,LIGA CLIP MED [id number] FDA Start: 01-31-2019 Endarterectomy, carotid SUTURE,LIGA CLIP SM LT-100 FDA Start: 01-31-2019 Endarterectomy, carotid SUTURE,LIGA CLIP SM LT-100 FDA Start: 01-31-2019 Endarterectomy, carotid SUTURE,LIGA CLIP SM LT-100 FDA Start: 01-31-2019 Endarterectomy, carotid PATCH,VASC .8CM X 8CM FDA Start: 01-31-2019 Endarterectomy, carotid SUTURE,LIGA CLIP MED [id number] FDA Start: 01-31-2019 Endarterectomy, carotid SUTURE,LIGA CLIP MED [id number] FDA Start: 01-31-2019 Endarterectomy, carotid SUTURE,LIGA CLIP SM LT-100 FDA Start: 01-31-2019 Endarterectomy, carotid SUTURE,LIGA CLIP SM LT-100 FDA Start: 01-31-2019 Endarterectomy, carotid SUTURE,LIGA CLIP SM LT-100 FDA Start: 01-31-2019 Endarterectomy, carotid PATCH,VASC .8CM X 8CM FDA Start: 01-31-2019 Endarterectomy, carotid SUTURE,LIGA CLIP MED [id number] FDA Start: 01-31-2019 Endarterectomy, carotid SUTURE,LIGA CLIP MED [id number] FDA Start: 01-31-2019 Endarterectomy, carotid SUTURE,LIGA CLIP SM LT-100 FDA Start: 01-31-2019 Endarterectomy, carotid SUTURE,LIGA CLIP SM LT-100 FDA Start: 01-31-2019 Endarterectomy, carotid SUTURE,LIGA CLIP SM LT-100 FDA Start: 01-31-2019 Endarterectomy, carotid PATCH,VASC .8CM X 8CM FDA Start: 01-31-2019 Endarterectomy, carotid SUTURE,LIGA CLIP MED [id number] FDA Start: 01-31-2019 Endarterectomy, carotid SUTURE,LIGA CLIP MED [id number] FDA Start: 01-31-2019 Endarterectomy, carotid SUTURE,LIGA CLIP SM LT-100 FDA Start: 01-31-2019 Endarterectomy, carotid SUTURE,LIGA CLIP SM LT-100 FDA Start: 01-31-2019 Endarterectomy, carotid SUTURE,LIGA CLIP SM LT-100 FDA Start: 01-31-2019 Endarterectomy, carotid PATCH,VASC .8CM X 8CM FDA Start: 01-31-2019 Endarterectomy, carotid SUTURE,LIGA CLIP MED LT200 FDA Start: 01-31-2019 Endarterectomy, carotid SUTURE,LIGA CLIP MED LT200 FDA Start: 01-31-2019 Endarterectomy, carotid SUTURE,LIGA CLIP SM LT-100 FDA Start: 01-31-2019 Endarterectomy, carotid SUTURE,LIGA CLIP SM LT-100 FDA Start: 01-31-2019 Endarterectomy, carotid SUTURE,LIGA CLIP SM LT-100 FDA Start: 01-31-2019 Endarterectomy, carotid PATCH,VASC .8CM X 8CM FDA Start: 01-31-2019 Endarterectomy, carotid SUTURE,LIGA CLIP MED LT200 FDA Start: 01-31-2019 Endarterectomy, carotid SUTURE,LIGA CLIP MED LT200 FDA Start: 01-31-2019 Endarterectomy, carotid SUTURE,LIGA CLIP SM LT-100 FDA Start: 01-31-2019 Endarterectomy, carotid SUTURE,LIGA CLIP SM LT-100 FDA Start: 01-31-2019 Endarterectomy, carotid SUTURE,LIGA CLIP SM LT-100 FDA Start: 01-31-2019 Endarterectomy, carotid PATCH,VASC .8CM X 8CM FDA Start: 01-31-2019 Endarterectomy, carotid SUTURE,LIGA CLIP MED LT200 FDA Start: 01-31-2019 Endarterectomy, carotid SUTURE,LIGA CLIP MED LT200 FDA Start: 01-31-2019 Endarterectomy, carotid SUTURE,LIGA CLIP SM LT-100 FDA Start: 01-31-2019 Endarterectomy, carotid SUTURE,LIGA CLIP SM LT-100 FDA Start: 01-31-2019 Endarterectomy, carotid SUTURE,LIGA CLIP SM LT-100 FDA Start: 01-31-2019 Endarterectomy, carotid PATCH,VASC .8CM X 8CM FDA Start: 01-31-2019 Endarterectomy, carotid SUTURE,LIGA CLIP MED LT200 FDA Start: 01-31-2019 Endarterectomy, carotid SUTURE,LIGA CLIP MED LT200 FDA Start: 01-31-2019 Endarterectomy, carotid SUTURE,LIGA CLIP SM LT-100 FDA Start: 01-31-2019 Endarterectomy, carotid SUTURE,LIGA CLIP SM LT-100 FDA Start: 01-31-2019 Endarterectomy, carotid SUTURE,LIGA CLIP SM LT-100 FDA Start: 01-31-2019 Endarterectomy, carotid PATCH,VASC .8CM X 8CM FDA Start: 01-31-2019 Endarterectomy, carotid SUTURE,LIGA CLIP MED LT200 FDA Start: 01-31-2019 Endarterectomy, carotid SUTURE,LIGA CLIP MED LT200 FDA Start: 01-31-2019 Endarterectomy, carotid SUTURE,LIGA CLIP SM LT-100 FDA Start: 01-31-2019 Endarterectomy, carotid SUTURE,LIGA CLIP SM LT-100 FDA Start: 01-31-2019 Endarterectomy, carotid SUTURE,LIGA CLIP SM LT-100 FDA Start: 01-31-2019 Endarterectomy, carotid PATCH,VASC .8CM X 8CM FDA Start: 01-31-2019 Endarterectomy, carotid SUTURE,LIGA CLIP MED LT200 FDA Start: 01-31-2019 Endarterectomy, carotid SUTURE,LIGA CLIP MED LT200 FDA Start: 01-31-2019 Endarterectomy, carotid SUTURE,LIGA CLIP SM LT-100 FDA Start: 01-31-2019 Endarterectomy, carotid SUTURE,LIGA CLIP SM LT-100 FDA Start: 01-31-2019 Endarterectomy, carotid SUTURE,LIGA CLIP SM LT-100 FDA Start: 01-31-2019 Endarterectomy, carotid PATCH,VASC .8CM X 8CM FDA Start: 01-31-2019 Endarterectomy, carotid SUTURE,LIGA CLIP MED LT200 FDA Start: 01-31-2019 Endarterectomy, carotid SUTURE,LIGA CLIP MED LT200 FDA Start: 01-31-2019 Endarterectomy, carotid SUTURE,LIGA CLIP SM LT-100 FDA Start: 01-31-2019 Endarterectomy, carotid SUTURE,LIGA CLIP SM LT-100 FDA Start: 01-31-2019 Endarterectomy, carotid SUTURE,LIGA CLIP SM LT-100 FDA Start: 01-31-2019 Endarterectomy, carotid PATCH,VASC .8CM X 8CM FDA Start: 01-31-2019 Endarterectomy, carotid SUTURE,LIGA CLIP MED LT200 FDA Start: 01-31-2019 Endarterectomy, carotid SUTURE,LIGA CLIP MED LT200 FDA Start: 01-31-2019 Endarterectomy, carotid SUTURE,LIGA CLIP SM LT-100 FDA Start: 01-31-2019 Endarterectomy, carotid SUTURE,LIGA CLIP SM LT-100 FDA Start: 01-31-2019 Endarterectomy, carotid SUTURE,LIGA CLIP SM LT-100 FDA Start: 01-31-2019 Endarterectomy, carotid PATCH,VASC .8CM X 8CM FDA Start: 01-31-2019 Endarterectomy, carotid SUTURE,LIGA CLIP MED LT200 FDA Start: 01-31-2019 Endarterectomy, carotid SUTURE,LIGA CLIP MED LT200 FDA Start: 01-31-2019 Endarterectomy, carotid SUTURE,LIGA CLIP SM LT-100 FDA Start: 01-31-2019 Endarterectomy, carotid SUTURE,LIGA CLIP SM LT-100 FDA Start: 01-31-2019 Endarterectomy, carotid SUTURE,LIGA CLIP SM LT-100 FDA Start: 01-31-2019 Endarterectomy, carotid PATCH,VASC .8CM X 8CM FDA Start: 01-31-2019 Endarterectomy, carotid SUTURE,LIGA CLIP MED LT200 FDA Start: 01-31-2019 Endarterectomy, carotid SUTURE,LIGA CLIP MED LT200 FDA Start: 01-31-2019 Endarterectomy, carotid SUTURE,LIGA CLIP SM LT-100 FDA Start: 01-31-2019 Endarterectomy, carotid SUTURE,LIGA CLIP SM LT-100 FDA Start: 01-31-2019 Endarterectomy, carotid SUTURE,LIGA CLIP SM LT-100 FDA Start: 01-31-2019 Endarterectomy, carotid PATCH,VASC .8CM X 8CM FDA Start: 01-31-2019 Endarterectomy, carotid SUTURE,LIGA CLIP MED LT200 FDA Start: 01-31-2019 Endarterectomy, carotid SUTURE,LIGA CLIP MED LT200 FDA Start: 01-31-2019 Endarterectomy, carotid SUTURE,LIGA CLIP SM LT-100 FDA Start: 01-31-2019 Endarterectomy, carotid SUTURE,LIGA CLIP SM LT-100 FDA Start: 01-31-2019 Endarterectomy, carotid SUTURE,LIGA CLIP SM LT-100 FDA Start: 01-31-2019 Endarterectomy, carotid PATCH,VASC .8CM X 8CM FDA Start: 01-31-2019 Endarterectomy, carotid SUTURE,LIGA CLIP MED LT200 FDA Start: 01-31-2019 Endarterectomy, carotid SUTURE,LIGA CLIP MED LT200 FDA Start: 01-31-2019 Endarterectomy, carotid SUTURE,LIGA CLIP SM LT-100 FDA Start: 01-31-2019 Endarterectomy, carotid SUTURE,LIGA CLIP SM LT-100 FDA Start: 01-31-2019 Endarterectomy, carotid SUTURE,LIGA CLIP SM LT-100 FDA Start: 01-31-2019 Endarterectomy, carotid PATCH,VASC .8CM X 8CM FDA Start: 01-31-2019 Endarterectomy, carotid SUTURE,LIGA CLIP MED LT200 FDA Start: 01-31-2019 Endarterectomy, carotid SUTURE,LIGA CLIP MED LT200 FDA Start: 01-31-2019 Endarterectomy, carotid SUTURE,LIGA CLIP SM LT-100 FDA Start: 01-31-2019 Endarterectomy, carotid SUTURE,LIGA CLIP SM LT-100 FDA Start: 01-31-2019 Endarterectomy, carotid SUTURE,LIGA CLIP SM LT-100 FDA Start: 01-31-2019 Functional Status Date Assessment Result Facility 10-25-2022 Functional Status Repositions self [facility] 10-25-2022 Functional Status [facility] Mental Status Date Assessment Result Facility 10-25-2022 Mental Status Orientation Asse ssment Oriented x 4 [facility] Clinical Notes 10-25-2022 to 01-03-2025 Patient InstructionsPAT Call History - Rosalie Kingston RN - 01/03/2025 9:52 AM EDTPAT Call History - Rosalie Kingston RN - 01/03/2025 9:52 AM Yaya Clifford MD - 11/21/2024 9:52 AM EDT Note Date & Type Note Facility 01-03-2025 Instructions Rosalie Kingston RN - 01/03/2025 10:00 AM EDT On the morning of your surgery, please take only the following medications, with a small sip of water:LEVOTHYROXINE May take over the counter Acetaminophen (Tylenol) as needed for pain. Do not take any herbal medications 7 days prior to surgery (Fish Oil, Ginseng, Ginko Biloba) Pt can have WATER only ( no additives) up to 2 hours prior to arrival time The patient is to have nothing to eat or any other liquids at least 8 hours prior to surgery arrival time Need to have regional truck driver responsible adult with you on discharge SARTHAK, will bring their CPAP with them on the morning of surgery. Post-op Nausea and Vomiting: A risk of anesthesia is nausea and/or vomiting (PONV). Certain patients are at higher risk than others. Talk to your anesthesiologist about the plan to minimize this risk. In general, it is best to start with only ice chips or small sips of water, then progress to clear, non-alcoholic fluids. You do not have to eat if you do not feel like it; fluids are the most important in the first 24 hours after surgery. If you start to eat, try bananas, applesauce, plain toast, saltine crackers, or broth; avoid fried or fatty foods. Make sure to eat something about 15 minutes before taking any pain medications. Seek medical attention for any prolonged PONV and signs of dehydration. Please use this CHECKLIST to prepare for your surgery/procedure: ? Assume that any lab or testing done during your Pre-admission testing appointment is within normal limits unless otherwise contacted. ? Expect a call from [employer] one business day prior to surgery for surgery arrival time and location. ? Please plan to restart your medications the day after surgery unless otherwise explicitly instructed. ? Please contact your surgeon s/proceduralist s office for any surgical or recovery types of questions. ? CANCELLING YOUR SURGERY/PROCEDURE: If you get a cold, are not feeling well, or become , please call your surgeon s office as soon as possible. ? Refer to your Preparing for Your Surgery/Procedure booklet or [email or web address] if you have questions. Contact the Pre-Admission Testing department at [phone] or your surgeon's office with any questions that are not answered. ? Eating and drinking before surgery: Adult Patients: No food or drink for 8 hours prior to surgery check in time. Plain water is allowed up to 2 hours prior to your surgery arrival time. A sip of water with approved morning medications is acceptable. Enhanced Recovery After Surgery (ERAS), bariatric, and endoscopy/colonoscopy patients should follow their surgeon s/proceduralist s instructions for clear fluids prior to surgery. Pediatric Patients (under the age of 1212 years old): Patients are not to have solid food for 8 hours prior to coming for surgery. Patients can have infant formula or non-human milk (skim, 2%, whole, nut-milks, soy, etc.) 6 hours prior to coming for surgery. Patients can have breast milk up to 4 hours prior to coming for surgery. Patients can have clear liquids (water, flavored moffett, Pedialyte) up to 2 hours prior to coming for surgery. Post-op Nausea and Vomiting: A risk of anesthesia is nausea and/or vomiting (PONV). Certain patients are at higher risk than others. Talk to your anesthesiologist about the plan to minimize this risk. In general, it is best to start with only ice chips or small sips of water, then progress to clear, non-alcoholic fluids. You do not have to eat if you do not feel like it; fluids are the most important in the first 24 hours after surgery. If you start to eat, try bananas, applesauce, plain toast, saltine crackers, or broth; avoid fried or fatty foods. Make sure to eat something about 15 minutes before taking any pain medications. Seek medical attention for any prolonged PONV and signs of dehydration. Patients whose assigned sex at was female, and are starting puberty or beyond, will be urine tested for per hospital policy. ON THE DAY OF SURGERY: ? DO bring your ID, insurance card, medication list, and a small amount of nagy for filling prescriptions and any medical co-pays. ? Do NOT wear any jewelry, (including rings, earrings, or mouth, tongue, or body piercings). Metal jewelry could cause constriction, amputation, or keith. Loose or bulky things in your mouth can be unsafe and result in breathing problems. ? DO bring glasses if you wear contacts and other assistance items such as oxygen, inhaler, cane, walker, etc. ? Do NOT bring valuables, credit cards, or large amounts of nagy. ? Do NOT wear lotion or strong-smelling fragrance (perfume, cologne, cream or lotion). ? ARRANGE FOR A RIDE: If you are scheduled to go home the same day of surgery, a responsible adult MUST drive or accompany you home in a car, cab, shared ride service, or [employer]-van. You will not be allowed to drive yourself home or travel home alone. Your surgery may be cancelled if you do not have a ride. A responsible adult must stay with you after surgery. Please call [facility] [employer] if you need transportation assistance or have concerns about going home [phone]. ? PEDIATRIC or ADOLESCENTS: Parents or a legal guardian must remain at the hospital during surgery. You will need to make childcare arrangements for your other small children to remain at home or bring an adult with you who can supervise them in the waiting area while you are with your child. Please bring legal guardianship papers with you if applicable. Patients who whose assigned sex at was female, and are starting puberty, will be tested for per hospital policy. ? SLEEP APNEA PATIENTS: Bring your sleep apnea machine and mask. ? PLEASE BE ON TIME. A late arrival may result in the cancellation/ delay of your surgery. Thank you for choosing [facility]; it is our pleasure to care for you Surgery Information Booklet documented in this encounter [facility] 01-03-2025 Evaluation note Telephone History Tanisha Hanson, [id number] 01/03/2025 74 year old 158 lbs 5' 3.5 Patient was identified by name and date of . CONSIDER EKG ON DOS Rosalie Kingston RN Date of Surgery: 01/16/2025 Surgeon: JAMIE Type of Surgery: THYROID LOBECTOMY HISTORY OF PRESENT ILLNESS: PAT Telephone History for scheduled surgery with DR. JAMIE GUILL[facility] [place] [facility] Row Name 01/03/25 0948 History of sleep apnea? No Snoring No Tired/Fatigued No Observed Apnea No Pressure: Hypertension No BMI greater than 35 0 Age greater than 50 1 Neck circ greater than 40cm (15.75) Unable to Assess Gender male? 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 CBC (last 3 years, up to 8 values) No lab values to display. BMP (last 3 years, up to 8 values) No lab values to display. Basic Metabolic Panel No lab values to display. PT/PTT/INR (last 3 years, up to 8 values) No lab values to display. Arterial Blood Gases None No result for BNP LFT's (last 3 years, up to 8 values) No lab values to display. Urinalysis No lab values to display. Lab Results Component Value Date TSH 0.754 11/09/2024 No results found for: HBA1C TESTS REVIEWED: CXRay: Chest radiography date: Not Found EKG: Last ECG Date: Not Found ECHO: Echocardiogram date: Not Found No results found for this basename: LVEF Stress test date: Last Cardiac Stress Test: Not Found CURRENT MEDICATION LIST: Current Outpatient Medications Medication Sig Dispense Refill Calcium 200 MG TABS Take by mouth. ciprofloxacin (CIPRO) 500 MG tablet Take 500 mg by mouth 2 times daily. levothyroxine (SYNTHROID) 75 MCG tablet rosuvastatin (CRESTOR) 10 MG tablet No current facility-administered medications for this visit. CURRENT MEDICATIONS: Aspirin: Yes NSAIDS: Yes Other Antiplatelet Medication: No Anticoagulants: No Steroids: No SGLT-2/GLP-1: No PATIENT MEDICATION INSTRUCTIONS: On the morning of your surgery, please take only the following medications, with a small sip of water: levothyroxine (SYNTHROID) 75 MCG tablet May take over the counter Acetaminophen (Tylenol) as needed for pain. Do not take any herbal medications 7 days prior to surgery (Fish Oil, Ginseng, Ginko Biloba) DAY OF SURGERY NOTES: Pt can have WATER only ( no additives) up to 2 hours prior to arrival time The patient is to have nothing to eat or any other liquids at least 8 hours prior to surgery arrival time Need to have regional truck driver responsible adult with you on discharge SARTHAK, will bring their CPAP with them on the morning of surgery. Post-op Nausea and Vomiting: A risk of anesthesia is nausea and/or vomiting (PONV). Certain patients are at higher risk than others. Talk to your anesthesiologist about the plan to minimize this risk. In general, it is best to start with only ice chips or small sips of water, then progress to clear, non-alcoholic fluids. You do not have to eat if you do not feel like it; fluids are the most important in the first 24 hours after surgery. If you start to eat, try bananas, applesauce, plain toast, saltine crackers, or broth; avoid fried or fatty foods. Make sure to eat something about 15 minutes before taking any pain medications. Seek medical attention for any prolonged PONV and signs of dehydration. 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 [3] Past Surgical History: Procedure Laterality Date SURGERY, ANEURYSM, VASCULAR MALFORMATION; OCCLUSION, CAROTID ARTERY TONSILLECTOMY [4] Social History Socioeconomic History Marital status: Unknown Tobacco Use Smoking status: Every Day Types: Cigarettes Smokeless tobacco: Never Tobacco comments: 9-12 cig per day Substance and Sexual Activity Alcohol use: Not Currently Drug use: Never Sexual activity: Yes Partners: Male [facility] 01-03-2025 Miscellaneous Notes Telephone History Tanisha Hanson, [id number] 01/03/2025 74 year old 158 lbs 5' 3.5 Patient was identified by name and date of . CONSIDER EKG ON DOS Rosalie Kingston RN Date of Surgery: 01/16/2025 Surgeon: JAMIE Type of Surgery: THYROID LOBECTOMY HISTORY OF PRESENT ILLNESS: PAT Telephone History for scheduled surgery with DR[facility] Row Name 01/03/25 0948 History of sleep apnea? No Snoring No Tired/Fatigued No Observed Apnea No Pressure: Hypertension No BMI greater than 35 0 Age greater than 50 1 Neck circ greater than 40cm (15.75) Unable to Assess Gender male? 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 CBC (last 3 years, up to 8 values) No lab values to display. BMP (last 3 years, up to 8 values) No lab values to display. Basic Metabolic Panel No lab values to display. PT/PTT/INR (last 3 years, up to 8 values) No lab values to display. Arterial Blood Gases None No result for BNP LFT's (last 3 years, up to 8 values) No lab values to display. Urinalysis No lab values to display. Lab Results Component Value Date TSH 0.754 11/09/2024 No results found for: HBA1C TESTS REVIEWED: CXRay: Chest radiography date: Not Found EKG: Last ECG Date: Not Found ECHO: Echocardiogram date: Not Found No results found for this basename: LVEF Stress test date: Last Cardiac Stress Test: Not Found CURRENT MEDICATION LIST: Current Outpatient Medications Medication Sig Dispense Refill Calcium 200 MG TABS Take by mouth. ciprofloxacin (CIPRO) 500 MG tablet Take 500 mg by mouth 2 times daily. levothyroxine (SYNTHROID) 75 MCG tablet rosuvastatin (CRESTOR) 10 MG tablet No current facility-administered medications for this visit. CURRENT MEDICATIONS: Aspirin: Yes NSAIDS: Yes Other Antiplatelet Medication: No Anticoagulants: No Steroids: No SGLT-2/GLP-1: No PATIENT MEDICATION INSTRUCTIONS: On the morning of your surgery, please take only the following medications, with a small sip of water: levothyroxine (SYNTHROID) 75 MCG tablet May take over the counter Acetaminophen (Tylenol) as needed for pain. Do not take any herbal medications 7 days prior to surgery (Fish Oil, Ginseng, Ginko Biloba) DAY OF SURGERY NOTES: Pt can have WATER only ( no additives) up to 2 hours prior to arrival time The patient is to have nothing to eat or any other liquids at least 8 hours prior to surgery arrival time Need to have regional truck driver responsible adult with you on discharge SARTHAK, will bring their CPAP with them on the morning of surgery. Post-op Nausea and Vomiting: A risk of anesthesia is nausea and/or vomiting (PONV). Certain patients are at higher risk than others. Talk to your anesthesiologist about the plan to minimize this risk. In general, it is best to start with only ice chips or small sips of water, then progress to clear, non-alcoholic fluids. You do not have to eat if you do not feel like it; fluids are the most important in the first 24 hours after surgery. If you start to eat, try bananas, applesauce, plain toast, saltine crackers, or broth; avoid fried or fatty foods. Make sure to eat something about 15 minutes before taking any pain medications. Seek medical attention for any prolonged PONV and signs of dehydration. 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 [3] Past Surgical History: Procedure Laterality Date SURGERY, ANEURYSM, VASCULAR MALFORMATION; OCCLUSION, CAROTID ARTERY TONSILLECTOMY [4] Social History Socioeconomic History Marital status: Unknown Tobacco Use Smoking status: Every Day Types: Cigarettes Smokeless tobacco: Never Tobacco comments: 9-12 cig per day Substance and Sexual Activity Alcohol use: Not Currently Drug use: Never Sexual activity: Yes Partners: Male documented in this encounter [facility] 12-04-2024 Radiology Diagnostic study note [facility] Services [address] [place] [id number] Wrist min 3 Views MR#: [id number] Acct: [id number] Name: TANISHA HANSON Rep #: [id number] : 1950 F [id number] From: Kei Lugo MD PCP: Dr. 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 RAD/Wrist min 3 Views IMPRESSION: [id number] degenerative changes are seen at the scaphoid trapezial trapezoidal joint. Mild degenerative changes noted at the 1st carpal-metacarpal joint. Minimal degenerative changes seen elsewhere. Satisfactory carpal alignment is seen throughout. No significant degree of ulnar variance is noted. No acute fracture or dislocation is seen. If clinical concern persists, short-term follow-up imaging may be obtained to rule out a currently occult fracture. Reading Location: [id number] CC: Enmanuel Toribio; Dr. 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 Documentation: Mode: Telephone Patient Patient Work Phone: Patient Cell Preferred phone: [phone] Consent: I confirmed patient understanding of the risks and benefits of telehealth visits and obtained consent to proceed with the telehealth visit. Location of Patient: Home of patient Medical discussion: more than 10 minutes OTOLARYNGOLOGY - HEAD & NECK SURGERY CLINIC NOTE CHIEF COMPLAINT: Follow up s/p FNA Subjective History of Present Illness Interval History (11/21/24) Overall doing well since the NOEMI. Tolerated procedure without significant issues. Initial HPI (11/09/24) Tanisha Hanson is a 74 year old female who presents with a left thyroid mass and right parotid mass. She is accompanied by her brother, Sohail. She was referred by Dr. Gordo Whitfield from [facility] for evaluation of a left thyroid mass and right parotid mass. She has a long standing history of a left thyroid mass with a retroesophageal component and significant tracheal deviation. A recent CT scan on September 29, 2024, showed significant enlargement of the left thyroid lobe measuring 6.7 x 4.9 x 10.1 cm, with tracheal deviation noted on imaging. No difficulty swallowing, changes in her voice, or breathing difficulties. 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 The recent CT scan showed a right-sided parotid lesion that is slightly larger compared to a previous scan from January 18, 2019. The mass is approximately 2.2 x 1.6 cm and well-circumscribed. No biopsy has been performed on this mass. 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 She has no known history of thyroid cancer. She recalls that the right thyroid was removed, but there was no mention of the left side being enlarged at that time. She is a smoker, currently smoking about ten cigarettes a day, having reduced from less than a pack a day. She has a history of left carotid artery surgery and undergoes regular scans every two years to monitor her carotid arteries. Her current medications include calcium and vitamin D3 supplements, as well as a statin for cholesterol management. She undergoes blood work every four months. She reports sinus issues but no other respiratory symptoms. All other systems are negative except for that listed in the HPI. Results RADIOLOGY CT neck with contrast: Right sided parotid lesion slightly larger compared to 01/18/2019. Significant enlargement of the left thyroid lobe with tracheal deviation, measuring 6.7 x 4.9 x 10.1 cm. Well-circumscribed 2.2 x 1.6 cm right tail carotid mass. (09/29/2024) Pathology (11/09/24) Final Diagnosis FNA Parotid Gland, Right tail of parotid mass: SPECIMEN ADEQUACY: Satisfactory for evaluation. GENERAL CATEGORIZATION: Benign neoplasm. INTERPRETATION: Findings consistent with Warthin tumor. Note: Specimen contains groups of bland oncocytic cells and a mixed population of lymphocytes in a background of cyst contents and debris. Primary screener: ABDOUL Ladd(ASC) . Final Diagnosis FNA Thyroid Nodule, Left lobe: SPECIMEN ADEQUACY: Satisfactory for evaluation GENERAL CATEGORIZATION: Benign INTERPRETATION: Low cellularity specimen consisting of groups of Hurthle (oncocytic) cells, few clusters of lymphocytes, some colloid and blood elements. 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 Primary screener: ABDOUL Ladd(ASCP) . 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 No history of thyroid cancer Enlarged left thyroid mass with retroesophageal extension and tracheal deviation The left thyroid mass is significantly enlarged, measuring 6.7 x 4.9 x 10.1 cm, with retroesophageal extension and tracheal deviation. It is likely benign given the chronic nature. Currently asymptomatic However, due to its size and location, there is a risk of future complications, including potential airway obstruction and dysphagia. Now s/p FNA benign nodule -we reviewed the pathology in detail I reviewed that in most cases this is likely a benign process, however the possibility of malignancy would be difficult to rule out definitively short of surgical measures. I reviewed options at this point, which could involve either surgery, which in my opinion would involve complete left thyroidectomy versus an observational approach with medical management. The latter option would involve further evaluation and serial follow-up. Surgery, I think, is certainly a reasonable option, both from a diagnostic as well as potentially therapeutic perspective given the extensive nature and size of the left thyroid lobe and concerns for compressive symptoms Risks and complications, possible outcomes relating to surgery were reviewed, including but not limited to bleeding, infection, risk of recurrence in the future, possible need for further treatment in the future including additional surgery, potential for injury to the recurrent or superior laryngeal nerve resulting in voice change such as hoarseness or change in pitch, rare complication of bilateral vocal cord paralysis, which could result in airway problems and need for tracheostomy, risk of postoperative hypoparathyroidism, which could be temporary or permanent, risk of scar formation/cosmetic deformity, the likely need for permanent postoperative thyroid hormone replacement therapy as well as general risks of the procedure including heart attack, stroke and . I discussed that surgery does not guarantee outcome neither from an oncologic nor functional nor cosmetic perspective, and Ms. Hanson indicated understanding of that. I did also discuss with her the anticipated location and the extent of surgical scar that would result in that the size of the surgical scar depends on, in large part, due to the size of her gland and thus vary from patient to patient, and she would need to accept that. -currently on 75 mcg Synthroid; will need to increase after completion thyroiedectomy -patient verbalized understanding in would like to proceed with thyroid surgery -case request placed, pt would prefer after January 14 Chronic enlarging right parotid gland mass The right parotid gland mass has shown slight enlargement over the past five years. Differential diagnosis benign versus malignant parotid tumor. Would favor benign etiology based on imaging and longstanding history Now s/p FNA c/w Warthin's tumor -counseled patient on pathology results, I would favor addressing the thyroid mass 1st and then we could address the parotid lesion at a later date -could consider close observation with serial imaging vs surgery Thank you so much for allowing me to participate in the care of this patient. Please feel free to contact me if you have any questions or concerns. Yaya Padilla MD Grades 7 8 Tutor, Head & Neck Oncology and Microvascular Reconstructive Surgery Department of Otolaryngology - Head and Neck Surgery [facility], [facility] Pager: [phone] documented in this encounter [facility] 11-12-2024 Note Reached patient, who is notified that referral has been faxed to [facility] (Dr Garcia) in [place]. She acknowledges understanding. Piero Pruitt RN [facility] 11-09-2024 Note Informed consent, af ter discussion of the risks, benefits, and alternatives to the procedure, was obtained and the consent form was signed by patient . The patient was identified using two patient identifiers: Yes. Relevant documentation along with required diagnostics are available in Epic: Yes The correct procedure was verified: Yes Procedural site identified: Yes Presence of required equipment, supplies, medications, and/or solutions verified prior to starting procedure: Yes Patient allergies identified or reviewed: Yes Site marking done: Not indicated Fire risk assessment complete: Yes A timeout to verify the correct patient, procedure, and site was performed immediately prior to the procedure Needle biopsy of parotid and thyroid glands. Patients tolerated well. [facility] 11-09-2024 History of Present illness Narrative Informed consent, after discussion of the risks, benefits, and alternatives to the procedure, was obtained and the consent form was signed by patient . The patient was identified using two patient identifiers: Yes. Relevant documentation along with required diagnostics are available in Epic: Yes The correct procedure was verified: Yes Procedural site identified: Yes Presence of required equipment, supplies, medications, and/or solutions verified prior to starting procedure: Yes Patient allergies identified or reviewed: Yes Site marking done: Not indicated Fire risk assessment complete: Yes A timeout to verify the correct patient, procedure, and site was performed immediately prior to the procedure Needle biopsy of parotid and thyroid glands. Patients tolerated well. Images from the original note were not included. OTOLARYNGOLOGY - HEAD & NECK SURGERY CLINIC NOTE CHIEF COMPLAINT: Chief Complaint Patient presents with New patient, to establish relationship Lump on right side of neck Subjective The patient verbally consented to recording. Ambient listening technology generated portions of this note. History of Present Illness Tanisha Hanson is a 74 year old female who presents with a left thyroid mass and right parotid mass. She is accompanied by her brother, Sohail. She was referred by Dr. Gordo Whitfield from [facility] for evaluation of a left thyroid mass and right parotid mass. She has a long standing history of a left thyroid mass with a retroesophageal component and significant tracheal deviation. A recent CT scan on September 29, 2024, showed significant enlargement of the left thyroid lobe measuring 6.7 x 4.9 x 10.1 cm, with tracheal deviation noted on imaging. No difficulty swallowing, changes in her voice, or breathing difficulties. 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 The recent CT scan showed a right-sided parotid lesion that is slightly larger compared to a previous scan from January 18, 2019. The mass is approximately 2.2 x 1.6 cm and well-circumscribed. No biopsy has been performed on this mass. 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 She has no known history of thyroid cancer. She recalls that the right thyroid was removed, but there was no mention of the left side being enlarged at that time. She is a smoker, currently smoking about ten cigarettes a day, having reduced from less than a pack a day. She has a history of left carotid artery surgery and undergoes regular scans every two years to monitor her carotid arteries. Her current medications include calcium and vitamin D3 supplements, as well as a statin for cholesterol management. She undergoes blood work every four months. She reports sinus issues but no other respiratory symptoms. All other systems are negative except for that listed in the HPI. PHYSICAL EXAM: Vital Signs: BP 175/60 (BP Location: left arm, BP position: sitting, Cuff Size: adult) Pulse 62 Temp 98.1 F (36.7 C) (Temporal) Wt 157 lb 9.6 oz (71.5 kg) SpO2 97% General: Well-developed, well-nourished. In no acute distress. Communication and Voice: Clear pitch and clarity Respiratory Respiratory effort: Equal inspiration and expiration without stridor Neuro: Appropriate mood and affect; Cranial nerves II-XII are intact Physical Exam HEENT: Oral cavity clear, no lesions or masses. Oropharynx unremarkable NECK: Large, firm, mobile thyroid mass overlying trachea, extending into left neck and superiorly towards submandibular gland. Skin is mobile, no overlying changes, non-tender. No palpable cervical lymphadenopathy. Prior left sided carotid endarterectomy scar, well healed on left neck. Prior anterior midline neck scar from right sided thyroidectomy, well healed. Firm, mobile lesion in right tail, approximately 2 by 2 cm, no overlying skin changes, non-tender palpation. SKIN: Small lesion on midline forehead, raised papule with ulceration. Procedure: Procedure: Flexible fiberoptic nasopharyngolaryngoscopy Indications: Need for detailed exam, hyperactive gag reflex, inadequate mirror visualization Surgeon: Yaya Padilla MD was present for the entirety of the procedure Procedure: After informed discussion of the risks, benefits, and alternatives, fiberoptic nasopharyngolaryngsocopy was recommended for the above indications, and the patient consented without further questions. Next, a flexible scope was easily advanced into the naris. Nasal cavities were unremarkable. Nasopharynx including Eustachian tubes & fossae of Rosenmuller was unremarkable. Oropharynx including base of tongue & vallecula was unremarkable. Hypopharynx & endolarynx including epiglottis & glottis were unremarkable. Airway was patent & vocal folds were mobile bilaterally with left vocal cord with subtle hypomobility with adduction and abduction. No lesions or masses appreciated. The scope was withdrawn atraumatically. The patient tolerated the procedure well without complications. Results RADIOLOGY CT neck with contrast: Right sided parotid lesion slightly larger compared to 01/18/2019. Significant enlargement of the left thyroid lobe with tracheal deviation, measuring 6.7 x 4.9 x 10.1 cm. Well-circumscribed 2.2 x 1.6 cm right tail carotid mass. (09/29/2024) Procedure Note: Procedural Note:: Fine Needle Aspiration with ultrasound Pre-procedure Dx: Right parotid mass Post-procedure Dx: Right parotid mass Informed consent obtained. Surgeon: Yaya Padilla MD Anesthesia: 1%Lidocaine with 1:100,000 epinephrine local injection 1 cc Indications: To obtain tissue sample for pathologic analysis of a suspicious mass. Procedure in Detail: Patient seated in chair. Using 1% lidocaine with epinephrine 1:100,000, the area around the lesion was injected. After an appropriate amount of time had passed, a 25-gauge needle was passed under ultrasound guidance into the suspected mass without complications x 3. The patient tolerated the procedure well. The specimen was placed onto slides and into cytolyte and sent for pathology immediately. Complications: None Specimens/Cultures: None Disposition: Ambulatory Procedure Note: Procedural Note:: Fine Needle Aspiration with ultrasound Pre-procedure Dx: Left thyroid mass Post-procedure Dx: Same Informed consent obtained. Surgeon: Yaya Padilla MD Anesthesia: 1%Lidocaine with 1:100,000 epinephrine local injection 1 cc Indications: To obtain tissue sample for pathologic analysis of a suspicious mass. Procedure in Detail: Patient seated in chair. Using 1% lidocaine with epinephrine 1:100,000, the area around the lesion was injected. After an appropriate amount of time had passed, a 25-gauge needle was passed under ultrasound guidance into the suspected mass without complications x 2. The patient tolerated the procedure well. The specimen was placed onto slides and into cytolyte and sent for pathology immediately. 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 No history of thyroid cancer Enlarged left thyroid mass with retroesophageal extension and tracheal deviation The left thyroid mass is significantly enlarged, measuring 6.7 x 4.9 x 10.1 cm, with retroesophageal extension and tracheal deviation. It is likely benign given the chronic nature. Currently asymptomatic However, due to its size and location, there is a risk of future complications, including potential airway obstruction and dysphagia. -in office ultrasound-guided biopsy performed today I reviewed that in most cases this is likely a benign process, however the possibility of malignancy would be difficult to rule out definitively short of surgical measures. I reviewed options at this point, which could involve either surgery, which in my opinion would involve complete left thyroidectomy versus an observational approach with medical management. The latter option would involve further evaluation and serial follow-up. Surgery, I think, is certainly a reasonable option, both from a diagnostic as well as potentially therapeutic perspective given the extensive nature Risks and complications, possible outcomes relating to surgery were reviewed, including but not limited to bleeding, infection, risk of recurrence in the future, possible need for further treatment in the future including additional surgery, potential for injury to the recurrent or superior laryngeal nerve resulting in voice change such as hoarseness or change in pitch, rare complication of bilateral vocal cord paralysis, which could result in airway problems and need for tracheostomy, risk of postoperative hypoparathyroidism, which could be temporary or permanent, risk of scar formation/cosmetic deformity, the likely need for permanent postoperative thyroid hormone replacement therapy as well as general risks of the procedure including heart attack, stroke and . I discussed that surgery does not guarantee outcome neither from an oncologic nor functional nor cosmetic perspective, and Ms. Hanson indicated understanding of that. I did also discuss with her the anticipated location and the extent of surgical scar that would result in that the size of the surgical scar depends on, in large part, due to the size of her gland and thus vary from patient to patient, and she would need to accept that. -patient verbalized understanding in would like to proceed with thyroid surgery after pathology results obtained -we will obtain TSH and free T4 Chronic enlarging right parotid gland mass The right parotid gland mass has shown slight enlargement over the past five years. Differential diagnosis benign versus malignant parotid tumor. Would favor benign etiology based on imaging and longstanding history - ultrasound-guided biopsy of the right parotid gland mass performed today to obtain definitive pathologic diagnosis - I discussed that most of these masses are tumors with about 80% being benign tumors and 20% being malignant. I reviewed the options with Ms. Hanson including surgery which would serve in a definitive diagnostic capacity as well as likely serve in a therapeutic role for the large majority of such tumors. The option of no treatment was also reviewed, but I explained the risks of no treatment including potential for progressive growth with increased risks including facial paralysis if treatment is elected at that time, as well as possibility of malignancy which could either exist currently or develop in the future and could then carry life-threatening risks if untreated. As such, I reviewed that surgery is the recommended treatment for her condition. Surgery, if elected would therefore involve parotidectomy. -we briefly discussed the risks, benefits and alternatives of parotidectomy including facial weakness/paralysis which could be temporary or permanent -counseled patient pending biopsy results, I would favor addressing the thyroid mass 1st and then we could address the parotid lesion at a later date Possible malignant forehead skin lesion A small raised papule with ulceration is present on the midline area of the forehead, raising suspicion for a possible malignant skin lesion. - Refer to a legislative analyst closer to home for evaluation of the forehead skin lesion. Thank you so much for allowing me to participate in the care of this patient. Please feel free to contact me if you have any questions or concerns. Yaya Padilla MD Grades 7 8 Tutor, Head & Neck Oncology and Microvascular Reconstructive Surgery Department of Otolaryngology - Head and Neck Surgery [facility], [facility] Pager: [phone] documented in this encounter [facility] 10-18-2024 Note Addended by: PIERO PETTIT on: 10/18/2024 03:40 PM Modules accepted: Orders [facility] 10-18-2024 Miscellaneous Notes Addended by: PIERO PRUITT on: 10/18/2024 03:40 PM Modules accepted: Orders Received [place] Referral. Patient scheduled at [facility] 11/09 (refused [facility] 10/26) wants [facility] only. Thank you. documented in this encounter [facility] 10-18-2024 Note Received [place] Ref erral. Patient scheduled at [facility] 11/09 (refused [facility] 10/26) wants [facility] only. Thank you. [facility] 10-18-2024 Telephone encounter Note Received [facility] Referral. Patient scheduled at [facility] 11/09 (refused [facility] 08/22) wants [facility] only. Thank you. [facility] 10-04-2024 Radiology Diagnostic study note [facility] Services [address] [place] [address] Thyroid MR#: [id number] Acct: [id number] Name: TANISHA HANSON Rep #: [id number] 5 : 1950 F 74 From: Aidan Dubon MD PCP: Dr. Jessica Ramesh MD Status: RE G CLI Study:Thyroid Date of Exam: 10/04/24 Exam# [id number] Ordering Dr: Jessica Ramesh MD PROCEDURE: THYROID 10/04/2024 REASON FOR EXAM: IRON DEFICIENCY GOITER Palpable goiter. TECHNIQUE: THYROID COMPARISON: CT scan dated September 28, 2024. FINDINGS: Right thyroid: Resected. Left thyroid lobe size: 10 cm x 3.7 cm x 4.5 cm. Heterogeneous echotexture. Isthmus: 0.4 cm Background parenchymal echotexture is heterogeneous No nodule is seen. Incidental note is made of a 2.1 cm 2.6 cm 1.7 cm heterogeneous enlargement of the right submandibular gland with increased vascularity. US/Thyroid IMPRESSION: Status post resection of the right lobe of the thyroid. Marked heterogeneous enlargement of the left lobe of the thyroid. Increased vascularity. There is a 2.1 cm 2.6 cm x 1.7 cm heterogeneous enlargement of the right submandibular gland and increased vascularity. RECOMMENDATION: Based on most suspicious nodule. Nodule size = largest diameter Only evaluate nodule if =>5 mm. Growth > 20% in 2 dimensions = worsening. Follow up to 4 nodules. Recommend biopsy for no more than 2 nodules. Reading Location: [id number] CC: Dr. 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 [facility] 09-29-2024 Radiology Diagnostic study note [facility] Imaging Services [address] [place] [id number] Soft Tissue Neck WITH Contrast MR#: [id number] Acct: [id number] Name: TANISHA HANSON Rep #: [id number] : 1950 F 74 From: Lauren Boyd MD PCP: Dr. Jessica Ramesh MD Status: RE G CLI Study:Soft Tissue Neck WITH Contrast Date of Exam: 09/28/24 Exam# [id number] Ordering Dr: Jessica Ramesh MD PROCEDURE: SOFT TISSUE NECK WITH CONTRAST 09/28/2024 REASON FOR EXAM: NECK MASS TECHNIQUE: SOFT TISSUE NECK WITH CONTRAST CONTRAST: Isovue 370 VOLUME: 75 mL One or more dose reduction techniques were used (e.g., Automated exposure control, adjustment of the mA and/or kV according to patient size, use of iterative reconstruction technique). 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 Enlargement of the left lobe of the thyroid gland deviating the trachea towards the right side and narrowing its transverse dimension at the cervicothoracic junction. Prior resection of the right lobe of the thyroid gland. No vocal fold asymmetry. Normal nasopharynx. Normal parotid glands on the left. 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 However, no adenopathy is seen. Normal submandibular glands. The left-sided thyroid enlargement extends superiorly to the level of the hyoid bone. Approximate AP dimension of the left thyroid is 6.7 cm AP x 4.9 cm transverse by 10.[address]/Soft Tissue Neck WITH Contrast IMPRESSION: 1. Right-sided parotid lesion. Recommend tissue correlation. Larger when compared to 01/18/2019. 2. Enlargement of the left lobe of the thyroid gland with measurements given above and tracheal deviation to the right Reading [facility] CC: Dr. 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 [facility] 07-11-2024 Discharge summary Note Date/Time July 11, 2024 10:05am [facility] Physical Therapy [facility] [address] [place] [address] [address] [place] [address] / REHABILITATION SERVICES DISCHARGE SUMMARY MR#: [id number] Acct: [id number] Name: TANISHA HANSON Rep #: [id number] : 1950 74 From: Lex Arizmendi. RUSH, OCS Referring Dr.: Dr. Jessica Ramesh MD Status: REG RCR Insurance: [employer] SELF PAY INSURANCE Patient Information Patient Information: TANISHA HANSON was seen in my office for initial evaluation on 05/29/24. The following Plan of Care was established for this patient: POC Established Initial Frequency: 2x /Week Initial Duration: 4 Weeks Anticipated Interventions Patient/Client Instruction: Educate patient on: Condition and Plan of Care For the Purpose of:: To decrease pain, To increase ROM, To improve muscle performance and motor function, To increase tolerance to activity/condition/position, To improve ability of physical actions for home/community/work/leisure, To improve health of tissue, To decrease soft tissue restriction, To increase flexibility/ROM and To improve tolerance to ADL's Therapeutic Exercise to Include: Strength training, Postural training, Flexibilty training and Dynamic Lumbar Stabilization For the Purpose of:: To decrease pain, To increase ROM, To improve muscle performance and motor function, To improve ability to perform ADL's, To increasetolerance to activity/condition/position, To improve ability of physical actionsfor home/community/work/leisure, To improve health of tissue, To decrease soft tissue restriction and To increase flexibility/ROM TENS: Yes IF ES: Yes Cryotherapy (ice pack, ice massage): Yes Thermo therapy (hot pack): Yes Ultrasound (thermal/non thermal): Yes For the Purpose of:: To decrease pain, To increase ROM, To improve health of tissue and To decrease soft tissue restriction Last Seen Last Seen: This patient was last seen in our office . Pertinent comments regarding their Physical therapy will appear below: Patient seen for PT for bone density with HEP thus is d/c At this point I will be discontinuing this patient from physical therapy. I would be happy to see this patient again in the future if found appropriate by the physician. Thank you! Trevon Monsivais, PT, Cert MDT, OCS Balance/Gait/Functional tests Balance/Special Test Scores Oswestry Low Back Score: 23 <Electronically signed by Cert. RUSH Mon PT, ENE> 07/11/24 1005 CC: Dr. Jessica Ramesh MD ~ JLEva Signed [facility] Work Phone: [phone] 530-436405-07-2025 Discharge summary [facility] Physical Therapy [facility] [facility] [place] [address] / REHABILITATION SERVICES DISCHARGE SUMMARY MR#: [id number] Acct: [id number] Name: TANISHA HANSON Rep #: [id number] : 1950 74 From: Cert. RUSH Arizmendi, ENE Referring Dr.: Dr. Jessica Ramesh MD Status: REG RCR Insurance: [employer] SELF PAY INSURANCE Patient Information Patient Information: TANISHA HANSON was seen in my office for initial evaluation on 05/29/24. The following Plan of Care was established for this patient: POC Established Initial Frequency: 2x /Week Initial Duration: 4 Weeks Anticipated Interventions Patient/Client Instruction: Educate patient on: Condition and Plan of Care For the Purpose of:: To decrease pain, To increase ROM, To improve muscle performance and motor function, To increase tolerance to activity/condition/position, To improve ability of physical actions for home/community/work/leisure, To improve health of tissue, To decrease soft tissue restriction, To increase flexibility/ROM and To improve tolerance to ADL's Therapeutic Exercise to Include: Strength training, Postural training, Flexibilty training and Dynamic Lumbar Stabilization For the Purpose of:: To decrease pain, To increase ROM, To improve muscle performance and motor function, To improve ability to perform ADL's, To increasetolerance to activity/condition/position, To improve ability of physical actionsfor home/community/work/leisure, To improve health of tissue, To d ecrease soft tissue restriction and To increase flexibility/ROM TENS: Yes IF ES: Yes Cryotherapy (ice pack, ice massage): Yes Thermo therapy (hot pack): Yes Ultrasound (thermal/non thermal): Yes For the Purpose of:: To decrease pain, To increase ROM, To improve health of tissue and To decreasesoft tissue restriction Last Seen Last Seen: This patient was last seen in our office . Pertinent comments regarding their Physical therapy willappear below: Patient seen for PT for bone density with HEP thus is d/c At this point I will be discontinuing this patient from physical therapy. I would be happy to see this patient again in the future if found appropriate by the physician. Thank you! Trevon Monsivais, PT, Cert MDT, OCS Balance/Gait/Functional tests Balance/Special Test Scores Oswestry Low Back Score: 23 07/11/24 1005 CC: Dr. Jessica Ramesh MD ~ BILL Signed [facility]03-18-2025 Radiology Diagnostic study note [facility] Imaging Services [address] [place], [place] [address] L/S Spine w Bend Min 6 Vw MR#: [id number] Acct: [id number] Name: TANISHA HANSON Rep #: [id number] : 1950 F 74 From: Linda Galindo MD PCP: Dr. Jessica Ramesh MD Status: RE G CLI Study:L/S Spine w Bend Min 6 Vw Date of Exam: 05/22/24 Exam# [id number] Ordering Dr: Jessica Ramesh MD EXAM: XR Lumbosacral Spine, 4 or 5 Views CLINICAL INDICATION: LOW BACK PAIN TECHNIQUE: Frontal, lateral and bilateral oblique views of the lumbar spine. COMPARISON: No relevant prior studies available. FINDINGS: VERTEBRAE: Multilevel endplate degenerative changes and facet arthropathy of L1- 2 as 1. No acute fracture. Normal alignment. SACRUM/COCCYX: See below. DISC SPACES: Moderate intervertebral disc disease of L5 S1. SOFT TISSUES: Unremarkable. VASCULATURE: Scattered calcified atherosclerotic disease of aorta. OTHER FINDINGS: No significant dynamic instability. RAD/L/S Spine w Bend Min 6 Vw IMPRESSION: Degenerative changes as above. Reading [facility] CC: Dr. 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 [facility]08-21-2023 Evaluation + Plan noteExtracted from: Title:Clinical Document Author:CY MICHAEL Bautista Date:10/25/22 [place] ADMISSION HISTORY AN D PHYSICIAL CHIEF COMPLAINT: HISTORY OF PRESENT ILLNESS: REVIEW OF SYSTEMS: ACTIVE PROBLEMS: (3) Hypercholesteremia (47537543) Hypothyroidism (20070484) Tobacco use (0429578204) MEDICATIONS: Active Inpt Meds: None Active PRN Meds: None One Time Meds: None Active IV Meds: Lactated Ringers Infusion 1,000 mL (LR 1,000 mL) Start: 10/25/22 7:36:00 EDT, Rate: 50 mL/hr, 10/25/22 7:36:00 EDT ALLERGIES: (2) PROzac Septra FAMILY HISTORY: SOCIAL HISTORY: PHYSICAL EXAM: VITALS: XtrvxkCxoaOVRxdqmIUEnI1TXM4KhpiBx(kg) 10/25 07:52----74--95RA10/25 70.0 24 Hr Tmax: No Data Available 36 Hr Tmax: No Data Available Vital Signs are the last 5 in the past 48 hours. Weights display the last 5 within 7 days. Initial Wt: 10/25 70.0 kg 154 lb Current Wt: 10/25 70.0 kg 154 lb GENERAL: HEENT: CARDIOVASCULAR: RESPIRATORY: ABDOMEN: EXREMETIES: NEUROLOGICAL: PSYCHIATRIC: LABS: No 36hr Lab Data DIAGNOSTICS: IMPRESSION: PLAN: History and Physical Update I have examined the patient; reviewed the H&P and there are no changes to the H&P unless noted below. [facility] 08-21-2023 Hospital Discharge instructions Patient Education 10/25/2022 09:48:34 Monitored Anesthesia Care, Care After Monitored Anesthesia Care, Care After These instructions provide you with information about caring for yourself after your procedure. Your health care provider may also give you more specific instructions. Your treatment has been plannedaccording to current medical practices, but problems sometimes occur. Call your health care provider if you have any problems or questions after your procedure. What can I expect after the procedure? After your procedure, you may: Feel sleepy for several hours. Feel clumsy and have poor balance for several hours. Feel forgetful about what happened after the procedure. Have poor judgment for several hours. Feel nauseous or vomit. Have a sore throat if you had a breathing tube during the procedure. Follow these instructions at home: For at least 24 hours after the procedure: Have a responsible adult stay with you. It is important to have someone help care for you until youare awake and alert. Rest as needed. Do not: ?Participate in activities in which you could fall or become injured. ?Drive. ?Use heavy machinery. ?Drink alcohol. ?Take sleeping pills or medicines that cause drowsiness. ?Make important decisions or sign legal documents. ?Take care of children on your own. Eating and drinking Follow the diet that is recommended by your health care provider. If you vomit, drink water, juice, or soup when you can drink without vomiting. Make sure you have little or no nausea before eating solid foods. General instructions Take ytjd-prx-suitapa and prescription medicines only as told by your health care provider. If you have sleep apnea, surgery and certain medicines can increase your risk for breathing problems. Follow instructions from your health care provider about wearing your sleep device: ?Anytime you are sleeping, including during daytime naps. ?While taking prescription pain medicines, sleeping medicines, or medicines that make you drowsy. If you smoke, do not smoke without supervision. Keep all follow-up visits as told by your health care provider. This is important. Contact a health care provider if: You keep feeling nauseous or you keep vomiting. You feel light-headed. You develop a rash. You have a fever. Get help right away if: You have trouble breathing. Summary For several hours after your procedure, you may feel sleepy and have poor judgment. Have a responsible adult stay with you for at least 24 hours or until you are awake and alert. This information is not intended to replace advice given to you by your health care provider. Make sure you discuss any questions you have with your health care provider. Document Released: 06/13/2016 Document Revised: 05/22/2018 Document Reviewed: 06/13/2016 [employer] Patient Education 2020 [employer] 10/25/2022 09:48:33 Colonoscopy, Adult, Care After Colonoscopy, Adult, Care After This sheet gives you information about how to care for yourself after your procedure. Your health care provider may also give you more specific instructions. If you have problems or questions, contact your health care provider. What can I expect after the procedure? After the procedure, it is common to have: A small amount of blood in your stool for 24 hours after the procedure. Some gas. Mild abdominal cramping or bloating. Follow these instructions at home: General instructions For the first 24 hours after the procedure: ?Do not drive or use machinery. ?Do not sign important documents. ?Do not drink alcohol. ?Do your regular daily activities at a slower pace than normal. ?Eat soft, pnei-dv-hkvdiv foods. Take zzpt-cay-sngtgom or prescription medicines only as told by your health care provider. Relieving cramping and bloating Try walking around when you have cramps or feel bloated. Apply heat to your abdomen as told by your health care provider. Use a heat source that your healthcare provider recommends, such as a moist heat pack or a heating pad. ?Place a towel between your skin and the heat source. ?Leave the heat on for 20 30 minutes. ?Remove the heat if your skin turns bright red. This is especially important if you are unable to feel pain, heat, or cold. You may have a greater risk of getting burned. Eating and drinking Drink enough fluid to keep your urine pale yellow. Resume your normal diet as instructed by your health care provider. Avoid heavy or fried foods thatare hard to digest. Avoid drinking alcohol for as long as instructed by your health care provider. Contact a health care provider if: You have blood in your stool 2 3 days after the procedure. Get help right away if: You have more than a small spotting of blood in your stool. You pass large blood clots in your stool. Your abdomen is swollen. You have nausea or vomiting. You have a fever. You have increasing abdominal pain that is not relieved with medicine. Summary After the procedure, it is common to have a small amount of blood in your stool. You may also have mild abdominal cramping and bloating. For the first 24 hours after the procedure, do not drive or use machinery, sign important documents, or drink alcohol. Contact your health care provider if you have a lot of blood in your stool, nausea or vomiting, a fever, or increased abdominal pain. This information is not intended to replace advice given to you by your health care provider. Make sure you discuss any questions you have with your health care provider. Document Released: 10/05/2004 Document Revised: 12/14/2017 Document Reviewed: 05/04/2016 [employer] Patient Education 2020 [employer]. Follow Up Care 10/06/2022 07:59:14 With:MICHAEL BENOIT Address: [address] [facility] [address] [place] [address] [phone] Business (1) [facility]: [facility] Summary of episode note Discharge Instructions Thank you for allowing [place] to assist you with your healthcare needs. The following is importantdischarge information regarding your hospital visit. Your Care Team JESSICA RAMESH MD What to do next Follow Up Appointments Follow Up with MICHAEL BENOIT When Where: [address] [facility] [address] [place] [address] [phone] Business (1) Allergies PROzac Septra Medications Please ask your primary doctor or pharmacist before taking any other medication not listed, including over the counter drugs, herbal medications, vitamins and or supplements as they may interact withyour home medications. What How Much When Instructions Last Dose Unchanged aspirin 81 Milligram by mouth Once a day Unchanged herbal/ nutritional product (Cinnamon 1000 mg capsule) Unchanged levothyroxine 100 Microgram IV Push (INT) Once a day Unchanged multivitamin with minerals (Calcium/ Magnesium/ Vit D) 1 TAB by mouth Once a day Unchanged rosuvastatin (rosuvastatin 10 mg oral tablet) 1 tab(s) by mouth Daily at bedtime Please take this list to your next doctor s visit. Bring all medications you take, including over the counter medications, herbals and other supplements with you to your doctor s visit. Patients and families are reminded to discard old lists and to update any records with all medication providers or retail pharmacies. Education Materials Monitored Anesthesia Care, Care After These instructions provide you with information about caring for yourself after your procedure. Your health care provider may also give you more specific instructions. Your treatment has been plannedaccording to current medical practices, but problems sometimes occur. Call your health care provider if you have any problems or questions after your procedure. What can I expect after the procedure? After your procedure, you may: Feel sleepy for several hours. Feel clumsy and have poor balance for several hours. Feel forgetful about what happened after the procedure. Have poor judgment for several hours. Feel nauseous or vomit. Have a sore throat if you had a breathing tube during the procedure. Follow these instructions at home: For at least 24 hours after the procedure: Have a responsible adult stay with you. It is important to have someone help care for you until youare awake and alert. Rest as needed. Do not: ? Participate in activities in which you could fall or become injured. ? Drive. ? Use heavy machinery. ? Drink alcohol. ? Take sleeping pills or medicines that cause drowsiness. ? Make important decisions or sign legal documents. ? Take care of children on your own. Eating and drinking Follow the diet that is recommended by your health care provider. If you vomit, drink water, juice, or soup when you can drink without vomiting. Make sure you have little or no nausea before eating solid foods. General instructions Take acgx-yij-cbpnlxx and prescription medicines only as told by your health care provider. If you have sleep apnea, surgery and certain medicines can increase your risk for breathing problems. Follow instructions from your health care provider about wearing your sleep device: ? Anytime you are sleeping, including during daytime naps. ? While taking prescription pain medicines, sleeping medicines, or medicines that make you drowsy. If you smoke, do not smoke without supervision. Keep all follow-up visits as told by your health care provider. This is important. Contact a health care provider if: You keep feeling nauseous or you keep vomiting. You feel light-headed. You develop a rash. You have a fever. Get help right away if: You have trouble breathing. Summary For several hours after your procedure, you may feel sleepy and have poor judgment. Have a responsible adult stay with you for at least 24 hours or until you are awake and alert. This information is not intended to replace advice given to you by your health care provider. Make sure you discuss any questions you have with your health care provider. Document Released: 06/13/2016 Document Revised: 05/22/2018 Document Reviewed: 06/13/2016 [employer] Patient Education 2020 [employer] Colonoscopy, Adult, Care After This sheet gives you information about how to care for yourself after your procedure. Your health care provider may also give you more specific instructions. If you have problems or questions, contact your health care provider. What can I expect after the procedure? After the procedure, it is common to have: A small amount of blood in your stool for 24 hours after the procedure. Some gas. Mild abdominal cramping or bloating. Follow these instructions at home: General instructions For the first 24 hours after the procedure: ? Do not drive or use machinery. ? Do not sign important documents. ? Do not drink alcohol. ? Do your regular daily activities at a slower pace than normal. ? Eat soft, skqv-vb-ytxduy foods. Take byxe-vaj-plhozcp or prescription medicines only as told by your health care provider. Relieving cramping and bloating Try walking around when you have cramps or feel bloated. Apply heat to your abdomen as told by your health care provider. Use a heat source that your healthcare provider recommends, such as a moist heat pack or a heating pad. ? Place a towel between your skin and the heat source. ? Leave the heat on for 20 30 minutes. ? Remove the heat if your skin turns bright red. This is especially important if you are unable to feel pain, heat, or cold. You may have a greater risk of getting burned. Eating and drinking Drink enough fluid to keep your urine pale yellow. Resume your normal diet as instructed by your health care provider. Avoid heavy or fried foods thatare hard to digest. Avoid drinking alcohol for as long as instructed by your health care provider. Contact a health care provider if: You have blood in your stool 2 3 days after the procedure. Get help right away if: You have more than a small spotting of blood in your stool. You pass large blood clots in your stool. Your abdomen is swollen. You have nausea or vomiting. You have a fever. You have increasing abdominal pain that is not relieved with medicine. Summary After the procedure, it is common to have a small amount of blood in your stool. You may also have mild abdominal cramping and bloating. For the first 24 hours after the procedure, do not drive or use machinery, sign important documents, or drink alcohol. Contact your health care provider if you have a lot of blood in your stool, nausea or vomiting, a fever, or increased abdominal pain. This information is not intended to replace advice given to you by your health care provider. Make sure you discuss any questions you have with your health care provider. Document Released: 10/05/2004 Document Revised: 12/14/2017 Document Reviewed: 05/04/2016 [employer] Patient Education 2020 [employer] Additional Information VACCINATE! IT SAVES LIVES! Members of the community who have not yet received the COVID-19 vaccine and would like to receive it can visit one of [facility] vaccine clinics. There are many vaccine clinic locations within the [facility]. For locations and available times, please visit https://gettheshot.coronavirus.[place].gov/. It is important to note that some COVID mobile vaccine clinics are held outdoors and may be canceled in rainy or stormy conditions. To learn more about pediatric vaccinations (ages 5-11), we invite you to visit the [employer] webpage. https://www.[employer].org/pages/8569-Fywls-Cfdvrcwkbce-Legcmdfnee-Rtwkg-Wsc stions.htmlTo learn more about the COVID-19 vaccine, we invite you to visit the CDC website for a list of frequently asked questions.https://www.cdc.gov/coronavirus/2019-ncov/vaccines/faq.html [employer] Patient Portal Access Instructions: Stay connected with your healthcare team and access your personal medical information anytime with the [employer] Patient Portal. Please follow the directions below to create your [employer] account: 1.Access the email account you provided upon registration to the hospital/physician office.2.Look for an invitation email from [facility].3.Open the email and access the invitation link: AcceptInvitation to [employer].4.Fill in the required madison to create your account. To access your account, visit [employer]. Click the blue button labeled Access Patient Portal and then log in with the username and password that you created in the steps above. You will be able to view your test results, lab results, a summary of your visits, upcoming appointments and more. There is also a convenient messaging option where you can send secure messages to your p rovider. In addition, you will have the ability to download any documents or summaries to your computer and/or send the information securely to a physician. Remember that your healthcare information is confidential, so carefully consider who you will allowto register on the [employer] Patient Portal for access to your information. You can also access the [facility] Patient Portal on the [place] [employer] rona. Simply click on Patient Portal and then log into your account. If you would like to receive a full copy of your medical records, please contact the [facility] Medical Records Department by calling [phone], Tuesday through Tuesday between 8 a.m. and 4:30 p.m. HOW TO SAFELY DISPOSE OF PRESCRIPTION MEDICATIONS Please use one of the following methods to safely dispose of your unused medications. 1.Use a drug disposal kit: the drug disposal pouch allows you to safely discard your old and unuseddrugs. Ask your nurse to give you one when you are discharged.2.Visit a local take-back location: Many local pharmacies and police departments have programs that collect old and unwanted prescriptiondrugs. Call your local pharmacy or go to http://Acclaimd.Kaiam/3S9Hy4k to find one close to you.3.Make use of household items: Use cat litter or old coffee grounds to dispose medications if other options arenot available. Mix your drugs with these household products, seal them in an airtight container andthrow it into the garbage. Call [facility]: [phone] to be sure your drugs can be disposed of in this way. Some medicines may require a different approach.4.Never flush your medications down the toilet. IF YOU HAVE BEEN PRESCRIBED AN OPIOID FOR PAIN If you have been prescribed an opioid (such as hydrocodone, oxycodone or morphine), it is critical to understand the possible side effects and risks of opioid pain medications. Even when taken as directed, opioids can have several side effects including: Tolerance, meaning you might need to take more of a medication for the same pain relief. Nausea, vomiting and/or constipation. Sleepiness, dizziness, dry mouth, confusion, depression or itching. Physical dependence, meaning you have withdrawal symptoms when a medication is stopped, can develop within a few days. KNOW YOUR RESPONSIBILITIES It is important to know exactly how much and how often to take the opioid pain medications you are prescribed. Never take opioids in higher amounts or more often than prescribed. Do not combine opioids with alcohol or other drugs that cause drowsiness, such as benzodiazepines, also known as benzos, including diazepam and alprazolam, muscle relaxants or sleep aids. Never sell or share prescription opioids. This is illegal. Store opioids in a secure place and out of reach of others (including children, family, friends and visitors). The last page of this document has been signed and retained as a CHART COPY. Signatures Patient Education Materials Monitored Anesthesia Care, Care After Colonoscopy, Adult, Care After Medication Leaflets My discharge plan and instructions have been reviewed and explained to me and I,TANISHA HANSON understand my current condition and have read and understand these discharge instructions. I have received a written copy of the plan/instructions. If I have questions, I am aware that I should contact my doctor. Patient/Per Diem Registered Nurse Signature: Date/Time: Relationship to Patient: Witness Name/Signature: Date/Time: [facility]08-21-2023 Anesthesiology Consult note Patient: TANISHA HANSON Age: 72 years Sex: Female : 1950 Associated Diagnoses: None Author: JOI STEIN Assessment Postanesthesia assessment Vitals: Reviewed Results: Vital signs from flowsheet : Vital Signs(Date Range: 10/24/2022 0:00 EDT -10/25/2022 9:49 EDT) . Mental status: at preoperative baseline. Respiratory function: lungs are clear to auscultation. Respiratory support: none. CV function: Normal rate. Cardiovascular support: none. Pain. Nausea status: denies nausea. Postoperative hydration status: within normal limits. Digitally Signed by JOI STEIN on 10/25/2022 09:49 AM [facility]08-21-2023 Note [place] ADMISSION HISTORY AND PHYSICIAL CHIEF COMPLAINT: HISTORY OF PRESENT ILLNESS: REVIEW OF SYSTEMS: ACTIVE PROBLEMS: (3) Hypercholesteremia (99165422) Hypothyroidism (32322820) Tobacco use ([id number]) MEDICATIONS: Active Inpt Meds: None Active PRN Meds: None One Time Meds: None Active IV Meds: Lactated Ringers Infusion 1,000 mL (LR 1,000 mL) Start: 10/25/22 7:36:00 EDT, Rate: 50 mL/hr, 10/25/22 7:36:00 EDT ALLERGIES: (2) PROzac Septra FAMILY HISTORY: SOCIAL HISTORY: PHYSICAL EXAM: VITALS: [id number](kg) 10/25 07:52----74--95RA10/25 70.0 24 Hr Tmax: No Data Available 36 Hr Tmax: No Data Available Vital Signs are the last 5 in the past 48 hours. Weights display the last 5 within 7 days. Initial Wt: 10/25 70.0 kg 154 lb Current Wt: 10/25 70.0 kg 154 lb GENERAL: HEENT: CARDIOVASCULAR: RESPIRATORY: ABDOMEN: EXREMETIES: NEUROLOGICAL: PSYCHIATRIC: LABS: No 36hr Lab Data DIAGNOSTICS: IMPRESSION: PLAN: History and Physical Update I have examined the patient; reviewed the H&P and there are no changes to the H&P unless noted below. Digitally Signed by MICHAEL BENOIT MD on 10/25/2022 09:04 AM [facility]08-21-2023 Anesthesiology Consult note Patient: TANISHA HANSON Age: 72 years Sex: Female : 1950 Associated Diagnoses: None Author: JOI STEIN Preoperative Information Time of last food or liquid consumption: 10/25/2022 05:00:00 Anesthesia history Patient's history: negative. Family's history: negative. Health Status Allergies: Allergic Reactions (Selected) Severity Not Documented PROzac- No reactions were documented. Septra- No reactions were documented., Allergies (2) ActiveReaction PROzacNone Documented SeptraNone Documented Current medications: (Selected) Inpatient Medications Ordered LR 1,000 mL: 50 mL/hr, Intravenous Documented Medications Documented Calcium/Magnesium/Vit D: 1 TAB, Oral, qDay, 0 Refill(s) Cinnamon 1000 mg capsule: 0 Refill(s) aspirin: 81 mg, Oral, qDay, 0 Refill(s) levothyroxine: 100 mcg, IV Push (INT), qDay, 0 Refill(s) rosuvastatin 10 mg oral tablet: 10 mg, 1 tab(s), Oral, qHS, 0 Refill(s), Medications (1) Active Scheduled: (0) Continuous: (1) Lactated Ringers Infusion 1,000 mL 1,000 mL, Intravenous, 50 mL/hr PRN: (0) Problem list: Medical Hypothyroidism / SNOMED CT 04652131 / Confirmed, Active Problems (2) Hypothyroidism Tobacco use Histories Past Medical History: No active or resolved past medical history items have been selected or recorded., 2018 carotid endarterectomy, smoker, Family History: Diabetes mellitus type 2 Mother Brain cancer Mother Father Procedure history: Diagnostic colonoscopy ([id number]) on 03/27/2018 at 67 Years. Comments: 03/27/2018 10:24 Caterina Cho RN multiple polypectomy Carotid artery ([id number]) on 03/07/2018 at 67 Years. H/O: hysterectomy ([id number]). delivery ([id number]). History of appendectomy (9996956685). History of total thyroidectomy (7938868085). History of tonsillectomy (9318380387). Social History Social & Psychosocial Habits Alcohol 03/27/2018 Use: Never Substance Abuse 03/27/2018 Use: Never Tobacco 03/27/2018 Tobacco Use: 10 or more cigarettes (1/ Type: Cigarettes . Physical Examination No qualifying data available General: Alert and oriented. Airway: Normal temporomandibular joint mobility. Mallampati classification: III (soft palate, base of uvula visible). Head: Normocephalic. Dentition Evaluation: Intact. Neck: Supple. Respiratory: Lungs are clear to auscultation. Cardiovascular: Normal rate. Heart Sounds: Normal. Gastrointestinal: Soft. Musculoskeletal Normal range of motion. Integumentary: Intact. Neurologic: Alert. Review / Management Results review: No qualifying data available . Assessment and Plan [place] [employer] Anesthesiologists (ASA) physical status classification: Class III. Anesthetic Preoperative Plan Premedication: None. Anesthetic technique: MAC. Induction: intravenously. Postoperative pain management: Per surgeon. Risks discussed: nausea, vomiting, headache, sore throat, dental injury, hypotension, allergic reaction, serious complications. Informed consent: signed by patient. Digitally Signed by JOI STEIN on 10/25/2022 07:[address] [facility] noteNo assessment information availableWSamaritan [facility] Work Phone: Evaluation note* Diagnosis Neck mass- Primary Swelling, mass, or lump in head and neck [facility] Diagnosis Neck mass Swelling, mass, or lump in head and neck [facility]* Diagnosis Substernal thyroid goiter- Primary Goiter, unspecified History of lobectomy of thyroid Parotid mass Swelling, mass, or lump in head and neck Tobacco use disorder Lesion of skin of face Unspecified disorder of skin and subcutaneous tissue [facility]* Diagnosis Parotid mass Swelling, mass, or lump in head and neck Substernal thyroid goiter Goiter, unspecified History of lobectomy of thyroid [facility] Diagnosis Substernal thyroid goiter- Primary Goiter, unspecified History of lobectomy of thyroid Parotid mass Swelling, mass, or lump in head and neck 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 Goiter, unspecified History of lobectomy of thyroid Parotid mass Swelling, mass, or lump in head and neck 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 [facility]* Diagnosis Substernal thyroid goiter- Primary Goiter, unspecified History of lobectomy of thyroid Parotid mass Swelling, mass, or lump in head and neck 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 Goiter, unspecified History of lobectomy of thyroid Parotid mass Swelling, mass, or lump in head and neck 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 Goiter, unspecified History of lobectomy of thyroid Parotid mass Swelling, mass, or lump in head and neck 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 [facility] Diagnosis Substernal thyroid goiter Goiter, unspecified History of lobectomy of thyroid Parotid mass Swelling, mass, or lump in head and neck 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 Preop testing- Primary Preoperative examination, unspecified Substernal thyroid goiter Goiter, unspecified History of lobectomy of thyroid Parotid mass Swelling, mass, or lump in head and neck 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 [facility] Narrative No data available for this section [facility] Reason for referral (narrative)No reason for referral information availableWSamaritan North Health Center Work Phone: Reason for visit Narrative* Diagnostic X-Ray (Routine) - Closed Specialty Diagnoses / Procedures Referred By Janay kimble Referred To Contact Radiology Diagnoses Neck mass Procedures CT NEURO IMAGE IMPORT(DEZ) DOWNLOAD POWERSHARE IMAGES TO [facility] Yaya Padilla MD [address] [place] [address] Phone: tel: fax: [facility] DI[facility]NOST[facility] RADIOLOG[facility] [address] [place] [address] Phone: tel: Referral ID Status Reason Start Date Expiration Date Visits Re quested Visits Authorized [id number] Closed 10/18/2024 10/18/2025 1 1 [facility] Tests/Procedures (Routine) - Authorized Specialty Diagnoses / Procedures Referred By Janay kimble Referred To Contact Pathology Diagnoses Parotid mass Substernal thyroid goiter History of lobectomy of thyroid Procedures [facility] Yaya Padilla MD [address] [place] [address] Phone: tel: fax: [facility] PATHOLOGY [address] [place] [address] Phone: tel: Referral ID Status Reason Start Date Expiration Date Visits Requested Visits Authorized [id number] [facility] 11/09/2024 11/09/2025 3 3 [facility]* Service Level Authorization (Routine) - Closed Specialty Diagnoses / Procedures Referred By Janay kimble Referred To Contact Anesthesiology Diagnoses Substernal thyroid goiter History of lobectomy of thyroid Parotid mass Warthin's tumor Yaya Padilla MD [address] [place] [address] Phone: tel: fax: [facility] [address] [place] [address] Phone: tel: Referral ID Status Reason Start Date Expiration Date Visits Re quested Visits Authorized [id number] Closed 11/21/2024 11/21/2025 1 1 [facility] Chief Complaint and Reason for Visit Chief Complaint OSTEO Chief Complaint OSTEO CAROTID ARTERY STENOSIS Chief Complaint OSTEO CAROTID ARTERY STENOSIS NICOTINE DEP Chief Complaint OSTEO CAROTID ARTERY STENOSIS NICOTINE DEP SCREENING Chief Complaint NICOTINE DEP SCREENING Chief Complaint EORDER Chief Complaint Nicotine dependence, cigarettes, uncomplicated Chief Complaint Admit Date SCREENING February 17, 2024 2:45pm SCREENING April 03, 2024 2 :30pm LOW BACK PAIN May 22, 2024 10: 21am Chief Complaint Admit Date SCREENING February 17, 2024 2:45pm SCREENING April 03, 2024 2 :30pm LOW BACK PAIN May 22, 2024 10: 21am OSTEO RX HERE May 29, 2024 9:1 1am Chief Complaint Admit Date SCREENING April 03, 2024 2 :30pm LOW BACK PAIN May 22, 2024 10: 21am OSTEO RX HERE June 05, 2024 10:0 0am Chief Complaint Admit Date LOW BACK PAIN May 22, 2024 10: 21am OSTEO RX HERE June 05, 2024 10:0 0am Chief Complaint Admit Date LOW BACK PAIN May 22, 2024 10: 21am OSTEO RX HERE June 05, 2024 10:0 0am STENOSIS September 04, 2024 9:45a m Chief Complaint Admit Date OSTEO RX HERE June 05, 2024 10:0 0am STENOSIS September 04, 2024 9:45a m NECK MASS September 28, 2024 3:42 pm Chief Complaint Admit Date STENOSIS September 04, 2024 9:45a m NECK MASS September 28, 2024 3:42 pm Iodine-deficiency related diffuse (endem ic) goiter Yesi 31st, 2025 12:50pm Chief Complaint Admit Date STENOSIS September 04, 2024 9:45a m NECK MASS September 28, 2024 3:42 pm Iodine-deficiency related diffuse (endem ic) goiter October 04, 2024 12:50pm left wrist pain December 04, 2024 9:43am Family History No Family History Records Found Relationship Condition Age at Onset Recorded Date/T [place] mother Hypertension Unknown Malignant neoplasm Unknown father Malignant neoplasm Unknown Advance Directives No Advanced Directives Records Found Advance Directive Response Recorded Date/ Time Living Will No January 31, 2 019 3:38pm Power of Picture Hanger No January 31, 2019 3:38pm Advance Directive Response Recorded Date/ Time Living Will No January 31 019 2:38pm Power of Picture Hanger No January 31, 2019 2:38pm Summary Purpose Additional Source Comments Goals (unrecognized section and content) Goals may be documented in a n alternate sectionGoals may be documented in an alternate sectionGoals may be documented in an alternate sectionGoals may be documented in an alternate sectionGoals may be documented in an alternate sectionGoals may be documented in an alternate sectionGoals may be documented in an alternate sectionGoals may be documented in an alternate section No data available for this sectionGoals may be documented in an alternate sectionGoals may be documented in an alternate sectionGoals may be documented in an alternate sectionGoals may be documented in an alternate sectionGoals may be documented in an alternate sectionGoals may be documented in an alternate sectionGoals may be documented in an alternate sectionGoals may be documented in an alternate sectionGoals may be documented in an alternate sectionGoals may be documented in an alternate sectionGoals may be documented in an alternate section Care Teams (unrecognized sec tion and content) Team Status: Active Member Role Status Dates Dr. Jessica Ramesh MD Family Provider Active Dr. Jessica Ramesh MD Primary Care Provider Active Team Status: Inactive Member Role Status Dates Dr. Jessica Ramesh MD Primary Care Pr ovider, Attending Provider, Referring Provider Active Team Status: Inactive Member Role Status Dates Dr. Jessica Ramesh MD Primary Care Provider, Attend ing Provider Active Team Status: Active Member Role Status Dates Dr. Jessica Ramesh MD Primary Care Pr ovider, Attending Provider, Referring Provider Active Team Status: Active Member Role Status Dates Dr. Jessica Ramesh MD Primary Care Provider Active Team Status: Inactive Member Role Status Dates Dr. Jessica Ramesh MD Primary Care Provider Active Start: February 17, 2024 End: February 17, 2024 Joanne Bright WEB DEVELOPMENT CONSULTANT, WEB DEVELOPMENT CONSULTANT-C Attending Provider Active S tart: February 17, 2024 End: February 17, 2024 Joanne Bright WEB DEVELOPMENT CONSULTANT, WEB DEVELOPMENT CONSULTANT-C Referring Provider Active S tart: February 17, 2024 End: February 17, 2024 Team Status: Inactive Member Role Status Dates Dr. Jessica Ramesh MD Primary Care Provider Active Start: April 03, 2024 End: April 03, 2024 Joanne Bright WEB DEVELOPMENT CONSULTANT, WEB DEVELOPMENT CONSULTANT-C Attending Provider Active S tart: April 03, 2024 End: April 03, 2024 Joanne Bright WEB DEVELOPMENT CONSULTANT, WEB DEVELOPMENT CONSULTANT-C Referring Provider Active S tart: April 03, 2024 End: April 03, 2024 Team Status: Inactive Member Role Status Dates Dr. Jessica Ramesh MD Primary Care Provider Active Start: May 15, 2024 End: May 15, 2024 Dr. Jessica Ramesh MD Attending Provider Active Start: May 15, 2024 End: May 15, 2024 Dr. Jessica Ramesh MD Referring Provider Active Start: May 15, 2024 End: May 15, 2024 Team Status: Active Member Role Status Dates Dr. Jessica Ramesh MD Primary Care Provider Active Start: May 22, 2024 Dr. Jessica Ramesh MD Attending Provider Active Start: May 22, 2024 Dr. Jessica Ramesh MD Referring Provider Active Start: May 22, 2024 Team Status: Inactive Member Role Status Dates Dr. Jessica Ramesh MD Primary Care Provider Active Start: May 22, 2024 End: May 22, 2024 Dr. Jessica Ramesh MD Attending Provider Active Start: May 22, 2024 End: May 22, 2024 Dr. Jessica Ramesh MD Referring Provider Active Start: May 22, 2024 End: May 22, 2024 Team Status: Active Member Role Status Dates Dr. Jessica Ramesh MD Primary Care Provider Active Start: May 29, 2024 Dr. Jessica Ramesh MD Attending Provider Active Start: May 29, 2024 Dr. Jessica Ramesh MD Referring Provider Active Start: May 29, 2024 Team Status: Inactive Member Role Status Dates Dr. Jessica Ramesh MD Primary Care Provider Active Start: June 05, 2024 End: June 05, 2024 Dr. Jessica Ramesh MD Attending Provider Active Start: June 05, 2024 End: June 05, 2024 Dr. Jessica Ramesh MD Referring Provider Active Start: June 05, 2024 End: June 05, 2024 Team Status: Inactive Member Role Status Dates Dr. Jessica Ramesh MD Primary Care Provider Active Start: August 17, 2024 End: August 17, 2024 Dr. Jessica Ramesh MD Attending Provider Active Start: August 17, 2024 End: August 17, 2024 Dr. Jessica Ramesh MD Referring Provider Active Start: August 17, 2024 End: August 17, 2024 Team Status: Active Member Role Status Dates Dr. Jessica Ramesh MD Primary Care Provider Active Start: August 21, 2024 Dr. Jessica Ramesh MD Attending Provider Active Start: August 21, 2024 Dr. Jessica Ramesh MD Referring Provider Active Start: August 21, 2024 Team Status: Inactive Member Role Status Dates Dr. Jessica Ramesh MD Primary Care Provider Active Start: August 21, 2024 End: August 21, 2024 Dr. Jessica Ramesh MD Attending Provider Active Start: August 21, 2024 End: August 21, 2024 Dr. Jessica Ramesh MD Referring Provider Active Start: August 21, 2024 End: August 21, 2024 Team Status: Active Member Role/Relationship Status Dates Dr. Jessica Ramesh MD Primary Care Provider Active Team Status: Inactive Member Role/Relationship Status Dates Dr. Jessica Ramesh MD Primary Care Provider Active Start: May 15, 2024 End: May 15, 2024 Dr. Jessica Ramesh MD Attending Provider Active Start: May 15, 2024 End: May 15, 2024 Dr. Jessica Ramesh MD Referring Provider Active Start: May 15, 2024 End: May 15, 2024 Team Status: Inactive Member Role/Relationship Status Dates Dr. Jessica Ramesh MD Primary Care Provider Active Start: May 22, 2024 End: May 22, 2024 Dr. Jessica Ramesh MD Attending Provider Active Start: May 22, 2024 End: May 22, 2024 Dr. Jessica Ramesh MD Referring Provider Active Start: May 22, 2024 End: May 22, 2024 Team Status: Inactive Member Role/Relationship Status Dates Dr. Jessica Ramesh MD Primary Care Provider Active Start: June 05, 2024 End: June 05, 2024 Dr. Jessica Ramesh MD Attending Provider Active Start: June 05, 2024 End: June 05, 2024 Dr. Jessica Ramesh MD Referring Provider Active Start: June 05, 2024 End: June 05, 2024 Team Status: Inactive Member Role/Relationship Status Dates Dr. Jessica Ramesh MD Primary Care Provider Active Start: August 17, 2024 End: August 17, 2024 Dr. Jessica Ramesh MD Attending Provider Active Start: August 17, 2024 End: August 17, 2024 Dr. Jessica Ramesh MD Referring Provider Active Start: August 17, 2024 End: August 17, 2024 Team Status: Inactive Member Role/Relationship Status Dates Dr. Jessica Ramesh MD Primary Care Provider Active Start: August 21, 2024 End: August 21, 2024 Dr. Jessica Ramesh MD Attending Provider Active Start: August 21, 2024 End: August 21, 2024 Dr. Jessica Ramesh MD Referring Provider Active Start: August 21, 2024 End: August 21, 2024 Team Status: Inactive Member Role/Relationship Status Dates Dr. Jessica Ramesh MD Primary Care Provider Active Start: September 04, 2024 End: September 04, 2024 Dr. Jessica Ramesh MD Attending Provider Active Start: September 04, 2024 End: September 04, 2024 Dr. Jessica Ramesh MD Referring Provider Active Start: September 04, 2024 End: September 04, 2024 Team Status: Active Member Role/Relationship Status Dates Dr. Jessica Ramesh MD Primary Care Provider Active Start: September 04, 2024 Dr. Oz Lopez MD Attending Provider Active S tart: September 04, 2024 Team Status: Inactive Member Role/Relationship Status Dates Dr. Jessica Ramesh MD Primary Care Provider Active Start: June 05, 2024 End: June 05, 2024 Dr. Jessica Ramesh MD Attending Provider Active Start: June 05, 2024 End: June 05, 2024 Dr. Jessica Ramesh MD Referring Provider Active Start: June 05, 2024 End: June 05, 2024 Team Status: Inactive Member Role/Relationship Status Dates Dr. Jessica Ramesh MD Primary Care Provider Active Start: August 17, 2024 End: August 17, 2024 Dr. Jessica Ramesh MD Attending Provider Active Start: August 17, 2024 End: August 17, 2024 Dr. Jessica Ramesh MD Referring Provider Active Start: August 17, 2024 End: August 17, 2024 Team Status: Inactive Member Role/Relationship Status Dates Dr. Jessica Ramesh MD Primary Care Provider Active Start: August 21, 2024 End: August 21, 2024 Dr. Jessica Ramesh MD Attending Provider Active Start: August 21, 2024 End: August 21, 2024 Dr. Jessica Ramesh MD Referring Provider Active Start: August 21, 2024 End: August 21, 2024 Team Status: Inactive Member Role/Relationship Status Dates Dr. Jessica Ramesh MD Primary Care Provider Active Start: September 04, 2024 Dr. Carmen Ivey MD Attending Provider Active Start: September 04, 2024 Team Status: Inactive Member Role/Relationship Status Dates Dr. Jessica Ramesh MD Primary Care Provider Active Start: September 04, 2024 End: September 04, 2024 Dr. Jessica Ramesh MD Attending Provider Active Start: September 04, 2024 End: September 04, 2024 Dr. Jessica Ramesh MD Referring Provider Active Start: September 04, 2024 End: September 04, 2024 Team Status: Active Member Role/Relationship Status Dates Dr. Jessica Ramesh MD Primary Care Provider Active Start: September 04, 2024 Dr. Jessica Ramesh MD Referring Provider Active Start: September 04, 2024 Dr. Oz Lopez MD Attending Provider Active S tart: September 04, 2024 Team Status: Inactive Member Role/Relationship Status Dates Dr. Jessica Ramesh MD Primary Care Provider Active Start: September 28, 2024 End: September 28, 2024 Dr. Jessica Ramesh MD Attending Provider Active Start: September 28, 2024 End: September 28, 2024 Dr. Jessica Ramesh MD Referring Provider Active Start: September 28, 2024 End: September 28, 2024 Team Status: Inactive Member Role/Relationship Status Dates Dr. Jessica Ramesh MD Primary Care Provider Active Start: August 17, 2024 End: August 17, 2024 Dr. Jessica Ramesh MD Attending Provider Active Start: August 17, 2024 End: August 17, 2024 Dr. Jessica Ramesh MD Referring Provider Active Start: August 17, 2024 End: August 17, 2024 Team Status: Inactive Member Role/Relationship Status Dates Dr. Jessica Ramesh MD Primary Care Provider Active Start: August 21, 2024 End: August 21, 2024 Dr. Jessica Ramesh MD Attending Provider Active Start: August 21, 2024 End: August 21, 2024 Dr. Jessica Ramesh MD Referring Provider Active Start: August 21, 2024 End: August 21, 2024 Team Status: Inactive Member Role/Relationship Status Dates Dr. Jessica Ramesh MD Primary Care Provider Active Start: September 04, 2024 Dr. Carmen Ivey MD Attending Provider Active Start: September 04, 2024 Team Status: Inactive Member Role/Relationship Status Dates Dr. Jessica Ramesh MD Primary Care Provider Active Start: September 04, 2024 End: September 04, 2024 Dr. Jessica Ramesh MD Attending Provider Active Start: September 04, 2024 End: September 04, 2024 Dr. Jessica Ramesh MD Referring Provider Active Start: September 04, 2024 End: September 04, 2024 Team Status: Active Member Role/Relationship Status Dates Dr. Jessica Ramesh MD Primary Care Provider Active Start: September 04, 2024 Dr. Jessica Ramesh MD Referring Provider Active Start: September 04, 2024 Dr. Oz Lopez MD Attending Provider Active S tart: September 04, 2024 Team Status: Inactive Member Role/Relationship Status Dates Dr. Jessica Ramesh MD Primary Care Provider Active Start: September 28, 2024 End: September 28, 2024 Dr. Jessica Ramesh MD Attending Provider Active Start: September 28, 2024 End: September 28, 2024 Dr. Jessica Ramesh MD Referring Provider Active Start: September 28, 2024 End: September 28, 2024 Team Status: Inactive Member Role/Relationship Status Dates Dr. Jessica Ramesh MD Primary Care Provider Active Start: October 04, 2024 End: October 04, 2024 Dr. Jessica Ramesh MD Attending Provider Active Start: October 04, 2024 End: October 04, 2024 Dr. Jessica Ramesh MD Referring Provider Active Start: October 04, 2024 End: October 04, 2024 Television Writer Relationship Specialty Start Date End Date Yaya Padilla MD [address] [place] [id number] Physician Otolaryngology 11/10/24 Television Writer Relationship Specialty Start Date End Date Yaya Padilla MD [address] [place] [id number] Physician Otolaryngology 11/10/24 Television Writer Relationship Specialty Start Date End Date Yaya Padilla MD [address] [place] [id number] Physician Otolaryngology 11/10/24 Television Writer Relationship Specialty Start Date End Date Yaya Padilla MD [address] [place] [id number] Physician Otolaryngology 11/10/24 Team Status: Active Member Role/Relationship Status Dates Dr. Jessica Ramesh MD Primary care physician Active Team Status: Inactive Member Role/Relationship Status Dates Dr. Jessica Ramesh MD Primary care physician Active Start: September 04, 2024 Dr. Carmen Ivey MD Attending physician Active Start: September 04, 2024 Team Status: Inactive Member Role/Relationship Status Dates Dr. Jessica Ramesh MD Primary care physician Active Start: September 04, 2024 End: September 04, 2024 Dr. Jessica Ramesh MD Attending physician Active Start: September 04, 2024 End: September 04, 2024 Dr. Jessica Ramesh MD Referring Provider Active Start: September 04, 2024 End: September 04, 2024 Team Status: Active Member Role/Relationship Status Dates Dr. Jessica Ramesh MD Primary care physician Active Start: September 04, 2024 Dr. Jessica Ramesh MD Referring Provider Active Start: September 04, 2024 Dr. Oz Lopez MD Attending physician Active Start: September 04, 2024 Team Status: Inactive Member Role/Relationship Status Dates Dr. Jessica Ramesh MD Primary care physician Active Start: September 28, 2024 End: September 28, 2024 Dr. Jessica Ramesh MD Attending physician Active Start: September 28, 2024 End: September 28, 2024 Dr. Jessica Ramesh MD Referring Provider Active Start: September 28, 2024 End: September 28, 2024 Team Status: Inactive Member Role/Relationship Status Dates Dr. Jessica Ramesh MD Primary care physician Active Start: October 04, 2024 End: October 04, 2024 Dr. Jessica Ramesh MD Attending physician Active Start: October 04, 2024 End: October 04, 2024 Dr. Jessica Ramesh MD Referring Provider Active Start: October 04, 2024 End: October 04, 2024 Team Status: Inactive Member Role/Relationship Status Dates Dr. Jessica Ramesh MD Primary care physician Active Start: December 04, 2024 End: December 04, 2024 Enmanuel Toribio WEB DEVELOPMENT CONSULTANT, WEB DEVELOPMENT CONSULTANT-C Attending physician Active Start: December 04, 2024 End: December 04, 2024 Enmanuel Toribio WEB DEVELOPMENT CONSULTANT, WEB DEVELOPMENT CONSULTANT-C Referring Provider Active Start: December 04, 2024 End: December 04, 2024 Team Status: Inactive Member Role/Relationship Status Dates Dr. Jessica Ramesh MD Primary care physician Active Start: December 20, 2024 End: December 20, 2024 Dr. Jessica Ramesh MD Attending physician Active Start: December 20, 2024 End: December 20, 2024 Team Status: Inactive Member Role/Relationship Status Dates Dr. Jessica Ramesh MD Primary care physician Active Start: December 25, 2024 End: December 25, 2024 Dr. 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 Relationship Specialty Start Date End Date Yaya Padilla MD [facility] [place] [address] Physician Otolaryngology 11/10/24 INFORMATION SOURCE (unrecogn ized section and content) DATE CREATED AUTHOR 10/06/2022 [facility] ([place]) DATE CREATED AUTHOR AUTHOR'S ORGANIZ ATION 10/16/2024 [facility] DATE CREATED AUTHOR AUTHOR'S ORGANIZ ATION 01/01/2025 [facility] DATE CREATED AUTHOR AUTHOR'S ORGANIZ ATION 01/10/2025 [facility] [employer] [facility] Reason for Visit (unrecogniz ed section and content) Reason Onset Date Comments Claudia Referral 10/18/2024 Reason Comments New patient, to establish relationship L ump on right side of neck Reason Comments thyroid mass S/p US guided FNA FOR RECORDS PERTAINING TO PATIENTS WHO ARE OR HAVE BEEN ENROLLED IN A CHEMICAL DEPENDENCY/SUBSTANCEABUSE PROGRAM, SOME INFORMATION MAY BE OMITTED. This clinical summary was aggregated from multiple sources. Caution should be exercised in using it in the provision of clinical care. This summary normalizes information from multiple sources, and as a consequence, information in this document may materially change the coding, format and clinical context of patient data. In addition, data may be omitted in some cases. CLINICAL DECISIONS SHOULD BE BASED ON THE PRIMARY CLINICAL RECORDS. [email or web address] provides no warranty or guarantee of the accuracy or completeness of information in this document.
[2025-01-29 10:58] LABS: PTHIN 3 pg/mL (11-61)
[2025-01-29 11:14] LABS: Albumin, Serum 3.3 g/dL (3.4-4.8); Calcium 9.5 mg/dL (7.6-11.0); Magnesium 1.7 mg/dL (1.5-2.2); Vitamin D,25 Hydroxy 30.4 ng/mL (30-100)
== END | disposition home or self-care (01) ==
PROVIDERS: PCP Family Medicine; Referring Provider Otolaryngology; Visit Provider Otolaryngology
DX: E04.9 Nontoxic goiter, unspecified (principal); E20.9 Hypoparathyroidism, unspecified; Z90.09 Acquired absence of other part of head and neck
CPT/HCPCS: 36415; 82040; 82306; 82310; 83735; 83970

== ENCOUNTER → 2025-02-15 | Outpatient (CLI) | payer MEDICARE, SELFPAY ==
[2025-02-15 10:56] LABS: Albumin, Serum 4.2 g/dL (3.4-4.8); Calcium 11.6 mg/dL (7.6-11.0)
[2025-02-15 11:00] LABS: PTHIN 6 pg/mL (11-61)
== END | disposition home or self-care (01) ==
LOC: LAB 09:37
PROVIDERS: PCP Family Medicine
DX: E89.2 Postprocedural hypoparathyroidism (principal)
CPT/HCPCS: 36415; 82040; 82310; 83970